=== PATIENT | female | born 1970 | race Caucasian/White ===

== ENCOUNTER 2016-07-31 03:39 | Emergency (ER) | payer MEDICAID ==
[2016-07-31] MEDS ORDERED: NORMAL SALINE 1000 ML 1,000 ML IV ONE (04:21)
[2016-07-31] MEDS ORDERED: HYDROMORPHONE HCL INJ/PF 2 MG/ML AMPULE IV ONE ×2 (04:21→05:36)
[2016-07-31] MEDS ORDERED: PROMETHAZINE HCL INJ 25 MG/1 ML VIAL IM ONE (04:21)
--- NOTE | 2016-07-31 04:26 | ER Document Report ---
ED GI/ - General Chief Complaint: Flank Pain Stated Complaint: FLANK PAIN Time seen by provider: 04:15 Notes: Patient is a 45-year-old female that comes emergency department for chief complaint of left flank pain and vomiting 2, symptoms started earlier today. Patient has a history of kidney stones, states she has had multiple lithotripsies, she is unsure if she had a fever earlier. No change in bowel function. Patient also states she has a history of epilepsy, she has had a hysterectomy, appendectomy, right ovarian removal. TRAVEL OUTSIDE OF THE [place] IN LAST 30 DAYS: No - Related Data Allergies/Adverse Reactions: ibuprofen Allergy (Unknown, Unverified 04/03/16 19:25) ketorolac [From Toradol] Allergy (Unknown, Verified 04/03/16 19:25) meperidine [From Demerol] Allergy (Unknown, Verified 04/03/16 19:25) codeine Allergy (Verified 04/03/16 19:25) iodine Allergy (Verified 04/03/16 19:25) morphine Allergy (Verified 04/03/16 19:25) sumatriptan [From Imitrex] Allergy (Verified 04/03/16 19:25) tramadol [From Ultram] Allergy (Verified 04/03/16 19:25) Past Medical History - General Information source: Patient - Social History Smoking Status: Current Every Day Smoker Chew tobacco use (# tins/day): No Frequency of alcohol use: None Drug Abuse: None Lives with: Family Family History: Reviewed & Not Pertinent Patient has suicidal ideation: No Patient has homicidal ideation: No Neurological Medical History: Reports: Hx Seizures Renal/ Medical History: Reports: Hx Kidney Stones. Denies: Hx Peritoneal Dialysis GI Medical History: Reports: Hx Ulcer Psychiatric Medical History: Reports: Hx Anxiety Past Surgical History: Reports: Hx Appendectomy, Hx Section, Hx Gynecologic Surgery - Right Ovary, Hx Hysterectomy - Immunizations Immunizations up to date: Yes Hx Diphtheria, Pertussis, Tetanus Vaccination: Yes Review of Systems - Review of Systems Constitutional: No symptoms reported EENT: No symptoms reported Cardiovascular: No symptoms reported Respiratory: No symptoms reported Gastrointestinal: See HPI Genitourinary: See HPI Female Genitourinary: No symptoms reported Musculoskeletal: No symptoms reported Skin: No symptoms reported Hematologic/Lymphatic: No symptoms reported Neurological/Psychological: No symptoms reported Physical Exam - Vital signs Vitals: Temp Pulse Resp BP Pulse Ox 98.5 F 106 H 20 138/79 H 98 07/31/16 03:45 07/31/16 03:45 07/31/16 03:45 07/31/16 03:45 07/31/16 03:45 Interpretation: Normal - General General appearance: Appears well, Alert In distress: None - HEENT Head: Normocephalic, Atraumatic Eyes: Normal Conjunctiva: Normal Extraocular movements intact: Yes Eyelashes: Normal Pupils: PERRL Sinus: Normal Nasal: Normal Mouth/Lips: Normal Mucous membranes: Normal Pharynx: Normal Neck: Normal - Respiratory Respiratory status: No respiratory distress Chest status: Nontender Breath sounds: Normal Chest palpation: Normal - Cardiovascular Rhythm: Regular. No: Tachycardia - No tachycardia on my exam Heart sounds: Normal auscultation, S1 appreciated, S2 appreciated Murmur: No - Abdominal Inspection: Normal Distension: No distension Bowel sounds: Normal Tenderness: Nontender - Soft and nontender abdomen. No: Tender, Guarding Organomegaly: No organomegaly - Back Back: CVA tenderness - Tender only in the left flank, right flank is unremarkable - Extremities General upper extremity: Normal inspection, Nontender, Normal color, Normal ROM , Normal temperature General lower extremity: Normal inspection, Nontender, Normal color, Normal ROM , Normal temperature, Normal weight bearing. No: Mary's sign - Neurological Neuro grossly intact: Yes Cognition: Normal Orientation: AAOx4 [place] Coma Scale Eye Opening: Spontaneous Stephen Coma Scale Verbal: Oriented [place] Coma Scale Motor: Obeys Commands [place] Coma Scale Total: 15 Speech: Normal Motor strength normal: LUE, RUE, LLE, RLE Sensory: Normal - Psychological Associated symptoms: Normal affect, Normal mood - Skin Skin Temperature: Warm Skin Moisture: Dry Skin Color: Normal Course - Re-evaluation Re-evalutation: Ultrasound performed, patient states she has had many CAT scans. Discussed with Dr. Lewis per [facility] guidelines. CBC shows mild leukocytosis, urine shows hematuria with 1+ bacteria, culture placed. No fever. Soft abdomen. Patient with flank tenderness on the left side, absolutely no tenderness on the right side, however ultrasound shows mild right-sided hydronephrosis and only left nephrolithiasis with no concerning abnormalities. Clinical picture slightly inconsistent. Patient and her abdomen treated with pain medication, nausea medication. No vomiting. Patient appears and continued to appear alert and well-appearing. Giving nausea medicine, patient has Flomax, patient instructed to follow-up with urology for additional management. Discussed return precautions. Patient states understanding and agreement. - Vital Signs Vital signs: Temp Pulse Resp BP Pulse Ox 98.7 F 87 18 112/72 97 07/31/16 06:33 07/31/16 06:33 07/31/16 06:33 07/31/16 06:33 07/31/16 06:33 - Laboratory Result Diagrams: 07/31/16 04:29 07/31/16 04:29 Laboratory results interpreted by me: 07/31/16 07/31/16 03:55 04:29 WBC 14.0 H Absolute Neutrophils 9.1 H Urine Blood LARGE H Discharge - Discharge Clinical Impression: Nephrolithiasis, Hematuria Vomiting Qualifiers: Vomiting type: unspecified Vomiting Intractability: non-intractable Nausea presence: with nausea Qualified Code(s): R11.2 - Nausea with vomiting, unspecified Condition: Stable Disposition: HOME, SELF-CARE Additional Instructions: Ultrasound shows slight amount of fluid on the kidney on the right side, not on the left side, there are stones on the left side. No evidence of infection is seen. Continue Flomax, take nausea medication and pain medication. Follow-up with urology referral given below. Return immediately to the emergency department for any concerning or worsening symptoms including uncontrollable vomiting, fever, severe pain, etc. There are 2 offices, one with limited openings in [place], others in [place]: [facility] [address] [place] [id number] [facility] [address], [place] [address] Prescriptions: Promethazine HCl [Phenergan 25 mg Tablet] 1 - 2 tab PO Q6H PRN #20 tablet PRN Reason:
[2016-07-31 04:37] LABS: ABSOLUTE BASOPHILS # (AUTO) 0.1 10^3/uL (0.0-0.2); ABSOLUTE EOSINOPHILS # (AUTO) 0.2 10^3/uL (0.0-0.6); ABSOLUTE LYMPHOCYTES (AUTO) 3.8 10^3/uL (0.5-4.7); ABSOLUTE MONOCYTES (AUTO) 0.8 10^3/uL (0.1-1.4); ABSOLUTE NEUT (AUTO) 9.1 10^3/uL (1.7-8.2); BASOPHILS % (AUTO) 0.8 % (0-2); EOSINOPHILS % (AUTO) 1.5 % (0-6); HEMATOCRIT 45.2 % (36.0-47.0); HEMOGLOBIN 14.9 g/dL (12.0-15.5); HGB HCT DIFFERENCE -0.5; MEAN CORPUSCULAR HEMOGLOBIN 30.8 pg (27.0-33.4); MEAN CORPUSCULAR HGB CONC 32.9 g/dL (32.0-36.0); MEAN CORPUSCULAR VOLUME 94 fl (80-97); MONOCYTES % (AUTO) 5.6 % (3-13); RED BLOOD COUNT 4.83 10^6/uL (3.72-5.28); RED CELL DISTRIBUTION WIDTH 13.4 % (11.5-14.0); SEGMENTED NEUTROPHILS % (AUTO) 65.1 % (42-78)
[2016-07-31 04:42] LABS: APPEARANCE,URINE SLIGHTLY-CLOUDY; BILIRUBIN,URINE NEGATIVE (NEGATIVE); GLUCOSE, URINE NEGATIVE (NEGATIVE); KETONES,URINE NEGATIVE (NEGATIVE); LEUKOCYTE ESTERASE,URINE NEGATIVE (NEGATIVE); NITRITE,URINE NEGATIVE (NEGATIVE); PROTEIN,URINE NEGATIVE (NEGATIVE); URINE SPECIFIC GRAVITY 1.011; UROBILINOGEN,URINE NEGATIVE mg/dL (<2.0)
[2016-07-31] MEDS ORDERED: PROMETHAZINE HCL INJ 25 MG/1 ML VIAL ONE (04:46)
[2016-07-31 04:49] LABS: ANION GAP 12 (5-19); BLOOD UREA NITROGEN 11 mg/dL (7-20); CARBON DIOXIDE 27 mmol/L (22-30); CHLORIDE 104 mmol/L (98-107); GLUCOSE 97 mg/dL (75-110); POTASSIUM 4.6 mmol/L (3.6-5.0); SODIUM 142.9 mmol/L (137-145)
[2016-07-31] MEDS ORDERED: HYDROCODONE/ACETAMINOPHEN 5-325 MG 6 TAB/DSPK PO PRN (05:36)
[2016-07-31] MEDS ORDERED: ONDANSETRON HCL INJ/PF 4 MG/2 ML SDV IV ONE (05:36)
[2016-07-31 06:36] VITALS: BP 112/72
== END 2016-07-31 06:20 | disposition home or self-care (01) ==
LOC: ER 03:39
DX: N20.0 Calculus of kidney (principal); R31.9 Hematuria, unspecified; R11.2 Nausea with vomiting, unspecified; R10.9 Unspecified abdominal pain; F17.200 Nicotine dependence, unspecified, uncomplicated; Z87.442 Personal history of urinary calculi; Z88.6 Allergy status to analgesic agent
CPT/HCPCS: 96376; 99284; 96372; 96361; 96374; 96375; 36415; 87086; 85025; 80048; 81001; 76775; J1170; J2550; J2405; J7030

== ENCOUNTER 2016-08-07 01:09 | Emergency (ER) | payer MEDICAID ==
[2016-08-07] MEDS ORDERED: NORMAL SALINE 1000 ML 1,000 ML IV PRN (02:29)
[2016-08-07] MEDS ORDERED: PROCHLORPERAZINE EDISYLATE INJ 10 MG/2 ML VIAL IM ONE (02:30)
[2016-08-07] MEDS ORDERED: DIPHENHYDRAMINE HCL 50 MG/ML VIAL IV ONE (02:30)
[2016-08-07] MEDS ORDERED: HYDROCODONE/ACETAMINOPHEN 5-325 MG 6 TAB/DSPK PO PRN (02:31)
--- NOTE | 2016-08-07 02:36 | ER Document Report ---
ED GI/ - General Chief Complaint: Flank Pain Stated Complaint: FLANK PAIN Time seen by provider: 02:32 Mode of Arrival: Ambulatory Information source: Patient Notes: 45-year-old female presents to ED for left flank pain nausea and vomiting for the last 2 weeks worse tonight. Patient states she has vomited at least 6 times in the last 24 hours patient states she took Tylenol at 1900 with no relief. TRAVEL OUTSIDE OF THE [place] IN LAST 30 DAYS: No - HPI Patient complains to provider of: Flank pain, Vomiting Onset: Other - 2 weeks worse starting yesterday Timing/Duration: Intermittent Quality of pain: Sharp, Throbbing Severity at maximum: Severe Severity in ED: Severe Pain Level: 5 Location: Left flank Vaginal bleeding (Compared to normal period): None Associated symptoms: Nausea, Vomiting Exacerbated by: Denies Relieved by: Denies Similar symptoms previously: Yes Recently seen / treated by doctor: Yes - Related Data Allergies/Adverse Reactions: ibuprofen Allergy (Unknown, Unverified 04/03/16 19:25) ketorolac [From Toradol] Allergy (Unknown, Verified 04/03/16 19:25) meperidine [From Demerol] Allergy (Unknown, Verified 04/03/16 19:25) aspirin Allergy (Verified 08/07/16 01:16) codeine Allergy (Verified 04/03/16 19:25) egg Allergy (Verified 08/07/16 01:16) iodine Allergy (Verified 04/03/16 19:25) Latex, Natural Rubber Allergy (Verified 08/07/16 01:16) morphine Allergy (Verified 04/03/16 19:25) shellfish derived Allergy (Verified 08/07/16 01:16) sumatriptan [From Imitrex] Allergy (Verified 04/03/16 19:25) tramadol [From Ultram] Allergy (Verified 04/03/16 19:25) Past Medical History - General Information source: Patient - Social History Smoking Status: Current Every Day Smoker Cigarette use (# per day): Yes - half pack a day Chew tobacco use (# tins/day): No Smoking Education Provided: Yes - less than 2 minutes Frequency of alcohol use: Rare Drug Abuse: None Occupation: disabled Lives with: Alone Family History: Arthritis, CAD, COPD, CVA, DM, Hyperlipidemia, Hypertension, Malignancy - Past Medical History Cardiac Medical History: Reports: None Pulmonary Medical History: Reports: Hx Asthma EENT Medical History: Reports: None Neurological Medical History: Reports: Hx Seizures Endocrine Medical History: Reports: None Renal/ Medical History: Reports: Hx Kidney Stones, Hx Ovarian Cysts GI Medical History: Reports: Hx Ulcer Musculoskeltal Medical History: Reports Hx Arthritis, Reports Hx Musculoskeletal Trauma Skin Medical History: Reports None Psychiatric Medical History: Reports: Hx Anxiety, Hx Depression Traumatic Medical History: Reports: Hx Fractures - Hands wrist knees multiple others Infectious Medical History: Reports: None Past Surgical History: Reports: Hx Appendectomy, Hx Section, Hx Gynecologic Surgery - Right Ovary, Hx Hysterectomy - Immunizations Immunizations up to date: Yes Hx Diphtheria, Pertussis, Tetanus Vaccination: Yes Review of Systems - Review of Systems Constitutional: Recent illness EENT: No symptoms reported Cardiovascular: No symptoms reported Respiratory: No symptoms reported Gastrointestinal: Nausea, Vomiting Genitourinary: Dysuria, Flank pain Female Genitourinary: No symptoms reported Musculoskeletal: No symptoms reported Skin: No symptoms reported Hematologic/Lymphatic: No symptoms reported Neurological/Psychological: No symptoms reported -: Yes All other systems reviewed and negative Physical Exam - Vital signs Vitals: Temp Pulse BP Pulse Ox 99.0 F 120 H 143/73 H 97 08/07/16 01:15 08/07/16 01:15 08/07/16 01:15 08/07/16 01:15 Interpretation: Normal - General General appearance: Appears well, Alert - HEENT Head: Normocephalic, Atraumatic Eyes: Normal Pupils: PERRL - Respiratory Respiratory status: No respiratory distress Chest status: Nontender Breath sounds: Normal Chest palpation: Normal - Cardiovascular Rhythm: Regular Heart sounds: Normal auscultation Murmur: No - Abdominal Inspection: Normal Distension: No distension Bowel sounds: Normal Tenderness: Nontender Organomegaly: No organomegaly - Back Back: Normal, Nontender, CVA tenderness - Left. No: Tender, Deformity/step-off , Vertebra tenderness, Scars, Scoliosis, Wounds, Other - Extremities General upper extremity: Normal inspection, Nontender, Normal color, Normal ROM , Normal temperature General lower extremity: Normal inspection, Nontender, Normal color, Normal ROM , Normal temperature, Normal weight bearing. No: Mary's sign - Neurological Neuro grossly intact: Yes Cognition: Normal Orientation: AAOx4 [place] Coma Scale Eye Opening: Spontaneous [place] Coma Scale Verbal: Oriented Stephen Coma Scale Motor: Obeys Commands [place] Coma Scale Total: 15 Speech: Normal Motor strength normal: LUE, RUE, LLE, RLE Sensory: Normal - Psychological Associated symptoms: Normal affect, Normal mood - Skin Skin Temperature: Warm Skin Moisture: Dry Skin Color: Normal Course - Re-evaluation Re-evalutation: 08/07/16 04:[address] Jackson for pain WBCs the patient's medical history. She recommended. Patient be treated with Rocephin IV in the emergency room and discharged home with Keflex prescription. We'll also discharge home with prescription for Phenergan. Patient was given 2 L of IV fluid, Phenergan by mouth, Benadryl Iv, norco dispense pack for her pyelonephritis. 08/07/16 04:50 Pulse 95 at this time, patient has had a liter of fluids. - Vital Signs Vital signs: Temp Pulse Resp BP Pulse Ox 98.7 F 93 18 132/75 H 94 08/07/16 05:44 08/07/16 05:44 08/07/16 05:44 08/07/16 05:44 08/07/16 05:44 - Laboratory Result Diagrams: 08/07/16 03:28 08/07/16 03:28 Laboratory results interpreted by me: 08/07/16 08/07/16 01:37 03:28 WBC 21.8 H Seg Neuts % (Manual) 84 H Lymphocytes % (Manual) 12 L Abs Neuts (Manual) 18.3 H Urine Blood LARGE H Ur Leukocyte Esterase TRACE H Discharge - Discharge Clinical Impression: Pyelonephritis, Hematuria Vomiting Qualifiers: Vomiting type: unspecified Vomiting Intractability: non-intractable Nausea presence: with nausea Qualified Code(s): R11.2 - Nausea with vomiting, unspecified Condition: Stable Disposition: HOME, SELF-CARE Instructions: Family Physicians / Practices Additional Instructions: Pyelonephritis Your evaluation shows evidence of pyelonephritis. This is an infection in the kidney. Typical symptoms are fever, pain in the flank, pain on urination, and frequent urination. Many cases of pyelonephritis can be treated at home. Hospital care may be necessary for patients who are very ill, or elderly or . Pyelonephritis is treated with antibiotics. Be sure to take all the medication as prescribed. Drink plenty of liquids (about three quarts per day) . You may take acetaminophen for fever. You should feel significantly improved within two days. You should have a recheck of your urine in about one week to insure that the infection is gone. Return for a re-examination if your symptoms worsen in any way -- such as high fever, shaking chills, severe weakness or dizziness, severe pain, or inability to pass your urine. Hematuria Hematuria, or blood in your urine, can be caused by minor medical problems , such as a bladder infection, or by more serious medical conditions, such as kidney stones or even tumors of the bladder or kidney. If the cause of the hematuria is known (such as a bladder infection) and can be treated, it may not need further evaluation. If the cause is not known, it will usually require further evaluation by a specialist, such as a urologist. In particular, unexplained hematuria in the older patient must be evaluated to rule out a serious condition, such as a bladder or kidney tumor. If the hematuria worsens or you are passing clots and then are unable to urinate, you should be re-evaluated. A catheter may need to be placed in the bladder to permit passage of urine. If you develop high fever, severe pain, or other new or worsening symptoms, return to the Emergency Department for re- evaluation.Hematuria Rocephin You have been given an injection of an antibiotic called Rocephin ( ceftriaxone). Sometimes the injection must be combined with antibiotic pills. For some infections, such as an uncomplicated ear infection, Rocephin provides all the antibiotic that's needed. The antibiotic will be in your body for about two days. For serious infections, we usually repeat doses of Rocephin daily. Side effects are very unusual following a shot. Women may develop vaginal yeast infections, and babies can get yeast (thrush) in the mouth following the use of antibiotics. Contact your physician if you have symptoms with this medication. Allergy to this antibiotic can result in hives, wheezing, faintness, or itching. If symptoms of allergy occur, call the doctor at once. Cephalexin The antibiotic you've been prescribed is a member of the cephalosporin class. This type of antibiotic covers a wide variety of infections, including those of the skin, lungs, and urinary tract. It's useful for staph infections. This antibiotic is slightly similar to the penicillin family. In rare cases , a person who is allergic to penicillin will also be allergic to this medication. If you have had a severe allergic reaction to penicillin, and have not taken this antibiotic since that time, notify your doctor. Antibiotics which cover many germs ("broad spectrum" antibiotics) are more likely to cause diarrhea or "yeast" infections. Women prone to vaginal yeast problems may suffer an attack after taking this antibiotic. In infants, oral thrush (white spots "stuck" on the cheek) or yeast diaper rash may result. See your doctor if these problems occur. Call at once if you develop itching, hives , shortness of breath, or lightheadedness. Antinausea Medication You have been given a medication to suppress nausea and vomiting. This type of medication can be given as a shot, pill, or suppository. It will usually last for many hours. Pills and shots usually last six to eight hours, suppositories last about 12 hours. For the typical illness, only one or two doses of the medication may be necessary. Mild lightheadedness may occur. This type of medicine can cause drowsiness. Do not drive or operate dangerous machinery while under its influence. Do not mix with alcohol. See your doctor at once if you have muscle spasms or tightness, or uncontrollable motions (particularly of the neck, mouth, or jaw). Persistent vomiting or severe lightheadedness should also be evaluated by the physician. Intravenous (IV) Fluids As part of your care today, you received intravenous (IV) fluids. IV fluids are administered to patients who are dehydrated or to those who have certain chemical (electrolyte) abnormalities that need correcting. FOLLOW-UP CARE: If you have been referred to a physician for follow-up care, call the physician s office for an appointment as you were instructed or within the next two days. If you experience worsening or a significant change in your symptoms, notify the physician immediately or return to the Emergency Department at any time for re-evaluation. Please call your primary doctor in the morning and follow-up with a urologist as you has been instructed the last couple visits. [facility] [address] [place] [address] Telephone number Prescriptions: Promethazine HCl [Phenergan 25 mg Tablet] 25 mg PO Q6HP PRN #14 tablet PRN Reason: Cephalexin Monohydrate [Keflex 500 mg Capsule] 500 mg PO QID #28 capsule Forms: Smoking Cessation Education, Elevated Blood Pressure
[2016-08-07] MEDS ORDERED: PROMETHAZINE HCL 25 MG TABLET PO ONE (03:53)
[2016-08-07 04:06] LABS: HEMATOCRIT 41.1 % (36.0-47.0); HEMOGLOBIN 13.9 g/dL (12.0-15.5); HGB HCT DIFFERENCE 0.6; MEAN CORPUSCULAR HGB CONC 33.7 g/dL (32.0-36.0); MEAN CORPUSCULAR VOLUME 92 fl (80-97); RED BLOOD COUNT 4.47 10^6/uL (3.72-5.28); RED CELL DISTRIBUTION WIDTH 13.5 % (11.5-14.0); WHITE BLOOD COUNT 21.8 10^3/uL (4.0-10.5)
[2016-08-07 04:15] LABS: ALANINE AMINOTRANSFERASE 31 U/L (9-52); ALBUMIN 3.8 g/dL (3.5-5.0); ALKALINE PHOSPHATASE 109 U/L (38-126); ANION GAP 11 (5-19); ASPARTATE AMINO TRANSFERASE 21 U/L (14-36); BILIRUBIN,TOTAL 0.3 mg/dL (0.2-1.3); BLOOD UREA NITROGEN 14 mg/dL (7-20); CALCIUM 9.8 mg/dL (8.4-10.2); CARBON DIOXIDE 27 mmol/L (22-30); CHLORIDE 105 mmol/L (98-107); CREATININE RESULT 0.58 mg/dL (0.52-1.25); GLUCOSE 101 mg/dL (75-110); POTASSIUM 4.3 mmol/L (3.6-5.0); SODIUM 142.7 mmol/L (137-145); TOTAL PROTEIN 6.9 g/dL (6.3-8.2)
[2016-08-07 04:29] LABS: BASOPHILS % (MANUAL) 0 % (0-2); EOSINOPHILS % (MANUAL) 0 % (0-6); LYMPHOCYTES % (MANUAL) 12 % (13-45); RBC MORPHOLOGY COMMENT NORMO-CYTIC/CHROMIC; TOTAL CELLS COUNTED 100
[2016-08-07] MEDS ORDERED: CEFTRIAXONE RTU 1 GM/D5W 50 ML IV ONE (04:36)
[2016-08-07] MEDS ORDERED: HYDROMORPHONE HCL INJ/PF 2 MG/ML AMPULE IV ONE (04:36)
[2016-08-07 05:22] LABS: APPEARANCE,URINE SLIGHTLY-CLOUDY; BILIRUBIN,URINE NEGATIVE (NEGATIVE); GLUCOSE, URINE NEGATIVE (NEGATIVE); KETONES,URINE NEGATIVE (NEGATIVE); LEUKOCYTE ESTERASE,URINE TRACE (NEGATIVE); NITRITE,URINE NEGATIVE (NEGATIVE); PROTEIN,URINE NEGATIVE (NEGATIVE); URINE SPECIFIC GRAVITY 1.015; UROBILINOGEN,URINE NEGATIVE mg/dL (<2.0)
[2016-08-07 05:30] LABS: URINE BARBITURATES SCREEN NEGATIVE; URINE METHADONE SCREEN NEGATIVE; URINE OPIATES LOW NEGATIVE; URINE PHENCYCLIDINE SCREEN NEGATIVE
[2016-08-07 05:53] VITALS: BP 132/75
== END 2016-08-07 05:45 | disposition home or self-care (01) ==
LOC: ER 01:09
DX: N12 Tubulo-interstitial nephritis, not specified as acute or chronic (principal); R31.9 Hematuria, unspecified; R11.2 Nausea with vomiting, unspecified; R10.9 Unspecified abdominal pain; F17.210 Nicotine dependence, cigarettes, uncomplicated
CPT/HCPCS: 99284; 96361; 96375; 96365; 36415; 87086; 85025; 80053; 81001; 80307; J1200; J1170; J3490; J7030; J0696

== ENCOUNTER 2016-09-15 01:56 | Emergency (ER) | payer MEDICAID ==
[2016-09-15 02:37] LABS: HEMATOCRIT 48.2 % (36.0-47.0); HEMOGLOBIN 16.3 g/dL (12.0-15.5); HGB HCT DIFFERENCE 0.7; MEAN CORPUSCULAR HGB CONC 33.7 g/dL (32.0-36.0); MEAN CORPUSCULAR VOLUME 92 fl (80-97); RED BLOOD COUNT 5.25 10^6/uL (3.72-5.28); RED CELL DISTRIBUTION WIDTH 13.2 % (11.5-14.0)
[2016-09-15 02:40] LABS: APPEARANCE,URINE CLOUDY; BILIRUBIN,URINE NEGATIVE (NEGATIVE); GLUCOSE, URINE NEGATIVE (NEGATIVE); KETONES,URINE NEGATIVE (NEGATIVE); LEUKOCYTE ESTERASE,URINE TRACE (NEGATIVE); NITRITE,URINE NEGATIVE (NEGATIVE); PROTEIN,URINE 30 mg/dL (NEGATIVE); URINE SPECIFIC GRAVITY 1.021; UROBILINOGEN,URINE NEGATIVE mg/dL (<2.0)
[2016-09-15 02:44] LABS: ALANINE AMINOTRANSFERASE 36 U/L (9-52); ALBUMIN 4.8 g/dL (3.5-5.0); ALKALINE PHOSPHATASE 113 U/L (38-126); ANION GAP 17 (5-19); ASPARTATE AMINO TRANSFERASE 22 U/L (14-36); BILIRUBIN,TOTAL 0.5 mg/dL (0.2-1.3); BLOOD UREA NITROGEN 13 mg/dL (7-20); CALCIUM 10.5 mg/dL (8.4-10.2); CARBON DIOXIDE 22 mmol/L (22-30); CHLORIDE 101 mmol/L (98-107); CREATININE RESULT 0.63 mg/dL (0.52-1.25); GLUCOSE 206 mg/dL (75-110); LIPASE 65.1 U/L (23-300); POTASSIUM 3.7 mmol/L (3.6-5.0); SODIUM 140.4 mmol/L (137-145); TOTAL PROTEIN 7.7 g/dL (6.3-8.2)
[2016-09-15 02:58] LABS: WHITE BLOOD COUNT 33.2 10^3/uL (4.0-10.5)
[2016-09-15] MEDS ORDERED: MORPHINE SULFATE 10 MG/ML INJ IV PRN (03:01)
[2016-09-15] MEDS ORDERED: NORMAL SALINE 1000 ML 1,000 ML IV ONE (03:02)
[2016-09-15 03:05] LABS: BAND NEUTROPHILS % (MANUAL) 1 % (3-5); BASOPHILS % (MANUAL) 0 % (0-2); EOSINOPHILS % (MANUAL) 1 % (0-6); LYMPHOCYTES % (MANUAL) 9 % (13-45); TOTAL CELLS COUNTED 100
[2016-09-15 03:07] LABS: RBC MORPHOLOGY COMMENT NORMO-CYTIC/CHROMIC; TOXIC GRANULATION SLIGHT
[2016-09-15 03:50] LABS: VENOUS BLOOD BASE EXCESS 0.9 mmol/L; VENOUS BLOOD HCO3 25.3 mmol/L (20-32); VENOUS BLOOD PCO2 39.8 mmHg (35-63); VENOUS BLOOD PH 7.42 (7.30-7.42)
--- NOTE | 2016-09-15 04:05 | ER Document Report ---
ED GI/ - General Mode of Arrival: Ambulatory Information source: Patient TRAVEL OUTSIDE OF THE [place] IN LAST 30 DAYS: No - HPI Patient complains to provider of: Flank pain - right Onset: Other - see above Timing/Duration: Persistent Quality of pain: Sharp Location: Right flank Associated symptoms: Nausea, Vomiting Similar symptoms previously: Yes Recently seen / treated by doctor: Yes <LIDIA ASENCIO - Last Filed: 09/15/16 05:45> <ALICIA ANGELES - Last Filed: 09/15/16 06:13> - General Chief Complaint: Flank Pain Stated Complaint: POSSIBLE KIDNEY STONES Notes: Patient is a 45-year-old female that presents to the emergency department today with complaints of right-sided flank pain. Patient states her pain began 2 days ago. Patient states she has a history of kidney stones with over 20 lithotripsy procedures done for any removal. Patient states her urine is darker than normal. Patient states she has had mild nausea and vomiting but denies any fevers. (LIDIA ASENCIO) - Related Data Allergies/Adverse Reactions: ibuprofen Allergy (Unknown, Unverified 04/03/16 19:25) ketorolac [From Toradol] Allergy (Unknown, Verified 04/03/16 19:25) meperidine [From Demerol] Allergy (Unknown, Verified 04/03/16 19:25) aspirin Allergy (Verified 08/07/16 01:16) codeine Allergy (Verified 04/03/16 19:25) egg Allergy (Verified 08/07/16 01:16) iodine Allergy (Verified 04/03/16 19:25) Latex, Natural Rubber Allergy (Verified 08/07/16 01:16) morphine Allergy (Verified 04/03/16 19:25) shellfish derived Allergy (Verified 08/07/16 01:16) sumatriptan [From Imitrex] Allergy (Verified 04/03/16 19:25) tramadol [From Ultram] Allergy (Verified 04/03/16 19:25) Past Medical History - General Information source: Patient - Social History Smoking Status: Current Every Day Smoker Cigarette use (# per day): Yes Chew tobacco use (# tins/day): No Frequency of alcohol use: Rare Drug Abuse: None Lives with: Family Family History: Reviewed & Not Pertinent Patient has suicidal ideation: No Patient has homicidal ideation: No Pulmonary Medical History: Reports: Hx Asthma Neurological Medical History: Reports: Hx Seizures Renal/ Medical History: Reports: Hx Kidney Stones, Hx Ovarian Cysts GI Medical History: Reports: Hx Ulcer Musculoskeltal Medical History: Reports Hx Arthritis, Reports Hx Musculoskeletal Trauma Psychiatric Medical History: Reports: Hx Anxiety, Hx Depression Traumatic Medical History: Reports: Hx Fractures - Hands wrist knees multiple others Past Surgical History: Reports: Hx Appendectomy, Hx Section, Hx Gynecologic Surgery - Right Ovary, Hx Hysterectomy, Other - Lithotripsy over 20 times - Immunizations Immunizations up to date: Yes Hx Diphtheria, Pertussis, Tetanus Vaccination: Yes <LIDIA ASENCIO - Last Filed: 09/15/16 05:45> Review of Systems - Review of Systems Constitutional: denies: Fever EENT: No symptoms reported Cardiovascular: No symptoms reported Respiratory: No symptoms reported Gastrointestinal: See HPI, Nausea, Vomiting Genitourinary: See HPI, Flank pain, Hematuria Female Genitourinary: No symptoms reported Musculoskeletal: No symptoms reported Skin: No symptoms reported Hematologic/Lymphatic: No symptoms reported Neurological/Psychological: No symptoms reported -: Yes All other systems reviewed and negative <LIDIA ASENCIO Last Filed: 09/15/16 05:45> Physical Exam - General General appearance: Appears well, Alert In distress: None - HEENT Head: Normocephalic, Atraumatic Eyes: Normal Extraocular movements intact: Yes - Respiratory Respiratory status: No respiratory distress Chest status: Nontender Breath sounds: Normal - Cardiovascular Rhythm: Regular, Irregularly irregular Heart sounds: Normal auscultation Murmur: No - Abdominal Inspection: Normal Distension: No distension Bowel sounds: Normal Tenderness: Nontender - Back Back: CVA tenderness - right - Extremities General upper extremity: Normal inspection, Normal ROM. No: Edema General lower extremity: Normal inspection, Normal ROM. No: Edema - Neurological Neuro grossly intact: Yes Cognition: Normal Orientation: AAOx4 Speech: Normal - Psychological Associated symptoms: Normal affect, Normal mood - Skin Skin Temperature: Warm Skin Moisture: Dry Skin Color: Normal <LIDIA ASENCIO - Last Filed: 09/15/16 05:45> Course - Laboratory Result Diagrams: 09/15/16 02:13 09/15/16 02:13 <LIDIA ASENCIO - Last Filed: 09/15/16 05:45> - Laboratory Result Diagrams: 09/15/16 02:13 09/15/16 02:13 <ALICIA ANGELES - Last Filed: 09/15/16 06:13> - Re-evaluation Re-evalutation: 09/15/16 05:10 Patient resents complaining of right flank pain. She says she has a history of multiple stones. She says she's had multiple stenting and lithotripsy. The patient says that she was here but a month ago for same. She says that her pain is usually on the left but now the pain has been on the right. The patient's states she's had nausea vomiting with this. She denies any fevers. She denies any burning when she urinates or increase for frequency but says that it is dark. On exam, patient alert and oriented chest also still patient is afebrile nontoxic appearing. Patient has generally unremarkable exam with exception of some tenderness in the flank region on mild percussion. Abdomen soft nontender without peritoneal findings. Medical decision making: Patient has a reported history of multiple episodes of ureterolithiasis. On review of her medical record it appears that the last couple of time she has been here she has only had nephrolithiasis without any obstructive ureterolithiasis. Her white count is elevated today and her blood glucose is also elevated. She denies history of diabetes and wonder if she may have recently been on a course of steroids that she has not recalled. The patient is a smoker. Her last visit to the ED her white count was also similarly elevated at that time and it was decided to treat her empirically for pyelo. Given this laboratory abnormality, we will get an ultrasound of the kidneys. We'll treat empirically for urinary tract infection albeit the urinalysis does not appear grossly infected. Patient has multiple medication allergies and so thiazine type medications are being used for nausea and pain. Please note that patient is on the "A list" for narcotic medications. 09/15/16 05:58 09/15/16 06:10 I gave patient results of her tests which showed an unremarkable ultrasound and I did discuss with her the elevated white cell count that has been seen the last 2 times she has visited here. She denied any recent steroid use. She is not a diabetic. I told her that we would empirically start her on some antibiotics although I was not convinced that she is having a urinary tract infection. She is to follow-up with her urologist at her already scheduled Sunday appointment, however I have asked her to follow-up with her medical doctor for repeat labs to evaluate further for this white blood cell count elevation. Patient acknowledges understanding and agrees with the plan. (ALICIA ANGELES) - Vital Signs Vital signs: Temp Pulse Resp BP Pulse Ox 97.8 F 127 H 16 118/83 97 09/15/16 02:02 09/15/16 02:02 09/15/16 04:01 09/15/16 04:00 09/15/16 04:01 - Laboratory Laboratory results interpreted by me: 09/15/16 09/15/16 09/15/16 02:13 02:13 02:13 WBC 33.2 H* Hgb 16.3 H Hct 48.2 H Band Neutrophils % 1 L Lymphocytes % (Manual) 9 L Abs Neuts (Manual) 25.9 H Abs Monocytes (Manual) 2.7 H Glucose 206 H Lactic Acid Calcium 10.5 H Urine Protein 30 H Urine Blood LARGE H Ur Leukocyte Esterase TRACE H Urine Ascorbic Acid 40 H 09/15/16 03:22 WBC Hgb Hct Band Neutrophils % Lymphocytes % (Manual) Abs Neuts (Manual) Abs Monocytes (Manual) Glucose Lactic Acid 2.9 H Calcium Urine Protein Urine Blood Ur Leukocyte Esterase Urine Ascorbic Acid Discharge <LIDIA ASENCIO - Last Filed: 09/15/16 05:45> <ALICIA ANGELES - Last Filed: 09/15/16 06:13> - Discharge Clinical Impression: Flank pain Leukocytosis Qualifiers: Leukocytosis type: unspecified Qualified Code(s): D72.829 - Elevated white blood cell count, unspecified UTI (urinary tract infection) Qualifiers: Urinary tract infection type: site unspecified Hematuria presence: with hematuria Qualified Code(s): N39.0 - Urinary tract infection, site not specified ; R31.9 - Hematuria, unspecified Condition: Stable Disposition: HOME, SELF-CARE Instructions: Urinary Tract Infection ([facility]) Additional Instructions: Your exam and ultrasound in the emergency department was unremarkable. Please follow-up with your physicians for ongoing evaluation and management of your chronic flank pain. Take antibiotics as prescribed for presumed urinary tract infection. Follow-up with primary physician for repeat labs for increased white blood cell count of unknown significance (since your August 2016). Return to emergency department for fevers greater than 100.3 despite Tylenol or Motrin, vomiting so not to keep down fluids, or other worsening or concerning symptoms. Chronic Pain Control Stress, inactivity, and depression make pain more severe regardless of the cause of the pain. Stress and poor physical condition can cause pain such as headaches and backache. Relaxation: Rest in a quiet place with your eyes closed for 20 minutes twice daily. Concentrate on a pleasant image, or simply "feel" your breathing. Clear your mind. Stress management: Deal with your "stressors." Either take action, or eliminate the stressor from your life. Don't let things hang over you. Accept those things you can't change. Nutrition: Eat small, balanced meals -- don't skip, don't overeat. Meals should be high-carbohydrate, low-sugar, low-fat. Exercise: Exercise helps painful conditions and eases stress. Get 30 minutes of moderate exercise, five days a week. Do an activity that does not flare your pain. Precautions: Pain which continues to disrupt daily activities, or which changes in nature, requires a medical evaluation. Pain Clinic referral is available. Pain Management Dr. Bora Madrigal [address] [place] [address] We do not manage chronic pain in the Emergency Department. We will try to appropriately help you through an acute flare of your chronic painful condition , but for on-going chronic pain that does not improve, you will need to see your private doctor or paint spray tender. We do not provide repeated medication management of chronic painful conditions. If you wish, we can provide the name of local pain management physicians. Prescriptions: Cephalexin Monohydrate [Keflex 500 mg Capsule] 500 mg PO QID #20 capsule Scribe Attestation: 09/15/16 06:07 I personally performed the services described in the documentation, reviewed and edited the documentation which was dictated to the scribe in my presence, and it accurately records my words and actions. (ALICIA ANGELES) Scribe Documentation - Scribe Written by Keith:: Keith Markham, 09/15/2016 0418 acting as scribe for :: Landeros <LIDIA ASENCIO - Last Filed: 09/15/16 05:45>
[2016-09-15] MEDS ORDERED: DIPHENHYDRAMINE HCL 50 MG/ML VIAL IV ONE (04:24)
[2016-09-15] MEDS ORDERED: METOCLOPRAMIDE HCL INJ/PF 10 MG/2 ML SDV IV ONE (04:24)
[2016-09-15] MEDS ORDERED: PROMETHAZINE HCL INJ 25 MG/1 ML VIAL IV ONE (05:05)
[2016-09-15] MEDS ORDERED: PROMETHAZINE HCL INJ 25 MG/1 ML VIAL ONE (05:13)
[2016-09-15] MEDS ORDERED: CEPHALEXIN 500 MG CAPSULE PO ONE (06:01)
[2016-09-15 06:21] VITALS: BP 116/83
== END 2016-09-15 06:21 | disposition home or self-care (01) ==
LOC: ER 01:56
DX: N39.0 Urinary tract infection, site not specified (principal); R31.9 Hematuria, unspecified; D72.829 Elevated white blood cell count, unspecified; R73.9 Hyperglycemia, unspecified; R11.2 Nausea with vomiting, unspecified; R10.9 Unspecified abdominal pain; J45.909 Unspecified asthma, uncomplicated; F17.210 Nicotine dependence, cigarettes, uncomplicated; Z87.442 Personal history of urinary calculi; Z98.890 Other specified postprocedural states; Z88.6 Allergy status to analgesic agent; Z88.8 Allergy status to other drugs, medicaments and biological substances; Z88.5 Allergy status to narcotic agent; Z91.012 Allergy to eggs; Z91.040 Latex allergy status; Z91.013 Allergy to seafood
CPT/HCPCS: 99284; 96361; 96374; 96375; 36415; 87040; 87086; 83690; 85025; 80053; 81001; 82803; 83605; 76770; J1200; J2765; J2550; J7030

== ENCOUNTER 2016-11-15 06:22 | Emergency (ER) | payer MEDICAID ==
[2016-11-15] MEDS ORDERED: OXYCODONE-ACETAMINOPHEN 5-325 MG TABLET ONE (09:53)
== END 2016-11-15 11:25 | disposition home or self-care (01) ==
LOC: ER 06:22
DX: G40.909 Epilepsy, unspecified, not intractable, without status epilepticus (principal); M25.531 Pain in right wrist; S52.501D Unspecified fracture of the lower end of right radius, subsequent encounter for closed fracture with routine healing; W19.XXXD Unspecified fall, subsequent encounter; F43.9 Reaction to severe stress, unspecified; Z87.442 Personal history of urinary calculi; Z90.710 Acquired absence of both cervix and uterus
CPT/HCPCS: 99283

== ENCOUNTER 2016-11-26 15:38 | Emergency (ER) | payer MEDICAID ==
--- NOTE | 2016-11-26 16:35 | RADIOLOGY REPORT (SQ) ---
EXAM DESCRIPTION: FOREARM RIGHT COMPLETED DATE/TIME: 11/26/2016 4:24 pm REASON FOR STUDY: pain COMPARISON: 11/15/2016 NUMBER OF VIEWS: Two views. TECHNIQUE: Two radiographic images acquired of the right forearm, including elbow and wrist in at le ast one projection. LIMITATIONS: Study is limited somewhat due to the overlying cast. FINDINGS: MINERALIZATION: Normal. BONES: The previously described fracture of the distal radius is again identified. SOFT TISSUES: No obvious swelling or foreign body. OTHER: Orthopedic pins are identified transfixing the distal radius. IMPRESSION: Overlying cast. Orthopedic pins are identified transfixing the distal radius. Other fi ndings as noted above TECHNICAL DOCUMENTATION: JOB ID: [id number] [employer]- All Rights Reserved
--- NOTE | 2016-11-26 16:41 | ER Document Report ---
ED General - General Chief Complaint: Arm Pain Stated Complaint: RIGHT ARM INJURY Time Seen by Provider: 11/26/16 15:46 Information source: Patient TRAVEL OUTSIDE OF THE [place] IN LAST 30 DAYS: No - HPI Onset: Just prior to arrival Quality of pain: Achy, Throbbing Pain Level: 2 Associated symptoms: None - Related Data Allergies/Adverse Reactions: ibuprofen Allergy (Unknown, Unverified 04/03/16 19:25) ketorolac [From Toradol] Allergy (Unknown, Verified 04/03/16 19:25) meperidine [From Demerol] Allergy (Unknown, Verified 04/03/16 19:25) aspirin Allergy (Verified 08/07/16 01:16) codeine Allergy (Verified 04/03/16 19:25) egg Allergy (Verified 08/07/16 01:16) iodine Allergy (Verified 04/03/16 19:25) Latex, Natural Rubber Allergy (Verified 08/07/16 01:16) morphine Allergy (Verified 04/03/16 19:25) shellfish derived Allergy (Verified 08/07/16 01:16) sumatriptan [From Imitrex] Allergy (Verified 04/03/16 19:25) tramadol [From Ultram] Allergy (Verified 04/03/16 19:25) Past Medical History - General Information source: Patient - Social History Smoking Status: Current Every Day Smoker Family History: Reviewed & Not Pertinent Pulmonary Medical History: Reports: Hx Asthma Neurological Medical History: Reports: Hx Seizures Renal/ Medical History: Reports: Hx Kidney Stones, Hx Ovarian Cysts. Denies: Hx Peritoneal Dialysis GI Medical History: Reports: Hx Ulcer Musculoskeltal Medical History: Reports Hx Arthritis, Reports Hx Musculoskeletal Trauma Psychiatric Medical History: Reports: Hx Anxiety, Hx Depression Traumatic Medical History: Reports: Hx Fractures - Hands wrist knees multiple others Past Surgical History: Reports: Hx Appendectomy, Hx Section, Hx Gynecologic Surgery - Right Ovary, Hx Hysterectomy, Other - Lithotripsy over 20 times - Immunizations Immunizations up to date: Yes Hx Diphtheria, Pertussis, Tetanus Vaccination: Yes Review of Systems - Review of Systems Constitutional: No symptoms reported EENT: No symptoms reported Cardiovascular: No symptoms reported Respiratory: No symptoms reported Gastrointestinal: No symptoms reported Genitourinary: No symptoms reported Female Genitourinary: No symptoms reported Musculoskeletal: No symptoms reported Skin: No symptoms reported Hematologic/Lymphatic: No symptoms reported Neurological/Psychological: No symptoms reported Physical Exam - Vital signs Vitals: Temp Pulse Resp BP Pulse Ox 98.3 F 106 H 16 160/75 H 95 11/26/16 15:42 11/26/16 15:42 11/26/16 15:42 11/26/16 15:42 11/26/16 15:42 Interpretation: Normal - General General appearance: Appears well, Alert - HEENT Head: Normocephalic, Atraumatic Eyes: Normal Pupils: PERRL - Respiratory Respiratory status: No respiratory distress Chest status: Nontender Breath sounds: Normal Chest palpation: Normal - Cardiovascular Rhythm: Regular Heart sounds: Normal auscultation Murmur: No - Abdominal Inspection: Normal Distension: No distension Bowel sounds: Normal Tenderness: Nontender Organomegaly: No organomegaly - Back Back: Normal, Nontender - Extremities General upper extremity: Normal inspection, Nontender, Normal color, Normal ROM , Normal temperature General lower extremity: Normal inspection, Nontender, Normal color, Normal ROM , Normal temperature, Normal weight bearing. No: Mary's sign - Neurological Neuro grossly intact: Yes Cognition: Normal Orientation: AAOx4 [place] Coma Scale Eye Opening: Spontaneous Stephen Coma Scale Verbal: Oriented Stephen Coma Scale Motor: Obeys Commands [place] Coma Scale Total: 15 Speech: Normal Motor strength normal: LUE, RUE, LLE, RLE Sensory: Normal - Psychological Associated symptoms: Normal affect, Normal mood - Skin Skin Temperature: Warm Skin Moisture: Dry Skin Color: Normal Course - Re-evaluation Re-evalutation: 11/26/16 16:38 46-year-old female presented to the emergency room today stating she had discomfort to her right wrist the same location where she fell and previously broken she does have pinholing in place. She does have a splint on and she fell striking that area and has pain to it since. She states the fall occurred on Sunday night. She has got rapid capillary refill good distal pulses. Should be noted that she is taking Percocet for pain she freely admits that needs some help take the edge off beyond that. 11/26/16 16:38 - Vital Signs Vital signs: Temp Pulse Resp BP Pulse Ox 98.3 F 106 H 16 160/75 H 95 11/26/16 15:42 11/26/16 15:42 11/26/16 15:42 11/26/16 15:42 11/26/16 15:42 - Diagnostic Test Radiology reviewed: Image reviewed, Reports reviewed Discharge - Discharge Clinical Impression: Wrist fracture Qualifiers: Encounter type: subsequent encounter Laterality: right Fracture healing: with delayed healing Qualified Code(s): S62.101G - Fracture of unspecified carpal bone, right wrist, subsequent encounter for fracture with delayed healing Disposition: HOME, SELF-CARE Additional Instructions: Radial Head Fracture You have a fracture of the radial head. This fracture involves the forearm bone, called the radius, right where it attaches to the outer side of the elbow. The fracture is usually caused by falling down and catching yourself with your hand. The initial treatment is a splint or sling, and ice packs. Usually, this fracture is not put in a cast. The major treatment goal for a radial head fracture is preserving full motion of the elbow. The elbow is immobilized just long enough for the pain and swelling to improve (a week to 10 days). Then [id number] exercises are started. The fracture is usually healed in about four weeks. Call the doctor or return at once if pain or swelling become severe, or if numbness develops in the arm. OP your current orthopedist continue take medications as prescribed by her orthopedist being the Vicodin I will be providing with some medication to help above and beyond that. Prescriptions: Gabapentin [Neurontin 100 mg Capsule] 100 mg PO Q12 #60 capsule
[2016-11-26 17:39] VITALS: BP 130/84
== END 2016-11-26 17:28 | disposition home or self-care (01) ==
LOC: ER 15:38
DX: S62.101G Fracture of unspecified carpal bone, right wrist, subsequent encounter for fracture with delayed healing (principal); M79.601 Pain in right arm; F17.200 Nicotine dependence, unspecified, uncomplicated; X58.XXXD Exposure to other specified factors, subsequent encounter
CPT/HCPCS: 99283

== ENCOUNTER 2017-03-21 03:03 | Emergency (ER) | payer MEDICAID ==
[2017-03-21] MEDS ORDERED: NORMAL SALINE 1000 ML 1,000 ML IV ONE ×2 (03:58→06:19)
[2017-03-21] MEDS ORDERED: DIPHENHYDRAMINE HCL 50 MG/ML VIAL IV ONE (03:58)
[2017-03-21] MEDS ORDERED: ONDANSETRON HCL INJ/PF 4 MG/2 ML SDV IV ONE (03:58)
[2017-03-21 03:59] LABS: APPEARANCE,URINE CLOUDY; BILIRUBIN,URINE NEGATIVE (NEGATIVE); CALCIUM OXALATE CRYSTALS,URINE FEW /HPF; GLUCOSE, URINE NEGATIVE (NEGATIVE); KETONES,URINE NEGATIVE (NEGATIVE); LEUKOCYTE ESTERASE,URINE TRACE (NEGATIVE); NITRITE,URINE NEGATIVE (NEGATIVE); PROTEIN,URINE NEGATIVE (NEGATIVE); URINE SPECIFIC GRAVITY 1.023; UROBILINOGEN,URINE NEGATIVE mg/dL (<2.0)
[2017-03-21] MEDS ORDERED: PROMETHAZINE HCL 25 MG TABLET PO ONE (04:03)
--- NOTE | 2017-03-21 04:05 | ER Document Report ---
ED Medical Screen (RME) - General Chief Complaint: Possible Kidney Stone Stated Complaint: LEFT SIDE PAIN Time Seen by Provider: 03/21/17 04:03 Notes: 46-year-old female, chief complaint of sudden onset of left flank pain this afternoon, reports vomiting. History of multiple kidney stones, multiple lithotripsies, stents. No current stent. Also has had a hysterectomy. Denies fever. TRAVEL OUTSIDE OF THE [place] IN LAST 30 DAYS: No - Related Data Allergies/Adverse Reactions: ibuprofen Allergy (Unknown, Verified 03/21/17 03:05) ketorolac [From Toradol] Allergy (Unknown, Verified 03/21/17 03:05) meperidine [From Demerol] Allergy (Unknown, Verified 03/21/17 03:05) aspirin Allergy (Verified 03/21/17 03:05) codeine Allergy (Verified 03/21/17 03:05) egg Allergy (Verified 03/21/17 03:05) iodine Allergy (Verified 03/21/17 03:05) Latex, Natural Rubber Allergy (Verified 03/21/17 03:05) morphine Allergy (Verified 03/21/17 03:05) shellfish derived Allergy (Verified 03/21/17 03:05) sumatriptan [From Imitrex] Allergy (Verified 03/21/17 03:05) tramadol [From Ultram] Allergy (Verified 03/21/17 03:05) Past Medical History Pulmonary Medical History: Reports: Hx Asthma Neurological Medical History: Reports: Hx Seizures Renal/ Medical History: Reports: Hx Kidney Stones, Hx Ovarian Cysts. Denies: Hx Peritoneal Dialysis GI Medical History: Reports: Hx Ulcer Musculoskeltal Medical History: Reports Hx Arthritis, Reports Hx Musculoskeletal Trauma Psychiatric Medical History: Reports: Hx Anxiety, Hx Depression Traumatic Medical History: Reports: Hx Fractures - Hands wrist knees multiple others Past Surgical History: Reports: Hx Appendectomy, Hx Section, Hx Gynecologic Surgery - Right Ovary, Hx Hysterectomy, Hx Orthopedic Surgery - Rt. Wrist, Other - Lithotripsy over 20 times - Immunizations Immunizations up to date: Yes Hx Diphtheria, Pertussis, Tetanus Vaccination: Yes Physical Exam - Vital signs Vitals: Temp Pulse Resp BP Pulse Ox 98.7 F 117 H 22 H 117/76 97 03/21/17 03:11 03/21/17 03:11 03/21/17 03:11 03/21/17 03:11 03/21/17 03:11 - Cardiovascular Rhythm: Regular, Tachycardia Heart sounds: Normal auscultation, S1 appreciated, S2 appreciated - Abdominal Inspection: Normal Tenderness: Nontender. No: Tender Course - Re-evaluation Re-evalutation: Patient is tachycardic and does appear to be uncomfortable, soft abdomen in triage, based on patient's visits and history will need objective findings to give narcotic medications, in addition to this patient is allergic to many things including ibuprofen, Toradol, morphine, and she states she is allergic to Zofran in triage. - Vital Signs Vital signs: Temp Pulse Resp BP Pulse Ox 98.7 F 117 H 22 H 117/76 97 03/21/17 03:11 03/21/17 03:11 03/21/17 03:11 03/21/17 03:11 03/21/17 03:11 - Laboratory Result Diagrams: 03/21/17 03:00 03/21/17 03:00 Laboratory results interpreted by me: 03/21/17 03:30 Urine Blood LARGE H Ur Leukocyte Esterase TRACE H
[2017-03-21 04:12] LABS: HEMATOCRIT 43.2 % (36.0-47.0); HGB HCT DIFFERENCE 1.8; MEAN CORPUSCULAR HEMOGLOBIN 31.9 pg (27.0-33.4); MEAN CORPUSCULAR HGB CONC 34.7 g/dL (32.0-36.0); MEAN CORPUSCULAR VOLUME 92 fl (80-97); RED BLOOD COUNT 4.69 10^6/uL (3.72-5.28); RED CELL DISTRIBUTION WIDTH 14.1 % (11.5-14.0); WHITE BLOOD COUNT 24.9 10^3/uL (4.0-10.5)
[2017-03-21 04:18] LABS: ALANINE AMINOTRANSFERASE 35 U/L (9-52); ALBUMIN 4.4 g/dL (3.5-5.0); ALKALINE PHOSPHATASE 119 U/L (38-126); ANION GAP 12 (5-19); ASPARTATE AMINO TRANSFERASE 29 U/L (14-36); BILIRUBIN,DIRECT 0.4 mg/dL (0.0-0.4); BILIRUBIN,TOTAL 0.5 mg/dL (0.2-1.3); BLOOD UREA NITROGEN 10 mg/dL (7-20); CALCIUM 9.6 mg/dL (8.4-10.2); CARBON DIOXIDE 30 mmol/L (22-30); CHLORIDE 104 mmol/L (98-107); CREATININE RESULT 0.54 mg/dL (0.52-1.25); GLUCOSE 128 mg/dL (75-110); POTASSIUM 3.7 mmol/L (3.6-5.0); SODIUM 145.6 mmol/L (137-145); TOTAL PROTEIN 7.5 g/dL (6.3-8.2)
[2017-03-21 04:30] LABS: BAND NEUTROPHILS % (MANUAL) 1 % (3-5); BASOPHILS % (MANUAL) 0 % (0-2); EOSINOPHILS % (MANUAL) 1 % (0-6); LYMPHOCYTES % (MANUAL) 25 % (13-45); RBC MORPHOLOGY COMMENT NORMO-CYTIC/CHROMIC; TOTAL CELLS COUNTED 100; TOXIC GRANULATION 1+; TOXIC VACUOLATION PRESENT
--- NOTE | 2017-03-21 05:10 | RADIOLOGY REPORT (SQ) ---
EXAM DESCRIPTION: [employer] COMPLETED DATE/TIME: 03/21/2017 4:46 am REASON FOR STUDY: ? passing stones, ? hydronephrosis COMPARISON: 09/15/2016. CT, 04/03/2016. TECHNIQUE: Dynamic and static grayscale images acquired of the kidneys and bladder and recorded on P ACS. Additional selected color Doppler and spectral images recorded. LIMITATIONS: None. FINDINGS: RIGHT KIDNEY: 11.1 cm kidney, 0.7 cm renal stone, 1.5 cm hypoechoic lesion of the upper p ole without vascularity likely due to a benign cyst not definitively characterized. No hydronephrosi s and no hydroureter. LEFT KIDNEY: 11.7 cm left kidney, punctate echogenicity which may indicate a stone, and no hydroneph rosis -hydroureter. BLADDER: No masses. Moderate nondistention. OTHER FINDINGS: No other significant finding. IMPRESSION: No acute findings. Bilateral nephrolithiasis. TECHNICAL DOCUMENTATION: JOB ID: [id number] [employer]- All Rights Reserved
[2017-03-21] MEDS ORDERED: IPRATROPIUM/ALBUTEROL 0.5-2.5 MG/3 ML AMPUL NEB ONE (06:18)
[2017-03-21] MEDS ORDERED: CEFTRIAXONE 1 GM/D5W RTU 1 GM/50 ML RTUPB IV ONE (06:18)
[2017-03-21] MEDS ORDERED: HYDROMORPHONE HCL INJ/PF 2 MG/ML AMPULE IV ONE ×2 (06:18→07:46)
--- NOTE | 2017-03-21 06:18 | ER Document Report ---
ED GI/ - General Mode of Arrival: Ambulatory Information source: Patient TRAVEL OUTSIDE OF THE [place] IN LAST 30 DAYS: No - HPI Patient complains to provider of: Flank pain Location: Left flank Associated symptoms: Other - see above <DIONNE MILLIGAN - Last Filed: 03/21/17 11:05> <NANCY SANCHEZ - Last Filed: 03/21/17 14:47> - General Chief Complaint: Possible Kidney Stone Stated Complaint: LEFT SIDE PAIN Time Seen by Provider: 03/21/17 04:03 Notes: Patient is a 46 year old female who presents to the ED with complaints of left flank pain. She has a hx of kidney stones and states she lasted passed a stone 3-4 days ago. She has had lithotripsy several times in the past. She does not currently have a Urologist in the area. She had a reported fever of 102.1 at home, she took Tylenol. She has not been on steroids recently. She denies wheezing other than baseline from her smoking. (DIONNE MILLIGAN) - Related Data Allergies/Adverse Reactions: ibuprofen Allergy (Unknown, Verified 03/21/17 03:05) ketorolac [From Toradol] Allergy (Unknown, Verified 03/21/17 03:05) meperidine [From Demerol] Allergy (Unknown, Verified 03/21/17 03:05) aspirin Allergy (Verified 03/21/17 03:05) codeine Allergy (Verified 03/21/17 03:05) egg Allergy (Verified 03/21/17 03:05) iodine Allergy (Verified 03/21/17 03:05) Latex, Natural Rubber Allergy (Verified 03/21/17 03:05) morphine Allergy (Verified 03/21/17 03:05) shellfish derived Allergy (Verified 03/21/17 03:05) sumatriptan [From Imitrex] Allergy (Verified 03/21/17 03:05) tramadol [From Ultram] Allergy (Verified 03/21/17 03:05) ondansetron [From Zofran (as hydrochloride)] Adverse Reaction (Mild, Verified 05:37) VOMITING Past Medical History - General Information source: Patient - Social History Smoking Status: Current Every Day Smoker Family History: Reviewed & Not Pertinent Patient has suicidal ideation: No Patient has homicidal ideation: No Pulmonary Medical History: Reports: Hx Asthma Neurological Medical History: Reports: Hx Seizures Renal/ Medical History: Reports: Hx Kidney Stones, Hx Ovarian Cysts. Denies: Hx Peritoneal Dialysis GI Medical History: Reports: Hx Ulcer Musculoskeltal Medical History: Reports Hx Arthritis, Reports Hx Musculoskeletal Trauma Psychiatric Medical History: Reports: Hx Anxiety, Hx Depression Traumatic Medical History: Reports: Hx Fractures - Hands wrist knees multiple others Past Surgical History: Reports: Hx Appendectomy, Hx Section, Hx Gynecologic Surgery - Right Ovary, Hx Hysterectomy, Hx Orthopedic Surgery - Rt. Wrist, Other - Lithotripsy over 20 times - Immunizations Immunizations up to date: Yes Hx Diphtheria, Pertussis, Tetanus Vaccination: Yes <DIONNE MILLIGAN - Last Filed: 03/21/17 11:05> Review of Systems - Review of Systems Constitutional: See HPI, Fever EENT: No symptoms reported Cardiovascular: No symptoms reported Respiratory: No symptoms reported Gastrointestinal: No symptoms reported Genitourinary: See HPI, Flank pain Female Genitourinary: No symptoms reported Musculoskeletal: No symptoms reported Skin: No symptoms reported Hematologic/Lymphatic: No symptoms reported Neurological/Psychological: No symptoms reported <DIONNE MILLIGAN - Last Filed: 03/21/17 11:05> Physical Exam - General General appearance: Alert - HEENT Head: Normocephalic, Atraumatic Eyes: Normal Extraocular movements intact: Yes Pupils: PERRL Mucous membranes: Dry - Respiratory Respiratory status: No respiratory distress Breath sounds: Normal - Cardiovascular Rhythm: Regular Heart sounds: Normal auscultation Murmur: No - Abdominal Inspection: Normal Distension: No distension Tenderness: Nontender - Back Back: CVA tenderness - left, to palpation - Extremities General upper extremity: Normal inspection, Normal ROM General lower extremity: Normal inspection, Normal ROM - Neurological Neuro grossly intact: Yes - Psychological Associated symptoms: Normal affect, Normal mood - Skin Skin Temperature: Warm Skin Moisture: Dry Skin Color: Normal <DIONNE MILLIGAN - Last Filed: 03/21/17 11:05> - Vital signs Vitals: Temp Pulse Resp BP Pulse Ox 98.7 F 117 H 22 H 117/76 97 03/21/17 03:11 03/21/17 03:11 03/21/17 03:11 03/21/17 03:11 03/21/17 03:11 Course - Laboratory Result Diagrams: 03/21/17 03:00 03/21/17 03:00 <DIONNE MILLIGAN - Last Filed: 03/21/17 11:05> - Laboratory Result Diagrams: 03/21/17 03:00 03/21/17 03:00 - Diagnostic Test Radiology reviewed: Reports reviewed <NANCY SANCHEZ - Last Filed: 03/21/17 14:47> - Re-evaluation Re-evalutation: 03/21/17 Patient presents with flank pain. Patient is a history of kidney stones. Patient has multiple allergies except to Dilaudid and Phenergan. Patient does have leukocytosis. Patient is feeling better after 2 doses of Dilaudid. Patient does not have much evidence for infection on urine but culture will be sent. Blood cultures have been sent. Patient is requesting to go home to let her dog out. Patient appears well clinically and is afebrile. No longer tachycardic after 1 L of fluids and taking p.o. without difficulty. Patient will be discharged home with pain medication and antibiotics. She is to return immediately if she has any worsening or concerning symptoms. Understands and agrees with plan. (NANCY SANCHEZ) - Vital Signs Vital signs: Temp Pulse Resp BP Pulse Ox 98.2 F 82 18 140/79 H 99 03/21/17 08:21 03/21/17 08:21 03/21/17 08:21 03/21/17 08:21 03/21/17 08:21 - Laboratory Laboratory results interpreted by me: 03/21/17 03/21/17 03/21/17 03:00 03:00 03:30 WBC 24.9 H RDW 14.1 H Band Neutrophils % 1 L Abs Neuts (Manual) 16.7 H Abs Lymphs (Manual) 6.2 H Abs Monocytes (Manual) 1.7 H Sodium 145.6 H Glucose 128 H Urine Blood LARGE H Ur Leukocyte Esterase TRACE H Discharge <DIONNE MILLIGAN - Last Filed: 03/21/17 11:05> <NANCY SANCHEZ - Last Filed: 03/21/17 14:47> - Discharge Clinical Impression: Kidney stone UTI (urinary tract infection) Qualifiers: Urinary tract infection type: site unspecified Hematuria presence: with hematuria Qualified Code(s): N39.0 - Urinary tract infection, site not specified ; R31.9 - Hematuria, unspecified Condition: Stable Disposition: HOME, SELF-CARE Instructions: Kidney Stone ([facility]), Urinary Tract Infection ([facility]) Prescriptions: Cephalexin Monohydrate [Keflex 500 mg Capsule] 500 mg PO Q6H 10 Days capsule Oxycodone HCl/Acetaminophen [Percocet 5-325 mg Tablet] 1 - 2 tab PO Q4H PRN #15 tablet PRN Reason: Promethazine HCl [Phenergan 25 mg Tablet] 1 - 2 tab PO Q6H PRN #15 tablet PRN Reason: Forms: Return to Work Scribe Attestation: 03/21/17 14:47 I personally performed the services described in the documentation, reviewed and edited the documentation which was dictated to the scribe in my presence, and it accurately records my words and actions. (NANCY SANCHEZ) Scribe Documentation - Scribe Written by [place]:: john Blake, 03/21/2017, [id number] acting as scribe for :: Renetta <DIONNE MILLIGAN - Last Filed: 03/21/17 11:05>
[2017-03-21 08:22] VITALS: BP 140/79
== END 2017-03-21 08:36 | disposition home or self-care (01) ==
LOC: ER 03:03
DX: N20.0 Calculus of kidney (principal); N39.0 Urinary tract infection, site not specified; R31.9 Hematuria, unspecified; R10.9 Unspecified abdominal pain; R50.9 Fever, unspecified; F17.200 Nicotine dependence, unspecified, uncomplicated
CPT/HCPCS: 96376; 99284; 96361; 96375; 96365; 36415; 87040; 87086; 85025; 80053; 81001; 76775; J1200; J1170; J3490; J7030; J0696; J7620

== ENCOUNTER 2017-03-24 03:42 | Emergency (ER) | payer MEDICAID ==
[2017-03-24 03:50] VITALS: BP 160/87
--- NOTE | 2017-03-24 04:09 | ER Document Report ---
ED GI/ - General Mode of Arrival: Wheelchair Information source: Patient TRAVEL OUTSIDE OF THE [place] IN LAST 30 DAYS: No <CURTIS WALDRON - Last Filed: 03/24/17 05:55> <PAM GHOTRA - Last Filed: 03/24/17 06:05> - General Chief Complaint: Possible Kidney Stone Stated Complaint: FLANK PAIN Time Seen by Provider: 03/24/17 03:55 Notes: Patient is a 46-year-old female presented to the emergency department for kidney stones and flank pain. Patient has come to the emergency department multiple times for the symptoms and states that her body makes lots of kidney stones. Patient states that this episode of pain started on Sunday, 2016. Patient states that she has been having fevers, nausea, vomiting and dark urine. States that her temperature has been as high as 102.6 F. Patient was seen in the emergency department on 03/21/2017 and given Keflex, Percocet and Phenergan for a UTI and kidney stones. Patient states that she has taken Flomax previously but has not been taking any Azo or Pyridium for her symptoms. Patient states that after she left the emergency department on Sunday, 2016, she attempted to see several urologists and was unsuccessful in getting evaluated by a urologist. Patient states that she has had over 32 kidney stones , some taken out through lithotripsy and 15 passed through her ureter. Patient has had stones removed it does [facility] and at [place]. Patient states she is not able to get to these facilities that she has been looking for a urologist that is local. Patient also has a history of epilepsy, asthma, ovarian cysts, anxiety and depression. Patient states that she does not have a primary care physician but that she has Medicaid insurance. (CURTIS WALDRON) - Related Data Allergies/Adverse Reactions: ibuprofen Allergy (Unknown, Verified 03/24/17 03:48) ketorolac [From Toradol] Allergy (Unknown, Verified 03/24/17 03:48) meperidine [From Demerol] Allergy (Unknown, Verified 03/24/17 03:48) aspirin Allergy (Verified 03/24/17 03:48) codeine Allergy (Verified 03/24/17 03:48) egg Allergy (Verified 03/24/17 03:48) iodine Allergy (Verified 03/24/17 03:48) Latex, Natural Rubber Allergy (Verified 03/24/17 03:48) morphine Allergy (Verified 03/24/17 03:48) shellfish derived Allergy (Verified 03/24/17 03:48) sumatriptan [From Imitrex] Allergy (Verified 03/24/17 03:48) tramadol [From Ultram] Allergy (Verified 03/24/17 03:48) ondansetron [From Zofran (as hydrochloride)] Adverse Reaction (Mild, Verified 03:48) VOMITING Past Medical History - General Information source: Patient - Social History Smoking Status: Current Every Day Smoker Chew tobacco use (# tins/day): No Smoking Education Provided: Yes - >5 minutes Frequency of alcohol use: None Drug Abuse: None Family History: None Patient has suicidal ideation: No Patient has homicidal ideation: No Pulmonary Medical History: Reports: Hx Asthma Neurological Medical History: Reports: Hx Seizures - Epilepsy Renal/ Medical History: Reports: Hx Kidney Stones, Hx Ovarian Cysts GI Medical History: Reports: Hx Ulcer Musculoskeltal Medical History: Reports Hx Arthritis, Reports Hx Musculoskeletal Trauma Psychiatric Medical History: Reports: Hx Anxiety, Hx Depression Traumatic Medical History: Reports: Hx Fractures - Hands wrist knees multiple others Past Surgical History: Reports: Hx Appendectomy, Hx Section, Hx Gynecologic Surgery - Right Ovary, Hx Hysterectomy, Hx Orthopedic Surgery - Rt. Wrist, Other - Lithotripsy over 20 times - Immunizations Immunizations up to date: Yes Hx Diphtheria, Pertussis, Tetanus Vaccination: Yes <CURTIS WALDRON - Last Filed: 03/24/17 05:55> Review of Systems - Review of Systems Constitutional: Chills, Fever EENT: No symptoms reported Cardiovascular: No symptoms reported Respiratory: No symptoms reported Gastrointestinal: Abdominal pain, Nausea, Vomiting Genitourinary: See HPI, Flank pain Female Genitourinary: No symptoms reported Musculoskeletal: See HPI Skin: No symptoms reported Hematologic/Lymphatic: No symptoms reported Neurological/Psychological: No symptoms reported -: Yes All other systems reviewed and negative <CURTIS WALDRON - Last Filed: 03/24/17 05:55> Physical Exam <CURTIS WALDRON - Last Filed: 03/24/17 05:55> <PAM GHOTRA - Last Filed: 03/24/17 06:05> - Vital signs Vitals: Temp Pulse Resp BP Pulse Ox 98.8 F 129 H 22 H 160/87 H 92 03/24/17 03:47 03/24/17 03:47 03/24/17 03:47 03/24/17 03:47 03/24/17 03:47 - Notes Notes: GENERAL: Alert, interacts well, appears uncomfortable, rocking back and forth and holding left side, making noises like she is crying but no tears are produced. HEAD: Normocephalic, atraumatic. EYES: Pupils equal, round, and reactive to light. Extraocular movements intact. ENT: Oral mucosa moist, tongue midline. NECK: Full range of motion. Supple. Trachea midline. LUNGS: Clear to auscultation bilaterally, no wheezes, rales, or rhonchi. No respiratory distress. HEART: Tachycardia. Regular rhythm. No murmurs, gallops, or rubs. ABDOMEN: Soft, non-tender. Non-distended. Bowel sounds present in all 4 quadrants. BACK: Left CVA tenderness to percussion. EXTREMITIES: Moves all 4 extremities spontaneously. No edema, radial pulses 2/4 bilaterally. No cyanosis. NEUROLOGICAL: Alert and oriented x3. Normal speech. PSYCH: Normal affect, normal mood. SKIN: Warm, dry, normal turgor. No rashes or lesions noted. (CURTIS WALDRON) Course - Laboratory Result Diagrams: 03/24/17 04:30 03/24/17 04:30 <CURTIS WALDRON - Last Filed: 03/24/17 05:55> - Laboratory Result Diagrams: 03/24/17 04:30 03/24/17 04:30 <PAM GHOTRA - Last Filed: 03/24/17 06:05> - Re-evaluation Re-evalutation: 03/24/17 06:02 CBC shows an improvement in her leukocytosis it is now down to 19.7, CMP is unremarkable, test is negative, urinalysis continues to show large blood and trace leukocyte esterase, 41 squamous epithelial cells in the first and 19 in the second along with some calcium oxalate crystals. Reviewing the laboratory studies her clean catch midstream urine from 3 days ago showed staph coag negative staph. This culture is being repeated, though I do recommend she stay on the Keflex as her leukocytosis is improving. CT scan shows bilateral small nephrolithiasis but no evidence of any stones in the ureters. At present I do not have any source for her pain. Pain has been treated with Percocet and Pyridium, patient continues to complain of pain despite Percocet, Pyridium and Phenergan. At present and there is no quantitative evidence to support a process that would cause this degree of pain. CAT scan does not show any signs of pyelonephritis, I do wonder if some of her tachycardia may actually be coming from withdrawal from narcotics rather than from an infectious process, particularly given the fact that she is tachycardic and hypertensive, as opposed to hypotensive. I will stress once again to the patient how important it is for her to follow-up with a urologist. I find it very concerning that she states she saw 3 urologists and 2 of them told her that they "do not see patients with kidney stones". Patient will be referred to [facility] as I know they see patients with kidney stones and they are in fact accepting new patients. Patient is discharged to home with instructions to use Pyridium for pain. 03/24/17 06:03 (PAM GHOTRA) - Vital Signs Vital signs: Temp Pulse Resp BP Pulse Ox 98.8 F 129 H 22 H 160/87 H 92 03/24/17 03:47 03/24/17 03:47 03/24/17 03:47 03/24/17 03:47 03/24/17 03:47 - Laboratory Laboratory results interpreted by me: 03/24/17 03/24/17 03/24/17 04:30 04:30 04:30 WBC 19.7 H Absolute Neutrophils 14.3 H Glucose 120 H Urine Blood LARGE H Ur Leukocyte Esterase TRACE H Discharge <CURTIS WALDRON - Last Filed: 03/24/17 05:55> <PAM GHOTRA - Last Filed: 03/24/17 06:05> - Discharge Clinical Impression: Tobacco abuse, Tobacco abuse counseling Urinary tract infection Qualifiers: Urinary tract infection type: acute cystitis Hematuria presence: with hematuria Qualified Code(s): N30.01 - Acute cystitis with hematuria Hypertension Qualifiers: Hypertension type: essential hypertension Qualified Code(s): I10 - Essential ( primary) hypertension Condition: Stable Disposition: HOME, SELF-CARE Additional Instructions: Today you do have blood in your urine however there are no kidney stones in your ureters. The stones that are in your kidneys do not cause pain. You continue to have an elevated white blood cell count but it is getting better. Please taking the Keflex as it is directed until it is gone. You may use the Pyridium, available [id number] brand name Azo but also available generically to help decrease some of your pain. It is very important that you follow-up with a urologist to find out why you still have blood in your urine if it is not being caused by stones passing from your kidney into your bladder. Forms: Smoking Cessation Education, Elevated Blood Pressure Scribe Attestation: 03/24/17 06:05 I personally performed the services described in the documentation, reviewed and edited the documentation which was dictated to the scribe in my presence, and it accurately records my words and actions. (PAM GHOTRA) Scribe Documentation - Scribe Written by Keith:: Keith Lyons, 03/24/2017 05:00 acting as scribe for :: Michael <CURTIS WALDRON - Last Filed: 03/24/17 05:55>
[2017-03-24] MEDS ORDERED: PROMETHAZINE HCL 25 MG TABLET PO ONE (04:11)
[2017-03-24] MEDS ORDERED: OXYCODONE-ACETAMINOPHEN 5-325 MG TABLET PO ONE (04:15)
[2017-03-24 04:41] LABS: ABSOLUTE BASOPHILS # (AUTO) 0.2 10^3/uL (0.0-0.2); ABSOLUTE EOSINOPHILS # (AUTO) 0.3 10^3/uL (0.0-0.6); ABSOLUTE NEUT (AUTO) 14.3 10^3/uL (1.7-8.2); BASOPHILS % (AUTO) 1.1 % (0-2); EOSINOPHILS % (AUTO) 1.3 % (0-6); HEMATOCRIT 41.3 % (36.0-47.0); HEMOGLOBIN 14.2 g/dL (12.0-15.5); HGB HCT DIFFERENCE 1.3; LYMPHOCYTES % (AUTO) 20.2 % (13-45); MEAN CORPUSCULAR HEMOGLOBIN 31.5 pg (27.0-33.4); MEAN CORPUSCULAR HGB CONC 34.4 g/dL (32.0-36.0); MEAN CORPUSCULAR VOLUME 91 fl (80-97); RED BLOOD COUNT 4.52 10^6/uL (3.72-5.28); RED CELL DISTRIBUTION WIDTH 13.9 % (11.5-14.0); SEGMENTED NEUTROPHILS % (AUTO) 72.4 % (42-78); WHITE BLOOD COUNT 19.7 10^3/uL (4.0-10.5)
[2017-03-24 04:54] LABS: ALANINE AMINOTRANSFERASE 26 U/L (9-52); ALKALINE PHOSPHATASE 114 U/L (38-126); ANION GAP 11 (5-19); ASPARTATE AMINO TRANSFERASE 16 U/L (14-36); BILIRUBIN,DIRECT 0.3 mg/dL (0.0-0.4); BILIRUBIN,TOTAL 0.3 mg/dL (0.2-1.3); BLOOD UREA NITROGEN 9 mg/dL (7-20); CARBON DIOXIDE 27 mmol/L (22-30); CHLORIDE 106 mmol/L (98-107); CREATININE RESULT 0.53 mg/dL (0.52-1.25); GLUCOSE 120 mg/dL (75-110); POTASSIUM 3.7 mmol/L (3.6-5.0); SODIUM 144.3 mmol/L (137-145); TOTAL PROTEIN 6.7 g/dL (6.3-8.2)
[2017-03-24 05:02] LABS: APPEARANCE,URINE SLIGHTLY-CLOUDY; BILIRUBIN,URINE NEGATIVE (NEGATIVE); CALCIUM OXALATE CRYSTALS,URINE FEW /HPF; GLUCOSE, URINE NEGATIVE (NEGATIVE); KETONES,URINE NEGATIVE (NEGATIVE); LEUKOCYTE ESTERASE,URINE TRACE (NEGATIVE); NITRITE,URINE NEGATIVE (NEGATIVE); PROTEIN,URINE NEGATIVE (NEGATIVE); URINE SPECIFIC GRAVITY 1.026; UROBILINOGEN,URINE NEGATIVE mg/dL (<2.0)
[2017-03-24] MEDS ORDERED: PHENAZOPYRIDINE HCL 200 MG TABLET PO ONE (05:25)
--- NOTE | 2017-03-24 05:50 | RADIOLOGY REPORT (SQ) ---
EXAM DESCRIPTION: CT LTD RENAL STONE PROTOCOL ON COMPLETED DATE/TIME: 03/24/2017 5:15 am REASON FOR STUDY: flank pain, hematuria COMPARISON: 04/03/2016. TECHNIQUE: CT scan of the abdomen and pelvis performed without intravenous or oral contrast. Images reviewed with lung, soft tissue, and bone windows. Reconstructed coronal and sagittal MPR images revi ewed. All images stored on PACS. All CT scanners at this facility use dose modulation, iterative reconstruction, and/or weight based d osing when appropriate to reduce radiation dose to as low as reasonably achievable (ALARA). [facility]: Dose Right [facility]: CareDose [facility]: Dose Right [facility]: Teradose 4D [facility]: Smart [employer] RADIATION DOSE: Up-to-date CT equipment and radiation dose reduction techniques were employed. CTDIv ol: 10.4 mGy. DLP: 509 mGy-cm.mGy. LIMITATIONS: None. FINDINGS: LOWER CHEST: No significant findings. No nodules or infiltrates. NON-CONTRASTED LIVER, SPLEEN, ADRENALS: Evaluation limited by lack of IV contrast. 1.8 cm right adre nal adenoma with CT density of -3 Hounsfield units. PANCREAS: No masses. No peripancreatic inflammatory changes. GALLBLADDER: No identified stones by CT criteria. No inflammatory changes to suggest cholecystitis. RIGHT KIDNEY AND URETER: No suspicious masses. Assessment limited by lack of IV contrast. Stones me asuring up to 0.4 cm each. No hydronephrosis or hydroureter. LEFT KIDNEY AND URETER: No suspicious masses. Assessment limited by lack of IV contrast. Stones martina suring up to 0.3 cm each. No hydronephrosis or hydroureter. AORTA AND RETROPERITONEUM: No aneurysm. No retroperitoneal masses or adenopathy. BOWEL AND PERITONEAL CAVITY: No obvious masses or inflammatory changes. No free fluid. APPENDIX: No evidence of appendicitis. PELVIS, BLADDER, AND ABDOMINAL WALL:No abnormal masses. No free fluid. Bladder normal. BONES: No significant findings. OTHER: No other significant finding. IMPRESSION: No acute findings. Small bilateral nephrolithiasis. COMMENT: Quality ID # [id number]: Final reports with documentation of one or more dose reduction techniques (e.g., Automated exposure control, adjustment of the mA and/or kV according to patient size, use of iterative reconstruction technique) TECHNICAL DOCUMENTATION: JOB ID: [id number] All Rights Reserved
== END 2017-03-24 06:12 | disposition home or self-care (01) ==
LOC: ER 03:42
DX: N30.01 Acute cystitis with hematuria (principal); R10.9 Unspecified abdominal pain; R50.9 Fever, unspecified; R11.2 Nausea with vomiting, unspecified; R39.198 Other difficulties with micturition; F17.200 Nicotine dependence, unspecified, uncomplicated
CPT/HCPCS: 99406; 99284; 36415; 87086; 84703; 85025; 80053; 81001; 76380; J3490 ×2

== ENCOUNTER 2017-03-31 07:33 | Emergency (ER) | payer MEDICAID ==
[2017-03-31 07:43] VITALS: BP 143/60
[2017-03-31 08:21] LABS: ABSOLUTE BASOPHILS # (AUTO) 0.2 10^3/uL (0.0-0.2); ABSOLUTE EOSINOPHILS # (AUTO) 0.2 10^3/uL (0.0-0.6); ABSOLUTE LYMPHOCYTES (AUTO) 3.7 10^3/uL (0.5-4.7); ABSOLUTE MONOCYTES (AUTO) 0.9 10^3/uL (0.1-1.4); ABSOLUTE NEUT (AUTO) 14.3 10^3/uL (1.7-8.2); BASOPHILS % (AUTO) 1.1 % (0-2); EOSINOPHILS % (AUTO) 1.2 % (0-6); HEMATOCRIT 40.1 % (36.0-47.0); HEMOGLOBIN 13.9 g/dL (12.0-15.5); HGB HCT DIFFERENCE 1.6; LYMPHOCYTES % (AUTO) 19.1 % (13-45); MEAN CORPUSCULAR HGB CONC 34.6 g/dL (32.0-36.0); MEAN CORPUSCULAR VOLUME 92 fl (80-97); MONOCYTES % (AUTO) 4.8 % (3-13); RED BLOOD COUNT 4.34 10^6/uL (3.72-5.28); RED CELL DISTRIBUTION WIDTH 13.7 % (11.5-14.0); SEGMENTED NEUTROPHILS % (AUTO) 73.8 % (42-78); WHITE BLOOD COUNT 19.4 10^3/uL (4.0-10.5)
[2017-03-31 08:29] LABS: APPEARANCE,URINE SLIGHTLY-CLOUDY; BILIRUBIN,URINE NEGATIVE (NEGATIVE); GLUCOSE, URINE NEGATIVE (NEGATIVE); KETONES,URINE NEGATIVE (NEGATIVE); LEUKOCYTE ESTERASE,URINE SMALL (NEGATIVE); NITRITE,URINE NEGATIVE (NEGATIVE); PROTEIN,URINE NEGATIVE (NEGATIVE); URINE SPECIFIC GRAVITY 1.014; UROBILINOGEN,URINE NEGATIVE mg/dL (<2.0)
[2017-03-31 08:39] LABS: ALANINE AMINOTRANSFERASE 26 U/L (9-52); ALKALINE PHOSPHATASE 115 U/L (38-126); ANION GAP 11 (5-19); ASPARTATE AMINO TRANSFERASE 23 U/L (14-36); BILIRUBIN,DIRECT 0.4 mg/dL (0.0-0.4); BILIRUBIN,TOTAL 0.5 mg/dL (0.2-1.3); BLOOD UREA NITROGEN 10 mg/dL (7-20); CALCIUM 8.3 mg/dL (8.4-10.2); CARBON DIOXIDE 28 mmol/L (22-30); CHLORIDE 106 mmol/L (98-107); CREATININE RESULT 0.53 mg/dL (0.52-1.25); GLUCOSE 221 mg/dL (75-110); POTASSIUM 3.6 mmol/L (3.6-5.0); SODIUM 144.5 mmol/L (137-145); TOTAL PROTEIN 6.9 g/dL (6.3-8.2)
[2017-03-31] MEDS ORDERED: ONDANSETRON 4 MG TAB.RAPDIS PO ONE (08:52)
--- NOTE | 2017-03-31 08:52 | ER Document Report ---
ED General - General Chief Complaint: Flank Pain Stated Complaint: FLANK PAIN Time Seen by Provider: 03/31/17 08:03 Mode of Arrival: Ambulatory Information source: Patient Notes: Patient presents to the emergency department with complaints of bilateral flank pain, left worse than right.. Patient reports history of kidney stones. She was recently seen in the emergency department on March 24 for same. She reports this pain has been going on and off for a long time. Reports she quit taking the Pyridium because it did not help. She also reports she is still taking the Keflex. She reports she has a urologist appointment with [facility] on April 17. Patient reports she took 4 Tylenol before coming to the emergency department. Patient reports she has also vomited twice since arrival. Denies fever and diarrhea. Denies pain with void but reports frequency. TRAVEL OUTSIDE OF THE [place] IN LAST 30 DAYS: No - HPI Onset: Other Onset/Duration: Persistent Quality of pain: Pressure, Sharp Severity: Severe Pain Level: 5 Associated symptoms: Nausea, Vomiting Exacerbated by: Denies Relieved by: Denies Similar symptoms previously: Yes Recently seen / treated by doctor: Yes - Related Data Allergies/Adverse Reactions: ibuprofen Allergy (Unknown, Verified 03/24/17 03:48) ketorolac [From Toradol] Allergy (Unknown, Verified 03/24/17 03:48) meperidine [From Demerol] Allergy (Unknown, Verified 03/24/17 03:48) aspirin Allergy (Verified 03/24/17 03:48) codeine Allergy (Verified 03/24/17 03:48) egg Allergy (Verified 03/24/17 03:48) iodine Allergy (Verified 03/24/17 03:48) Latex, Natural Rubber Allergy (Verified 03/24/17 03:48) morphine Allergy (Verified 03/24/17 03:48) shellfish derived Allergy (Verified 03/24/17 03:48) sumatriptan [From Imitrex] Allergy (Verified 03/24/17 03:48) tramadol [From Ultram] Allergy (Verified 03/24/17 03:48) ondansetron [From Zofran (as hydrochloride)] Adverse Reaction (Mild, Verified 03:48) VOMITING Past Medical History - General Information source: Patient - Social History Smoking Status: Current Every Day Smoker Cigarette use (# per day): Yes Chew tobacco use (# tins/day): No Frequency of alcohol use: None Drug Abuse: None Family History: Malignancy - father, Other - grandfather history of kidney stones Patient has suicidal ideation: No Patient has homicidal ideation: No Pulmonary Medical History: Reports: Hx Asthma Neurological Medical History: Reports: Hx Seizures - Epilepsy Renal/ Medical History: Reports: Hx Kidney Stones, Hx Ovarian Cysts. Denies: Hx Peritoneal Dialysis GI Medical History: Reports: Hx Ulcer Musculoskeltal Medical History: Reports Hx Arthritis, Reports Hx Musculoskeletal Trauma Psychiatric Medical History: Reports: Hx Anxiety, Hx Depression Traumatic Medical History: Reports: Hx Fractures - Hands wrist knees multiple others Past Surgical History: Reports: Hx Appendectomy, Hx Section, Hx Gynecologic Surgery - Right Ovary, Hx Hysterectomy, Hx Orthopedic Surgery - Rt. Wrist, Other - Lithotripsy over 20 times - Immunizations Immunizations up to date: Yes Hx Diphtheria, Pertussis, Tetanus Vaccination: Yes Review of Systems - Review of Systems Notes: Review HPI for review of systems., All other systems negative Physical Exam - Vital signs Vitals: Temp Pulse Resp BP Pulse Ox 98.8 F 118 H 16 143/60 H 97 03/31/17 07:40 03/31/17 07:40 03/31/17 07:40 03/31/17 07:40 03/31/17 07:40 - Notes Notes: PHYSICAL EXAMINATION: GENERAL: Nontoxic looking, irritated HEAD: Atraumatic, normocephalic. EYES: extraocular movements intact, sclera anicteric, conjunctiva are normal. ENT: nares patent, oropharynx clear without exudates. Moist mucous membranes. NECK: Normal range of motion, supple without lymphadenopathy LUNGS: CTAB and equal. No wheezes rales or rhonchi. HEART: Regular rate and rhythm without murmurs BACK: Bilateral flank pain, left worse than right. ABDOMEN: Soft, no tenderness. No guarding, no rebound EXTREMITIES: Normal range of motion, no pitting edema. No cyanosis. NEUROLOGICAL: Cranial nerves grossly intact. Normal sensory/motor exams. PSYCH: irritated SKIN: Warm, Dry, normal turgor, no rashes or lesions noted Course - Re-evaluation Re-evalutation: 03/31/17 08:50 Review of past medical record and CT scan notes elevated white count nephrolithiasis and also suspected narcotic abuse. Review of the [place] controlled substance reporting system notes that patient recently received 5 Percocet on March 29, 10 Percocet on March 24 and 15 Percocet on March 21 by 3 different prescribers. I did mention to patient that we would take a look at her labs and get a renal ultrasound before I prescribe any kind of pain medication. I also offered patient Pyridium which she declined. Patient became very upset and started to take out her IV. I instructed patient that is him very important that she stays to evaluate her white count see if she has had a kidney infection. Patient insists she is not going to stay sitting here without pain medication. I instructed patient on the importance of staying to evaluate infection and educated her on the dangers of leaving AMA without full evaluation. I consulted Dr. Wilkins, updated on patient status, history, NCCSRS. He agree's with plan of care. 03/31/17 09:[address] wilkins regarding pt US, labs. He agrees with plan to discharge. Pt updated on all results, elevated white count that patient consistently has but it is slightly lower from her last visit on 03/24/17. no fever noted. Pt reports she was seen at [facility] last night for same symptoms but declined to be admitted, she was evaluated in [place] on 03/29/17. I declined prescribing narcotics for patient and she became very angry, ripping out her IV. Pt was instructed to let nurse take out IV, fu with hematology, keep her urology appointment. - Vital Signs Vital signs: Temp Pulse Resp BP Pulse Ox 98.8 F 118 H 16 143/60 H 97 03/31/17 07:40 03/31/17 07:40 03/31/17 07:40 03/31/17 07:40 03/31/17 07:40 - Laboratory Result Diagrams: 03/31/17 08:10 03/31/17 08:10 Laboratory results interpreted by me: 03/31/17 03/31/17 03/31/17 08:10 08:10 08:10 WBC 19.4 H Absolute Neutrophils 14.3 H Glucose 221 H Calcium 8.3 L Urine Blood LARGE H Ur Leukocyte Esterase SMALL H - Diagnostic Test Radiology reviewed: Image reviewed, Reports reviewed - no hydronephroisis or upper hydroureter, tiny nonobstructive stones bilaterally Discharge - Discharge Clinical Impression: Flank pain, Elevated blood pressure reading Hematuria Qualifiers: Hematuria type: unspecified type Qualified Code(s): R31.9 - Hematuria, unspecified Leukocytosis, unspecified Qualifiers: Leukocytosis type: unspecified Qualified Code(s): D72.829 - Elevated white blood cell count, unspecified Condition: Stable Disposition: HOME, SELF-CARE Instructions: Antinausea Medication ([facility]), Kidney Stone ([facility]), Leukocytosis ( [facility]) Additional Instructions: *You have been evaluated for flank pain, history of kidney stones, leukocytosis *Monitor your temperature, take tylenol as indicated for pain *Take your antibitoics as prescribed, take medication for nausea as prescribed *Follow up with a primary care provider within one week for recheck *Follow up with a manager intelligence for evaluation of your elevated white count *Follow up with urology on April 17 as scheduled *Return to ED for worsening condition, changes, needs *Return to ED if not better in 24 hours Monitor your blood pressure. Your blood pressure was elevated today. This may be because you were anxious, in pain or because you need medication. It is important to follow up with your primary care provider for full evaluation. Prescriptions: Promethazine HCl [Phenergan 25 mg Tablet] 25 - 50 mg PO ASDIR PRN #12 tablet PRN Reason: Forms: Elevated Blood Pressure, Smoking Cessation Education Referrals: TASNEEM APODACA MD [ACTIVE STAFF] - Follow up in 1 week (call for appointment)
--- NOTE | 2017-03-31 09:06 | RADIOLOGY REPORT (SQ) ---
EXAM DESCRIPTION: [employer] COMPLETED DATE/TIME: 03/31/2017 8:52 am REASON FOR STUDY: flank pain, left greater than right COMPARISON: CT abdomen pelvis 04/03/2016, 03/24/2017 Abdominal/ renal ultrasounds 07/31/2016, 09/15/2016, 03/21/2017 TECHNIQUE: Dynamic and static grayscale images acquired of the kidneys and bladder and recorded on P ACS. Additional selected color Doppler and spectral images recorded. LIMITATIONS: None. FINDINGS: RIGHT KIDNEY: 11.5 cm in length Normal echogenicity. No solid or suspicious masses. No hydronephrosis. Tiny intrarenal nonobstructive stones are present. LEFT KIDNEY: 10.9 cm in length. Normal echogenicity. No solid or suspicious masses. No hydrone phrosis. Tiny intrarenal nonobstructive stones are present. BLADDER: No masses. OTHER FINDINGS: No other significant finding. IMPRESSION: Tiny intrarenal nonobstructive stones bilaterally. No hydronephrosis or upper hydroureter. TECHNICAL DOCUMENTATION: JOB ID: [id number] All Rights Reserved
[2017-03-31] MEDS ORDERED: PROMETHAZINE HCL 25 MG TABLET PO ONE (09:08)
== END 2017-03-31 09:43 | disposition home or self-care (01) ==
LOC: ER 07:33
DX: D72.829 Elevated white blood cell count, unspecified (principal); R03.0 Elevated blood-pressure reading, without diagnosis of hypertension; R31.9 Hematuria, unspecified; R10.9 Unspecified abdominal pain; R11.10 Vomiting, unspecified; Z79.899 Other long term (current) drug therapy; F17.210 Nicotine dependence, cigarettes, uncomplicated
CPT/HCPCS: 99284; 36415; 85025; 81025; 80053; 81001; 76775; J3490

== ENCOUNTER 2017-10-03 04:09 | Emergency (ER) | payer MEDICAID ==
[2017-10-03 04:35] LABS: APPEARANCE,URINE CLOUDY; BILIRUBIN,URINE NEGATIVE (NEGATIVE); COLOR,URINE YELLOW; GLUCOSE, URINE NEGATIVE (NEGATIVE); KETONES,URINE NEGATIVE (NEGATIVE); LEUKOCYTE ESTERASE,URINE LARGE (NEGATIVE); NITRITE,URINE NEGATIVE (NEGATIVE); PROTEIN,URINE 30 mg/dL (NEGATIVE); URINE SPECIFIC GRAVITY 1.019; UROBILINOGEN,URINE NEGATIVE mg/dL (<2.0)
[2017-10-03] MEDS ORDERED: ONDANSETRON HCL INJ/PF 4 MG/2 ML SDV IV ONE (04:52)
[2017-10-03] MEDS ORDERED: NORMAL SALINE 1000 ML 1,000 ML IV ONE (04:52)
[2017-10-03] MEDS ORDERED: TAMSULOSIN HCL 0.4 MG CAP.SR.24H PO ONE (04:53)
[2017-10-03] MEDS ORDERED: FENTANYL CITRATE INJ/PF 100 MCG/2 ML AMPUL IV ONE ×2 (04:53→06:42)
--- NOTE | 2017-10-03 04:57 | ER Document Report ---
ED General - General Chief Complaint: Possible Kidney Stone Stated Complaint: LEFT FLANK PAIN Time Seen by Provider: 10/03/17 04:40 Mode of Arrival: Ambulatory Information source: Patient Notes: 46-year-old female with history of epilepsy, peptic ulcer, multiple previous kidney stones requiring lithotripsy and surgical removal presents with complaint of left flank pain that started 6 hours prior to arrival. Patient describes the pain as constant, stabbing and without radiation. Patient has associated urinary frequency and nausea without vomiting. She denies any fever , chills, chest pain, shortness of breath, abdominal pain, dysuria, hematuria. She has not taken anything for this pain. Her last stone was 3 weeks ago. She was able to pass that on her own. She does not currently have a urologist or PCP. TRAVEL OUTSIDE OF THE [place] IN LAST 30 DAYS: No - HPI Onset: Just prior to arrival Onset/Duration: Sudden, Constant Quality of pain: Stabbing Severity: Mild Pain Level: 1 Associated symptoms: Nausea. denies: Fever, Hurts to breath, Shortness of breath, Weakness Exacerbated by: Movement Relieved by: Denies Similar symptoms previously: Yes Recently seen / treated by doctor: No - Related Data Allergies/Adverse Reactions: ibuprofen Allergy (Unknown, Verified 10/03/17 05:35) ketorolac [From Toradol] Allergy (Unknown, Verified 10/03/17 05:35) meperidine [From Demerol] Allergy (Unknown, Verified 10/03/17 05:35) aspirin Allergy (Verified 10/03/17 05:35) codeine Allergy (Verified 10/03/17 05:35) egg Allergy (Verified 10/03/17 05:35) iodine Allergy (Verified 10/03/17 05:35) Latex, Natural Rubber Allergy (Verified 10/03/17 05:35) morphine Allergy (Verified 10/03/17 05:35) shellfish derived Allergy (Verified 10/03/17 05:35) sumatriptan [From Imitrex] Allergy (Verified 03/24/17 03:48) tramadol [From Ultram] Allergy (Verified 10/03/17 05:35) ondansetron [From Zofran (as hydrochloride)] Adverse Reaction (Mild, Verified 05:35) VOMITING Past Medical History - General Information source: Patient - Social History Smoking Status: Current Every Day Smoker Frequency of alcohol use: None Drug Abuse: None Lives with: Spouse/Significant other Family History: Malignancy - father, Other - grandfather history of kidney stones Pulmonary Medical History: Reports: Hx Asthma Neurological Medical History: Reports: Hx Seizures - Epilepsy Renal/ Medical History: Reports: Hx Kidney Stones, Hx Ovarian Cysts. Denies: Hx Peritoneal Dialysis GI Medical History: Reports: Hx Ulcer Musculoskeltal Medical History: Reports Hx Arthritis, Reports Hx Musculoskeletal Trauma Psychiatric Medical History: Reports: Hx Anxiety, Hx Depression Traumatic Medical History: Reports: Hx Fractures - Hands wrist knees multiple others Past Surgical History: Reports: Hx Appendectomy, Hx Section, Hx Gynecologic Surgery - Right Ovary, Hx Hysterectomy, Hx Orthopedic Surgery - Rt. Wrist, Other - Lithotripsy over 20 times - Immunizations Immunizations up to date: Yes Hx Diphtheria, Pertussis, Tetanus Vaccination: Yes Review of Systems - Review of Systems Notes: She denies any fever, chills, chest pain, shortness of breath, abdominal pain, dysuria, hematuria. She admits to left flank pain, increased urinary frequency. Physical Exam - Vital signs Vitals: Temp Pulse Resp BP Pulse Ox 98.3 F 116 H 20 148/85 H 96 10/03/17 04:19 10/03/17 04:19 10/03/17 04:19 10/03/17 04:19 10/03/17 04:19 Course - Re-evaluation Re-evalutation: Laboratory 10/03/17 10/03/17 04:15 06:45 Seg Neutrophils % Not Reportable Lymphocytes % Not Reportable Monocytes % Not Reportable Eosinophils % Not Reportable Basophils % Not Reportable Absolute Neutrophils Not Reportable Absolute Lymphocytes Not Reportable Absolute Monocytes Not Reportable Absolute Eosinophils Not Reportable Absolute Basophils Not Reportable Urine Color YELLOW Urine Appearance CLOUDY Urine pH 5.0 Ur Specific [place] 1.019 Urine Protein 30 H Urine Glucose (UA) NEGATIVE Urine Ketones NEGATIVE Urine Blood LARGE H Urine Nitrite NEGATIVE Urine Bilirubin NEGATIVE Urine Urobilinogen NEGATIVE Ur Leukocyte Esterase LARGE H Urine WBC (Auto) >182 Urine RBC (Auto) >182 Urine Bacteria (Auto) TRACE Squamous Epi Cells Auto 4 Urine Mucus (Auto) RARE Urine Ascorbic Acid NEGATIVE 10/03/17 06:57 Patient requesting discharge home. She does not want to wait for her labs. She is requesting I ari her with any abnormality. she states she needs to get home because her mother has a hair appointment. The CAT scan does not show any evidence of pyelonephritis, obstructing stone. She does show stable renal calculi that were present previously. Patient tolerating fluids prior to discharge. 10/03/17 06:59 10/03/17 07:06 10/03/17 08:51 46-year-old female with history of epilepsy, peptic ulcer, multiple previous kidney stones requiring lithotripsy and surgical removal presents with complaint of left flank pain that started 6 hours prior to arrival. Patient describes the pain as constant, stabbing and without radiation. Upon arrival patient is afebrile, well appearing. previous medical records and imaging reviewed. Patient's has UTI, CT without evidence of stone or hydronephrosis. Patient does have renal calculi that have been seen on previous CT. Patient requesting dilaudid but given fentanyl because of lack of supply. CBC and CMP were ordered but patient not willing to stay for results (Her mother has a hair appointment). She asked me to call her if necessary. Labs reviewed that show leukocytosis but normal renal function. Patient given cipro in ED and rx for cipro for home as well as diflucan (per patient request). I feel patient is reasonable for outpatient treatment and does need to return to ED for leukocytosis. She was instructed to return if experienced a persistence of pain , developed a fever or became intolerant of PO. Patient AOx4 and with significant other and dog at bedside. Patient tolerating fluids prior to d/c. - Vital Signs Vital signs: Temp Pulse Resp BP Pulse Ox 98.9 F 102 H 20 145/86 H 95 10/03/17 07:14 10/03/17 07:14 10/03/17 07:14 10/03/17 07:14 10/03/17 07:14 - Laboratory Result Diagrams: 10/03/17 06:45 10/03/17 06:45 Laboratory results interpreted by me: 10/03/17 10/03/17 10/03/17 04:15 06:45 06:45 WBC 20.1 H Metamyelocytes % 1 H Abs Neuts (Manual) 15.5 H Creatinine 0.48 L Glucose 127 H Total Bilirubin 0.1 L Total Protein 5.8 L Urine Protein 30 H Urine Blood LARGE H Ur Leukocyte Esterase LARGE H Discharge - Discharge Clinical Impression: Urinary tract infection Qualifiers: Urinary tract infection type: site unspecified Hematuria presence: with hematuria Qualified Code(s): N39.0 - Urinary tract infection, site not specified Condition: Good Disposition: HOME, SELF-CARE Instructions: Urinary Tract Infection ([facility]) Prescriptions: Ciprofloxacin HCl [Cipro 500 mg Tablet] 500 mg PO BID #20 tablet Fluconazole [Diflucan 100 Mg Tablet] 150 mg PO DAILY #2 tablet Metoclopramide HCl [Reglan 10 mg Tablet] 1 tab PO Q8H PRN #5 tablet PRN Reason: Oxycodone HCl/Acetaminophen [Percocet 5-325 mg Tablet] 1 tab PO ASDIR PRN #15 tab PRN Reason:
[2017-10-03] MEDS ORDERED: PROMETHAZINE HCL 25 MG TABLET PO ONE (05:44)
[2017-10-03] MEDS ORDERED: CIPROFLOXACIN HCL 500 MG TABLET PO ONE (05:53)
[2017-10-03] MEDS ORDERED: ACETAMINOPHEN 325 MG TABLET PO ONE (06:42)
--- NOTE | 2017-10-03 06:43 | RADIOLOGY REPORT (SQ) ---
EXAM DESCRIPTION: CT ABDOMEN AND PELVIS WITHOUT CONTRAST CLINICAL HISTORY: Left flank pain, UTI COMPARISON: None Available. TECHNIQUE: CT of the abdomen and pelvis without IV contrast. Evaluation of the solid organs and vasculature is suboptimal due to lack of IV contrast. DLP: 861.79 mGy-cm FINDINGS: Lung Bases: The visualized lung bases are clear. Bones: No destructive bone lesions identified. Mild degenerative change of the visualized thoracic and lumbar spine. Abdomen: Liver: The liver has normal size and decreased density. Gallbladder: No calcified gallstones. Spleen, Pancreas, and Adrenal Glands: Lipid rich 1.2 cm right adrenal adenoma is stable. The left adrenal gland, spleen, and pancreas are unremarkable. Kidneys: Bilateral nonobstructing renal cysts, greater number on the right than the left. No obstructing ureteral calculi. No hydronephrosis. Vasculature: Aortoiliac atherosclerosis. IVC is unremarkable. Stomach: The stomach and duodenum have normal course. Other: No free intraperitoneal air. No free fluid or lymphadenopathy. Pelvis: Bladder: Urinary bladder is unremarkable. Bowel: Scattered diverticula of the colon. No pericolic fat stranding. Appendix: The appendix is not definitely dilated however there is no right lower quadrant inflammatory change or other secondary signs of acute appendicitis. Pelvis: Prior hysterectomy. IMPRESSION: 1. No acute inflammatory or obstructive process identified. 2. Bilateral nonobstructing renal calculi. 3. Diverticulosis without evidence of diverticulitis. 4. Hepatic steatosis. This exam was performed according to our departmental dose-optimization program, which includes automated exposure control, adjustment of the mA and/or kV according to patient size and/or use of iterative reconstruction technique.
[2017-10-03 06:58] LABS: HEMATOCRIT 39.4 % (36.0-47.0); HEMOGLOBIN 13.5 g/dL (12.0-15.5); MEAN CORPUSCULAR HEMOGLOBIN 31.6 pg (27.0-33.4); MEAN CORPUSCULAR HGB CONC 34.1 g/dL (32.0-36.0); MEAN CORPUSCULAR VOLUME 93 fl (80-97); PLATELET COUNT 286 10^3/uL (150-450); RED BLOOD COUNT 4.26 10^6/uL (3.72-5.28); RED CELL DISTRIBUTION WIDTH 13.8 % (11.5-14.0); WHITE BLOOD COUNT 20.1 10^3/uL (4.0-10.5)
[2017-10-03 07:11] LABS: ALANINE AMINOTRANSFERASE 24 U/L (9-52); ALBUMIN 3.6 g/dL (3.5-5.0); ALKALINE PHOSPHATASE 104 U/L (38-126); ANION GAP 11 (5-19); ASPARTATE AMINO TRANSFERASE 15 U/L (14-36); BILIRUBIN,DIRECT 0.1 mg/dL (0.0-0.4); BILIRUBIN,TOTAL 0.1 mg/dL (0.2-1.3); BLOOD UREA NITROGEN 12 mg/dL (7-20); CALCIUM 8.8 mg/dL (8.4-10.2); CARBON DIOXIDE 24 mmol/L (22-30); CHLORIDE 107 mmol/L (98-107); GLUCOSE 127 mg/dL (75-110); POTASSIUM 3.8 mmol/L (3.6-5.0); SODIUM 141.5 mmol/L (137-145); TOTAL PROTEIN 5.8 g/dL (6.3-8.2)
[2017-10-03 07:16] VITALS: BP 145/86
[2017-10-03 07:31] LABS: ABSOLUTE MONOCYTES # (MANUAL) 1.2 10^3/uL (0.1-1.4); ABSOLUTE NEUTROPHILS# (MANUAL) 15.5 10^3/uL (1.7-8.2); BASOPHILS % (MANUAL) 0 % (0-2); EOSINOPHILS % (MANUAL) 2 % (0-6); LYMPHOCYTES % (MANUAL) 15 % (13-45); METAMYELOCYTES % (MANUAL) 1 % (0); MONOCYTES % (MANUAL) 6 % (3-13); SEGMENTED NEUTROPHILS % (MAN) 76 % (42-78); TOTAL CELLS COUNTED 100
[2017-10-03 07:32] LABS: PLATELET COMMENT ADEQUATE; POLYCHROMASIA SLIGHT; TOXIC GRANULATION 1+
== END 2017-10-03 07:17 | disposition home or self-care (01) ==
LOC: ER 04:09
DX: N39.0 Urinary tract infection, site not specified (principal); R10.9 Unspecified abdominal pain; R11.0 Nausea; F17.200 Nicotine dependence, unspecified, uncomplicated; Z87.442 Personal history of urinary calculi; Z88.6 Allergy status to analgesic agent; Z91.040 Latex allergy status; Z91.012 Allergy to eggs
CPT/HCPCS: 96376; 99284; 96361; 96374; 36415; 85025; 80053; 81001; 76380; J3490 ×4; J3010; J7030

== ENCOUNTER 2017-10-30 00:43 | Emergency (ER) | payer MEDICAID ==
[2017-10-30 00:53] VITALS: BP 137/84
[2017-10-30 01:37] LABS: APPEARANCE,URINE CLOUDY; BILIRUBIN,URINE NEGATIVE (NEGATIVE); COLOR,URINE YELLOW; GLUCOSE, URINE NEGATIVE (NEGATIVE); KETONES,URINE NEGATIVE (NEGATIVE); LEUKOCYTE ESTERASE,URINE LARGE (NEGATIVE); NITRITE,URINE NEGATIVE (NEGATIVE); PROTEIN,URINE 100 mg/dL (NEGATIVE); URINE SPECIFIC GRAVITY 1.023
--- NOTE | 2017-10-30 01:45 | ER Document Report ---
ED Medical Screen (RME) - General Chief Complaint: Possible Kidney Stone Stated Complaint: FLANK PAIN Time Seen by Provider: 10/30/17 01:42 Mode of Arrival: Ambulatory Information source: Patient TRAVEL OUTSIDE OF THE [place] IN LAST 30 DAYS: No - HPI Patient complains to provider of: LEFT FLANK PAIN Notes: 10/30/17 01:43 Patient is here with complaints of left flank pain. The patient has a long history of kidney stones. She has multiple allergies. Essentially the only things she can take for pain are Dilaudid, Percocet, [place], Phenergan. She is here with left flank pain that started earlier this evening. She has nausea and has had a few episodes of vomiting. No diarrhea. No dysuria no obvious hematuria. No fever. Physical exam: Patient appears to be in some pain. Nontoxic appearing. No abdominal tenderness on exam. Plan: CBC, CMP, lipase, urine, CT abdomen pelvis stone protocol. An initial examination was made on the patient as part of the triage process, and it was determined a more comprehensive evaluation was necessary. Initial labs were ordered and patient was transferred to another provider in the ED who assumed care and finished evaluation and plan. - Related Data Allergies/Adverse Reactions: ibuprofen Allergy (Unknown, Verified 10/03/17 05:35) ketorolac [From Toradol] Allergy (Unknown, Verified 10/03/17 05:35) meperidine [From Demerol] Allergy (Unknown, Verified 10/03/17 05:35) aspirin Allergy (Verified 10/03/17 05:35) codeine Allergy (Verified 10/03/17 05:35) egg Allergy (Verified 10/03/17 05:35) iodine Allergy (Verified 10/03/17 05:35) Latex, Natural Rubber Allergy (Verified 10/03/17 05:35) morphine Allergy (Verified 10/03/17 05:35) shellfish derived Allergy (Verified 10/03/17 05:35) sumatriptan [From Imitrex] Allergy (Verified 03/24/17 03:48) tramadol [From Ultram] Allergy (Verified 10/03/17 05:35) ondansetron [From Zofran (as hydrochloride)] Adverse Reaction (Mild, Verified 05:35) VOMITING Past Medical History Pulmonary Medical History: Reports: Hx Asthma Neurological Medical History: Reports: Hx Seizures - Epilepsy Renal/ Medical History: Reports: Hx Kidney Stones, Hx Ovarian Cysts. Denies: Hx Peritoneal Dialysis GI Medical History: Reports: Hx Ulcer Musculoskeltal Medical History: Reports Hx Arthritis, Reports Hx Musculoskeletal Trauma Psychiatric Medical History: Reports: Hx Anxiety, Hx Depression Traumatic Medical History: Reports: Hx Fractures - Hands wrist knees multiple others Past Surgical History: Reports: Hx Appendectomy, Hx Section, Hx Gynecologic Surgery - Right Ovary, Hx Hysterectomy, Hx Orthopedic Surgery - Rt. Wrist, Other - Lithotripsy over 20 times - Immunizations Immunizations up to date: Yes Hx Diphtheria, Pertussis, Tetanus Vaccination: Yes Physical Exam - Vital signs Vitals: Temp Pulse Resp BP Pulse Ox 98.7 F 123 H 24 H 137/84 H 96 10/30/17 00:51 10/30/17 00:51 10/30/17 00:51 10/30/17 00:51 10/30/17 00:51 Course - Vital Signs Vital signs: Temp Pulse Resp BP Pulse Ox 98.7 F 123 H 24 H 137/84 H 96 10/30/17 00:51 10/30/17 00:51 10/30/17 00:51 10/30/17 00:51 10/30/17 00:51 - Laboratory Laboratory results interpreted by me: 10/30/17 01:00 Urine Protein 100 H Urine Blood LARGE H Urine Urobilinogen 2.0 H Ur Leukocyte Esterase LARGE H
[2017-10-30 02:12] LABS: HEMATOCRIT 45.3 % (36.0-47.0); HEMOGLOBIN 15.3 g/dL (12.0-15.5); MEAN CORPUSCULAR HEMOGLOBIN 31.3 pg (27.0-33.4); MEAN CORPUSCULAR HGB CONC 33.8 g/dL (32.0-36.0); MEAN CORPUSCULAR VOLUME 92 fl (80-97); PLATELET COUNT 347 10^3/uL (150-450); RED BLOOD COUNT 4.91 10^6/uL (3.72-5.28); RED CELL DISTRIBUTION WIDTH 13.8 % (11.5-14.0); WHITE BLOOD COUNT 24.4 10^3/uL (4.0-10.5)
[2017-10-30 02:34] LABS: ABSOLUTE LYMPHOCYTES# (MANUAL) 4.9 10^3/uL (0.5-4.7); ABSOLUTE MONOCYTES # (MANUAL) 0.7 10^3/uL (0.1-1.4); ABSOLUTE NEUTROPHILS# (MANUAL) 18.3 10^3/uL (1.7-8.2); BASOPHILS % (MANUAL) 0 % (0-2); EOSINOPHILS % (MANUAL) 2 % (0-6); LYMPHOCYTES % (MANUAL) 20 % (13-45); MONOCYTES % (MANUAL) 3 % (3-13); SEGMENTED NEUTROPHILS % (MAN) 75 % (42-78); TOTAL CELLS COUNTED 100
[2017-10-30 02:35] LABS: ANISOCYTOSIS SLIGHT; PLATELET CLUMPS PRESENT; PLATELET COMMENT ADEQUATE; PLATELET GIANT PRESENT; PLATELET LARGE PRESENT; POIKILOCYTOSIS 1+; TEAR DROP CELLS 1+; TOXIC GRANULATION 1+
[2017-10-30 02:41] LABS: ALANINE AMINOTRANSFERASE 27 U/L (9-52); ALBUMIN 4.6 g/dL (3.5-5.0); ALKALINE PHOSPHATASE 116 U/L (38-126); ANION GAP 19 (5-19); ASPARTATE AMINO TRANSFERASE 20 U/L (14-36); BILIRUBIN,DIRECT 0.3 mg/dL (0.0-0.4); BILIRUBIN,TOTAL 0.3 mg/dL (0.2-1.3); BLOOD UREA NITROGEN 17 mg/dL (7-20); CARBON DIOXIDE 23 mmol/L (22-30); CHLORIDE 105 mmol/L (98-107); GLUCOSE 176 mg/dL (75-110); LIPASE 111.4 U/L (23-300); POTASSIUM 4.2 mmol/L (3.6-5.0); SODIUM 147.2 mmol/L (137-145); TOTAL PROTEIN 7.5 g/dL (6.3-8.2)
--- NOTE | 2017-10-30 03:14 | RADIOLOGY REPORT (SQ) ---
EXAM DESCRIPTION: CT ABDOMEN AND PELVIS WITHOUT CONTRAST CLINICAL HISTORY: LEFT FLANK PAIN COMPARISON: 10/03/2017 TECHNIQUE: CT of the abdomen and pelvis without IV contrast. Evaluation of the solid organs and vasculature is suboptimal due to lack of IV contrast. DLP: 866 mGy-cm FINDINGS: Lung Bases: The visualized lung bases are clear. Bones: No destructive bone lesions identified. Degenerative change of the spine. Abdomen: Liver: The liver has normal size and decreased density. Gallbladder: No calcified gallstones. Spleen, Pancreas, and Adrenal Glands: The spleen, pancreas, and left adrenal glands are unremarkable. Lipid rich 1.2 cm right adrenal adenoma. Kidneys: Punctate nonobstructing bilateral renal calculi. No obstructing ureteral calculi or hydronephrosis. Vasculature: Aortoiliac atherosclerosis. IVC is unremarkable. Stomach: The stomach and duodenum have normal course. Other: No free intraperitoneal air. No free fluid or lymphadenopathy. Pelvis: Bladder: Urinary bladder is decompressed. Bowel: Scattered diverticula of the colon. No pericolic fat stranding. No dilated loops of large or small bowel. Appendix: No evidence of appendicitis. Pelvis: Prior hysterectomy. IMPRESSION: 1. No acute inflammatory or obstructive process identified. 2. Bilateral nonobstructing renal calculi. 3. Diverticulosis without evidence of acute diverticulitis. 4. Hepatic steatosis. This exam was performed according to our departmental dose-optimization program, which includes automated exposure control, adjustment of the mA and/or kV according to patient size and/or use of iterative reconstruction technique.
[2017-10-30] MEDS ORDERED: CEFTRIAXONE INJ 1000 MG VIAL IM ONE (03:44)
[2017-10-30] MEDS ORDERED: PROMETHAZINE HCL 25 MG TABLET PO ONE (03:46)
[2017-10-30] MEDS ORDERED: HYDROCODONE/ACETAMINOPHEN 5-325 MG (6 TAB/ER DISP) PO PRN (03:48)
--- NOTE | 2017-10-30 03:56 | ER Document Report ---
ED GI/ - General Chief Complaint: Possible Kidney Stone Stated Complaint: FLANK PAIN Time Seen by Provider: 10/30/17 01:42 Mode of Arrival: Ambulatory Information source: Patient Notes: Patient presents with complaint of left-sided flank pain that started at 8 PM last night. Patient reports associated nausea with vomiting 1. Patient states that she has a long history of kidney stones to both kidneys with multiple stent placements. Patient reports that this feels like she is passing a kidney stone. Patient also reports that she is having urinary frequency but denies any dysuria or urgency. Patient denies any fever. TRAVEL OUTSIDE OF THE [place] IN LAST 30 DAYS: No - Related Data Allergies/Adverse Reactions: ibuprofen Allergy (Unknown, Verified 10/03/17 05:35) ketorolac [From Toradol] Allergy (Unknown, Verified 10/03/17 05:35) meperidine [From Demerol] Allergy (Unknown, Verified 10/03/17 05:35) aspirin Allergy (Verified 10/03/17 05:35) codeine Allergy (Verified 10/03/17 05:35) egg Allergy (Verified 10/03/17 05:35) iodine Allergy (Verified 10/03/17 05:35) Latex, Natural Rubber Allergy (Verified 10/03/17 05:35) morphine Allergy (Verified 10/03/17 05:35) shellfish derived Allergy (Verified 10/03/17 05:35) sumatriptan [From Imitrex] Allergy (Verified 03/24/17 03:48) tramadol [From Ultram] Allergy (Verified 10/03/17 05:35) ondansetron [From Zofran (as hydrochloride)] Adverse Reaction (Mild, Verified 05:35) VOMITING Past Medical History - General Information source: Patient - Social History Smoking Status: Current Every Day Smoker Chew tobacco use (# tins/day): No Frequency of alcohol use: None Drug Abuse: None Family History: Malignancy - father, Other - grandfather history of kidney stones Patient has suicidal ideation: No Patient has homicidal ideation: No Pulmonary Medical History: Reports: Hx Asthma Neurological Medical History: Reports: Hx Seizures - Epilepsy Renal/ Medical History: Reports: Hx Kidney Stones, Hx Ovarian Cysts. Denies: Hx Peritoneal Dialysis GI Medical History: Reports: Hx Ulcer Musculoskeltal Medical History: Reports Hx Arthritis, Reports Hx Musculoskeletal Trauma Psychiatric Medical History: Reports: Hx Anxiety, Hx Depression Traumatic Medical History: Reports: Hx Fractures - Hands wrist knees multiple others Past Surgical History: Reports: Hx Appendectomy, Hx Section, Hx Gynecologic Surgery - Right Ovary, Hx Hysterectomy, Hx Orthopedic Surgery - Rt. Wrist, Other - Lithotripsy over 20 times - Immunizations Immunizations up to date: Yes Hx Diphtheria, Pertussis, Tetanus Vaccination: Yes Review of Systems - Review of Systems Constitutional: No symptoms reported EENT: No symptoms reported Cardiovascular: No symptoms reported Respiratory: No symptoms reported Gastrointestinal: No symptoms reported Genitourinary: Frequency, Flank pain, Hematuria Female Genitourinary: No symptoms reported Musculoskeletal: No symptoms reported Skin: No symptoms reported Hematologic/Lymphatic: No symptoms reported Neurological/Psychological: No symptoms reported Physical Exam - Vital signs Vitals: Temp Pulse Resp BP Pulse Ox 98.7 F 123 H 24 H 137/84 H 96 10/30/17 00:51 10/30/17 00:51 10/30/17 00:51 10/30/17 00:51 10/30/17 00:51 - Notes Notes: PHYSICAL EXAMINATION: GENERAL: Well-appearing, well-nourished and in no acute distress. HEAD: Atraumatic, normocephalic. EYES: Pupils equal round and reactive to light, extraocular movements intact, conjunctiva are normal. ENT: Nares patent, oropharynx clear without exudates. Moist mucous membranes. NECK: Normal range of motion, supple without lymphadenopathy LUNGS: Breath sounds clear to auscultation bilaterally and equal. No wheezes rales or rhonchi. HEART: Regular rate and rhythm without murmurs ABDOMEN: Soft, nontender, nondistended abdomen. No guarding, no rebound. No masses appreciated. Female : Left CVA tenderness, abdomen soft and non-tender. Musculoskeletal: Normal range of motion, no pitting or edema. No cyanosis. NEUROLOGICAL: Cranial nerves grossly intact. Normal speech, normal gait. Normal sensory, motor exams PSYCH: Normal mood, normal affect. SKIN: Warm, Dry, normal turgor, no rashes or lesions noted. Course - Re-evaluation Re-evalutation: Patient complaining of sudden onset left flank pain starting at 8 PM with a history of stones in her bilateral kidneys. Patient reports that this is similar to when she had her kidney stones in the past. CBC reveals elevated white blood count 24.4 which is chronic for this patient in comparison with her visits over the last few years to our facility. CMP and lipase are unremarkable. Urinalysis shows leukocyte esterase, large blood and 1+ bacteria. Patient is afebrile and is not tachycardic or tachypneic. Patient does not appear toxic. CT shows nonobstructing bilateral renal calculi however there is no ureteral calculi and no hydronephrosis. Patient will be given dose of IM Rocephin as well as pain and nausea medications. Patient will then be discharged with p.o. antibiotics and close follow-up. Patient is given referral to urology. Patient understands strict ED return precautions to include development of fever, worsening pain, vomiting or any other symptoms that is concerning to her. - Vital Signs Vital signs: Temp Pulse Resp BP Pulse Ox 98.7 F 123 H 24 H 137/84 H 96 10/30/17 00:51 10/30/17 00:51 10/30/17 00:51 10/30/17 00:51 10/30/17 00:51 - Laboratory Result Diagrams: 10/30/17 01:55 10/30/17 01:55 Laboratory results interpreted by me: 10/30/17 10/30/17 10/30/17 01:00 01:55 01:55 WBC 24.4 H Abs Neuts (Manual) 18.3 H Abs Lymphs (Manual) 4.9 H Sodium 147.2 H Glucose 176 H Urine Protein 100 H Urine Blood LARGE H Urine Urobilinogen 2.0 H Ur Leukocyte Esterase LARGE H Discharge - Discharge Clinical Impression: Kidney stones, Flank pain, Pyelonephritis Urinary tract infection Qualifiers: Urinary tract infection type: site unspecified Hematuria presence: with hematuria Qualified Code(s): N39.0 - Urinary tract infection, site not specified Condition: Stable Disposition: HOME, SELF-CARE Additional Instructions: Urinary Tract Infection Your evaluation indicates that you have a urinary tract infection. This is due to germs growing in the bladder. This is a common problem. This infection usually responds quickly to antibiotics. Your antibiotic should be taken exactly as prescribed. Drink plenty of fluids -- three to four quarts a day. Certain urine infections require a culture. If the doctor obtained a culture, the results will be back in two days. You should call to see if a A repeat urinalysis after you finish treatment is often recommended. The physician will let you know if further testing is required. Pyelonephritis Your evaluation shows evidence of pyelonephritis. This is an infection in the kidney. Typical symptoms are fever, pain in the flank, pain on urination, and frequent urination. Many cases of pyelonephritis can be treated at home. Hospital care may be necessary for patients who are very ill, or elderly or . Pyelonephritis is treated with antibiotics. Be sure to take all the medication as prescribed. Drink plenty of liquids (about three quarts per day) . You may take acetaminophen for fever. You should feel significantly improved within two days. You should have a recheck of your urine in about one week to insure that the infection is gone. Return for a re-examination if your symptoms worsen in any way -- such as high fever, shaking chills, severe weakness or dizziness, severe pain, or inability to pass your urine. Cephalexin The antibiotic you've been prescribed is a member of the cephalosporin class. This type of antibiotic covers a wide variety of infections, including those of the skin, lungs, and urinary tract. It's useful for staph infections. This antibiotic is slightly similar to the penicillin family. In rare cases, a person who is allergic to penicillin will also be allergic to this medication. If you have had a severe allergic reaction to penicillin, and have not taken this antibiotic since that time, notify your doctor. Antibiotics which cover many germs ("broad spectrum" antibiotics) are more likely to cause diarrhea or "yeast" infections. Women prone to vaginal yeast problems may suffer an attack after taking this antibiotic. In infants, oral thrush (white spots "stuck" on the cheek) or yeast diaper rash may result. See your doctor if these problems occur. Call at once if you develop itching, hives , shortness of breath, or lightheadedness. Rocephin You have been given an injection of an antibiotic called Rocephin (ceftriaxone) . Sometimes the injection must be combined with antibiotic pills. For some infections, such as an uncomplicated ear infection, Rocephin provides all the antibiotic that's needed. The antibiotic will be in your body for about two days. For serious infections , we usually repeat doses of Rocephin daily. Side effects are very unusual following a shot. Women may develop vaginal yeast infections, and babies can get yeast (thrush) in the mouth following the use of antibiotics. Contact your physician if you have symptoms with this medication. Allergy to this antibiotic can result in hives, wheezing, faintness, or itching. If symptoms of allergy occur, call the doctor at once. Call the doctor if you develop fever, chills, flank pain, inability to urinate, or blood in the urine. [facility] [address] [place], [place] [id number] Prescriptions: Cephalexin Monohydrate [Keflex 500 mg Capsule] 500 mg PO Q6H 7 Days #28 capsule Oxycodone HCl/Acetaminophen [Percocet 5-325 mg Tablet] 1 - 2 tab PO Q4H PRN #16 tablet PRN Reason: Promethazine HCl [Phenergan 25 mg Tablet] 1 - 2 tab PO Q6H PRN #15 tablet PRN Reason:
[2017-10-30] MEDS ORDERED: LIDOCAINE 1% INJ-PF (10 MG/ML) 30 ML SDV INJ ONE (03:59)
== END 2017-10-30 04:33 | disposition home or self-care (01) ==
LOC: ER 00:43
DX: N12 Tubulo-interstitial nephritis, not specified as acute or chronic (principal); N20.0 Calculus of kidney; R31.9 Hematuria, unspecified; R11.2 Nausea with vomiting, unspecified; F17.200 Nicotine dependence, unspecified, uncomplicated; J45.909 Unspecified asthma, uncomplicated; Z88.6 Allergy status to analgesic agent; Z88.8 Allergy status to other drugs, medicaments and biological substances; Z88.5 Allergy status to narcotic agent; Z91.012 Allergy to eggs; Z91.041 Radiographic dye allergy status; Z91.013 Allergy to seafood
CPT/HCPCS: 99284; 96372; 36415; 87086; 83690; 85025; 80053; 81001; 76380; J3490 ×2; J0696

== ENCOUNTER 2017-12-09 04:34 | Emergency (ER) | payer MEDICAID ==
[2017-12-09] MEDS ORDERED: FENTANYL CITRATE INJ/PF 100 MCG/2 ML AMPUL IV ONE (04:57)
[2017-12-09] MEDS ORDERED: ONDANSETRON HCL INJ/PF 4 MG/2 ML SDV IV ONE (04:58)
[2017-12-09] MEDS ORDERED: NORMAL SALINE 1000 ML 1,000 ML IV ONE (04:58)
--- NOTE | 2017-12-09 05:01 | ER Document Report ---
ED GI/ - General Chief Complaint: Possible Kidney Stone Stated Complaint: FLANK PAIN Time Seen by Provider: 12/09/17 04:49 Notes: Patient is a 47-year-old female comes emergency left flank pain and vomiting, symptoms started yesterday, she states she took a Percocet and went to sleep but woke up and the pain was worse. She denies fever or chills. She reports frequency of urination but no dysuria. She has had multiple kidney stones, lithotripsies. She has had a hysterectomy, right oophorectomy, appendectomy. TRAVEL OUTSIDE OF THE [place] IN LAST 30 DAYS: No - Related Data Allergies/Adverse Reactions: ibuprofen Allergy (Unknown, Verified 12/09/17 04:37) ketorolac [From Toradol] Allergy (Unknown, Verified 12/09/17 04:37) meperidine [From Demerol] Allergy (Unknown, Verified 12/09/17 04:37) aspirin Allergy (Verified 12/09/17 04:37) codeine Allergy (Verified 12/09/17 04:37) egg Allergy (Verified 12/09/17 04:37) iodine Allergy (Verified 12/09/17 04:37) Latex, Natural Rubber Allergy (Verified 12/09/17 04:37) morphine Allergy (Verified 12/09/17 04:37) shellfish derived Allergy (Verified 12/09/17 04:37) sumatriptan [From Imitrex] Allergy (Verified 12/09/17 04:37) tramadol [From Ultram] Allergy (Verified 12/09/17 04:37) ondansetron [From Zofran (as hydrochloride)] Adverse Reaction (Mild, Verified 04:37) VOMITING Past Medical History - General Information source: Patient - Social History Smoking Status: Current Every Day Smoker Smoking Education Provided: Yes - <3 min Drug Abuse: None Lives with: Spouse/Significant other Family History: Malignancy - father, Other - grandfather history of kidney stones Pulmonary Medical History: Reports: Hx Asthma Neurological Medical History: Reports: Hx Seizures - Epilepsy Renal/ Medical History: Reports: Hx Kidney Stones, Hx Ovarian Cysts. Denies: Hx Peritoneal Dialysis GI Medical History: Reports: Hx Ulcer Musculoskeltal Medical History: Reports Hx Arthritis, Reports Hx Musculoskeletal Trauma Psychiatric Medical History: Reports: Hx Anxiety, Hx Depression Traumatic Medical History: Reports: Hx Fractures - Hands wrist knees multiple others Past Surgical History: Reports: Hx Appendectomy, Hx Section, Hx Gynecologic Surgery - Right Ovary, Hx Hysterectomy, Hx Orthopedic Surgery - Rt. Wrist, Other - Lithotripsy over 20 times - Immunizations Immunizations up to date: Yes Hx Diphtheria, Pertussis, Tetanus Vaccination: Yes Review of Systems - Review of Systems Constitutional: No symptoms reported EENT: No symptoms reported Cardiovascular: No symptoms reported Respiratory: No symptoms reported Gastrointestinal: See HPI Genitourinary: See HPI Female Genitourinary: No symptoms reported Musculoskeletal: No symptoms reported Skin: No symptoms reported Hematologic/Lymphatic: No symptoms reported Neurological/Psychological: No symptoms reported Physical Exam - Vital signs Vitals: Temp Pulse Resp BP Pulse Ox 98.4 F 55 L 20 119/91 H 94 12/09/17 04:41 12/09/17 04:41 12/09/17 04:41 12/09/17 04:41 12/09/17 04:41 - Notes Notes: GENERAL: Alert, interacts well. Patient appears mildly uncomfortable and is shifting on the bed but is not in severe distress HEAD: Normocephalic, atraumatic. EYES: Pupils equal, round, and reactive to light. Extraocular movements intact. ENT: Oral mucosa moist, tongue midline. NECK: Full range of motion. Supple. Trachea midline. LUNGS: Clear to auscultation bilaterally, no wheezes, rales, or rhonchi. No respiratory distress. HEART: Regular rate and rhythm. No murmur ABDOMEN: Soft, non-tender. Non-distended. Bowel sounds present in all 4 quadrants. EXTREMITIES: Moves all 4 extremities spontaneously. No edema, normal radial and dorsalis pedis pulses bilaterally. No cyanosis. BACK: no cervical, thoracic, lumbar midline tenderness. No saddle anesthesia, normal distal neurovascular exam. Positive left-sided CVA tenderness. NEUROLOGICAL: Alert and oriented x3. Normal speech. [cranial nerves II through XII grossly intact]. PSYCH: Normal affect, normal mood. SKIN: Warm, dry, normal turgor. No rashes or lesions noted. Course - Re-evaluation Re-evalutation: Patient complains of left flank pain, appears to have CVA tenderness over the area. Vital signs unremarkable. Abdomen is completely benign on exam. CBC shows leukocytosis at 13.9 with elevation of neutrophils but no bandemia. Normal kidney function on chemistry. Urine shows infection with large amount of white blood cells and red blood cells. Urine cultured. Patient declines CAT scan, states she has had very many of these and she is aware of the potential side effects. Dr. Gallo came to bedside and performed ultrasound which showed no hydronephrosis or evidence of obstruction. Called and spoke with urologist secondary art teacher Dr. Shaffer, discussed case, presentation, workup. Recommendation is for patient to be placed on antibiotics, symptom management, and follow-up in the office, calling on Sunday. Patient has been given Rocephin here. Discussed with patient, she states that she will call and follow-up, discussed return precautions, she states understanding and agreement. - Vital Signs Vital signs: Temp Pulse Resp BP Pulse Ox 98.7 F 99 16 132/88 H 99 12/09/17 06:32 12/09/17 06:32 12/09/17 06:32 12/09/17 06:32 12/09/17 06:32 - Laboratory Result Diagrams: 12/09/17 05:21 12/09/17 05:21 Laboratory results interpreted by me: 12/09/17 12/09/17 12/09/17 04:49 05:21 05:21 WBC 13.7 H Absolute Neutrophils 9.5 H Sodium 146.9 H Chloride 108 H BUN 22 H Glucose 228 H Urine Protein 30 H Urine Glucose (UA) 150 H Urine Blood LARGE H Ur Leukocyte Esterase LARGE H Discharge - Discharge Clinical Impression: Left flank pain Vomiting Qualifiers: Vomiting type: unspecified Vomiting Intractability: non-intractable Nausea presence: with nausea Qualified Code(s): R11.2 - Nausea with vomiting, unspecified Urinary tract infection Qualifiers: Urinary tract infection type: site unspecified Hematuria presence: with hematuria Qualified Code(s): N39.0 - Urinary tract infection, site not specified Condition: Stable Disposition: HOME, SELF-CARE Additional Instructions: Your workup shows a urinary tract infection, no swelling of the kidneys or suggestion of passing stone that is infected. Please take the antibiotics as prescribed, take symptom management as prescribed if needed. I spoke with Dr. Leonardo, Urologist, please call the details below to follow up in the clinic (call Sunday). Return to the emergency department if you worsen in anyway including fever of 100.4 or greater, uncontrolled vomiting, worsening pain, or any other concerning or worsening symptoms. [facility] [address] [place], [place] [id number] Prescriptions: Cephalexin Monohydrate [Keflex 500 mg Capsule] 500 mg PO QID #28 capsule Fluconazole [Diflucan] 150 mg PO ONCE PRN #1 tablet PRN Reason: Oxycodone HCl/Acetaminophen [Percocet 5-325 mg Tablet] 1 - 2 tab PO Q4H PRN #15 tablet PRN Reason: Promethazine HCl [Phenergan 25 mg Tablet] 1 - 2 tab PO Q6H PRN #15 tablet PRN Reason:
[2017-12-09] MEDS ORDERED: METOCLOPRAMIDE HCL INJ/PF 10 MG/2 ML SDV IV ONE (05:03)
[2017-12-09 05:23] LABS: APPEARANCE,URINE CLOUDY; BILIRUBIN,URINE NEGATIVE (NEGATIVE); COLOR,URINE YELLOW; GLUCOSE, URINE 150 mg/dL (NEGATIVE); KETONES,URINE NEGATIVE (NEGATIVE); LEUKOCYTE ESTERASE,URINE LARGE (NEGATIVE); NITRITE,URINE NEGATIVE (NEGATIVE); PROTEIN,URINE 30 mg/dL (NEGATIVE); URINE SPECIFIC GRAVITY 1.023; UROBILINOGEN,URINE NEGATIVE mg/dL (<2.0)
[2017-12-09] MEDS ORDERED: CEFTRIAXONE INJ 1000 MG VIAL IV ONE (05:35)
[2017-12-09 05:41] LABS: ABSOLUTE BASOPHILS # (AUTO) 0.1 10^3/uL (0.0-0.2); ABSOLUTE EOSINOPHILS # (AUTO) 0.2 10^3/uL (0.0-0.6); ABSOLUTE NEUT (AUTO) 9.5 10^3/uL (1.7-8.2); BASOPHILS % (AUTO) 0.6 % (0-2); EOSINOPHILS % (AUTO) 1.4 % (0-6); HEMATOCRIT 42.1 % (36.0-47.0); HEMOGLOBIN 14.4 g/dL (12.0-15.5); LYMPHOCYTES % (AUTO) 21.7 % (13-45); MEAN CORPUSCULAR HEMOGLOBIN 31.8 pg (27.0-33.4); MEAN CORPUSCULAR HGB CONC 34.2 g/dL (32.0-36.0); MEAN CORPUSCULAR VOLUME 93 fl (80-97); MONOCYTES % (AUTO) 7.2 % (3-13); PLATELET COUNT 275 10^3/uL (150-450); RED BLOOD COUNT 4.52 10^6/uL (3.72-5.28); RED CELL DISTRIBUTION WIDTH 13.9 % (11.5-14.0); SEGMENTED NEUTROPHILS % (AUTO) 69.1 % (42-78); TOTAL CELLS COUNTED % (AUTO) 100 %; WHITE BLOOD COUNT 13.7 10^3/uL (4.0-10.5)
[2017-12-09 05:59] LABS: ANION GAP 13 (5-19); BLOOD UREA NITROGEN 22 mg/dL (7-20); CALCIUM 9.6 mg/dL (8.4-10.2); CARBON DIOXIDE 26 mmol/L (22-30); CHLORIDE 108 mmol/L (98-107); GLUCOSE 228 mg/dL (75-110); POTASSIUM 4.1 mmol/L (3.6-5.0); SODIUM 146.9 mmol/L (137-145)
[2017-12-09] MEDS ORDERED: HYDROMORPHONE HCL INJ/PF 2 MG/ML AMPULE IV ONE (06:10)
[2017-12-09] MEDS ORDERED: OXYCODONE-ACETAMINOPHEN 5-325 MG TABLET PO ONE (06:12)
[2017-12-09 06:32] VITALS: BP 132/88
== END 2017-12-09 06:32 | disposition home or self-care (01) ==
LOC: ER 04:34
DX: N39.0 Urinary tract infection, site not specified (principal); R31.9 Hematuria, unspecified; R11.2 Nausea with vomiting, unspecified; F17.210 Nicotine dependence, cigarettes, uncomplicated; Z87.442 Personal history of urinary calculi; Z88.6 Allergy status to analgesic agent; Z88.8 Allergy status to other drugs, medicaments and biological substances; Z88.5 Allergy status to narcotic agent; Z91.012 Allergy to eggs; Z91.040 Latex allergy status; Z91.013 Allergy to seafood
CPT/HCPCS: 99284; 96361; 96375; 96365; 36415; 87086; 85025; 80048; 81001; J3010; J2765; J0696; J7030

== ENCOUNTER 2018-01-10 00:49 | Emergency (ER) | payer MEDICAID ==
[2018-01-10 01:32] LABS: APPEARANCE,URINE CLOUDY; BILIRUBIN,URINE NEGATIVE (NEGATIVE); CALCIUM OXALATE CRYSTALS,URINE MANY /HPF; COLOR,URINE YELLOW; GLUCOSE, URINE NEGATIVE (NEGATIVE); KETONES,URINE TRACE mg/dL (NEGATIVE); LEUKOCYTE ESTERASE,URINE LARGE (NEGATIVE); NITRITE,URINE NEGATIVE (NEGATIVE); PROTEIN,URINE 100 mg/dL (NEGATIVE); URINE SPECIFIC GRAVITY 1.031
--- NOTE | 2018-01-10 01:40 | ER Document Report ---
ED Medical Screen (RME) - General Chief Complaint: Flank Pain Stated Complaint: BODY PAIN/LEFT SIDE Time Seen by Provider: 01/10/18 01:35 Mode of Arrival: Ambulatory Information source: Patient Notes: 47-year-old female presents to ED for complaint of left flank pain. She states she has a long history of kidney stones. She is positive for and bacteria in her urine. She is positive for trace for ketones large for blood negative for nitrates positive large for leukocytes WBCs greater than 182 RBCs greater than 182 bacteria +1. She states she passed a kidney stone about 2 weeks ago and her last CT was about 6 weeks ago which showed some renal stones. Urine was dark and cloudy. I have greeted and performed a rapid initial assessment of this patient. A comprehensive ED assessment and evaluation of the patient, analysis of test results and completion of medical decision making process will be conducted by an additional ED providers. TRAVEL OUTSIDE OF THE [place] IN LAST 30 DAYS: No - Related Data Allergies/Adverse Reactions: ibuprofen Allergy (Unknown, Verified 12/09/17 04:37) ketorolac [From Toradol] Allergy (Unknown, Verified 12/09/17 04:37) meperidine [From Demerol] Allergy (Unknown, Verified 12/09/17 04:37) adhesive Allergy (Verified 12/23/17 21:12) aspirin Allergy (Verified 12/09/17 04:37) codeine Allergy (Verified 12/09/17 04:37) egg Allergy (Verified 12/09/17 04:37) iodine Allergy (Verified 12/09/17 04:37) Latex, Natural Rubber Allergy (Verified 12/09/17 04:37) morphine Allergy (Verified 12/09/17 04:37) shellfish derived Allergy (Verified 12/09/17 04:37) sumatriptan [From Imitrex] Allergy (Verified 12/09/17 04:37) tramadol [From Ultram] Allergy (Verified 12/09/17 04:37) ondansetron [From Zofran (as hydrochloride)] Adverse Reaction (Mild, Verified 04:37) VOMITING Past Medical History Pulmonary Medical History: Reports: Hx Asthma Neurological Medical History: Reports: Hx Seizures - Epilepsy Renal/ Medical History: Reports: Hx Kidney Stones, Hx Ovarian Cysts. Denies: Hx Peritoneal Dialysis GI Medical History: Reports: Hx Ulcer Musculoskeltal Medical History: Reports Hx Arthritis, Reports Hx Musculoskeletal Trauma Psychiatric Medical History: Reports: Hx Anxiety, Hx Depression Traumatic Medical History: Reports: Hx Fractures - Hands wrist knees multiple others Past Surgical History: Reports: Hx Appendectomy, Hx Section, Hx Gynecologic Surgery - Right Ovary, Hx Hysterectomy, Hx Orthopedic Surgery - Rt. Wrist, Other - Lithotripsy over 20 times - Immunizations Immunizations up to date: Yes Hx Diphtheria, Pertussis, Tetanus Vaccination: Yes Physical Exam - Vital signs Vitals: Temp Pulse Resp BP Pulse Ox 98.0 F 123 H 16 128/84 H 94 01/10/18 01:27 01/10/18 01:27 01/10/18 01:27 01/10/18 01:27 01/10/18 01:27 Course - Vital Signs Vital signs: Temp Pulse Resp BP Pulse Ox 98.0 F 123 H 16 128/84 H 94 01/10/18 01:27 01/10/18 01:27 01/10/18 01:27 01/10/18 01:27 01/10/18 01:27 - Laboratory Laboratory results interpreted by me: 01/10/18 01:00 Urine Protein 100 H Urine Ketones TRACE H Urine Blood LARGE H Urine Urobilinogen 2.0 H Ur Leukocyte Esterase LARGE H
[2018-01-10] MEDS ORDERED: PROMETHAZINE HCL 25 MG TABLET PO ONE (01:44)
[2018-01-10] MEDS ORDERED: HYDROCODONE/ACETAMINOPHEN 5-325 MG TABLET PO ONE (01:44)
--- NOTE | 2018-01-10 02:53 | RADIOLOGY REPORT (SQ) ---
EXAM DESCRIPTION: US RETROPERITONEUM COMPLETED DATE/TME: 01/10/2018 01:40 CLINICAL HISTORY: Left flank pain/history of kidney stones/hematuria COMPARISON: 03/31/2017 TECHNIQUE: Real-time sonographic images of the retroperitoneum were obtained using a curved multihertz transducer. FINDINGS: The aorta and IVC are not evaluated on this study. The right kidney measures 12.8 cm in length. The left kidney measures 12.7 cm in length. Small bilateral cysts identified bilaterally. Mild pelvicaliectasis of the left kidney. No calcified gallstones identified. No solid masses identified. No definite abnormalities of the urinary bladder. The urinary bladder is not well identified. IMPRESSION: 1. Mild left hydronephrosis.
[2018-01-10] MEDS ORDERED: NORMAL SALINE 1000 ML 1,000 ML IV PRN (04:12)
[2018-01-10] MEDS ORDERED: CEFTRIAXONE INJ 1000 MG VIAL IV ONE (04:13)
[2018-01-10] MEDS ORDERED: HYDROMORPHONE HCL INJ/PF 2 MG/ML AMPULE IV ONE (04:13)
[2018-01-10] MEDS ORDERED: ONDANSETRON 4 MG TAB.RAPDIS PO ONE (04:14)
[2018-01-10] MEDS ORDERED: PROMETHAZINE HCL INJ 25 MG/1 ML VIAL IM ONE (04:20)
--- NOTE | 2018-01-10 04:23 | ER Document Report ---
ED General - General Chief Complaint: Flank Pain Stated Complaint: BODY PAIN/LEFT SIDE Time Seen by Provider: 01/10/18 01:35 Mode of Arrival: Ambulatory Notes: Patient is 47-year-old female presents with complaint of left flank pain. She also some dysuria. Pain is been there since the afternoon. No fevers. She has had some vomiting. No diarrhea. She does have history of kidney stones. She has had previous lithotripsy. TRAVEL OUTSIDE OF THE [place] IN LAST 30 DAYS: No - Related Data Allergies/Adverse Reactions: ibuprofen Allergy (Unknown, Verified 12/09/17 04:37) ketorolac [From Toradol] Allergy (Unknown, Verified 12/09/17 04:37) meperidine [From Demerol] Allergy (Unknown, Verified 12/09/17 04:37) adhesive Allergy (Verified 12/23/17 21:12) aspirin Allergy (Verified 12/09/17 04:37) codeine Allergy (Verified 12/09/17 04:37) egg Allergy (Verified 12/09/17 04:37) iodine Allergy (Verified 12/09/17 04:37) Latex, Natural Rubber Allergy (Verified 12/09/17 04:37) morphine Allergy (Verified 12/09/17 04:37) shellfish derived Allergy (Verified 12/09/17 04:37) sumatriptan [From Imitrex] Allergy (Verified 12/09/17 04:37) tramadol [From Ultram] Allergy (Verified 12/09/17 04:37) ondansetron [From Zofran (as hydrochloride)] Adverse Reaction (Mild, Verified 04:37) VOMITING Past Medical History - General Information source: Patient - Social History Smoking Status: Unknown if Ever Smoked Frequency of alcohol use: None Drug Abuse: None Family History: Reviewed & Not Pertinent, Malignancy - father, Other - grandfather history of kidney stones Patient has suicidal ideation: No Patient has homicidal ideation: No Pulmonary Medical History: Reports: Hx Asthma Neurological Medical History: Reports: Hx Seizures - Epilepsy Renal/ Medical History: Reports: Hx Kidney Stones, Hx Ovarian Cysts. Denies: Hx Peritoneal Dialysis GI Medical History: Reports: Hx Ulcer Musculoskeltal Medical History: Reports Hx Arthritis, Reports Hx Musculoskeletal Trauma Psychiatric Medical History: Reports: Hx Anxiety, Hx Depression Traumatic Medical History: Reports: Hx Fractures - Hands wrist knees multiple others Past Surgical History: Reports: Hx Appendectomy, Hx Section, Hx Gynecologic Surgery - Right Ovary, Hx Hysterectomy, Hx Orthopedic Surgery - Rt. Wrist, Other - Lithotripsy over 20 times - Immunizations Immunizations up to date: Yes Hx Diphtheria, Pertussis, Tetanus Vaccination: Yes Review of Systems - Review of Systems Notes: My Normal Review Basic REVIEW OF SYSTEMS: CONSTITUTIONAL : Denies fever, chills, or sweats. Denies recent illness. EENT: Denies eye, ear, throat, or mouth pain or symptoms. Denies nasal or sinus congestion. CARDIOVASCULAR: Denies chest pain. RESPIRATORY: Denies cough, cold, or chest congestion. Denies shortness of breath, difficulty breathing, or wheezing. GASTROINTESTINAL: Left back and flank pain. Has vomiting. GENITOURINARY: Dysuria MUSCULOSKELETAL: Denies neck or back pain or joint pain or swelling. SKIN: Denies rash or skin lesions. NEUROLOGICAL: Denies altered mental status or loss of consciousness. Denies headache. Denies weakness or paralysis or loss of use of either side. Denies problems with gait or speech. Denies sensory or motor loss. ALL OTHER SYSTEMS REVIEWED AND NEGATIVE. Physical Exam - Vital signs Vitals: Temp Pulse Resp BP Pulse Ox 98.0 F 123 H 16 128/84 H 94 01/10/18 01:27 01/10/18 01:27 01/10/18 01:27 01/10/18 01:27 01/10/18 01:27 - Notes Notes: General Appearance: Well nourished, alert, cooperative, no acute distress, no obvious discomfort. Vitals: reviewed, See vital signs table. Head: no swelling or tenderness to the head Eyes: PERRL, EOMI, Conjuctiva clear Mouth: No decreasd moisture Neck: Supple, no neck tenderness, No thyromegaly Lungs: No wheezing, No rales, No rhonci, No accessory muscle use, good air exchange bilaterally. Heart: Tachycardic rate, Regular rythm, No murmur, no rub Abdomen: Normal BS, soft, No rigidity, No reducible abdominal tenderness palpation, No guarding, no rebound, Back: Palpation of the back does not make the pain worse. Extremities: strength 5/5 in all extremities, good pulses in all extremities, no swelling or tenderness in the extremities, no edema. Skin: warm, dry, appropriate color, no rash Neuro: speech clear, oriented x 3, normal affect, responds appropriately to questions. Course - Re-evaluation Re-evalutation: 01/10/18 05:37 Patient's urinalysis shows evidence pyonephritis. Due to her history of kidney stones we did do ultrasound which showed possible mild hydronephrosis. We therefore did a CT scan which. Patient fortunately does not have any ureteral stones on scan. Therefore gave patient a dose of Rocephin. Her tachycardia has resolved. She looks and feels improved. She will be discharged home with pain medicine, nausea medicine, and antibiotic. She is encouraged to return to ER immediately if she has fevers, intractable pain, intractable vomiting, or she feels unwell. Patient agrees with plan and will be discharged home. Dictation of this chart was performed using voice recognition software; therefore, there may be some unintended grammatical errors. 01/10/18 05:37 - Vital Signs Vital signs: Temp Pulse Resp BP Pulse Ox 98.0 F 79 16 115/92 H 94 01/10/18 01:27 01/10/18 04:54 01/10/18 04:54 01/10/18 05:00 01/10/18 01:27 - Laboratory Laboratory results interpreted by me: 01/10/18 01:00 Urine Protein 100 H Urine Ketones TRACE H Urine Blood LARGE H Urine Urobilinogen 2.0 H Ur Leukocyte Esterase LARGE H Discharge - Discharge Clinical Impression: Pyelonephritis Condition: Good Disposition: HOME, SELF-CARE Additional Instructions: PYELONEPHRITIS: Your evaluation shows evidence of pyelonephritis. This is an infection in the kidney. Typical symptoms are fever, pain in the flank, pain on urination, and frequent urination. Many cases of pyelonephritis can be treated at home. Hospital care may be necessary for patients who are very ill, or elderly or . Pyelonephritis is treated with antibiotics. Be sure to take all the medication as prescribed. Drink plenty of liquids (about three quarts per day) . You may take acetaminophen for fever. You should feel significantly improved within two days. You should have a recheck of your urine in about one week to insure that the infection is gone. Return for a re-examination if your symptoms worsen in any way -- such as high fever, shaking chills, severe weakness or dizziness, severe pain, or inability to pass your urine. PAIN MEDICATION INJECTION: You have received an injection of a pain medication. You should experience significant pain relief within 45 minutes. This drug is a narcotic - - it will impair your judgement, slow your reaction time and make you sleepy ( as well as relieve your pain). Narcotics also can cause nausea. You should not drive, work with machinery, or perform any task requiring mental alertness until all effects of the medication are gone -- six to eight hours. Do not take any alcohol, or sedatives, and do not take any other medication without checking with your physician. ANTINAUSEA MEDICATION: You have been given a medication to suppress nausea and vomiting. This type of medication can be given as a shot, pill, or suppository. It will usually last for many hours. Pills and shots usually last six to eight hours, suppositories last about 12 hours. For the typical illness, only one or two doses of the medication may be necessary. Mild lightheadedness may occur. This type of medicine can cause drowsiness. Do not drive or operate dangerous machinery while under its influence. Do not mix with alcohol. See your doctor at once if you have muscle spasms or tightness, or uncontrollable motions (particularly of the neck, mouth, or jaw). Persistent vomiting or severe lightheadedness should also be evaluated by the physician. ANTIBIOTIC THERAPY: You have been given an antibiotic prescription. It's important that you take all the medication, unless instructed otherwise by your physician. Failure to complete the entire course can result in relapse of your condition. Common side effects of antibiotics include nausea, intestinal cramping, or diarrhea. Women may develop vaginal yeast infections, and babies can get yeast (thrush) in the mouth following the use of antibiotics. Contact your physician if you develop significant side effects from this medication. Allergy to this antibiotic can result in hives, wheezing, faintness, or itching. If symptoms of allergy occur, stop the medication and call the doctor. ROCEPHIN: You have been given an injection of an antibiotic called Rocephin ( ceftriaxone). Sometimes the injection must be combined with antibiotic pills. For some infections, such as an uncomplicated ear infection, Rocephin provides all the antibiotic that's needed. The antibiotic will be in your body for about two days. For serious infections, we usually repeat doses of Rocephin daily. Side effects are very unusual following a shot. Women may develop vaginal yeast infections, and babies can get yeast (thrush) in the mouth following the use of antibiotics. Contact your physician if you have symptoms with this medication. Allergy to this antibiotic can result in hives, wheezing, faintness, or itching. If symptoms of allergy occur, call the doctor at once. CEPHALEXIN: The antibiotic you've been prescribed is a member of the cephalosporin class. This type of antibiotic covers a wide variety of infections, including those of the skin, lungs, and urinary tract. It's useful for staph infections. This antibiotic is slightly similar to the penicillin family. In rare cases , a person who is allergic to penicillin will also be allergic to this medication. If you have had a severe allergic reaction to penicillin, and have not taken this antibiotic since that time, notify your doctor. Antibiotics which cover many germs ("broad spectrum" antibiotics) are more likely to cause diarrhea or "yeast" infections. Women prone to vaginal yeast problems may suffer an attack after taking this antibiotic. In infants, oral thrush (white spots "stuck" on the cheek) or yeast diaper rash may result. See your doctor if these problems occur. Call at once if you develop itching, hives , shortness of breath, or lightheadedness. USE OF ACETAMINOPHEN (Tylenol): Acetaminophen may be taken for pain relief or fever control. It's much safer than aspirin, offering a wider range of "safe" dosages. It is safe during . Some brand names are Tylenol, Panadol, Datril, Anacin 3, Tempra, and Liquiprin. Acetaminophen can be repeated every four hours. The following are maximum recommended dosages: >89 pounds or adults 650 mg to 900 mg Acetaminophen can be repeated every four hours. Maximum dose not to exceed 4000 mg a day. ORAL NARCOTIC MEDICATION: You have been given a prescription for pain control. This medication is a narcotic. It's best taken with food, as nausea can result if taken on an empty stomach. Don't operate machinery or drive within six hours of taking this medication. Do not combine this medicine with alcohol, or with any medication which can cause sedation (such as cold tablets or sleeping pills) unless you get permission from the physician. Narcotics tend to cause constipation. If possible, drink plenty of fluids and eat a diet high in fiber and fruits. Please be aware that prescription narcotics also have the potential for abuse. People become addicted to these medications because of the general sense of wellbeing that they induce. This feeling along with a significant reduction in tension, anxiety, and aggression provides a stimulating seductive quality to these drugs. Once your pain is under control, we encourage you to discard your unused narcotics. FOLLOW-UP CARE: If you have been referred to a physician for follow-up care, call the physician s office for an appointment as you were instructed or within the next two days. If you experience worsening or a significant change in your symptoms, notify the physician immediately or return to the Emergency Department at any time for re-evaluation. Please follow up with your doctor on Sunday or Sunday. please return to the ER immedaitely if you have fevers, intractable vomiting, worsening pain, or if you feel that you are worsening. Prescriptions: Cephalexin Monohydrate [Keflex 500 mg Capsule] 500 mg PO Q12 #14 capsule Promethazine HCl [Phenergan 25 mg Tablet] 1 tab PO Q6H PRN #15 tablet PRN Reason: Forms: Return to Work
--- NOTE | 2018-01-10 04:56 | RADIOLOGY REPORT (SQ) ---
EXAM DESCRIPTION: CT ABDOMEN WITHOUT IV CONTRAST COMPLETED DATE/TME: 01/10/2018 04:12 CLINICAL HISTORY: L flank pain, mild hydronephrosis on US COMPARISON: 10/03/2017 TECHNIQUE: CT of the abdomen and pelvis without IV contrast. Evaluation of the solid organs and vasculature is suboptimal due to lack of IV contrast. DLP: 774.21 mGy-cm FINDINGS: Lung Bases: The visualized lung bases are clear. Bones: No destructive bone lesions identified. Degenerative spondylosis of the visualized thoracic and lumbar spine. Abdomen: Liver: The liver has normal size and decreased density. Gallbladder: No calcified gallstones. Spleen, Pancreas, and Adrenal Glands: The spleen, pancreas, and adrenal glands are unremarkable. Kidneys: Punctate bilateral nonobstructing renal calculi. Mild left hydronephrosis. No obstructing left ureteral calculus. Vasculature: Aortoiliac atherosclerosis. IVC is unremarkable. Stomach: The stomach and duodenum have normal course. Other: No free intraperitoneal air. No free fluid or lymphadenopathy. Pelvis: Bladder: Urinary bladder is unremarkable. Bowel: Scattered diverticula colon without pericolic inflammatory change. Appendix: No evidence of appendicitis. Pelvis: Prior hysterectomy. IMPRESSION: 1. Mild left hydronephrosis. No obstructing ureteral calculus identified. This may be related to recently passed left ureteral calculus. 2. Bilateral nonobstructing renal calculi. 3. Hepatic steatosis. 4. Diverticulosis without evidence of acute diverticulitis. This exam was performed according to our departmental dose-optimization program, which includes automated exposure control, adjustment of the mA and/or kV according to patient size and/or use of iterative reconstruction technique.
[2018-01-10] MEDS ORDERED: HYDROCODONE/ACETAMINOPHEN 5-325 MG (6 TAB/ER DISP) PO PRN (05:34)
[2018-01-10] MEDS ORDERED: FLUCONAZOLE 100 MG TABLET PO ONE (06:37)
--- NOTE | 2018-01-10 06:43 | ER Document Report ---
ED General - General Chief Complaint: Flank Pain Stated Complaint: BODY PAIN/LEFT SIDE Time Seen by Provider: 01/10/18 01:35 Mode of Arrival: Ambulatory Notes: Patient is a 47-year-old female who presents with complaint of severe left flank pain and dysuria. Patient is to recurrent kidney stones. She was initially seen by the nurse practitioner who ordered a urinalysis and labs. She also her ultrasound. Ultrasound showed possible mild hydronephrosis and therefore I have ordered a CT scan. Patient said symptoms have been ongoing since midday yesterday. She has had some recurrent vomiting. No fevers. She has passed several kidney stones in the past and has required lithotripsy as well. No other complaints at this time. TRAVEL OUTSIDE OF THE [place] IN LAST 30 DAYS: No - Related Data Allergies/Adverse Reactions: ibuprofen Allergy (Unknown, Verified 12/09/17 04:37) ketorolac [From Toradol] Allergy (Unknown, Verified 12/09/17 04:37) meperidine [From Demerol] Allergy (Unknown, Verified 12/09/17 04:37) adhesive Allergy (Verified 12/23/17 21:12) aspirin Allergy (Verified 12/09/17 04:37) codeine Allergy (Verified 12/09/17 04:37) egg Allergy (Verified 12/09/17 04:37) iodine Allergy (Verified 12/09/17 04:37) Latex, Natural Rubber Allergy (Verified 12/09/17 04:37) morphine Allergy (Verified 12/09/17 04:37) shellfish derived Allergy (Verified 12/09/17 04:37) sumatriptan [From Imitrex] Allergy (Verified 12/09/17 04:37) tramadol [From Ultram] Allergy (Verified 12/09/17 04:37) ondansetron [From Zofran (as hydrochloride)] Adverse Reaction (Mild, Verified 04:37) VOMITING Past Medical History - General Information source: Patient - Social History Smoking Status: Unknown if Ever Smoked Frequency of alcohol use: None Drug Abuse: None Family History: Reviewed & Not Pertinent, Malignancy - father, Other - grandfather history of kidney stones Patient has suicidal ideation: No Patient has homicidal ideation: No Pulmonary Medical History: Reports: Hx Asthma Neurological Medical History: Reports: Hx Seizures - Epilepsy Renal/ Medical History: Reports: Hx Kidney Stones, Hx Ovarian Cysts. Denies: Hx Peritoneal Dialysis GI Medical History: Reports: Hx Ulcer Musculoskeltal Medical History: Reports Hx Arthritis, Reports Hx Musculoskeletal Trauma Psychiatric Medical History: Reports: Hx Anxiety, Hx Depression Traumatic Medical History: Reports: Hx Fractures - Hands wrist knees multiple others Past Surgical History: Reports: Hx Appendectomy, Hx Section, Hx Gynecologic Surgery - Right Ovary, Hx Hysterectomy, Hx Orthopedic Surgery - Rt. Wrist, Other - Lithotripsy over 20 times - Immunizations Immunizations up to date: Yes Hx Diphtheria, Pertussis, Tetanus Vaccination: Yes Review of Systems - Review of Systems Notes: My Normal Review Basic REVIEW OF SYSTEMS: CONSTITUTIONAL : Denies fever, chills, or sweats. Denies recent illness. EENT: Denies eye, ear, throat, or mouth pain or symptoms. Denies nasal or sinus congestion. CARDIOVASCULAR: Denies chest pain. RESPIRATORY: Denies cough, cold, or chest congestion. Denies shortness of breath, difficulty breathing, or wheezing. GASTROINTESTINAL: Denies abdominal pain. Vomiting GENITOURINARY: Dysuria MUSCULOSKELETAL: Denies neck or back pain or joint pain or swelling. SKIN: Denies rash or skin lesions. NEUROLOGICAL: Denies altered mental status or loss of consciousness. Denies headache. Denies weakness or paralysis or loss of use of either side. Denies problems with gait or speech. Denies sensory or motor loss. ALL OTHER SYSTEMS REVIEWED AND NEGATIVE. Physical Exam - Vital signs Vitals: Temp Pulse Resp BP Pulse Ox 98.0 F 123 H 16 128/84 H 94 01/10/18 01:27 01/10/18 01:27 01/10/18 01:27 01/10/18 01:01/10/18 01:27 - Notes Notes: General Appearance: Well nourished, alert, cooperative, no acute distress, mild to moderate obvious discomfort. Vitals: reviewed, See vital signs table. Head: no swelling or tenderness to the head Eyes: PERRL, EOMI, Conjuctiva clear Mouth: No decreasd moisture Lungs: No wheezing, No rales, No rhonci, No accessory muscle use, good air exchange bilaterally. Heart: Normal rate, Regular rythm, No murmur, no rub Abdomen: Normal BS, soft, No rigidity, No reducible abdominal tenderness the patient, No guarding, no rebound, no abdominal masses, n Back: No reproducible pain palpation. Extremities: good pulses in all extremities, no swelling or tenderness in the extremities, no edema. Skin: warm, dry, appropriate color, no rash Neuro: speech clear, oriented x 3, normal affect, responds appropriately to questions. Course - Re-evaluation Re-evalutation: 01/10/18 06:[address] scan did not show evidence of intraureteral stone. She does have what appears to be pyelonephritis based on urinalysis. I did give her a dose of Rocephin. Will prescribe Keflex. Also gave her Diflucan as she usually gets yeast infections while on antibiotics. Patient clinically looks well and her heart rate is improved. Patient will be discharged home but is strongly encouraged to return to ER if she has intractable pain, intractable vomiting, fevers, or feels unwell. Patient agrees with plan will be discharged home. Dictation of this chart was performed using voice recognition software; therefore, there may be some unintended grammatical errors. - Vital Signs Vital signs: Temp Pulse Resp BP Pulse Ox 98.0 F 79 16 115/92 H 94 01/10/18 01:27 01/10/18 04:54 01/10/18 04:54 01/10/18 05:00 01/10/18 01:27 - Laboratory Laboratory results interpreted by me: 01/10/18 01:00 Urine Protein 100 H Urine Ketones TRACE H Urine Blood LARGE H Urine Urobilinogen 2.0 H Ur Leukocyte Esterase LARGE H Discharge - Discharge Clinical Impression: Pyelonephritis Condition: Good Disposition: HOME, SELF-CARE Additional Instructions: PYELONEPHRITIS: Your evaluation shows evidence of pyelonephritis. This is an infection in the kidney. Typical symptoms are fever, pain in the flank, pain on urination, and frequent urination. Many cases of pyelonephritis can be treated at home. Hospital care may be necessary for patients who are very ill, or elderly or . Pyelonephritis is treated with antibiotics. Be sure to take all the medication as prescribed. Drink plenty of liquids (about three quarts per day) . You may take acetaminophen for fever. You should feel significantly improved within two days. You should have a recheck of your urine in about one week to insure that the infection is gone. Return for a re-examination if your symptoms worsen in any way -- such as high fever, shaking chills, severe weakness or dizziness, severe pain, or inability to pass your urine. PAIN MEDICATION INJECTION: You have received an injection of a pain medication. You should experience significant pain relief within 45 minutes. This drug is a narcotic - - it will impair your judgement, slow your reaction time and make you sleepy ( as well as relieve your pain). Narcotics also can cause nausea. You should not drive, work with machinery, or perform any task requiring mental alertness until all effects of the medication are gone -- six to eight hours. Do not take any alcohol, or sedatives, and do not take any other medication without checking with your physician. ANTINAUSEA MEDICATION: You have been given a medication to suppress nausea and vomiting. This type of medication can be given as a shot, pill, or suppository. It will usually last for many hours. Pills and shots usually last six to eight hours, suppositories last about 12 hours. For the typical illness, only one or two doses of the medication may be necessary. Mild lightheadedness may occur. This type of medicine can cause drowsiness. Do not drive or operate dangerous machinery while under its influence. Do not mix with alcohol. See your doctor at once if you have muscle spasms or tightness, or uncontrollable motions (particularly of the neck, mouth, or jaw). Persistent vomiting or severe lightheadedness should also be evaluated by the physician. ANTIBIOTIC THERAPY: You have been given an antibiotic prescription. It's important that you take all the medication, unless instructed otherwise by your physician. Failure to complete the entire course can result in relapse of your condition. Common side effects of antibiotics include nausea, intestinal cramping, or diarrhea. Women may develop vaginal yeast infections, and babies can get yeast (thrush) in the mouth following the use of antibiotics. Contact your physician if you develop significant side effects from this medication. Allergy to this antibiotic can result in hives, wheezing, faintness, or itching. If symptoms of allergy occur, stop the medication and call the doctor. ROCEPHIN: You have been given an injection of an antibiotic called Rocephin ( ceftriaxone). Sometimes the injection must be combined with antibiotic pills. For some infections, such as an uncomplicated ear infection, Rocephin provides all the antibiotic that's needed. The antibiotic will be in your body for about two days. For serious infections, we usually repeat doses of Rocephin daily. Side effects are very unusual following a shot. Women may develop vaginal yeast infections, and babies can get yeast (thrush) in the mouth following the use of antibiotics. Contact your physician if you have symptoms with this medication. Allergy to this antibiotic can result in hives, wheezing, faintness, or itching. If symptoms of allergy occur, call the doctor at once. CEPHALEXIN: The antibiotic you've been prescribed is a member of the cephalosporin class. This type of antibiotic covers a wide variety of infections, including those of the skin, lungs, and urinary tract. It's useful for staph infections. This antibiotic is slightly similar to the penicillin family. In rare cases , a person who is allergic to penicillin will also be allergic to this medication. If you have had a severe allergic reaction to penicillin, and have not taken this antibiotic since that time, notify your doctor. Antibiotics which cover many germs ("broad spectrum" antibiotics) are more likely to cause diarrhea or "yeast" infections. Women prone to vaginal yeast problems may suffer an attack after taking this antibiotic. In infants, oral thrush (white spots "stuck" on the cheek) or yeast diaper rash may result. See your doctor if these problems occur. Call at once if you develop itching, hives , shortness of breath, or lightheadedness. USE OF ACETAMINOPHEN (Tylenol): Acetaminophen may be taken for pain relief or fever control. It's much safer than aspirin, offering a wider range of "safe" dosages. It is safe during . Some brand names are Tylenol, Panadol, Datril, Anacin 3, Tempra, and Liquiprin. Acetaminophen can be repeated every four hours. The following are maximum recommended dosages: >89 pounds or adults 650 mg to 900 mg Acetaminophen can be repeated every four hours. Maximum dose not to exceed 4000 mg a day. ORAL NARCOTIC MEDICATION: You have been given a prescription for pain control. This medication is a narcotic. It's best taken with food, as nausea can result if taken on an empty stomach. Don't operate machinery or drive within six hours of taking this medication. Do not combine this medicine with alcohol, or with any medication which can cause sedation (such as cold tablets or sleeping pills) unless you get permission from the physician. Narcotics tend to cause constipation. If possible, drink plenty of fluids and eat a diet high in fiber and fruits. Please be aware that prescription narcotics also have the potential for abuse. People become addicted to these medications because of the general sense of wellbeing that they induce. This feeling along with a significant reduction in tension, anxiety, and aggression provides a stimulating seductive quality to these drugs. Once your pain is under control, we encourage you to discard your unused narcotics. FOLLOW-UP CARE: If you have been referred to a physician for follow-up care, call the physician s office for an appointment as you were instructed or within the next two days. If you experience worsening or a significant change in your symptoms, notify the physician immediately or return to the Emergency Department at any time for re-evaluation. Please follow up with your doctor on Sunday or Sunday. please return to the ER immedaitely if you have fevers, intractable vomiting, worsening pain, or if you feel that you are worsening. Prescriptions: Cephalexin Monohydrate [Keflex 500 mg Capsule] 500 mg PO Q12 #14 capsule Promethazine HCl [Phenergan 25 mg Tablet] 1 tab PO Q6H PRN #15 tablet PRN Reason: Forms: Return to Work
[2018-01-10 06:47] VITALS: BP 141/69
== END 2018-01-10 06:47 | disposition home or self-care (01) ==
LOC: ER 00:49
DX: N12 Tubulo-interstitial nephritis, not specified as acute or chronic (principal); R10.32 Left lower quadrant pain; Z88.6 Allergy status to analgesic agent; Z91.012 Allergy to eggs; Z91.040 Latex allergy status; Z91.013 Allergy to seafood; Z90.49 Acquired absence of other specified parts of digestive tract; Z90.710 Acquired absence of both cervix and uterus; Z87.442 Personal history of urinary calculi
CPT/HCPCS: 99284; 96372; 96361; 96375; 96365; 87040; 87086; 87077; 81001; 76770; 76380; J1170; J2550; J3490 ×2; J0696; J7030

== ENCOUNTER 2018-01-13 23:18 | Emergency (ER) | payer MEDICAID ==
[2018-01-14] MEDS ORDERED: FENTANYL CITRATE INJ/PF 100 MCG/2 ML AMPUL IV PRN (00:17)
[2018-01-14] MEDS ORDERED: NORMAL SALINE 1000 ML 1,000 ML IV ONE (00:17)
[2018-01-14 00:43] LABS: APPEARANCE,URINE CLOUDY; BILIRUBIN,URINE NEGATIVE (NEGATIVE); GLUCOSE, URINE NEGATIVE (NEGATIVE); KETONES,URINE NEGATIVE (NEGATIVE); LEUKOCYTE ESTERASE,URINE LARGE (NEGATIVE); NITRITE,URINE NEGATIVE (NEGATIVE); PROTEIN,URINE 100 mg/dL (NEGATIVE); URINE SPECIFIC GRAVITY 1.024
[2018-01-14 00:44] LABS: COLOR,URINE DARK YELLOW
[2018-01-14] MEDS ORDERED: METOCLOPRAMIDE HCL INJ/PF 10 MG/2 ML SDV IV ONE (00:44)
[2018-01-14] MEDS: HYDROMORPHONE HCL INJ/PF 2 MG/ML AMPULE IV PRN ×2 (00:52→03:03)
[2018-01-14 00:55] LABS: ABSOLUTE BASOPHILS # (AUTO) 0.1 10^3/uL (0.0-0.2); ABSOLUTE EOSINOPHILS # (AUTO) 0.3 10^3/uL (0.0-0.6); ABSOLUTE LYMPHOCYTES (AUTO) 4.1 10^3/uL (0.5-4.7); ABSOLUTE MONOCYTES (AUTO) 0.9 10^3/uL (0.1-1.4); ABSOLUTE NEUT (AUTO) 9.5 10^3/uL (1.7-8.2); BASOPHILS % (AUTO) 0.5 % (0-2); EOSINOPHILS % (AUTO) 1.9 % (0-6); HEMATOCRIT 44.3 % (36.0-47.0); HEMOGLOBIN 15.1 g/dL (12.0-15.5); LYMPHOCYTES % (AUTO) 27.7 % (13-45); MEAN CORPUSCULAR HEMOGLOBIN 31.5 pg (27.0-33.4); MEAN CORPUSCULAR VOLUME 93 fl (80-97); MONOCYTES % (AUTO) 5.9 % (3-13); PLATELET COUNT 346 10^3/uL (150-450); RED BLOOD COUNT 4.78 10^6/uL (3.72-5.28); RED CELL DISTRIBUTION WIDTH 14.1 % (11.5-14.0); TOTAL CELLS COUNTED % (AUTO) 100 %; WHITE BLOOD COUNT 14.9 10^3/uL (4.0-10.5)
[2018-01-14 01:16] LABS: ANION GAP 14 (5-19); BLOOD UREA NITROGEN 19 mg/dL (7-20); CALCIUM 9.7 mg/dL (8.4-10.2); CARBON DIOXIDE 23 mmol/L (22-30); CHLORIDE 106 mmol/L (98-107); GLUCOSE 188 mg/dL (75-110); POTASSIUM 4.2 mmol/L (3.6-5.0); SODIUM 143.4 mmol/L (137-145)
[2018-01-14] MEDS ORDERED: CEFTRIAXONE INJ 1000 MG VIAL IV ONE (02:39)
[2018-01-14] MEDS ORDERED: HYDROCODONE/ACETAMINOPHEN 5-325 MG (6 TAB/ER DISP) PO PRN (03:16)
[2018-01-14] MEDS ORDERED: FLUCONAZOLE 100 MG TABLET PO ONE (03:18)
--- NOTE | 2018-01-14 03:20 | ER Document Report ---
ED General - General Chief Complaint: Possible Kidney Stone Stated Complaint: FLANK PAIN Time Seen by Provider: 01/14/18 00:14 Notes: Patient is a 47-year-old female with a past medical history of recurrent nephrolithiasis, recurrent pyelonephritis who was seen 2 days ago or left flank pain who presents with ongoing left flank pain. She describes it as a throbbing , aching, constant pain to her left flank. Nothing improves or worsens this pain. She states that this feels exactly the same as when she was here 2 days ago and was found to have hydronephrosis of the left kidney without any evidence of a ureteral calculus. She denies any vomiting but notes she has been nauseated. No fever or constitutional symptoms. She has been unable to follow-up with a urologist due to insurance access issues. TRAVEL OUTSIDE OF THE [place] IN LAST 30 DAYS: No - Related Data Allergies/Adverse Reactions: ibuprofen Allergy (Unknown, Verified 12/09/17 04:37) ketorolac [From Toradol] Allergy (Unknown, Verified 12/09/17 04:37) meperidine [From Demerol] Allergy (Unknown, Verified 12/09/17 04:37) adhesive Allergy (Verified 12/23/17 21:12) aspirin Allergy (Verified 12/09/17 04:37) codeine Allergy (Verified 12/09/17 04:37) egg Allergy (Verified 12/09/17 04:37) iodine Allergy (Verified 12/09/17 04:37) Latex, Natural Rubber Allergy (Verified 12/09/17 04:37) morphine Allergy (Verified 12/09/17 04:37) shellfish derived Allergy (Verified 12/09/17 04:37) sumatriptan [From Imitrex] Allergy (Verified 12/09/17 04:37) tramadol [From Ultram] Allergy (Verified 12/09/17 04:37) ondansetron [From Zofran (as hydrochloride)] Adverse Reaction (Mild, Verified 04:37) VOMITING Past Medical History - General Information source: Patient - Social History Smoking Status: Current Every Day Smoker Chew tobacco use (# tins/day): No Frequency of alcohol use: None Drug Abuse: None Lives with: Spouse/Significant other Family History: Reviewed & Not Pertinent, Malignancy - father, Other - grandfather history of kidney stones Patient has suicidal ideation: No Patient has homicidal ideation: No Pulmonary Medical History: Reports: Hx Asthma Neurological Medical History: Reports: Hx Seizures - Epilepsy Renal/ Medical History: Reports: Hx Kidney Stones, Hx Ovarian Cysts. Denies: Hx Peritoneal Dialysis GI Medical History: Reports: Hx Ulcer Musculoskeletal Medical History: Reports Hx Arthritis, Reports Hx Musculoskeletal Trauma Psychiatric Medical History: Reports: Hx Anxiety, Hx Depression Traumatic Medical History: Reports: Hx Fractures - Hands wrist knees multiple others Past Surgical History: Reports: Hx Appendectomy, Hx Section, Hx Gynecologic Surgery - Right Ovary, Hx Hysterectomy, Hx Orthopedic Surgery - Rt. Wrist, Other - Lithotripsy over 20 times - Immunizations Immunizations up to date: Yes Hx Diphtheria, Pertussis, Tetanus Vaccination: Yes Review of Systems - Review of Systems Notes: Constitutional: Negative for fever. HENT: Negative for sore throat. Eyes: Negative for visual changes. Cardiovascular: Negative for chest pain. Respiratory: Negative for shortness of breath. Gastrointestinal: Positive for left flank pain and nausea Genitourinary: Positive for dysuria. Musculoskeletal: Negative for back pain. Skin: Negative for rash. Neurological: Negative for headaches, weakness or numbness. 10 point ROS negative except as marked above and in HPI. Physical Exam - Vital signs Vitals: Temp Pulse Resp BP Pulse Ox 99.1 F 119 H 18 125/76 96 01/13/18 23:33 01/13/18 23:33 01/13/18 23:33 01/13/18 23:33 01/13/18 23:33 Interpretation: Tachycardic Notes: PHYSICAL EXAMINATION: GENERAL: Well-appearing, well-nourished and in no acute distress. HEAD: Atraumatic, normocephalic. EYES: Pupils equal round and reactive to light, extraocular movements intact, sclera anicteric, conjunctiva are normal. ENT: nares patent, oropharynx clear without exudates. Moderately dry mucous membranes. NECK: Normal range of motion, supple without lymphadenopathy LUNGS: Breath sounds clear to auscultation bilaterally and equal. No wheezes rales or rhonchi. HEART: Regular rate and rhythm without murmurs ABDOMEN: Soft, left CVA tenderness but otherwise nontender, normoactive bowel sounds. No guarding, no rebound. No masses appreciated. EXTREMITIES: Normal range of motion, no pitting or edema. No cyanosis. NEUROLOGICAL: No focal neurological deficits. Moves all extremities spontaneously and on command. PSYCH: Normal mood, normal affect. SKIN: Warm, Dry, normal turgor, no rashes or lesions noted. Course - Re-evaluation Re-evalutation: 01/14/18 03:19 Patient presents with ongoing left flank pain, noted to have hydronephrosis without a renal calculus on a CT scan from 2 days ago. Labs today overall unchanged from prior assessment. No evidence of sepsis based on vitals or labs. Patient has reproducible left flank pain but no additional abdominal findings. We will transition from Keflex to Augmentin and I have also given a dose of Diflucan. A dose of ceftriaxone has been given here in the emergency department. I have again urged the patient that she needs to follow-up very closely with urology get particular given her ongoing hydronephrosis on the left and the lack of her urines clearance. At this time will discharge with return precautions and follow-up recommendations. Verbal discharge instructions given a the bedside and opportunity for questions given. Medication warnings reviewed. Patient is in agreement with this plan and has verbalized understanding of return precautions and the need for primary care follow-up in the next 24-72 hours. - Vital Signs Vital signs: Temp Pulse Resp BP Pulse Ox 99.1 F 119 H 18 125/76 96 01/13/18 23:33 01/13/18 23:33 01/13/18 23:33 01/13/18 23:33 01/13/18 23:33 - Laboratory Result Diagrams: 01/14/18 00:35 01/14/18 00:35 Laboratory results interpreted by me: 01/13/18 01/14/18 01/14/18 23:55 00:35 00:35 WBC 14.9 H RDW 14.1 H Absolute Neutrophils 9.5 H Glucose 188 H Urine Protein 100 H Urine Blood LARGE H Urine Urobilinogen 2.0 H Ur Leukocyte Esterase LARGE H Discharge - Discharge Clinical Impression: Hydronephrosis, left, Pyelonephritis Condition: Good Disposition: HOME, SELF-CARE Additional Instructions: You urgently need to follow-up with urology regarding your blocked left kidney with an associated ongoing infection. We are transitioning from Keflex to Augmentin as your urine does not appear any better today. Please take the oxycodone as prescribed for pain that is not controlled by Tylenol 1000 mg every 6 hours. Please return if you develop a fever greater than 100.4F, persistent vomiting, worsening pain, or any other symptoms that are worrisome to you. Prescriptions: Oxycodone HCl [Oxycontin Ir 5 Mg Tablet] 1 tab PO Q6HP PRN #10 tablet PRN Reason: For Pain Amox Tr/Potassium Clavulanate [Augmentin 875-125 Tablet] 1 tab PO BID 10 Days tablet
[2018-01-14 04:21] VITALS: BP 131/83
== END 2018-01-14 04:21 | disposition home or self-care (01) ==
LOC: ER 23:18
DX: N13.30 Unspecified hydronephrosis (principal); N12 Tubulo-interstitial nephritis, not specified as acute or chronic; R11.0 Nausea; R10.9 Unspecified abdominal pain; R30.0 Dysuria; F17.200 Nicotine dependence, unspecified, uncomplicated; J45.909 Unspecified asthma, uncomplicated
CPT/HCPCS: 96376; 99284; 96361; 96374; 96375; 36415; 85025; 81025; 80048; 81001; J2765; J1170; J0696; J7030; J3490

== ENCOUNTER 2018-01-22 05:32 | Emergency (ER) | payer MEDICAID ==
--- NOTE | 2018-01-22 06:25 | ER Document Report ---
ED General - General Chief Complaint: Flank Pain Stated Complaint: LEFT FLANK PAIN Time Seen by Provider: 01/22/18 06:04 Notes: 47-year-old female patient to the emergency department for left flank pain. Patient has been seen now off for 3 visits for the same thing in the last 30 days. States that she has had multiple lithotripsies. Multiple kidney stones. States that she has had too many CT scans in her life to the point that her hair is falling out. States that she was feeling much better after switching antibiotics. Thinks that she is on Cipro at this time. Continues to have pain on the left flank. Woke her from sleep today. Vomiting all morning. Cannot get comfortable. Requesting something for the nausea. Requesting some IV fluids and something for the pain as well. TRAVEL OUTSIDE OF THE [place] IN LAST 30 DAYS: No - HPI Onset: Last week Onset/Duration: Gradual, Worse - Related Data Allergies/Adverse Reactions: ibuprofen Allergy (Unknown, Verified 12/09/17 04:37) ketorolac [From Toradol] Allergy (Unknown, Verified 12/09/17 04:37) meperidine [From Demerol] Allergy (Unknown, Verified 12/09/17 04:37) adhesive Allergy (Verified 12/23/17 21:12) aspirin Allergy (Verified 12/09/17 04:37) codeine Allergy (Verified 12/09/17 04:37) egg Allergy (Verified 12/09/17 04:37) iodine Allergy (Verified 12/09/17 04:37) Latex, Natural Rubber Allergy (Verified 12/09/17 04:37) morphine Allergy (Verified 12/09/17 04:37) shellfish derived Allergy (Verified 12/09/17 04:37) sumatriptan [From Imitrex] Allergy (Verified 12/09/17 04:37) tramadol [From Ultram] Allergy (Verified 12/09/17 04:37) ondansetron [From Zofran (as hydrochloride)] Adverse Reaction (Mild, Verified 04:37) VOMITING Past Medical History - General Information source: Patient - Social History Smoking Status: Current Every Day Smoker Cigarette use (# per day): Yes Frequency of alcohol use: None Drug Abuse: None Lives with: Spouse/Significant other Family History: Reviewed & Not Pertinent, Malignancy - father, Other - grandfather history of kidney stones Pulmonary Medical History: Reports: Hx Asthma Neurological Medical History: Reports: Hx Seizures - Epilepsy Renal/ Medical History: Reports: Hx Kidney Stones, Hx Ovarian Cysts. Denies: Hx Peritoneal Dialysis GI Medical History: Reports: Hx Ulcer Musculoskeletal Medical History: Reports Hx Arthritis, Reports Hx Musculoskeletal Trauma Psychiatric Medical History: Reports: Hx Anxiety, Hx Depression Traumatic Medical History: Reports: Hx Fractures - Hands wrist knees multiple others Past Surgical History: Reports: Hx Appendectomy, Hx Section, Hx Gynecologic Surgery - Right Ovary, Hx Hysterectomy, Hx Orthopedic Surgery - Rt. Wrist, Other - Lithotripsy over 20 times - Immunizations Immunizations up to date: Yes Hx Diphtheria, Pertussis, Tetanus Vaccination: Yes Review of Systems - Review of Systems Constitutional: No symptoms reported EENT: No symptoms reported Cardiovascular: No symptoms reported Respiratory: No symptoms reported Gastrointestinal: Nausea, Vomiting. denies: Abdomen distended, Abdominal pain Genitourinary: Dysuria, Flank pain, Hematuria Female Genitourinary: No symptoms reported Musculoskeletal: No symptoms reported Skin: No symptoms reported Hematologic/Lymphatic: No symptoms reported Neurological/Psychological: No symptoms reported Physical Exam - Vital signs Vitals: Temp Pulse Resp BP Pulse Ox 99.6 F 124 H 18 137/79 H 95 01/22/18 05:36 01/22/18 05:36 01/22/18 05:36 01/22/18 05:36 01/22/18 05:36 Interpretation: Normal - General General appearance: Appears well, Alert - HEENT Head: Normocephalic, Atraumatic Eyes: Normal Pupils: PERRL - Respiratory Respiratory status: No respiratory distress Chest status: Nontender Breath sounds: Normal Chest palpation: Normal - Cardiovascular Rhythm: Regular Heart sounds: Normal auscultation Murmur: No - Abdominal Inspection: Normal Distension: No distension Bowel sounds: Normal Tenderness: Nontender Organomegaly: No organomegaly - Back Back: Normal, CVA tenderness - On the left flank - Extremities General upper extremity: Normal inspection, Nontender, Normal color, Normal ROM , Normal temperature General lower extremity: Normal inspection, Nontender, Normal color, Normal ROM , Normal temperature, Normal weight bearing. No: Mary's sign - Neurological Neuro grossly intact: Yes Cognition: Normal Orientation: AAOx4 [place] Coma Scale Eye Opening: Spontaneous Stephen Coma Scale Verbal: Oriented [place] Coma Scale Motor: Obeys Commands Stephen Coma Scale Total: 15 Speech: Normal Motor strength normal: LUE, RUE, LLE, RLE Sensory: Normal - Psychological Associated symptoms: Normal affect, Normal mood - Skin Skin Temperature: Warm Skin Moisture: Dry Skin Color: Normal Course - Re-evaluation Re-evalutation: 01/22/18 07:19 Patient has large amount of leukocyte esterase in her urine. Ordering a ultrasound to look for signs of hydro-. May need to repeat CT scan. Will start on antibiotics IV at this time as well. 01/22/18 07:19 01/22/18 10:11 Based on patient's multiple UTIs and multiple kidney stones and ultrasound was obtained. Ultrasound does not show any clear signs of hydronephrosis. A recent CT scan did not show any significant obstructing stones. Unlikely she has an obstructed infected stone at this time. I have given Diflucan based on previous culture results showing Karly specimens/species. Rocephin was given as well. Patient was requesting Dilaudid for pain. I did comply at this time. At this time I think patient should go on some Diflucan and antibiotics. Follow-up with urology. Return for any worsening symptoms or concerns. - Vital Signs Vital signs: Temp Pulse Resp BP Pulse Ox 99.6 F 124 H 18 137/79 H 95 01/22/18 05:36 01/22/18 05:36 01/22/18 05:36 01/22/18 05:36 01/22/18 05:36 - Laboratory Laboratory results interpreted by me: 01/22/18 05:40 Urine Protein 30 H Urine Blood LARGE H Urine Urobilinogen 2.0 H Ur Leukocyte Esterase MODERATE H Discharge - Discharge Clinical Impression: Left flank pain, chronic Urinary tract infection Qualifiers: Urinary tract infection type: site unspecified Hematuria presence: with hematuria Qualified Code(s): N39.0 - Urinary tract infection, site not specified Condition: Good Disposition: HOME, SELF-CARE Instructions: Flank Pain ([facility]), Urinary Tract Infection ([facility]) Prescriptions: Cephalexin Monohydrate [Keflex 500 mg Capsule] 500 mg PO Q6H 5 Days #20 capsule Fluconazole [Diflucan 100 Mg Tablet] 100 mg PO DAILY 7 Days #7 tablet Oxycodone HCl/Acetaminophen [Percocet 5-325 mg Tablet] 1 tab PO Q6H PRN 5 Days # 15 tablet PRN Reason: Promethazine HCl [Phenergan 25 mg Tablet] 25 mg PO QID 3 Days #12 tablet Referrals: GERRI ANNA MD [T[facility]ERT[facility]] - Follow up in 3-5 days
[2018-01-22 06:36] LABS: APPEARANCE,URINE CLOUDY; BILIRUBIN,URINE NEGATIVE (NEGATIVE); CALCIUM OXALATE CRYSTALS,URINE MODERATE /HPF; COLOR,URINE YELLOW; GLUCOSE, URINE NEGATIVE (NEGATIVE); KETONES,URINE NEGATIVE (NEGATIVE); LEUKOCYTE ESTERASE,URINE MODERATE (NEGATIVE); NITRITE,URINE NEGATIVE (NEGATIVE); PROTEIN,URINE 30 mg/dL (NEGATIVE); URINE SPECIFIC GRAVITY 1.025
[2018-01-22] MEDS ORDERED: PROCHLORPERAZINE EDISYLATE INJ 10 MG/2 ML VIAL IV ONE (06:45)
[2018-01-22] MEDS ORDERED: FENTANYL CITRATE INJ/PF 100 MCG/2 ML AMPUL IV ONE (06:45)
[2018-01-22] MEDS ORDERED: NORMAL SALINE 1000 ML 1,000 ML IV ONE (06:45)
[2018-01-22] MEDS ORDERED: CEFTRIAXONE 1 GM/D5W RTU 1 GM/50 ML RTUPB IV ONE (07:20)
[2018-01-22] MEDS ORDERED: HYDROMORPHONE HCL INJ/PF 2 MG/ML AMPULE IV ONE (08:07)
[2018-01-22] MEDS ORDERED: FLUCONAZOLE 100 MG TABLET PO ONE (08:08)
[2018-01-22] MEDS ORDERED: CEFTRIAXONE SODIUM 1,000 MG in DEXTROSE 5%-WATER 50 ML IV ONE (08:30)
--- NOTE | 2018-01-22 09:48 | RADIOLOGY REPORT (SQ) ---
EXAM DESCRIPTION: U/S RETROPERITON LTD COMPLETED DATE/TIME: 01/22/2018 9:30 am REASON FOR STUDY: lef flank pain COMPARISON: None. TECHNIQUE: Dynamic and static grayscale images acquired of the kidneys and bladder and recorded on P ACS. Additional selected color Doppler and spectral images recorded. LIMITATIONS: None. FINDINGS: RIGHT KIDNEY: Normal size. Normal echogenicity. No solid or suspicious masses. No h ydronephrosis. No calcifications. LEFT KIDNEY: Normal size. Normal echogenicity. No solid or suspicious masses. No hydronephrosi s. No calcifications. BLADDER: No masses. OTHER FINDINGS: No other significant finding. IMPRESSION: NORMAL RENAL AND BLADDER ULTRASOUND. TECHNICAL DOCUMENTATION: JOB ID: [id number] [employer]- All Rights Reserved Reading location - IP/workstation name: [email or web address]
[2018-01-22] MEDS ORDERED: PHENAZOPYRIDINE HCL 100 MG TABLET PO ONE (10:16)
[2018-01-22] MEDS ORDERED: OXYCODONE-ACETAMINOPHEN 5-325 MG TABLET PO PRN (10:21)
[2018-01-22 11:08] VITALS: BP 127/77
== END 2018-01-22 11:08 | disposition home or self-care (01) ==
LOC: ER 05:32
DX: N39.0 Urinary tract infection, site not specified (principal); G89.29 Other chronic pain; R10.9 Unspecified abdominal pain; F17.210 Nicotine dependence, cigarettes, uncomplicated; Z88.6 Allergy status to analgesic agent; Z91.012 Allergy to eggs; Z87.442 Personal history of urinary calculi; Z90.710 Acquired absence of both cervix and uterus
CPT/HCPCS: 99284; 96361; 96375; 96365; 87086; 81025; 81001; 76775; J1170; J3490 ×2; J0780; J0696; J7030

== ENCOUNTER 2018-01-27 21:16 | Emergency (ER) | payer MEDICAID ==
[2018-01-27] MEDS ORDERED: NORMAL SALINE 1000 ML 1,000 ML IV ONE (23:21)
[2018-01-27] MEDS ORDERED: ONDANSETRON HCL INJ/PF 4 MG/2 ML SDV IV ONE (23:21)
[2018-01-27 23:22] LABS: APPEARANCE,URINE SLIGHTLY-CLOUDY; BILIRUBIN,URINE NEGATIVE (NEGATIVE); COLOR,URINE YELLOW; GLUCOSE, URINE NEGATIVE (NEGATIVE); KETONES,URINE NEGATIVE (NEGATIVE); LEUKOCYTE ESTERASE,URINE SMALL (NEGATIVE); NITRITE,URINE NEGATIVE (NEGATIVE); PROTEIN,URINE 30 mg/dL (NEGATIVE); URINE SPECIFIC GRAVITY 1.019; UROBILINOGEN,URINE NEGATIVE mg/dL (<2.0)
[2018-01-27] MEDS ORDERED: HYDROMORPHONE HCL INJ/PF 2 MG/ML AMPULE IV ONE (23:22)
--- NOTE | 2018-01-27 23:24 | ER Document Report ---
ED GI/ - General Chief Complaint: Flank Pain Stated Complaint: FLANK PAIN Time Seen by Provider: 01/27/18 23:12 Notes: Patient is a 47-year-old female who comes emergency department for chief complaint of pain radiating around from her right mid lower abdomen around to her left flank. Symptoms started yesterday. She states that they worsened today and she vomited 4 times. She denies fever or chills. She is passed multiple stones in the past, had multiple lithotripsies, she states she has had very many CAT scans in the past and hopes to avoid them now. She has struggled with urology follow-up because of insurance issues, states she is supposed to be finding out on Sunday the status of this. Past medical history also includes appendectomy, partial hysterectomy, right ovary removal, and C- sections. She currently is completing a round of Keflex and recently took Diflucan as well. TRAVEL OUTSIDE OF THE [place] IN LAST 30 DAYS: No - Related Data Allergies/Adverse Reactions: ibuprofen Allergy (Unknown, Verified 12/09/17 04:37) ketorolac [From Toradol] Allergy (Unknown, Verified 12/09/17 04:37) meperidine [From Demerol] Allergy (Unknown, Verified 12/09/17 04:37) adhesive Allergy (Verified 12/23/17 21:12) aspirin Allergy (Verified 12/09/17 04:37) codeine Allergy (Verified 12/09/17 04:37) egg Allergy (Verified 12/09/17 04:37) iodine Allergy (Verified 12/09/17 04:37) Latex, Natural Rubber Allergy (Verified 12/09/17 04:37) morphine Allergy (Verified 12/09/17 04:37) shellfish derived Allergy (Verified 12/09/17 04:37) sumatriptan [From Imitrex] Allergy (Verified 12/09/17 04:37) tramadol [From Ultram] Allergy (Verified 12/09/17 04:37) ondansetron [From Zofran (as hydrochloride)] Adverse Reaction (Mild, Verified 04:37) VOMITING Past Medical History - General Information source: Patient - Social History Smoking Status: Current Every Day Smoker Smoking Education Provided: Yes - <3 min Drug Abuse: None Lives with: Spouse/Significant other Family History: Reviewed & Not Pertinent, Malignancy - father, Other - grandfather history of kidney stones Pulmonary Medical History: Reports: Hx Asthma Neurological Medical History: Reports: Hx Seizures - Epilepsy Renal/ Medical History: Reports: Hx Kidney Stones, Hx Ovarian Cysts. Denies: Hx Peritoneal Dialysis GI Medical History: Reports: Hx Ulcer Musculoskeletal Medical History: Reports Hx Arthritis, Reports Hx Musculoskeletal Trauma Psychiatric Medical History: Reports: Hx Anxiety, Hx Depression Traumatic Medical History: Reports: Hx Fractures - Hands wrist knees multiple others Past Surgical History: Reports: Hx Appendectomy, Hx Section, Hx Gynecologic Surgery - Right Ovary, Hx Hysterectomy, Hx Orthopedic Surgery - Rt. Wrist, Other - Lithotripsy over 20 times - Immunizations Immunizations up to date: Yes Hx Diphtheria, Pertussis, Tetanus Vaccination: Yes Review of Systems - Review of Systems Constitutional: No symptoms reported EENT: No symptoms reported Cardiovascular: No symptoms reported Respiratory: No symptoms reported Gastrointestinal: See HPI Genitourinary: See HPI Female Genitourinary: No symptoms reported Musculoskeletal: No symptoms reported Skin: No symptoms reported Hematologic/Lymphatic: No symptoms reported Neurological/Psychological: No symptoms reported Physical Exam - Vital signs Vitals: Temp Pulse Resp BP Pulse Ox 98.8 F 110 H 16 139/74 H 99 01/27/18 21:46 01/27/18 21:46 01/27/18 21:46 01/27/18 21:46 01/27/18 21:46 - Notes Notes: GENERAL: Alert, interacts well. No acute distress. HEAD: Normocephalic, atraumatic. EYES: Pupils equal, round, and reactive to light. Extraocular movements intact. ENT: Oral mucosa moist, tongue midline. NECK: Full range of motion. Supple. Trachea midline. LUNGS: Clear to auscultation bilaterally, no wheezes, rales, or rhonchi. No respiratory distress. HEART: Regular rate and rhythm. No murmur ABDOMEN: Minimal generalized lower abdominal tenderness, no specific, no guarding. Non-distended. Bowel sounds present in all 4 quadrants. EXTREMITIES: Moves all 4 extremities spontaneously. No edema, normal radial and dorsalis pedis pulses bilaterally. No cyanosis. BACK: no cervical, thoracic, lumbar midline tenderness. Normal distal neurovascular exam. Patient does have right-sided CVA tenderness. NEUROLOGICAL: Alert and oriented x3. Normal speech. [cranial nerves II through XII grossly intact]. PSYCH: Normal affect, normal mood. SKIN: Warm, dry, normal turgor. No rashes or lesions noted. Course - Re-evaluation Re-evalutation: Patient initially tachycardic, she is normal generalized abdominal tenderness in the lower abdomen, she does have right-sided CVA tenderness, she does not appear to be in any distress. Treating with pain medication, fluids, nausea medication. CBC shows leukocytosis at 18,000 with elevation of neutrophils but no bandemia. Chemistry is unremarkable including renal functioning. Urinalysis shows urinary tract infection with large amount of white blood cells and red blood cells. No nitrites, nonspecific otherwise. Urine culture placed. Given Rocephin. Because of patient's history of kidney stones ultrasound was performed, however this did not show any hydronephrosis or evidence of obstruction. Low suspicion of infected ureterolithiasis based on her presentation and workup. CT performed on 01/10/2018 showed punctate bilateral nonobstructing renal calculi. Patient will be treated with doxycycline, she states she has been treated repeatedly with Keflex. Cultures of her urine are nonspecific and do not show any recent or noted resistances. Discussed with patient. Patient will be discharged with home medications, discussed urology follow-up, return precautions, patient states understanding and agreement. - Vital Signs Vital signs: Temp Pulse Resp BP Pulse Ox 98.8 F 110 H 16 139/74 H 99 01/27/18 21:46 01/27/18 21:46 01/27/18 21:46 01/27/18 21:46 01/27/18 21:46 - Laboratory Result Diagrams: 01/28/18 00:06 01/28/18 00:06 Laboratory results interpreted by me: 01/27/18 01/28/18 01/28/18 21:45 00:06 00:06 WBC 18.1 H RDW 14.2 H Absolute Neutrophils 13.1 H Creatinine 0.45 L Glucose 127 H Urine Protein 30 H Urine Blood LARGE H Ur Leukocyte Esterase SMALL H Discharge - Discharge Clinical Impression: Right flank pain Vomiting Qualifiers: Vomiting type: unspecified Vomiting Intractability: non-intractable Nausea presence: with nausea Qualified Code(s): R11.2 - Nausea with vomiting, unspecified Urinary tract infection Qualifiers: Urinary tract infection type: site unspecified Hematuria presence: without hematuria Qualified Code(s): N39.0 - Urinary tract infection, site not specified Disposition: HOME, SELF-CARE Additional Instructions: Your workup and evaluation indicates a kidney infection but does not indicate an obstructing stone. Take doxycycline antibiotic as prescribed, take pain medication if needed, take nausea medication if needed. We have a urine culture growing in our lab. Increase fluids. You should be urinating at least once every 6 hours. This reduces the odds of a urinary tract infection. Follow-up with urology listed below, call for your appointment. Return if you worsen including returned vomiting, increased pain, fever 100.4 or greater, or any other concerning or worsening symptoms. [facility] [address] [place], [place] [id number] Prescriptions: Doxycycline Hyclate 100 mg PO BID #14 capsule Oxycodone HCl/Acetaminophen [Percocet 5-325 mg Tablet] 1 - 2 tab PO Q4H PRN #10 tablet PRN Reason: Promethazine HCl [Phenergan 25 mg Tablet] 1 - 2 tab PO Q6H PRN #20 tablet PRN Reason:
[2018-01-28 00:32] LABS: ABSOLUTE BASOPHILS # (AUTO) 0.1 10^3/uL (0.0-0.2); ABSOLUTE EOSINOPHILS # (AUTO) 0.3 10^3/uL (0.0-0.6); ABSOLUTE LYMPHOCYTES (AUTO) 3.7 10^3/uL (0.5-4.7); ABSOLUTE NEUT (AUTO) 13.1 10^3/uL (1.7-8.2); BASOPHILS % (AUTO) 0.4 % (0-2); EOSINOPHILS % (AUTO) 1.5 % (0-6); HEMATOCRIT 43.8 % (36.0-47.0); HEMOGLOBIN 14.9 g/dL (12.0-15.5); LYMPHOCYTES % (AUTO) 20.2 % (13-45); MEAN CORPUSCULAR HEMOGLOBIN 31.3 pg (27.0-33.4); MEAN CORPUSCULAR HGB CONC 33.9 g/dL (32.0-36.0); MEAN CORPUSCULAR VOLUME 92 fl (80-97); MONOCYTES % (AUTO) 5.5 % (3-13); PLATELET COUNT 313 10^3/uL (150-450); RED BLOOD COUNT 4.74 10^6/uL (3.72-5.28); RED CELL DISTRIBUTION WIDTH 14.2 % (11.5-14.0); SEGMENTED NEUTROPHILS % (AUTO) 72.4 % (42-78); TOTAL CELLS COUNTED % (AUTO) 100 %; WHITE BLOOD COUNT 18.1 10^3/uL (4.0-10.5)
[2018-01-28] MEDS ORDERED: METOCLOPRAMIDE HCL INJ/PF 10 MG/2 ML SDV IV ONE (00:42)
[2018-01-28] MEDS ORDERED: CEFTRIAXONE INJ 1000 MG VIAL IV ONE (00:42)
[2018-01-28] MEDS ORDERED: PROMETHAZINE HCL INJ 25 MG/1 ML VIAL IM ONE (00:43)
[2018-01-28 00:48] LABS: ALANINE AMINOTRANSFERASE 25 U/L (9-52); ALBUMIN 4.4 g/dL (3.5-5.0); ALKALINE PHOSPHATASE 121 U/L (38-126); ANION GAP 14 (5-19); ASPARTATE AMINO TRANSFERASE 20 U/L (14-36); BILIRUBIN,DIRECT 0.3 mg/dL (0.0-0.4); BILIRUBIN,TOTAL 0.4 mg/dL (0.2-1.3); BLOOD UREA NITROGEN 12 mg/dL (7-20); CALCIUM 9.6 mg/dL (8.4-10.2); CARBON DIOXIDE 24 mmol/L (22-30); CHLORIDE 105 mmol/L (98-107); GLUCOSE 127 mg/dL (75-110); SODIUM 143.2 mmol/L (137-145); TOTAL PROTEIN 7.3 g/dL (6.3-8.2)
--- NOTE | 2018-01-28 00:48 | RADIOLOGY REPORT (SQ) ---
EXAM DESCRIPTION: US RETROPERITONEUM LIMITED COMPLETED DATE/TME: 01/27/2018 23:26 CLINICAL HISTORY: right flank pain COMPARISON: 12/23/2017 TECHNIQUE: Real-time sonographic images of the retroperitoneum were obtained using a curved multihertz transducer. FINDINGS: The visualized portions of the aorta and IVC are unremarkable. The right kidney measures 11.7 cm in length. The left kidney measures 12.2 cm in length. No solid renal mass, shadowing renal calculi, or hydronephrosis. The urinary bladder is decompressed and otherwise unremarkable. Incidental note of diffusely increased echogenicity of the liver compatible hepatic steatosis. IMPRESSION: Normal renal and bladder ultrasound.
[2018-01-28] MEDS ORDERED: HYDROCODONE/ACETAMINOPHEN 5-325 MG (6 TAB/ER DISP) PO PRN (01:03)
[2018-01-28] MEDS ORDERED: OXYCODONE-ACETAMINOPHEN 5-325 MG TABLET PO ONE (01:49)
[2018-01-28 02:17] VITALS: BP 142/76
== END 2018-01-28 02:12 | disposition home or self-care (01) ==
LOC: ER 21:16
DX: N39.0 Urinary tract infection, site not specified (principal); R10.9 Unspecified abdominal pain; R11.2 Nausea with vomiting, unspecified; F17.200 Nicotine dependence, unspecified, uncomplicated; J45.909 Unspecified asthma, uncomplicated; Z87.442 Personal history of urinary calculi; Z90.49 Acquired absence of other specified parts of digestive tract; Z90.711 Acquired absence of uterus with remaining cervical stump; Z90.721 Acquired absence of ovaries, unilateral; Z88.6 Allergy status to analgesic agent; Z88.8 Allergy status to other drugs, medicaments and biological substances; Z91.012 Allergy to eggs; Z91.040 Latex allergy status; Z91.048 Other nonmedicinal substance allergy status; Z91.013 Allergy to seafood
CPT/HCPCS: 99284; 96372; 96361; 96375; 96365; 36415; 87086; 85025; 87088; 80053; 81001; 76775; J1170; J2550; J0696; J7030

== ENCOUNTER 2018-02-05 23:00 | Emergency (ER) | payer MEDICAID ==
[2018-02-06] MEDS ORDERED: OXYCODONE-ACETAMINOPHEN 5-325 MG TABLET PO ONE ×2 (01:05→02:28)
[2018-02-06] MEDS ORDERED: NORMAL SALINE 1000 ML 1,000 ML IV ONE (01:05)
[2018-02-06 01:34] LABS: APPEARANCE,URINE CLOUDY; BILIRUBIN,URINE NEGATIVE (NEGATIVE); CALCIUM OXALATE CRYSTALS,URINE MODERATE /HPF; COLOR,URINE YELLOW; GLUCOSE, URINE NEGATIVE (NEGATIVE); KETONES,URINE NEGATIVE (NEGATIVE); LEUKOCYTE ESTERASE,URINE MODERATE (NEGATIVE); NITRITE,URINE NEGATIVE (NEGATIVE); PROTEIN,URINE 30 mg/dL (NEGATIVE); URINE SPECIFIC GRAVITY 1.021; UROBILINOGEN,URINE NEGATIVE mg/dL (<2.0)
[2018-02-06 02:08] LABS: ABSOLUTE BASOPHILS # (AUTO) 0.1 10^3/uL (0.0-0.2); ABSOLUTE EOSINOPHILS # (AUTO) 0.2 10^3/uL (0.0-0.6); ABSOLUTE LYMPHOCYTES (AUTO) 3.5 10^3/uL (0.5-4.7); ABSOLUTE MONOCYTES (AUTO) 1.1 10^3/uL (0.1-1.4); ABSOLUTE NEUT (AUTO) 12.4 10^3/uL (1.7-8.2); BASOPHILS % (AUTO) 0.5 % (0-2); EOSINOPHILS % (AUTO) 1.2 % (0-6); HEMATOCRIT 43.8 % (36.0-47.0); HEMOGLOBIN 14.8 g/dL (12.0-15.5); LYMPHOCYTES % (AUTO) 20.3 % (13-45); MEAN CORPUSCULAR HGB CONC 33.8 g/dL (32.0-36.0); MEAN CORPUSCULAR VOLUME 92 fl (80-97); MONOCYTES % (AUTO) 6.2 % (3-13); PLATELET COUNT 306 10^3/uL (150-450); RED BLOOD COUNT 4.77 10^6/uL (3.72-5.28); RED CELL DISTRIBUTION WIDTH 14.3 % (11.5-14.0); SEGMENTED NEUTROPHILS % (AUTO) 71.8 % (42-78); TOTAL CELLS COUNTED % (AUTO) 100 %; WHITE BLOOD COUNT 17.3 10^3/uL (4.0-10.5)
[2018-02-06 02:19] LABS: ALANINE AMINOTRANSFERASE 26 U/L (9-52); ALBUMIN 4.2 g/dL (3.5-5.0); ALKALINE PHOSPHATASE 118 U/L (38-126); ANION GAP 16 (5-19); ASPARTATE AMINO TRANSFERASE 21 U/L (14-36); BILIRUBIN,DIRECT 0.3 mg/dL (0.0-0.4); BILIRUBIN,TOTAL 0.3 mg/dL (0.2-1.3); BLOOD UREA NITROGEN 11 mg/dL (7-20); CALCIUM 10.6 mg/dL (8.4-10.2); CARBON DIOXIDE 25 mmol/L (22-30); CHLORIDE 105 mmol/L (98-107); GLUCOSE 120 mg/dL (75-110); LIPASE 43.7 U/L (23-300); POTASSIUM 3.7 mmol/L (3.6-5.0); SODIUM 146.1 mmol/L (137-145); TOTAL PROTEIN 7.2 g/dL (6.3-8.2)
[2018-02-06] MEDS ORDERED: PROMETHAZINE HCL 25 MG TABLET PO ONE (02:28)
[2018-02-06] MEDS ORDERED: CEFTRIAXONE INJ 1000 MG VIAL IM ONE (03:09)
[2018-02-06] MEDS ORDERED: LIDOCAINE 1% INJ-PF (10 MG/ML) 30 ML SDV INJ ONE (03:10)
[2018-02-06] MEDS ORDERED: CEPHALEXIN 250 MG CAPSULE PO ONE (03:10)
--- NOTE | 2018-02-06 03:11 | ER Document Report ---
ED General - General Chief Complaint: Flank Pain Stated Complaint: FLANK PAIN Time Seen by Provider: 02/06/18 00:51 Mode of Arrival: Ambulatory Information source: Patient Notes: Patient presents with chief complaint of right flank pain and dysuria 3 days. Patient has been seen multiple times for kidney stones and urinary tract infections. Patient reports that she was upstairs visiting her mother and decided that while she was here she would be seen. Patient denies any fever, chills, nausea. Reports vomiting. TRAVEL OUTSIDE OF THE [place] IN LAST 30 DAYS: No - Related Data Allergies/Adverse Reactions: ibuprofen Allergy (Unknown, Verified 12/09/17 04:37) ketorolac [From Toradol] Allergy (Unknown, Verified 12/09/17 04:37) meperidine [From Demerol] Allergy (Unknown, Verified 12/09/17 04:37) adhesive Allergy (Verified 12/23/17 21:12) aspirin Allergy (Verified 12/09/17 04:37) codeine Allergy (Verified 12/09/17 04:37) egg Allergy (Verified 12/09/17 04:37) iodine Allergy (Verified 12/09/17 04:37) Latex, Natural Rubber Allergy (Verified 12/09/17 04:37) morphine Allergy (Verified 12/09/17 04:37) shellfish derived Allergy (Verified 12/09/17 04:37) sumatriptan [From Imitrex] Allergy (Verified 12/09/17 04:37) tramadol [From Ultram] Allergy (Verified 12/09/17 04:37) ondansetron [From Zofran (as hydrochloride)] Adverse Reaction (Mild, Verified 04:37) VOMITING Past Medical History - General Information source: Patient - Social History Smoking Status: Current Every Day Smoker Chew tobacco use (# tins/day): No Frequency of alcohol use: None Drug Abuse: None Family History: Reviewed & Not Pertinent, Malignancy - father, Other - grandfather history of kidney stones Patient has suicidal ideation: No Patient has homicidal ideation: No Pulmonary Medical History: Reports: Hx Asthma Neurological Medical History: Reports: Hx Seizures - Epilepsy Renal/ Medical History: Reports: Hx Kidney Stones, Hx Ovarian Cysts. Denies: Hx Peritoneal Dialysis GI Medical History: Reports: Hx Ulcer Musculoskeletal Medical History: Reports Hx Arthritis, Reports Hx Musculoskeletal Trauma Psychiatric Medical History: Reports: Hx Anxiety, Hx Depression Traumatic Medical History: Reports: Hx Fractures - Hands wrist knees multiple others Past Surgical History: Reports: Hx Appendectomy, Hx Section, Hx Gynecologic Surgery - Right Ovary, Hx Hysterectomy, Hx Orthopedic Surgery - Rt. Wrist, Other - Lithotripsy over 20 times - Immunizations Immunizations up to date: Yes Hx Diphtheria, Pertussis, Tetanus Vaccination: Yes Review of Systems - Review of Systems Constitutional: No symptoms reported EENT: No symptoms reported Cardiovascular: No symptoms reported Respiratory: No symptoms reported Gastrointestinal: See HPI Genitourinary: See HPI Female Genitourinary: No symptoms reported Musculoskeletal: No symptoms reported Skin: No symptoms reported Hematologic/Lymphatic: No symptoms reported Neurological/Psychological: No symptoms reported Physical Exam - Vital signs Vitals: Temp Pulse Resp BP Pulse Ox 99.9 F 114 H 18 133/85 H 94 02/05/18 23:12 02/05/18 23:12 02/05/18 23:12 02/05/18 23:12 02/05/18 23:12 - Notes Notes: PHYSICAL EXAMINATION: GENERAL: Well-appearing, well-nourished and in no acute distress. HEAD: Atraumatic, normocephalic. EYES: Pupils equal round and reactive to light, extraocular movements intact, conjunctiva are normal. ENT: Nares patent, oropharynx clear without exudates. Moist mucous membranes. NECK: Normal range of motion, supple without lymphadenopathy LUNGS: Breath sounds clear to auscultation bilaterally and equal. No wheezes rales or rhonchi. HEART: Regular rate and rhythm without murmurs ABDOMEN: Soft, nontender, nondistended abdomen. No guarding, no rebound. No masses appreciated. Female : Right CVA tenderness present Musculoskeletal: Normal range of motion, no pitting or edema. No cyanosis. NEUROLOGICAL: Cranial nerves grossly intact. Normal speech, normal gait. Normal sensory, motor exams PSYCH: Normal mood, normal affect. SKIN: Warm, Dry, normal turgor, no rashes or lesions noted. Course - Re-evaluation Re-evalutation: Nontoxic appearing 47-year-old female presenting with right flank pain and dysuria. Patient initially tachycardic, with generalized abdominal tenderness in the lower abdomen, she does have right-sided CVA tenderness, she does not appear to be in any distress. Treating with pain medication, fluids, nausea medication. CBC shows leukocytosis at 17,000 with elevation of neutrophils but no bandemia. Looking at patient's lab history this is typical for her to have leukocytosis. Chemistry is unremarkable including renal functioning. Urinalysis shows urinary tract infection with large amount of white blood cells and red blood cells. No nitrites, nonspecific otherwise. Low suspicion of infected ureterolithiasis based on her presentation and workup. CT performed on 01/10/2018 showed punctate bilateral nonobstructing renal calculi. Patient adamantly declines repeat CT. Patient will be treated with keflex, she states she has taken a 250 mg tablet of Keflex from several months ago. I will give her another dose right now of 250 mg as well as Rocephin IM as nursing staff states that her IV will not flush. Cultures of her urine are nonspecific and do not show any recent or noted resistances. Discussed with patient. Patient will be discharged with home medications, discussed urology follow-up, return precautions, patient states understanding and agreement. - Vital Signs Vital signs: Temp Pulse Resp BP Pulse Ox 98.8 F 95 18 116/81 96 02/06/18 03:39 02/06/18 03:39 02/06/18 03:39 02/06/18 03:39 02/06/18 03:39 - Laboratory Result Diagrams: 02/06/18 01:25 02/06/18 01:25 Laboratory results interpreted by me: 02/05/18 02/06/18 02/06/18 23:05 01:25 01:25 WBC 17.3 H RDW 14.3 H Absolute Neutrophils 12.4 H Sodium 146.1 H Creatinine 0.48 L Glucose 120 H Calcium 10.6 H Urine Protein 30 H Urine Blood LARGE H Ur Leukocyte Esterase MODERATE H Discharge - Discharge Clinical Impression: Flank pain Urinary tract infection Qualifiers: Urinary tract infection type: site unspecified Hematuria presence: with hematuria Qualified Code(s): N39.0 - Urinary tract infection, site not specified Condition: Stable Disposition: HOME, SELF-CARE Additional Instructions: Urinary Tract Infection Your evaluation indicates that you have a urinary tract infection. This is due to germs growing in the bladder. This is a common problem. This infection usually responds quickly to antibiotics. Your antibiotic should be taken exactly as prescribed. Drink plenty of fluids -- three to four quarts a day. Occasionally, a bladder anesthetic will be prescribed to help stop the feeling of urgency until the antibiotic has a chance to clear the infection. This may cause your urine to be dark orange. Certain urine infections require a culture. If the doctor obtained a culture, the results will be back in two days. You should call to see if a change in treatment is needed. A repeat urinalysis after you finish treatment is often recommended. The physician will let you know if further testing is required. Call the doctor if you develop fever, chills, flank pain, inability to urinate, or blood in the urine. ANTINAUSEA MEDICATION: You have been given a medication to suppress nausea and vomiting. This type of medication can be given as a shot, pill, or suppository. It will usually last for many hours. Pills and shots usually last six to eight hours, suppositories last about 12 hours. For the typical illness, only one or two doses of the medication may be necessary. Mild lightheadedness may occur. This type of medicine can cause drowsiness. Do not drive or operate dangerous machinery while under its influence. Do not mix with alcohol. See your doctor at once if you have muscle spasms or tightness, or uncontrollable motions (particularly of the neck, mouth, or jaw). Persistent vomiting or severe lightheadedness should also be evaluated by the physician. ANTIBIOTIC THERAPY: You have been given an antibiotic prescription. It's important that you take all the medication, unless instructed otherwise by your physician. Failure to complete the entire course can result in relapse of your condition. Common side effects of antibiotics include nausea, intestinal cramping, or diarrhea. Women may develop vaginal yeast infections, and babies can get yeast (thrush) in the mouth following the use of antibiotics. Contact your physician if you develop significant side effects from this medication. Allergy to this antibiotic can result in hives, wheezing, faintness, or itching. If symptoms of allergy occur, stop the medication and call the doctor. ROCEPHIN: You have been given an injection of an antibiotic called Rocephin ( ceftriaxone). Sometimes the injection must be combined with antibiotic pills. For some infections, such as an uncomplicated ear infection, Rocephin provides all the antibiotic that's needed. The antibiotic will be in your body for about two days. For serious infections, we usually repeat doses of Rocephin daily. Side effects are very unusual following a shot. Women may develop vaginal yeast infections, and babies can get yeast (thrush) in the mouth following the use of antibiotics. Contact your physician if you have symptoms with this medication. Allergy to this antibiotic can result in hives, wheezing, faintness, or itching. If symptoms of allergy occur, call the doctor at once. CEPHALEXIN: The antibiotic you've been prescribed is a member of the cephalosporin class. This type of antibiotic covers a wide variety of infections, including those of the skin, lungs, and urinary tract. It's useful for staph infections. This antibiotic is slightly similar to the penicillin family. In rare cases , a person who is allergic to penicillin will also be allergic to this medication. If you have had a severe allergic reaction to penicillin, and have not taken this antibiotic since that time, notify your doctor. Antibiotics which cover many germs ("broad spectrum" antibiotics) are more likely to cause diarrhea or "yeast" infections. Women prone to vaginal yeast problems may suffer an attack after taking this antibiotic. In infants, oral thrush (white spots "stuck" on the cheek) or yeast diaper rash may result. See your doctor if these problems occur. Call at once if you develop itching, hives , shortness of breath, or lightheadedness. USE OF ACETAMINOPHEN (Tylenol): Acetaminophen may be taken for pain relief or fever control. It's much safer than aspirin, offering a wider range of "safe" dosages. It is safe during . Some brand names are Tylenol, Panadol, Datril, Anacin 3, Tempra, and Liquiprin. Acetaminophen can be repeated every four hours. The following are maximum recommended dosages: >89 pounds or adults 650 mg to 900 mg Acetaminophen can be repeated every four hours. Maximum dose not to exceed 4000 mg a day. ORAL NARCOTIC MEDICATION: You have been given a prescription for pain control. This medication is a narcotic. It's best taken with food, as nausea can result if taken on an empty stomach. Don't operate machinery or drive within six hours of taking this medication. Do not combine this medicine with alcohol, or with any medication which can cause sedation (such as cold tablets or sleeping pills) unless you get permission from the physician. Narcotics tend to cause constipation. If possible, drink plenty of fluids and eat a diet high in fiber and fruits. Please be aware that prescription narcotics also have the potential for abuse. People become addicted to these medications because of the general sense of wellbeing that they induce. This feeling along with a significant reduction in tension, anxiety, and aggression provides a stimulating seductive quality to these drugs. Once your pain is under control, we encourage you to discard your unused narcotics. FOLLOW-UP CARE: If you have been referred to a physician for follow-up care, call the physician s office for an appointment as you were instructed or within the next two days. If you experience worsening or a significant change in your symptoms, notify the physician immediately or return to the Emergency Department at any time for re-evaluation. Prescriptions: Cephalexin Monohydrate [Keflex 500 mg Capsule] 500 mg PO Q6H 5 Days #20 capsule Oxycodone HCl/Acetaminophen [Percocet 5-325 mg Tablet] 1 - 2 tab PO Q4H PRN #8 tablet PRN Reason: Promethazine HCl [Phenergan 25 mg Tablet] 1 - 2 tab PO Q6H PRN #10 tablet PRN Reason: Referrals: ROB RICO II, MD [[facility]] - Follow up as needed
[2018-02-06 03:42] VITALS: BP 116/81
== END 2018-02-06 03:39 | disposition home or self-care (01) ==
LOC: ER 23:00
DX: N39.0 Urinary tract infection, site not specified (principal); R10.84 Generalized abdominal pain; R10.30 Lower abdominal pain, unspecified; R30.0 Dysuria; R00.0 Tachycardia, unspecified; F17.200 Nicotine dependence, unspecified, uncomplicated; J45.909 Unspecified asthma, uncomplicated
CPT/HCPCS: 99284; 96372; 96360; 36415; 83690; 85025; 80053; 81001; J3490 ×2; J0696; J7030

== ENCOUNTER 2018-03-09 21:39 | Emergency (ER) | payer MEDICAID ==
[2018-03-09 22:33] LABS: APPEARANCE,URINE CLOUDY; BILIRUBIN,URINE NEGATIVE (NEGATIVE); GLUCOSE, URINE NEGATIVE (NEGATIVE); KETONES,URINE NEGATIVE (NEGATIVE); LEUKOCYTE ESTERASE,URINE LARGE (NEGATIVE); NITRITE,URINE NEGATIVE (NEGATIVE); PROTEIN,URINE 100 mg/dL (NEGATIVE); URINE SPECIFIC GRAVITY 1.028
[2018-03-09 22:35] LABS: COLOR,URINE DARK YELLOW
[2018-03-09 23:57] LABS: ABSOLUTE BASOPHILS # (AUTO) 0.1 10^3/uL (0.0-0.2); ABSOLUTE EOSINOPHILS # (AUTO) 0.2 10^3/uL (0.0-0.6); ABSOLUTE LYMPHOCYTES (AUTO) 4.2 10^3/uL (0.5-4.7); ABSOLUTE NEUT (AUTO) 10.1 10^3/uL (1.7-8.2); BASOPHILS % (AUTO) 0.6 % (0-2); EOSINOPHILS % (AUTO) 1.3 % (0-6); HEMATOCRIT 44.5 % (36.0-47.0); HEMOGLOBIN 15.1 g/dL (12.0-15.5); LYMPHOCYTES % (AUTO) 26.9 % (13-45); MEAN CORPUSCULAR HEMOGLOBIN 31.5 pg (27.0-33.4); MEAN CORPUSCULAR VOLUME 93 fl (80-97); MONOCYTES % (AUTO) 6.2 % (3-13); PLATELET COUNT 334 10^3/uL (150-450); RED BLOOD COUNT 4.81 10^6/uL (3.72-5.28); RED CELL DISTRIBUTION WIDTH 13.9 % (11.5-14.0); TOTAL CELLS COUNTED % (AUTO) 100 %; WHITE BLOOD COUNT 15.6 10^3/uL (4.0-10.5)
[2018-03-10] MEDS ORDERED: NORMAL SALINE 1000 ML 1,000 ML IV ONE (00:21)
[2018-03-10] MEDS ORDERED: FENTANYL CITRATE INJ/PF 100 MCG/2 ML AMPUL IV PRN (00:21)
[2018-03-10] MEDS ORDERED: ONDANSETRON HCL INJ/PF 4 MG/2 ML SDV IV ONE (00:21)
[2018-03-10] MEDS ORDERED: CEFTRIAXONE INJ 1000 MG VIAL IV ONE (00:23)
--- NOTE | 2018-03-10 00:24 | ER Document Report ---
ED General - General Chief Complaint: Flank Pain Stated Complaint: LEFT FLANK PAIN Time Seen by Provider: 03/09/18 23:27 Notes: Patient is a 47 year old female with recurrent kidney infections, recurrent kidney stones, who presents with 3-4 days of left flank pain. Pain is described as being a stabbing, throbbing, constant pain. Nothing improves or worsens this pain. The patient states this feels very similar to when she has had kidney infections and kidney stones in the past. She notes associated nausea and vomiting. She has not followed up with urology and or her primary care doctor. She denies fever or constitutional symptoms. TRAVEL OUTSIDE OF THE [place] IN LAST 30 DAYS: No - Related Data Allergies/Adverse Reactions: ibuprofen Allergy (Unknown, Verified 03/09/18 23:06) ketorolac [From Toradol] Allergy (Unknown, Verified 03/09/18 23:06) meperidine [From Demerol] Allergy (Unknown, Verified 03/09/18 23:06) adhesive Allergy (Verified 03/09/18 23:06) aspirin Allergy (Verified 03/09/18 23:06) codeine Allergy (Verified 03/09/18 23:06) egg Allergy (Verified 03/09/18 23:06) iodine Allergy (Verified 03/09/18 23:06) Latex, Natural Rubber Allergy (Verified 03/09/18 23:06) morphine Allergy (Verified 03/09/18 23:06) shellfish derived Allergy (Verified 03/09/18 23:06) sumatriptan [From Imitrex] Allergy (Verified 03/09/18 23:06) tramadol [From Ultram] Allergy (Verified 03/09/18 23:06) ondansetron [From Zofran (as hydrochloride)] Adverse Reaction (Mild, Verified 23:06) VOMITING Past Medical History - General Information source: Patient - Social History Smoking Status: Current Every Day Smoker Frequency of alcohol use: None Drug Abuse: None Lives with: Family Family History: Reviewed & Not Pertinent, Malignancy - father, Other - grandfather history of kidney stones Patient has suicidal ideation: No Patient has homicidal ideation: No Pulmonary Medical History: Reports: Hx Asthma Neurological Medical History: Reports: Hx Seizures - Epilepsy Renal/ Medical History: Reports: Hx Kidney Stones, Hx Ovarian Cysts. Denies: Hx Peritoneal Dialysis GI Medical History: Reports: Hx Gastroesophageal Reflux Disease - with ulcers, Hx Ulcer Musculoskeletal Medical History: Reports Hx Arthritis, Reports Hx Musculoskeletal Trauma Psychiatric Medical History: Reports: Hx Anxiety, Hx Depression Traumatic Medical History: Reports: Hx Fractures - Hands wrist knees multiple others Past Surgical History: Reports: Hx Appendectomy, Hx Section, Hx Gynecologic Surgery - Right Ovary, Hx Hysterectomy, Hx Orthopedic Surgery - Rt. Wrist, Other - Lithotripsy over 20 times - Immunizations Immunizations up to date: Yes Hx Diphtheria, Pertussis, Tetanus Vaccination: Yes Review of Systems - Review of Systems Notes: Constitutional: Negative for fever. HENT: Negative for sore throat. Eyes: Negative for visual changes. Cardiovascular: Negative for chest pain. Respiratory: Negative for shortness of breath. Gastrointestinal: Positive for left flank pain and vomiting Genitourinary: Positive for dysuria and hematuria Musculoskeletal: Negative for back pain. Skin: Negative for rash. Neurological: Negative for headaches, weakness or numbness. 10 point ROS negative except as marked above and in HPI. Physical Exam - Vital signs Vitals: Temp Pulse Resp BP Pulse Ox 98.4 F 113 H 20 127/62 H 99 03/09/18 22:05 03/09/18 22:05 03/09/18 22:05 03/09/18 22:05 03/09/18 22:05 Interpretation: Tachycardic Notes: PHYSICAL EXAMINATION: GENERAL: Appears moderately uncomfortable but in no acute distress HEAD: Atraumatic, normocephalic. EYES: Pupils equal round and reactive to light, extraocular movements intact, sclera anicteric, conjunctiva are normal. ENT: nares patent, oropharynx clear without exudates. Mildly dry mucous membranes. NECK: Normal range of motion, supple without lymphadenopathy LUNGS: Breath sounds clear to auscultation bilaterally and equal. No wheezes rales or rhonchi. HEART: Regular rate and rhythm without murmurs ABDOMEN: Soft, nontender, normoactive bowel sounds. No guarding, no rebound. No masses appreciated. Mild left CVA tenderness. EXTREMITIES: Normal range of motion, no pitting or edema. No cyanosis. NEUROLOGICAL: No focal neurological deficits. Moves all extremities spontaneously and on command. PSYCH: Normal mood, normal affect. SKIN: Warm, Dry, normal turgor, no rashes or lesions noted. Course - Re-evaluation Re-evalutation: 03/10/18 00:22 Patient presents with persistent, recurrent flank pain today on the left. On exam, she has focal left flank pain, appears uncomfortable but in no distress. He has a history of recurrent nephrolithiasis as well as recurrent kidney infections. Urinalysis has greater than 182 white blood cells and greater than 182 red blood cells. Patient has had a multitude of CT scans, will avoid today as she has had 10 CT scans in the last 2 years. Will obtain renal ultrasound. Will begin IV fluids, pain control, ceftriaxone, and reassess 03/10/18 01:35 Patient's pain is improved. She will be started on cephalexin as an outpatient. No prominent hydronephrosis on renal ultrasound, mild noted on the left with the patient does have pain. I have emphasized the need for close urology outpatient follow-up. We have also discussed the need to immediately return to the emergency department if she has worsening pain, fever, begin vomiting, or has worsening symptoms. - Vital Signs Vital signs: Temp Pulse Resp BP Pulse Ox 98.2 F 84 17 142/78 H 98 03/10/18 02:17 03/10/18 02:17 03/10/18 02:17 03/10/18 02:17 03/10/18 02:17 - Laboratory Result Diagrams: 03/09/18 23:40 03/09/18 23:40 Laboratory results interpreted by me: 03/09/18 03/09/18 03/09/18 22:00 23:40 23:40 WBC 15.6 H Absolute Neutrophils 10.1 H Chloride 110 H Carbon Dioxide 21 L Glucose 126 H Urine Protein 100 H Urine Blood LARGE H Urine Urobilinogen 2.0 H Ur Leukocyte Esterase LARGE H - Diagnostic Test Radiology reviewed: Reports reviewed Discharge - Discharge Clinical Impression: Left flank pain, Recurrent kidney stones Urinary tract infection Qualifiers: Urinary tract infection type: site unspecified Hematuria presence: with hematuria Qualified Code(s): N39.0 - Urinary tract infection, site not specified Condition: Good Disposition: HOME, SELF-CARE Additional Instructions: Please take antibiotics, Flomax as prescribed. You need to follow-up with urology urgently as we have discussed on previous visits. Please take Tylenol 650 mg every 6 hours as needed for pain. You may use Zofran which you have been sent home as needed for nausea and vomiting. Use the Scott that she been sent home with for pain not controlled by Tylenol. Return if you have worsening pain, persistent vomiting, develop a fever greater than 100.4F, or have any other symptoms that are worrisome to you. Prescriptions: Cephalexin Monohydrate [Keflex 500 mg Capsule] 500 mg PO Q6H 7 Days capsule Tamsulosin HCl [Flomax 0.4 mg Cap.sr] 0.4 mg PO DAILY #7 cap.sr.24h
[2018-03-10 00:46] LABS: ANION GAP 10 (5-19); BLOOD UREA NITROGEN 17 mg/dL (7-20); CALCIUM 9.6 mg/dL (8.4-10.2); CARBON DIOXIDE 21 mmol/L (22-30); CHLORIDE 110 mmol/L (98-107); GLUCOSE 126 mg/dL (75-110); POTASSIUM 4.1 mmol/L (3.6-5.0); SODIUM 141.2 mmol/L (137-145)
--- NOTE | 2018-03-10 00:47 | RADIOLOGY REPORT (SQ) ---
EXAM DESCRIPTION: Retroperitoneal ultrasound limited CLINICAL HISTORY: 47 years Female flank pain COMPLETED DATE/TME: 03/09/2018 23:31 COMPARISON: 01/28/2018 TECHNIQUE: Transabdominal grayscale imaging performed to evaluate the kidneys and urinary bladder. FINDINGS: Aorta is normal in caliber. The urinary bladder is incompletely distended. Left kidney measures 12.3 x 5.7 cm. There is mild dilatation of the left renal collecting system. Right kidney measures 12.1 x 4.4 cm. No hydronephrosis or mass. Echogenic foci in the right kidney which may reflect nonobstructing renal stones. Redundant IMPRESSION: Echogenic foci in the right kidney which may reflect nonobstructing stones Mild left hydronephrosis
[2018-03-10] MEDS ORDERED: PROMETHAZINE HCL INJ 25 MG/1 ML VIAL IV ONE (01:09)
[2018-03-10] MEDS ORDERED: HYDROMORPHONE HCL INJ/PF 2 MG/ML AMPULE IV PRN (01:35)
[2018-03-10] MEDS ORDERED: ONDANSETRON ODT 4 MG TAB (6 TAB/ER DISP) PO PRN (01:37)
[2018-03-10] MEDS ORDERED: HYDROCODONE/ACETAMINOPHEN 5-325 MG (6 TAB/ER DISP) PO PRN (01:37)
[2018-03-10 02:18] VITALS: BP 142/78
== END 2018-03-10 02:25 | disposition home or self-care (01) ==
LOC: ER 21:39
DX: N39.0 Urinary tract infection, site not specified (principal); N20.0 Calculus of kidney; R10.9 Unspecified abdominal pain; R11.2 Nausea with vomiting, unspecified; R30.0 Dysuria; R31.9 Hematuria, unspecified; F17.200 Nicotine dependence, unspecified, uncomplicated; J45.909 Unspecified asthma, uncomplicated
CPT/HCPCS: 36415; 87086; 85025; 80048; 81001; 76775; J1170; J2550; J0696; J7030

== ENCOUNTER 2018-04-06 21:59 | Emergency (ER) | payer MEDICAID ==
[2018-04-06] MEDS ORDERED: PROMETHAZINE HCL 25 MG TABLET PO ONE (22:29)
[2018-04-06] MEDS ORDERED: OXYCODONE-ACETAMINOPHEN 5-325 MG TABLET PO ONE (22:29)
[2018-04-06] MEDS ORDERED: NORMAL SALINE 1000 ML 1,000 ML IV ONE (22:31)
--- NOTE | 2018-04-06 22:32 | ER Document Report ---
ED GI/ - General Chief Complaint: Flank Pain Stated Complaint: FLANK PAIN Time Seen by Provider: 04/06/18 22:21 Notes: Patient is a 47-year-old female that comes to the emergency department for chief complaint of right flank pain and vomiting. She has a history of multiple kidney stones and multiple kidney infections, she has had multiple lithotripsies and stents in the past, she does not currently have a urologist because of insurance issues. She states she began having symptoms yesterday, attempted to see her primary care provider but was referred here instead. She denies fever or chills. Past surgical history includes appendectomy and hysterectomy. Patient states she has had very many CAT scans in the past and she does not want one. TRAVEL OUTSIDE OF THE [place] IN LAST 30 DAYS: No - Related Data Allergies/Adverse Reactions: ibuprofen Allergy (Unknown, Verified 03/09/18 23:06) ketorolac [From Toradol] Allergy (Unknown, Verified 03/09/18 23:06) meperidine [From Demerol] Allergy (Unknown, Verified 03/09/18 23:06) adhesive Allergy (Verified 03/09/18 23:06) aspirin Allergy (Verified 03/09/18 23:06) codeine Allergy (Verified 03/09/18 23:06) egg Allergy (Verified 03/09/18 23:06) iodine Allergy (Verified 03/09/18 23:06) Latex, Natural Rubber Allergy (Verified 03/09/18 23:06) morphine Allergy (Verified 03/09/18 23:06) shellfish derived Allergy (Verified 03/09/18 23:06) sumatriptan [From Imitrex] Allergy (Verified 03/09/18 23:06) tramadol [From Ultram] Allergy (Verified 03/09/18 23:06) ondansetron [From Zofran (as hydrochloride)] Adverse Reaction (Mild, Verified 23:06) VOMITING Past Medical History - General Information source: Patient - Social History Smoking Status: Never Smoker Frequency of alcohol use: None Drug Abuse: None Lives with: Family Family History: Reviewed & Not Pertinent, Malignancy - father, Other - grandfather history of kidney stones Pulmonary Medical History: Reports: Hx Asthma Neurological Medical History: Reports: Hx Seizures - Epilepsy Renal/ Medical History: Reports: Hx Kidney Stones, Hx Ovarian Cysts. Denies: Hx Peritoneal Dialysis GI Medical History: Reports: Hx Gastroesophageal Reflux Disease - with ulcers, Hx Ulcer Musculoskeletal Medical History: Reports Hx Arthritis, Reports Hx Musculoskeletal Trauma Psychiatric Medical History: Reports: Hx Anxiety, Hx Depression Traumatic Medical History: Reports: Hx Fractures - Hands wrist knees multiple others Past Surgical History: Reports: Hx Appendectomy, Hx Section, Hx Gynecologic Surgery - Right Ovary, Hx Hysterectomy, Hx Orthopedic Surgery - Rt. Wrist, Other - Lithotripsy over 20 times - Immunizations Immunizations up to date: Yes Hx Diphtheria, Pertussis, Tetanus Vaccination: Yes Review of Systems - Review of Systems Constitutional: No symptoms reported EENT: No symptoms reported Cardiovascular: No symptoms reported Respiratory: No symptoms reported Gastrointestinal: See HPI Genitourinary: See HPI Female Genitourinary: No symptoms reported Musculoskeletal: No symptoms reported Skin: No symptoms reported Hematologic/Lymphatic: No symptoms reported Neurological/Psychological: No symptoms reported Physical Exam - Vital signs Vitals: Temp Pulse Resp BP Pulse Ox 98.8 F 109 H 12 139/78 H 98 04/06/18 22:09 04/06/18 22:09 04/06/18 22:09 04/06/18 22:09 04/06/18 22:09 - Notes Notes: GENERAL: Alert, interacts well. No acute distress. HEAD: Normocephalic, atraumatic. EYES: Pupils equal, round, and reactive to light. Extraocular movements intact. ENT: Oral mucosa moist, tongue midline. NECK: Full range of motion. Supple. Trachea midline. LUNGS: Clear to auscultation bilaterally, no wheezes, rales, or rhonchi. No respiratory distress. HEART: Regular rate and rhythm. No murmur ABDOMEN: Soft, non-tender. Non-distended. Bowel sounds present in all 4 quadrants. GENITOURINARY: Deferred EXTREMITIES: Moves all 4 extremities spontaneously. No edema, normal radial and dorsalis pedis pulses bilaterally. No cyanosis. BACK: no cervical, thoracic, lumbar midline tenderness. No saddle anesthesia, normal distal neurovascular exam. Patient reacts with palpation of the right CVA area, otherwise unremarkable. NEUROLOGICAL: Alert and oriented x3. Normal speech. [cranial nerves II through XII grossly intact]. PSYCH: Normal affect, normal mood. SKIN: Warm, dry, normal turgor. No rashes or lesions noted. Course - Re-evaluation Re-evalutation: Patient does have leukocytosis at 14,000, elevation of neutrophils but no bandemia. Chemistry is unremarkable. Urine does appear to indicate infection again with large amount of leukocyte esterase, white blood cells, red blood cells. No nitrites. Culture was placed. Ultrasound without any significant change from prior, minimal left hydronephrosis with punctate stones. Vital signs unremarkable, no tachycardia on my exam, on recheck of vital signs these are normal. No fever. Patient is actually quite well-appearing. No vomiting during her time here, she tolerated p.o. without any difficulty. Very similar to her previous visit overall. I discussed with patient. Discussed the importance that she see a urologist or she would begin to develop resistant infections or could become septic at some time with her infections. I did review previous cultures but these were nonspecific. Patient most recently was on Keflex and before that Cipro, she was placed on Augmentin tonight, given first dose. Discussed return precautions in detail. Patient states satisfaction and agreement with plan. - Vital Signs Vital signs: Temp Pulse Resp BP Pulse Ox 99 F 83 18 149/83 H 98 04/07/18 00:33 04/07/18 00:33 04/07/18 00:33 04/07/18 00:33 04/07/18 00:33 - Laboratory Result Diagrams: 04/06/18 23:02 04/06/18 23:02 Laboratory results interpreted by me: 04/06/18 04/06/18 04/06/18 22:00 23:02 23:02 WBC 14.4 H Absolute Neutrophils 8.7 H Potassium 3.5 L Glucose 133 H Urine Protein 100 H Urine Blood LARGE H Urine Urobilinogen 2.0 H Ur Leukocyte Esterase LARGE H Discharge - Discharge Clinical Impression: Flank pain Vomiting Qualifiers: Vomiting type: unspecified Vomiting Intractability: non-intractable Nausea presence: with nausea Qualified Code(s): R11.2 - Nausea with vomiting, unspecified Urinary tract infection Qualifiers: Urinary tract infection type: site unspecified Hematuria presence: with hematuria Qualified Code(s): N39.0 - Urinary tract infection, site not specified Condition: Stable Disposition: HOME, SELF-CARE Additional Instructions: Your evaluation shows infection of the urinary tract, some stones in the kidneys. You will need to follow-up with a urologist for additional evaluation and management. See list of referrals below. Take Augmentin antibiotic as prescribed, Phenergan and nausea medication as prescribed. Return if you worsen including fever of 100.4 or greater, uncontrolled vomiting , worsening pain, or any other concerning or worsening symptoms. Pending Sale To [facility] [place] [phone] Pending Sale To [facility] [place] [phone] Gladys Yadav MD Doctor in [place], [place] Address: [address] [place] [address] [address], [place] [address] Prescriptions: Amox Tr/Potassium Clavulanate [Augmentin 875-125 Tablet] 1 tab PO BID 7 Days tablet Promethazine HCl [Phenergan 25 mg Tablet] 25 mg PO Q6H PRN #20 tablet PRN Reason: Referrals: SAMANTHA DRAKE MD [Primary Care Provider] - Follow up as needed
[2018-04-06 23:14] LABS: APPEARANCE,URINE CLOUDY; BILIRUBIN,URINE NEGATIVE (NEGATIVE); CALCIUM OXALATE CRYSTALS,URINE MANY /HPF; GLUCOSE, URINE NEGATIVE (NEGATIVE); KETONES,URINE NEGATIVE (NEGATIVE); LEUKOCYTE ESTERASE,URINE LARGE (NEGATIVE); NITRITE,URINE NEGATIVE (NEGATIVE); PROTEIN,URINE 100 mg/dL (NEGATIVE); URINE SPECIFIC GRAVITY 1.025
[2018-04-06 23:21] LABS: COLOR,URINE YELLOW
[2018-04-06 23:26] LABS: ABSOLUTE BASOPHILS # (AUTO) 0.1 10^3/uL (0.0-0.2); ABSOLUTE EOSINOPHILS # (AUTO) 0.2 10^3/uL (0.0-0.6); ABSOLUTE LYMPHOCYTES (AUTO) 4.4 10^3/uL (0.5-4.7); ABSOLUTE MONOCYTES (AUTO) 0.9 10^3/uL (0.1-1.4); ABSOLUTE NEUT (AUTO) 8.7 10^3/uL (1.7-8.2); BASOPHILS % (AUTO) 0.7 % (0-2); EOSINOPHILS % (AUTO) 1.4 % (0-6); HEMATOCRIT 43.7 % (36.0-47.0); HEMOGLOBIN 15.1 g/dL (12.0-15.5); LYMPHOCYTES % (AUTO) 30.8 % (13-45); MEAN CORPUSCULAR HEMOGLOBIN 31.7 pg (27.0-33.4); MEAN CORPUSCULAR HGB CONC 34.4 g/dL (32.0-36.0); MEAN CORPUSCULAR VOLUME 92 fl (80-97); MONOCYTES % (AUTO) 6.5 % (3-13); PLATELET COUNT 283 10^3/uL (150-450); RED BLOOD COUNT 4.75 10^6/uL (3.72-5.28); RED CELL DISTRIBUTION WIDTH 13.8 % (11.5-14.0); SEGMENTED NEUTROPHILS % (AUTO) 60.6 % (42-78); TOTAL CELLS COUNTED % (AUTO) 100 %; WHITE BLOOD COUNT 14.4 10^3/uL (4.0-10.5)
[2018-04-06 23:40] LABS: ALANINE AMINOTRANSFERASE 29 U/L (9-52); ALBUMIN 4.2 g/dL (3.5-5.0); ALKALINE PHOSPHATASE 119 U/L (38-126); ANION GAP 8 (5-19); ASPARTATE AMINO TRANSFERASE 20 U/L (14-36); BILIRUBIN,DIRECT 0.3 mg/dL (0.0-0.4); BILIRUBIN,TOTAL 0.3 mg/dL (0.2-1.3); BLOOD UREA NITROGEN 13 mg/dL (7-20); CALCIUM 9.3 mg/dL (8.4-10.2); CARBON DIOXIDE 29 mmol/L (22-30); CHLORIDE 104 mmol/L (98-107); GLUCOSE 133 mg/dL (75-110); POTASSIUM 3.5 mmol/L (3.6-5.0); SODIUM 141.1 mmol/L (137-145); TOTAL PROTEIN 7.3 g/dL (6.3-8.2)
[2018-04-06] MEDS ORDERED: FENTANYL CITRATE INJ/PF 100 MCG/2 ML AMPUL IV ONE (23:50)
--- NOTE | 2018-04-07 00:17 | RADIOLOGY REPORT (SQ) ---
CLINICAL DATA: 47-year-old female with right flank pain and vomiting TECHNICAL DATA: Grayscale and Doppler ultrasound imaging of the abdomen was performed including imaging of the kidneys, bladder, aorta, inferior vena cava and common iliac artery origins. Comparison: Prior retroperitoneal ultrasound performed on 03/09/2018. FINDINGS: The right kidney measures 12.4 x 4.4 x 5.4 cm. The renal cortex is grossly normal. There is no evidence of hydronephrosis. There are echogenic foci within the right kidney most consistent with renal calculi. No focal renal mass lesions or perinephric fluid collections are identified. There is normal color Doppler flow within the right kidney. The left kidney measures 12.6 x 6.0 x 5.7 cm. The renal cortex is grossly normal. There is mild prominence of the left renal collecting system. There appears to be an echogenic focus within the upper pole of the left kidney likely representing a renal calculus. No focal renal mass lesions or perinephric fluid collections are identified. There is normal color Doppler flow within the left kidney. No free fluid is seen. The bladder is incompletely distended. The abdominal aorta and inferior vena cava are grossly unremarkable. IMPRESSION: 1. Similar findings when compared to the prior study. There are echogenic foci within both kidneys likely reflecting renal calculi. 2. Mild left hydronephrosis.
[2018-04-07] MEDS ORDERED: HYDROCODONE/ACETAMINOPHEN 5-325 MG (6 TAB/ER DISP) PO PRN (00:26)
[2018-04-07] MEDS ORDERED: AMOXICILLIN TRIHYDRATE 500 MG CAPSULE PO ONE (00:26)
[2018-04-07] MEDS ORDERED: AMOXICILLIN TR/POT CLAVULANATE 500-125 MG TAB PO ONE (00:26)
[2018-04-07] MEDS ORDERED: HYDROCODONE/ACETAMINOPHEN 5-325 MG TABLET PO ONE (00:32)
[2018-04-07 03:19] VITALS: BP 141/84
== END 2018-04-07 01:10 | disposition home or self-care (01) ==
LOC: ER 21:59
DX: R11.2 Nausea with vomiting, unspecified (principal); N39.0 Urinary tract infection, site not specified; R10.9 Unspecified abdominal pain; J45.909 Unspecified asthma, uncomplicated
CPT/HCPCS: 99284; 96360; 36415; 87086; 85025; 80053; 81001; 76775; J3490 ×2; J7030

== ENCOUNTER 2018-04-29 02:25 | Emergency (ER) | payer MEDICAID ==
[2018-04-29 03:04] LABS: APPEARANCE,URINE CLOUDY; BILIRUBIN,URINE NEGATIVE (NEGATIVE); CALCIUM OXALATE CRYSTALS,URINE MODERATE /HPF; COLOR,URINE YELLOW; GLUCOSE, URINE NEGATIVE (NEGATIVE); KETONES,URINE NEGATIVE (NEGATIVE); LEUKOCYTE ESTERASE,URINE MODERATE (NEGATIVE); NITRITE,URINE NEGATIVE (NEGATIVE); PROTEIN,URINE 30 mg/dL (NEGATIVE); URINE SPECIFIC GRAVITY 1.029; UROBILINOGEN,URINE NEGATIVE mg/dL (<2.0)
[2018-04-29] MEDS ORDERED: PROMETHAZINE HCL 25 MG TABLET PO ONE (03:05)
[2018-04-29] MEDS ORDERED: ACETAMINOPHEN 325 MG TABLET PO ONE (03:06)
--- NOTE | 2018-04-29 03:22 | ER Document Report ---
ED General - General Chief Complaint: Flank Pain Stated Complaint: RIGHT FLANK PAIN Time Seen by Provider: 04/29/18 02:49 Notes: Patient is a 47-year-old female who presents to the emergency department with right flank pain. Describes it as a sharp, shooting pain. Nothing makes the pain better. Moving around makes the pain worse. She also reports urinary urgency with sensation of not fully emptying her bladder. She states has had her pain for the past 2 weeks, but this past weekend her pain has worsened. She said her pain is so bad she has been laying in bed all weekend. She has seen her primary care doctor and states that they put her on ciprofloxacin and Bactrim. Although she was referred to multiple urologist, she has not seen a urologist for her kidney stones since her emergency department visit. TRAVEL OUTSIDE OF THE [place] IN LAST 30 DAYS: No - Related Data Allergies/Adverse Reactions: ibuprofen Allergy (Unknown, Verified 03/09/18 23:06) ketorolac [From Toradol] Allergy (Unknown, Verified 03/09/18 23:06) meperidine [From Demerol] Allergy (Unknown, Verified 03/09/18 23:06) adhesive Allergy (Verified 03/09/18 23:06) aspirin Allergy (Verified 03/09/18 23:06) codeine Allergy (Verified 03/09/18 23:06) egg Allergy (Verified 03/09/18 23:06) iodine Allergy (Verified 03/09/18 23:06) Latex, Natural Rubber Allergy (Verified 03/09/18 23:06) morphine Allergy (Verified 03/09/18 23:06) shellfish derived Allergy (Verified 03/09/18 23:06) sumatriptan [From Imitrex] Allergy (Verified 03/09/18 23:06) tramadol [From Ultram] Allergy (Verified 03/09/18 23:06) ondansetron [From Zofran (as hydrochloride)] Adverse Reaction (Mild, Verified 23:06) VOMITING Past Medical History - General Information source: Patient - Social History Smoking Status: Current Every Day Smoker Lives with: Friend Family History: Reviewed & Not Pertinent, Malignancy - father, Other - grandfather history of kidney stones Pulmonary Medical History: Reports: Hx Asthma Neurological Medical History: Reports: Hx Seizures - Epilepsy Renal/ Medical History: Reports: Hx Kidney Stones, Hx Ovarian Cysts. Denies: Hx Peritoneal Dialysis GI Medical History: Reports: Hx Gastroesophageal Reflux Disease - with ulcers, Hx Ulcer Musculoskeletal Medical History: Reports Hx Arthritis, Reports Hx Musculoskeletal Trauma Psychiatric Medical History: Reports: Hx Anxiety, Hx Depression Traumatic Medical History: Reports: Hx Fractures - Hands wrist knees multiple others Past Surgical History: Reports: Hx Appendectomy, Hx Section, Hx Gynecologic Surgery - Right Ovary, Hx Hysterectomy, Hx Orthopedic Surgery - Rt. Wrist, Other - Lithotripsy over 20 times - Immunizations Immunizations up to date: Yes Hx Diphtheria, Pertussis, Tetanus Vaccination: Yes Review of Systems - Review of Systems Notes: REVIEW OF SYSTEMS: CONSTITUTIONAL : Denies fever, chills, or sweats. Denies recent illness. EENT: Denies eye, ear, throat, or mouth pain or symptoms. Denies nasal or sinus congestion. CARDIOVASCULAR: Denies chest pain. RESPIRATORY: Denies cough, cold, or chest congestion. Denies shortness of breath, difficulty breathing, or wheezing. GASTROINTESTINAL: Denies abdominal pain. Denies nausea, vomiting, or diarrhea. Denies constipation. Last BM: GENITOURINARY: Positive frequency. Positive for difficulty urinating towards the end of voiding. Denies painful urination, burning, or blood in urine. MUSCULOSKELETAL: Positive for right low back pain. Denies neck pain or joint pain or swelling. SKIN: Denies rash or skin lesions. HEMATOLOGIC : Denies easy bruising or bleeding. LYMPHATIC: Denies swollen, enlarged glands. NEUROLOGICAL: Denies altered mental status or loss of consciousness. Denies headache. Denies weakness or paralysis or loss of use of either side. Denies problems with gait or speech. Denies sensory or motor loss. PSYCHIATRIC: Denies anxiety or stress or depression. ALL OTHER SYSTEMS REVIEWED AND NEGATIVE. Physical Exam - Vital signs Vitals: Temp Pulse Resp BP Pulse Ox 98.3 F 115 H 18 176/112 H 96 04/29/18 02:40 04/29/18 02:40 04/29/18 02:40 04/29/18 02:40 04/29/18 02:40 - General General appearance: Appears well, Alert - Respiratory Respiratory status: No respiratory distress Chest status: Nontender Breath sounds: Normal - Cardiovascular Rhythm: Regular Pulses: Normal: Radial, Dorsalis pedis - Abdominal Inspection: Normal Distension: No distension Bowel sounds: Normal Tenderness: Nontender - Back Back: CVA tenderness - Right side - Neurological Cognition: Normal Orientation: AAOx4 Stephen Coma Scale Eye Opening: Spontaneous [place] Coma Scale Verbal: Oriented [place] Coma Scale Motor: Obeys Commands Stephen Coma Scale Total: 15 - Skin Skin Temperature: Warm Skin Moisture: Dry Course - Re-evaluation Re-evalutation: 04/29/18 05:05 Ultrasound results were discussed with the patient. I have discussed with the patient that her chronic kidney stones need to be evaluated by a urologist. She states she is taking Flomax at home. I strongly encouraged her to follow- up with her primary care doctor, so she can be referred out to a urologist. Patient requested additional pain medication, I then told her that she needs to follow-up with her primary care doctor for additional pain medication. - Vital Signs Vital signs: Temp Pulse Resp BP Pulse Ox 98.3 F 115 H 18 176/112 H 96 04/29/18 02:40 04/29/18 02:40 04/29/18 02:40 04/29/18 02:40 04/29/18 02:40 - Laboratory Result Diagrams: 04/29/18 03:27 04/29/18 03:27 Laboratory results interpreted by me: 04/29/18 04/29/18 04/29/18 02:30 03:27 03:27 WBC 13.7 H Absolute Neutrophils 8.4 H Sodium 145.7 H Chloride 108 H Glucose 116 H Urine Protein 30 H Urine Blood LARGE H Ur Leukocyte Esterase MODERATE H Discharge - Discharge Clinical Impression: Kidney stones Condition: Stable Disposition: HOME, SELF-CARE Additional Instructions: You have been seen in the emergency department for right flank pain. You still do have small kidney stones, but do not have hydronephrosis (fluid around your kidneys). Take Tylenol 1000 mg every 6 hours as needed for the pain. Your flank pain is a chronic issue. Please see your primary care doctor so they can refer you to a urologist for your chronic kidney stones. You also have a urinary tract infection. I have prescribed you some antibiotics. Please take your antibiotics as prescribed and finish them. Since she lives in [place] , below is a list of urologists in the [facility] for your convenience. [facility] [address], [place] [address] [facility] [address] [place] [address] [facility] [address] [place] [address] These are Urologist in [place]: [facility] [address] [place] [address] [facility] [address] [place] [id number] [facility] [address] [place], [place] [address] Prescriptions: Doxycycline Hyclate 100 mg PO BID #20 capsule Referrals: SAMANTHA DRAKE MD [Primary Care Provider] - Follow up as needed
[2018-04-29] MEDS ORDERED: NORMAL SALINE 1000 ML 1,000 ML IV ONE (03:27)
[2018-04-29 03:37] LABS: ABSOLUTE BASOPHILS # (AUTO) 0.1 10^3/uL (0.0-0.2); ABSOLUTE EOSINOPHILS # (AUTO) 0.3 10^3/uL (0.0-0.6); ABSOLUTE LYMPHOCYTES (AUTO) 3.8 10^3/uL (0.5-4.7); ABSOLUTE NEUT (AUTO) 8.4 10^3/uL (1.7-8.2); BASOPHILS % (AUTO) 0.8 % (0-2); EOSINOPHILS % (AUTO) 2.4 % (0-6); HEMATOCRIT 46.1 % (36.0-47.0); HEMOGLOBIN 15.4 g/dL (12.0-15.5); LYMPHOCYTES % (AUTO) 27.7 % (13-45); MEAN CORPUSCULAR HEMOGLOBIN 30.6 pg (27.0-33.4); MEAN CORPUSCULAR HGB CONC 33.3 g/dL (32.0-36.0); MEAN CORPUSCULAR VOLUME 92 fl (80-97); MONOCYTES % (AUTO) 7.4 % (3-13); PLATELET COUNT 316 10^3/uL (150-450); RED BLOOD COUNT 5.02 10^6/uL (3.72-5.28); RED CELL DISTRIBUTION WIDTH 13.8 % (11.5-14.0); SEGMENTED NEUTROPHILS % (AUTO) 61.7 % (42-78); TOTAL CELLS COUNTED % (AUTO) 100 %; WHITE BLOOD COUNT 13.7 10^3/uL (4.0-10.5)
[2018-04-29] MEDS ORDERED: OXYCODONE-ACETAMINOPHEN 5-325 MG TABLET PO ONE (03:42)
[2018-04-29 04:01] LABS: ALANINE AMINOTRANSFERASE 16 U/L (9-52); ALKALINE PHOSPHATASE 110 U/L (38-126); ANION GAP 12 (5-19); ASPARTATE AMINO TRANSFERASE 17 U/L (14-36); BILIRUBIN,DIRECT 0.2 mg/dL (0.0-0.4); BILIRUBIN,TOTAL 0.4 mg/dL (0.2-1.3); BLOOD UREA NITROGEN 15 mg/dL (7-20); CALCIUM 9.7 mg/dL (8.4-10.2); CARBON DIOXIDE 26 mmol/L (22-30); CHLORIDE 108 mmol/L (98-107); GLUCOSE 116 mg/dL (75-110); POTASSIUM 3.9 mmol/L (3.6-5.0); SODIUM 145.7 mmol/L (137-145); TOTAL PROTEIN 7.1 g/dL (6.3-8.2)
--- NOTE | 2018-04-29 04:43 | RADIOLOGY REPORT (SQ) ---
CLINICAL HISTORY: Right Flank pain COMPARISON: None. TECHNIQUE: US RETROPERITONEUM LIMITED on 04/29/2018 3:36 AM CDT FINDINGS: Right kidney measures 12.4 cm there are several scattered echogenic foci throughout the kidney which may represent small calcifications. There is no hydronephrosis. Left kidney measures 12.6 cm and contains several questionable echogenic foci lobe. IMPRESSION: Questionable bilateral tiny renal calculi. No hydronephrosis.
[2018-04-29] MEDS ORDERED: DOXYCYCLINE HYCLATE 100 MG TABLET PO ONE (05:20)
[2018-04-29 05:30] VITALS: BP 140/90
== END 2018-04-29 05:30 | disposition home or self-care (01) ==
LOC: ER 02:25
DX: N20.0 Calculus of kidney (principal); R10.9 Unspecified abdominal pain; R39.15 Urgency of urination; R35.0 Frequency of micturition; M54.5 Low back pain; F17.200 Nicotine dependence, unspecified, uncomplicated; J45.909 Unspecified asthma, uncomplicated; Z88.6 Allergy status to analgesic agent; Z88.8 Allergy status to other drugs, medicaments and biological substances; Z88.5 Allergy status to narcotic agent; Z91.048 Other nonmedicinal substance allergy status; Z91.012 Allergy to eggs; Z91.040 Latex allergy status; Z91.013 Allergy to seafood
CPT/HCPCS: 99284; 96360; 36415; 85025; 80053; 81001; 76775; J3490 ×2; J7030

== ENCOUNTER 2018-07-08 08:01 | Emergency (ER) | payer MEDICAID ==
[2018-07-08] MEDS ORDERED: OXYCODONE-ACETAMINOPHEN 5-325 MG TABLET PO ONE (09:20)
[2018-07-08] MEDS ORDERED: PROMETHAZINE HCL 25 MG TABLET PO ONE (09:20)
--- NOTE | 2018-07-08 09:22 | ER Document Report ---
ED Medical Screen (RME) - General Chief Complaint: Flank Pain Stated Complaint: FLANK PAIN Time Seen by Provider: 07/08/18 09:19 Notes: RAPID MEDICAL EVALUATION DISCLOSURE I have seen this patient as part of a Rapid Medical Evaluation and, if a pplicable, placed any initially appropriate orders. The patient will be seen and fully evaluated, including a full history and physical exam, by a provider (in Main ED or Fast Track) when a room becomes available. 47-year-old female PMH "many kidney stones" here with complaints of right flank pain radiating down to the groin ongoing for the past 4 days. She has tried taking some old antibiotics that she had laying around. She has had some dysuria nausea vomiting. She states "I am half blind" and cannot tell me if she has had any hematuria. She reports having previous lithotripsy. EXAM No abdominal TTP Mild to moderate right CVA TTP TRAVEL OUTSIDE OF THE [place] IN LAST 30 DAYS: No - Related Data Allergies/Adverse Reactions: ibuprofen Allergy (Unknown, Verified 07/08/18 08:08) ketorolac [From Toradol] Allergy (Unknown, Verified 07/08/18 08:08) meperidine [From Demerol] Allergy (Unknown, Verified 07/08/18 08:08) adhesive Allergy (Verified 07/08/18 08:08) aspirin Allergy (Verified 07/08/18 08:08) codeine Allergy (Verified 07/08/18 08:08) egg Allergy (Verified 07/08/18 08:08) iodine Allergy (Verified 07/08/18 08:08) Latex, Natural Rubber Allergy (Verified 07/08/18 08:08) morphine Allergy (Verified 07/08/18 08:08) shellfish derived Allergy (Verified 07/08/18 08:08) sumatriptan [From Imitrex] Allergy (Verified 07/08/18 08:08) tramadol [From Ultram] Allergy (Verified 07/08/18 08:08) ondansetron [From Zofran (as hydrochloride)] Adverse Reaction (Mild, Verified 07/08/18 08:08) VOMITING Past Medical History - Social History Chew tobacco use (# tins/day): No Frequency of alcohol use: None Drug Abuse: None Pulmonary Medical History: Reports: Hx Asthma Neurological Medical History: Reports: Hx Seizures - Epilepsy Renal/ Medical History: Reports: Hx Kidney Stones, Hx Ovarian Cysts. Denies: Hx Peritoneal Dialysis GI Medical History: Reports: Hx Gastroesophageal Reflux Disease - with ulcers, Hx Ulcer Musculoskeltal Medical History: Reports Hx Arthritis, Reports Hx Musculoskeletal Trauma Psychiatric Medical History: Reports: Hx Anxiety, Hx Depression Traumatic Medical History: Reports: Hx Fractures - Hands wrist knees multiple others Past Surgical History: Reports: Hx Appendectomy, Hx Section, Hx Gynecologic Surgery - Right Ovary, Hx Hysterectomy, Hx Orthopedic Surgery - Rt. Wrist, Other - Lithotripsy over 20 times - Immunizations Immunizations up to date: Yes Hx Diphtheria, Pertussis, Tetanus Vaccination: Yes Physical Exam - Vital signs Vitals: Temp Pulse Resp BP Pulse Ox 98.2 F 114 H 20 120/69 97 07/08/18 08:13 07/08/18 08:13 07/08/18 08:13 07/08/18 08:13 07/08/18 08:13 Course - Vital Signs Vital signs: Temp Pulse Resp BP Pulse Ox 98.2 F 114 H 20 120/69 97 07/08/18 08:13 07/08/18 08:13 07/08/18 08:13 07/08/18 08:13 07/08/18 08:13 Doctor's Discharge - Discharge Referrals: SAMANTHA DRAKE MD [Primary Care Provider] - Follow up as needed
--- NOTE | 2018-07-08 09:37 | ER Document Report ---
ED General - General Chief Complaint: Flank Pain Stated Complaint: FLANK PAIN Time Seen by Provider: 07/08/18 09:19 Mode of Arrival: Ambulatory Information source: Patient TRAVEL OUTSIDE OF THE [place] IN LAST 30 DAYS: No - HPI Patient complains to provider of: Right-sided flank pain Onset: Other - 47-year-old female with a history of recurrent nephrolithiasis along the right flank for which she is been evaluated multiple times in the past undergoing as many as 60 lithotripsies. She notes that she is continued to have pain over the last 4 days but was unable to come in because she was caring for her mother. Denies fevers or chills, denies lightheadedness, denies abdominal pain. Endorses some dysuria and urgency. Her past medical history is significant for high blood pressure, and reflux. She does take cigarettes every day 1 pack. No other drug use no other alcohol use. - Related Data Allergies/Adverse Reactions: ibuprofen Allergy (Unknown, Verified 07/08/18 08:08) ketorolac [From Toradol] Allergy (Unknown, Verified 07/08/18 08:08) meperidine [From Demerol] Allergy (Unknown, Verified 07/08/18 08:08) adhesive Allergy (Verified 07/08/18 08:08) aspirin Allergy (Verified 07/08/18 08:08) codeine Allergy (Verified 07/08/18 08:08) egg Allergy (Verified 07/08/18 08:08) iodine Allergy (Verified 07/08/18 08:08) Latex, Natural Rubber Allergy (Verified 07/08/18 08:08) morphine Allergy (Verified 07/08/18 08:08) shellfish derived Allergy (Verified 07/08/18 08:08) sumatriptan [From Imitrex] Allergy (Verified 07/08/18 08:08) tramadol [From Ultram] Allergy (Verified 07/08/18 08:08) ondansetron [From Zofran (as hydrochloride)] Adverse Reaction (Mild, Verified 07/08/18 08:08) VOMITING Past Medical History - General Information source: Patient - Social History Smoking Status: Current Every Day Smoker Chew tobacco use (# tins/day): No Frequency of alcohol use: None Drug Abuse: None Family History: Reviewed & Not Pertinent, Malignancy - father, Other - grandfather history of kidney stones Patient has suicidal ideation: No Patient has homicidal ideation: No Pulmonary Medical History: Reports: Hx Asthma Neurological Medical History: Reports: Hx Seizures - Epilepsy Renal/ Medical History: Reports: Hx Kidney Stones, Hx Ovarian Cysts. Denies: Hx Peritoneal Dialysis GI Medical History: Reports: Hx Gastroesophageal Reflux Disease - with ulcers, Hx Ulcer Musculoskeletal Medical History: Reports Hx Arthritis, Reports Hx Musculoskeletal Trauma Psychiatric Medical History: Reports: Hx Anxiety, Hx Depression Traumatic Medical History: Reports: Hx Fractures - Hands wrist knees multiple others Past Surgical History: Reports: Hx Appendectomy, Hx Section, Hx Gynecologic Surgery - Right Ovary, Hx Hysterectomy, Hx Orthopedic Surgery - Rt. Wrist, Other - Lithotripsy over 20 times - Immunizations Immunizations up to date: Yes Hx Diphtheria, Pertussis, Tetanus Vaccination: Yes Review of Systems - Review of Systems -: Yes All other systems reviewed and negative Physical Exam - Vital signs Vitals: Temp Pulse Resp BP Pulse Ox 98.2 F 114 H 20 120/69 97 07/08/18 08:13 07/08/18 08:13 07/08/18 08:13 07/08/18 08:13 07/08/18 08:13 - General General appearance: Appears well, Alert - HEENT Head: Normocephalic, Atraumatic Eyes: Normal Pupils: PERRL - Respiratory Respiratory status: No respiratory distress Chest status: Nontender Breath sounds: Normal Chest palpation: Normal - Cardiovascular Rhythm: Regular Heart sounds: Normal auscultation Murmur: No - Abdominal Inspection: Normal, Obese Tenderness: Nontender, Other - Tenderness to percussion along the right CVA - Back Back: Normal, CVA tenderness - Extremities General upper extremity: Normal inspection, Nontender, Normal color, Normal ROM, Normal temperature General lower extremity: Normal inspection, Nontender, Normal color, Normal ROM, Normal temperature, Normal weight bearing. No: Mary's sign - Neurological Neuro grossly intact: Yes Cognition: Normal Orientation: AAOx4 [place] Coma Scale Eye Opening: Spontaneous [place] Coma Scale Verbal: Oriented [place] Coma Scale Motor: Obeys Commands Stephen Coma Scale Total: 15 Speech: Normal Motor strength normal: LUE, RUE, LLE, RLE Sensory: Normal Course - Re-evaluation Re-evalutation: This 47-year-old female presented for evaluation of flank pain in the setting of recent nephrolithiases in the past requiring lithotripsy. She is felt profound pain along the right side. On examination she is in obvious discomfort. She had labs drawn through triage as well as urinalysis, will obtain a CT of the abdomen and pelvis as I do have concern that this could represent a more serious obstructing stone given her history. CT demonstrates hydronephrosis with associated urinary tract infection as well as an elevated leukocytosis in this patient. I have a concern that she has an obstructing infected kidney stone. Because of my concern for this urologic emergency we will plan to contact [facility]. I discussed this with the patient who notes that she is concerned about her mother who has dementia at home. 07/08/18 13:43 Spoke at length this woman encouraging her to stay in the emergency department for further observation evaluation and transfer to Dr. Day the urologist at [facility] for intervention as she has an obstructing kidney stone which is infected at this time. Patient stated that she was leaving did not want to stay. I encouraged the patient to stay for transport to [facility] for surgical extraction or stent placement of her kidney stone which is causing hydronephrosis, she declines admission and transport at this time states that she will not stay in the emergency department or be transported to [facility]. I did discuss with her the importance of the surgery and noted that I was concerned she would become much more ill and potentially if she did not stay. She verbalized understanding. Subsequently she signed AGAINST MEDICAL ADVICE. - Vital Signs Vital signs: Temp Pulse Resp BP Pulse Ox 97.8 F 78 18 122/68 99 07/08/18 13:00 07/08/18 13:00 07/08/18 13:00 07/08/18 13:00 07/08/18 13:00 - Laboratory Result Diagrams: 07/08/18 09:30 07/08/18 09:30 Laboratory results interpreted by me: 07/08/18 07/08/18 07/08/18 08:05 09:30 09:30 WBC 22.4 H RDW 14.5 H Seg Neuts % (Manual) 81 H Lymphocytes % (Manual) 11 L Metamyelocytes % 2 H Abs Neuts (Manual) 18.6 H Carbon Dioxide 20 L Glucose 152 H AST 13 L ALT 7 L Alkaline Phosphatase 159 H Urine Protein 100 H Urine Blood LARGE H Ur Leukocyte Esterase LARGE H Discharge - Discharge Clinical Impression: Urinary tract obstruction by kidney stone, Flank pain UTI (urinary tract infection) Qualifiers: Urinary tract infection type: site unspecified Hematuria presence: with hematuria Qualified Code(s): N39.0 - Urinary tract infection, site not specified Condition: Poor Disposition: AGAINST MEDICAL ADVICE Referrals: SAMANTHA DRAKE MD [NO LOCAL MD] - Follow up as needed
[2018-07-08 09:51] LABS: HEMOGLOBIN 15.5 g/dL (12.0-15.5); MEAN CORPUSCULAR HEMOGLOBIN 30.4 pg (27.0-33.4); MEAN CORPUSCULAR HGB CONC 33.6 g/dL (32.0-36.0); MEAN CORPUSCULAR VOLUME 90 fl (80-97); PLATELET COUNT 418 10^3/uL (150-450); RED CELL DISTRIBUTION WIDTH 14.5 % (11.5-14.0); WHITE BLOOD COUNT 22.4 10^3/uL (4.0-10.5)
[2018-07-08 10:11] LABS: ALANINE AMINOTRANSFERASE 7 U/L (9-52); ALBUMIN 3.9 g/dL (3.5-5.0); ALKALINE PHOSPHATASE 159 U/L (38-126); ANION GAP 14 (5-19); ASPARTATE AMINO TRANSFERASE 13 U/L (14-36); BILIRUBIN,DIRECT 0.3 mg/dL (0.0-0.4); BILIRUBIN,TOTAL 0.4 mg/dL (0.2-1.3); BLOOD UREA NITROGEN 15 mg/dL (7-20); CARBON DIOXIDE 20 mmol/L (22-30); CHLORIDE 107 mmol/L (98-107); GLUCOSE 152 mg/dL (75-110); POTASSIUM 3.8 mmol/L (3.6-5.0); SODIUM 141.3 mmol/L (137-145); TOTAL PROTEIN 7.1 g/dL (6.3-8.2)
[2018-07-08] MEDS ORDERED: FENTANYL CITRATE INJ/PF 100 MCG/2 ML AMPUL IM ONE (10:12)
[2018-07-08 10:17] LABS: ABSOLUTE LYMPHOCYTES# (MANUAL) 2.5 10^3/uL (0.5-4.7); ABSOLUTE MONOCYTES # (MANUAL) 1.3 10^3/uL (0.1-1.4); ABSOLUTE NEUTROPHILS# (MANUAL) 18.6 10^3/uL (1.7-8.2); BASOPHILS % (MANUAL) 0 % (0-2); EOSINOPHILS % (MANUAL) 0 % (0-6); LYMPHOCYTES % (MANUAL) 11 % (13-45); METAMYELOCYTES % (MANUAL) 2 % (0); MONOCYTES % (MANUAL) 6 % (3-13); PLATELET CLUMPS PRESENT; RBC MORPHOLOGY COMMENT NORMO-CYTIC/CHROMIC; SEGMENTED NEUTROPHILS % (MAN) 81 % (42-78); TOTAL CELLS COUNTED 100; TOXIC GRANULATION 2+
[2018-07-08] MEDS ORDERED: HYDROMORPHONE HCL INJ/PF 2 MG/ML AMPULE IM ONE (10:21)
[2018-07-08 10:23] LABS: APPEARANCE,URINE TURBID; BILIRUBIN,URINE NEGATIVE (NEGATIVE); COLOR,URINE AMBER; GLUCOSE, URINE NEGATIVE (NEGATIVE); KETONES,URINE NEGATIVE (NEGATIVE); LEUKOCYTE ESTERASE,URINE LARGE (NEGATIVE); NITRITE,URINE NEGATIVE (NEGATIVE); PROTEIN,URINE 100 mg/dL (NEGATIVE); URINE SPECIFIC GRAVITY 1.028; UROBILINOGEN,URINE NEGATIVE mg/dL (<2.0)
--- NOTE | 2018-07-08 10:36 | RADIOLOGY REPORT (SQ) ---
EXAM DESCRIPTION: CT ABD/PELVIS NO ORAL OR IV COMPLETED DATE/TIME: 07/08/2018 10:18 am REASON FOR STUDY: right side nephrolithiasis COMPARISON: Multiple prior CT abdomen and pelvis exams, 01/10/2018, 10/30/2017, 10/03/2017, 03/24/2017, TECHNIQUE: CT scan of the abdomen and pelvis performed without intravenous or oral contrast. Images reviewed with lung, soft tissue, and bone windows. Reconstructed coronal and sagittal MPR images revi ewed. All images stored on PACS. All CT scanners at this facility use dose modulation, iterative reconstruction, and/or weight based d osing when appropriate to reduce radiation dose to as low as reasonably achievable (ALARA). [facility]: Dose Right [facility]: CareDose [facility]: Dose Right [facility]: Teradose 4D [facility]: Smart Technologies RADIATION DOSE: CT Rad equipment meets quality standard of care and radiation dose reduction techniq ues were employed. CTDIvol: 10.8 mGy. DLP: 568 mGy-cm.mGy. LIMITATIONS: None. FINDINGS: There is marked right hydronephrosis and hydroureter down to the right ureterovesical junc tion. In the distal right ureter, there are 3 small ureteral calculi each about 5 mm in size, stacke d in the distal right ureter best shown on coronal image 50 and axial images 72-76. These findings a re new compared to 01/10/2018. Elsewhere in the right kidney, multiple less than 5 mm intrarenal upper mid and lower pole calculi ar e present. No right-sided renal stones or masses. LOWER CHEST: Cardiomegaly. Lung bases are clear NON-CONTRASTED LIVER, SPLEEN, ADRENALS: Fatty liver. No liver masses. Normal size spleen. 2.4 cm b enign fatty nodule right adrenal gland axial image 24. No left adrenal nodule. PANCREAS: No masses. No peripancreatic inflammatory changes. GALLBLADDER: No identified stones by CT criteria. No inflammatory changes to suggest cholecystitis. RIGHT KIDNEY AND URETER: As above LEFT KIDNEY AND URETER: No suspicious masses. Assessment limited by lack of IV contrast. Multiple t iny less than 5 mm intrarenal nonobstructive left-sided stones. No left ureteral stones. No hydron ephrosis or hydroureter. AORTA AND RETROPERITONEUM: No aneurysm. No retroperitoneal masses or adenopathy. BOWEL AND PERITONEAL CAVITY: No obvious masses or inflammatory changes. No free fluid. APPENDIX: Surgically absent post hysterectomy PELVIS, BLADDER, AND ABDOMINAL WALL:No abnormal masses. No free fluid. Bladder normal. BONES: No significant findings. OTHER: No other significant finding. IMPRESSION: Marked right hydronephrosis and hydroureter related to 3 small right distal ureteral ari culi in the distal right ureter. COMMENT: Quality ID # [id number]: Final reports with documentation of one or more dose reduction techniques (e.g., Automated exposure control, adjustment of the mA and/or kV according to patient size, use of iterative reconstruction technique) TECHNICAL DOCUMENTATION: JOB ID: [id number] [employer]- All Rights Reserved Reading location - IP/workstation name: [facility], [facility]
[2018-07-08] MEDS ORDERED: CEFTRIAXONE 1 GM/D5W RTU 1 GM/50 ML RTUPB IV ONE (11:44)
[2018-07-08] MEDS ORDERED: HYDROMORPHONE HCL INJ/PF 2 MG/ML AMPULE IV ONE (12:22)
[2018-07-08] MEDS ORDERED: PROMETHAZINE HCL INJ 25 MG/1 ML VIAL IV ONE (12:36)
[2018-07-08 14:18] VITALS: BP 122/68
== END 2018-07-08 13:30 | disposition left against medical advice (07) ==
LOC: ER 08:01
DX: N39.0 Urinary tract infection, site not specified (principal); N13.9 Obstructive and reflux uropathy, unspecified; R10.9 Unspecified abdominal pain; R30.0 Dysuria; F17.210 Nicotine dependence, cigarettes, uncomplicated; I10 Essential (primary) hypertension; Z88.6 Allergy status to analgesic agent; Z87.442 Personal history of urinary calculi; Z91.012 Allergy to eggs; Z91.040 Latex allergy status
CPT/HCPCS: 99284; 96372; 96375; 96365; 36415; 87040; 87086; 85025; 80053; 81001; 74176; J1170; J2550; J3490; J0696

== ENCOUNTER 2018-09-30 01:27 | Emergency (ER) | payer MEDICAID ==
[2018-09-30] MEDS ORDERED: PROMETHAZINE HCL 25 MG TABLET PO ONE (02:35)
[2018-09-30] MEDS ORDERED: HYDROCODONE/ACETAMINOPHEN 5-325 MG TABLET PO ONE (02:37)
[2018-09-30] MEDS ORDERED: NORMAL SALINE 1000 ML 1,000 ML IV ONE (02:37)
--- NOTE | 2018-09-30 02:38 | ER Document Report ---
ED Medical Screen (RME) - General Chief Complaint: Possible Kidney Stone Stated Complaint: FLANK PAIN Time Seen by Provider: 09/30/18 02:34 Notes: 47-year-old female with a past medical history of kidney stones comes to the emergency department for chief complaint of left flank pain and 4 episodes of vomiting. Denies fever or chills. Reports she follows with Dr. Salazar, urologist at [facility]. TRAVEL OUTSIDE OF THE [place] IN LAST 30 DAYS: No - Related Data Allergies/Adverse Reactions: ibuprofen Allergy (Unknown, Verified 07/08/18 08:08) ketorolac [From Toradol] Allergy (Unknown, Verified 07/08/18 08:08) meperidine [From Demerol] Allergy (Unknown, Verified 07/08/18 08:08) adhesive Allergy (Verified 07/08/18 08:08) aspirin Allergy (Verified 07/08/18 08:08) codeine Allergy (Verified 07/08/18 08:08) egg Allergy (Verified 07/08/18 08:08) iodine Allergy (Verified 07/08/18 08:08) Latex, Natural Rubber Allergy (Verified 07/08/18 08:08) morphine Allergy (Verified 07/08/18 08:08) shellfish derived Allergy (Verified 07/08/18 08:08) sumatriptan [From Imitrex] Allergy (Verified 07/08/18 08:08) tramadol [From Ultram] Allergy (Verified 07/08/18 08:08) ondansetron [From Zofran (as hydrochloride)] Adverse Reaction (Mild, Verified 07/08/18 08:08) VOMITING Past Medical History Pulmonary Medical History: Reports: Hx Asthma Neurological Medical History: Reports: Hx Seizures - Epilepsy Renal/ Medical History: Reports: Hx Kidney Stones, Hx Ovarian Cysts. Denies: Hx Peritoneal Dialysis GI Medical History: Reports: Hx Gastroesophageal Reflux Disease - with ulcers, Hx Ulcer Musculoskeltal Medical History: Reports Hx Arthritis, Reports Hx Musculoskeletal Trauma Psychiatric Medical History: Reports: Hx Anxiety, Hx Depression Traumatic Medical History: Reports: Hx Fractures - Hands wrist knees multiple others Past Surgical History: Reports: Hx Appendectomy, Hx Section, Hx Gynecologic Surgery - Right Ovary, Hx Hysterectomy, Hx Orthopedic Surgery - Rt. Wrist, Other - Lithotripsy over 20 times - Immunizations Immunizations up to date: Yes Hx Diphtheria, Pertussis, Tetanus Vaccination: Yes Physical Exam - Vital signs Vitals: Temp Pulse Resp BP Pulse Ox 98.4 F 123 H 20 133/87 H 99 09/30/18 01:54 09/30/18 01:54 09/30/18 01:54 09/30/18 01:54 09/30/18 01:54 - General General appearance: Other - Appears mildly uncomfortable - Cardiovascular Rhythm: Regular, Tachycardia Heart sounds: Normal auscultation, S1 appreciated, S2 appreciated Course - Re-evaluation Re-evalutation: I have greeted and performed a rapid initial assessment of this patient. A comprehensive ED assessment and evaluation of the patient, analysis of test results and completion of the medical decision making process will be conducted by additional ED providers. - Vital Signs Vital signs: Temp Pulse Resp BP Pulse Ox 98.4 F 123 H 20 133/87 H 99 09/30/18 01:54 09/30/18 01:54 09/30/18 01:54 09/30/18 01:54 09/30/18 01:54
[2018-09-30 02:58] LABS: APPEARANCE,URINE CLOUDY; BILIRUBIN,URINE NEGATIVE (NEGATIVE); COLOR,URINE YELLOW; GLUCOSE, URINE NEGATIVE (NEGATIVE); KETONES,URINE NEGATIVE (NEGATIVE); LEUKOCYTE ESTERASE,URINE MODERATE (NEGATIVE); NITRITE,URINE NEGATIVE (NEGATIVE); PROTEIN,URINE 100 mg/dL (NEGATIVE); URINE SPECIFIC GRAVITY 1.026; UROBILINOGEN,URINE NEGATIVE mg/dL (<2.0)
--- NOTE | 2018-09-30 03:19 | RADIOLOGY REPORT (SQ) ---
CLINICAL HISTORY: left flank pain COMPARISON: None. TECHNIQUE: US RETROPERITONEUM LIMITED on 09/30/2018 2:35 AM CDT FINDINGS: The abdominal aorta is nonaneurysmal. Right kidney measures 11.3 cm and the left kidney measures 11.6 cm. There is no hydronephrosis. IMPRESSION: Unremarkable study.
[2018-09-30 03:30] LABS: ABSOLUTE BASOPHILS # (AUTO) 0.2 10^3/uL (0.0-0.2); ABSOLUTE EOSINOPHILS # (AUTO) 0.2 10^3/uL (0.0-0.6); ABSOLUTE LYMPHOCYTES (AUTO) 3.2 10^3/uL (0.5-4.7); ABSOLUTE MONOCYTES (AUTO) 1.3 10^3/uL (0.1-1.4); ABSOLUTE NEUT (AUTO) 14.2 10^3/uL (1.7-8.2); BASOPHILS % (AUTO) 0.8 % (0-2); EOSINOPHILS % (AUTO) 0.9 % (0-6); HEMATOCRIT 41.5 % (36.0-47.0); HEMOGLOBIN 14.2 g/dL (12.0-15.5); MEAN CORPUSCULAR HEMOGLOBIN 31.6 pg (27.0-33.4); MEAN CORPUSCULAR HGB CONC 34.2 g/dL (32.0-36.0); MEAN CORPUSCULAR VOLUME 92 fl (80-97); MONOCYTES % (AUTO) 6.6 % (3-13); PLATELET COUNT 289 10^3/uL (150-450); RED BLOOD COUNT 4.49 10^6/uL (3.72-5.28); RED CELL DISTRIBUTION WIDTH 15.7 % (11.5-14.0); SEGMENTED NEUTROPHILS % (AUTO) 74.7 % (42-78); TOTAL CELLS COUNTED % (AUTO) 100 %; WHITE BLOOD COUNT 19.1 10^3/uL (4.0-10.5)
--- NOTE | 2018-09-30 03:33 | ER Document Report ---
ED General - General Chief Complaint: Possible Kidney Stone Stated Complaint: FLANK PAIN Time Seen by Provider: 09/30/18 02:34 Notes: Patient is a 47-year-old female presents with complaint of flank pain. She has a history of recurrent kidney stones. She was seen here in July and had a 3 mm kidney stone on CT scan with associated infection and the ER physician want to transfer however the patient refused and left AMA. She says she passed the stone shortly after going home has had no problems since. She comes here frequently for this complaint of left flank pain and kidney stones. Most times her scans and ultrasounds were negative. Occasionally she will have a positive scan. She denies any fevers. Some nausea. No vomiting. She said symptoms have been ongoing for 3 days. TRAVEL OUTSIDE OF THE [place] IN LAST 30 DAYS: No - Related Data Allergies/Adverse Reactions: ibuprofen Allergy (Unknown, Verified 09/30/18 03:35) ketorolac [From Toradol] Allergy (Unknown, Verified 09/30/18 03:35) meperidine [From Demerol] Allergy (Unknown, Verified 09/30/18 03:35) adhesive Allergy (Verified 09/30/18 03:35) aspirin Allergy (Verified 09/30/18 03:35) codeine Allergy (Verified 09/30/18 03:35) egg Allergy (Verified 09/30/18 03:35) fentanyl Allergy (Verified 09/30/18 03:35) iodine Allergy (Verified 09/30/18 03:35) Latex, Natural Rubber Allergy (Verified 09/30/18 03:35) morphine Allergy (Verified 09/30/18 03:35) shellfish derived Allergy (Verified 09/30/18 03:35) sumatriptan [From Imitrex] Allergy (Verified 09/30/18 03:35) tramadol [From Ultram] Allergy (Verified 09/30/18 03:35) ondansetron [From Zofran (as hydrochloride)] Adverse Reaction (Mild, Verified 09/30/18 03:35) VOMITING Past Medical History - Social History Smoking Status: Unknown if Ever Smoked Frequency of alcohol use: None Drug Abuse: None Family History: Reviewed & Not Pertinent, Malignancy - father, Other - grandfather history of kidney stones Patient has suicidal ideation: No Patient has homicidal ideation: No Pulmonary Medical History: Reports: Hx Asthma Neurological Medical History: Reports: Hx Seizures - Epilepsy Renal/ Medical History: Reports: Hx Kidney Stones, Hx Ovarian Cysts. Denies: Hx Peritoneal Dialysis GI Medical History: Reports: Hx Gastroesophageal Reflux Disease - with ulcers, Hx Ulcer Musculoskeletal Medical History: Reports Hx Arthritis, Reports Hx Musculoskeletal Trauma Psychiatric Medical History: Reports: Hx Anxiety, Hx Depression Traumatic Medical History: Reports: Hx Fractures - Hands wrist knees multiple others Past Surgical History: Reports: Hx Appendectomy, Hx Section, Hx Gynecologic Surgery - Right Ovary, Hx Hysterectomy, Hx Orthopedic Surgery - Rt. Wrist, Other - Lithotripsy over 20 times - Immunizations Immunizations up to date: Yes Hx Diphtheria, Pertussis, Tetanus Vaccination: Yes Review of Systems - Review of Systems Notes: My Normal Review Basic REVIEW OF SYSTEMS: CONSTITUTIONAL : Denies fever, chills, or sweats. Denies recent illness. RESPIRATORY: Denies cough, cold, or chest congestion. Denies shortness of breath, difficulty breathing, or wheezing. GASTROINTESTINAL: Left flank pain. Nausea. GENITOURINARY: Denies difficulty urinating, painful urination, burning, frequency, or blood in urine. MUSCULOSKELETAL: Denies neck or back pain or joint pain or swelling. SKIN: Denies rash or skin lesions. NEUROLOGICAL: Denies altered mental status or loss of consciousness. Denies headache. Denies weakness or paralysis or loss of use of either side. Denies problems with gait or speech. Denies sensory or motor loss. ALL OTHER SYSTEMS REVIEWED AND NEGATIVE. Physical Exam - Vital signs Vitals: Temp Pulse Resp BP Pulse Ox 98.4 F 123 H 20 133/87 H 99 09/30/18 01:54 09/30/18 01:54 09/30/18 01:54 09/30/18 01:54 09/30/18 01:54 - Notes Notes: General Appearance: Well nourished, alert, cooperative, no acute distress, no obvious discomfort. Patient is comfortable appearing at this time. Vitals: reviewed, See vital signs table. Eyes: PERRL, EOMI, Conjuctiva clear Mouth: No decreasd moisture Lungs: No wheezing, No rales, No rhonci, No accessory muscle use, good air exchange bilaterally. Heart: Normal rate, Regular rythm, No murmur, no rub Abdomen: Normal BS, soft, No rigidity, No reproducible abdominal tenderness to palpation, No guarding, no rebound, no abdominal masses, no organomegaly Extremities: good pulses in all extremities, no swelling or tenderness in the extremities, no edema. Skin: warm, dry, appropriate color, no rash Neuro: speech clear, oriented x 3, normal affect, responds appropriately to questions. Course - Re-evaluation Re-evalutation: 09/30/18 06:18 Patient's ultrasound shows no evidence of hydronephrosis. I do not suspect kid rachell stone based on her negative ultrasound also the fact that when she is in the room she looks extremely comfortable. She says she has pain but she does not appear to be in any pain. Says she had similar presentations. It is always difficult to tell if she is true passing a stone as she presents frequently with the symptoms and most of times her workup is negative except for a large amount of white blood cells and red blood cells in her urine. When I reviewed all her previous urine cultures and they typically show significant evidence of contamination. I therefore requested that we do a straight cath urine so I can get an actual clean specimen but patient immediately refused this. I therefore will send her urine for culture. She does have a leukocytosis was trending through her labs she typically does have a leukocytosis. Her white count typically runs between 15 and 30. This appears to be chronic for her. Exact cause of this is not 100% clear. She does not have a kidney stone. She requested to be discharged home with opiate pain medications I told her I did not feel it is appropriate at this time being that she does not have a kidney stone and the fact that she appears to be very comfortable on exam. I encouraged her return to ER if she has fevers, worsening pain, vomiting, or she feels unwell. Patient agrees with plan will be discharged home. Dictation of this chart was performed using voice recognition software; therefore, there may be some unintended grammatical errors. - Vital Signs Vital signs: Temp Pulse Resp BP Pulse Ox 98.2 F 107 H 17 136/82 H 98 09/30/18 04:03 09/30/18 04:03 09/30/18 04:03 09/30/18 04:03 09/30/18 04:03 - Laboratory Result Diagrams: 09/30/18 03:16 09/30/18 03:16 Laboratory results interpreted by me: 09/30/18 09/30/18 09/30/18 01:45 03:16 03:16 WBC 19.1 H RDW 15.7 H Absolute Neutrophils 14.2 H Potassium 5.1 H Chloride 111 H Carbon Dioxide 17 L BUN 26 H Est GFR (Non-Af Amer) 58 L Glucose 154 H Urine Protein 100 H Urine Blood LARGE H Ur Leukocyte Esterase MODERATE H Discharge - Discharge Clinical Impression: Flank pain Condition: Good Disposition: HOME, SELF-CARE Additional Instructions: Your ultrasound did not show evidence of a passing kidney stone. Your urine shows evidence possible infection. As discussed with your this could be related to contaminant and therefore recommend a cath urine to obtain a more accurate specimen. We respect your decision to refuse a cath specimen urine, but this means we have to treat you with antibiotics and send your urine for culture and await the results. Please follow up with your doctor in 2-3 days for reevaluation. please return to the ER immediately if you develop fevers, intractable vomiting, worsening pain, or feel that you are worsening in any way. Prescriptions: RX: Cephalexin Monohydrate [Keflex 500 mg Capsule] 500 mg PO BID 5 Days #10 capsule Promethazine HCl [Phenergan 25 mg Tablet] 1 tab PO Q6H PRN #15 tablet PRN Reason: Forms: Return to Work
[2018-09-30 03:41] LABS: CHLORIDE 111 mmol/L (98-107); POTASSIUM 5.1 mmol/L (3.6-5.0)
[2018-09-30 04:00] LABS: ANION GAP 12 (5-19); BLOOD UREA NITROGEN 26 mg/dL (7-20); CARBON DIOXIDE 17 mmol/L (22-30); GLUCOSE 154 mg/dL (75-110)
[2018-09-30 04:03] VITALS: BP 136/82
[2018-09-30] MEDS ORDERED: CEPHALEXIN 500 MG CAPSULE PO ONE (04:03)
== END 2018-09-30 04:21 | disposition home or self-care (01) ==
LOC: ER 01:27
DX: R10.9 Unspecified abdominal pain (principal); Z87.442 Personal history of urinary calculi; Z88.6 Allergy status to analgesic agent; Z91.012 Allergy to eggs; Z91.040 Latex allergy status; Z90.710 Acquired absence of both cervix and uterus
CPT/HCPCS: 99284; 96360; 36415; 87086; 84703; 85025; 80048; 81001; 76775; J3490; J7030

== ENCOUNTER 2018-12-01 01:56 | Emergency (ER) | payer MEDICAID ==
[2018-12-01 02:39] LABS: APPEARANCE,URINE CLOUDY; BILIRUBIN,URINE NEGATIVE (NEGATIVE); COLOR,URINE YELLOW; GLUCOSE, URINE NEGATIVE (NEGATIVE); KETONES,URINE TRACE mg/dL (NEGATIVE); LEUKOCYTE ESTERASE,URINE TRACE (NEGATIVE); NITRITE,URINE NEGATIVE (NEGATIVE); PROTEIN,URINE 30 mg/dL (NEGATIVE); URINE SPECIFIC GRAVITY 1.021; UROBILINOGEN,URINE NEGATIVE mg/dL (<2.0)
[2018-12-01 05:59] LABS: HEMATOCRIT 44.4 % (36.0-47.0); HEMOGLOBIN 15.1 g/dL (12.0-15.5); MEAN CORPUSCULAR HEMOGLOBIN 31.7 pg (27.0-33.4); MEAN CORPUSCULAR VOLUME 93 fl (80-97); PLATELET COUNT 291 10^3/uL (150-450); RED BLOOD COUNT 4.76 10^6/uL (3.72-5.28); RED CELL DISTRIBUTION WIDTH 13.9 % (11.5-14.0); WHITE BLOOD COUNT 26.9 10^3/uL (4.0-10.5)
[2018-12-01 06:18] LABS: ABSOLUTE LYMPHOCYTES# (MANUAL) 5.4 10^3/uL (0.5-4.7); ABSOLUTE MONOCYTES # (MANUAL) 1.6 10^3/uL (0.1-1.4); ABSOLUTE NEUTROPHILS# (MANUAL) 19.1 10^3/uL (1.7-8.2); BAND NEUTROPHILS % (MANUAL) 1 % (3-5); BASOPHILS % (MANUAL) 1 % (0-2); EOSINOPHILS % (MANUAL) 2 % (0-6); LYMPHOCYTES % (MANUAL) 20 % (13-45); MONOCYTES % (MANUAL) 6 % (3-13); SEGMENTED NEUTROPHILS % (MAN) 70 % (42-78); TOTAL CELLS COUNTED 100
[2018-12-01 06:19] LABS: PLATELET COMMENT ADEQUATE
[2018-12-01 06:21] LABS: STOMATOCYTES 1+
[2018-12-01 06:25] LABS: ALANINE AMINOTRANSFERASE 25 U/L (9-52); ALBUMIN 4.9 g/dL (3.5-5.0); ALKALINE PHOSPHATASE 109 U/L (38-126); ANION GAP 15 (5-19); ASPARTATE AMINO TRANSFERASE 20 U/L (14-36); BILIRUBIN,DIRECT 0.3 mg/dL (0.0-0.4); BILIRUBIN,TOTAL 0.4 mg/dL (0.2-1.3); BLOOD UREA NITROGEN 21 mg/dL (7-20); CALCIUM 10.5 mg/dL (8.4-10.2); CARBON DIOXIDE 21 mmol/L (22-30); CHLORIDE 107 mmol/L (98-107); GLUCOSE 178 mg/dL (75-110); LIPASE 74.1 U/L (23-300); POTASSIUM 4.2 mmol/L (3.6-5.0); SODIUM 143.2 mmol/L (137-145); TOTAL PROTEIN 8.3 g/dL (6.3-8.2)
[2018-12-01] MEDS ORDERED: HYDROMORPHONE HCL INJ/PF 2 MG/ML AMPULE IV ONE ×2 (09:05→10:54)
[2018-12-01] MEDS ORDERED: NORMAL SALINE 1000 ML 1,000 ML IV ONE (09:05)
[2018-12-01] MEDS: ONDANSETRON HCL INJ/PF 4 MG/2 ML SDV IV ONE ×2 (09:26→09:28)
--- NOTE | 2018-12-01 09:46 | ER Document Report ---
ED General - General Chief Complaint: Possible Kidney Stone Stated Complaint: LEFT FLANK PAIN Time Seen by Provider: 12/01/18 08:23 Notes: 48-year-old female with a history of recurrent bilateral nephrolithiasis for which she is been evaluated multiple times in the past undergoing as many as 60 lithotripsies. She notes that she is continued to have pain over the last few days but was unable to come in because she was caring for her mother. Denies fevers or chills, denies lightheadedness, denies abdominal pain. She complains of left flank pain. Endorses urinary frequency and urgency. Her past medical history is significant for high blood pressure, and reflux. She has been seen here frequently and has a chronic leukocytosis, and her last visit did not show any evidence of kidney stone on ultrasound. She does take cigarettes every day 1 pack. No other drug use no other alcohol use. TRAVEL OUTSIDE OF THE [place] IN LAST 30 DAYS: No - Related Data Allergies/Adverse Reactions: ibuprofen Allergy (Unknown, Verified 12/01/18 09:34) ketorolac [From Toradol] Allergy (Unknown, Verified 12/01/18 09:34) meperidine [From Demerol] Allergy (Unknown, Verified 12/01/18 09:34) adhesive Allergy (Verified 12/01/18 09:34) aspirin Allergy (Verified 12/01/18 09:34) codeine Allergy (Verified 12/01/18 09:34) egg Allergy (Verified 12/01/18 09:34) fentanyl Allergy (Verified 12/01/18 09:34) iodine Allergy (Verified 12/01/18 09:34) Latex, Natural Rubber Allergy (Verified 12/01/18 09:34) morphine Allergy (Verified 12/01/18 09:34) shellfish derived Allergy (Verified 12/01/18 09:34) sumatriptan [From Imitrex] Allergy (Verified 12/01/18 09:34) tramadol [From Ultram] Allergy (Verified 12/01/18 09:34) ondansetron [From Zofran (as hydrochloride)] Adverse Reaction (Mild, Verified 12/01/18 09:34) VOMITING Past Medical History - Social History Smoking Status: Current Every Day Smoker Family History: Reviewed & Not Pertinent, Malignancy - father, Other - gran dfather history of kidney stones Patient has suicidal ideation: No Patient has homicidal ideation: No Pulmonary Medical History: Reports: Hx Asthma Neurological Medical History: Reports: Hx Seizures - Epilepsy Renal/ Medical History: Reports: Hx Kidney Stones, Hx Ovarian Cysts. Denies: Hx Peritoneal Dialysis GI Medical History: Reports: Hx Gastroesophageal Reflux Disease - with ulcers, Hx Ulcer Musculoskeletal Medical History: Reports Hx Arthritis, Reports Hx Musculoskeletal Trauma Psychiatric Medical History: Reports: Hx Anxiety, Hx Depression Traumatic Medical History: Reports: Hx Fractures - Hands wrist knees multiple others Past Surgical History: Reports: Hx Appendectomy, Hx Section, Hx Gynecologic Surgery - Right Ovary, Hx Hysterectomy, Hx Orthopedic Surgery - Rt. Wrist, Other - Lithotripsy over 20 times - Immunizations Immunizations up to date: Yes Hx Diphtheria, Pertussis, Tetanus Vaccination: Yes Review of Systems - Review of Systems Constitutional: See HPI EENT: No symptoms reported Cardiovascular: No symptoms reported Respiratory: No symptoms reported Gastrointestinal: See HPI Genitourinary: See HPI Female Genitourinary: No symptoms reported Musculoskeletal: See HPI Skin: No symptoms reported Hematologic/Lymphatic: No symptoms reported Neurological/Psychological: No symptoms reported Physical Exam - Vital signs Vitals: Temp Pulse Resp BP Pulse Ox 98.1 F 90 19 143/83 H 97 12/01/18 02:32 12/01/18 02:32 12/01/18 02:32 12/01/18 02:32 12/01/18 02:32 - Notes Notes: PHYSICAL EXAMINATION: Reviewed vital signs and charting by RN GENERAL: Alert, interacts well. No acute distress. HEAD: Normocephalic, atraumatic. EYES: Pupils equal, round, and reactive to light. Extraocular movements intact. ENT: Oral mucosa moist, tongue midline. NECK: Full range of motion. Supple. Trachea midline. LUNGS: Clear to auscultation bilaterally, no wheezes, rales, or rhonchi. No respiratory distress. HEART: Regular rate and rhythm. No murmur ABDOMEN: soft, non-tender. No distention. Bowel sounds present BACK: Left CVAT EXTREMITIES: Moves all 4 extremities spontaneously. No edema, No cyanosis. PSYCH: Normal affect, normal mood. SKIN: Warm, dry, normal turgor. No rashes or lesions noted. Course - Re-evaluation Re-evalutation: 12/01/18 11:10 Patient is overall well-appearing. Patient does have a chronic leukocytosis every time she comes into the emergency department. Today it is about 29,000. She has never been below 15-7000. She is afebrile. Her urine could potentially show signs of a UTI but based on previous urines it is fairly insignificant and it is a contaminated sample. I obtained a renal ultrasound which did not show hydronephrosis or any evidence of a stone. I then recommended to the patient that we form a CT abdomen pelvis to ensure that she does not have an obstructed stone. She decline the test. I explained to her she could have an infected stone which would require emergent transfer but she still declined. Her vital signs are within normal limits 12/01/18 12:01 I revisited with patient and discussed the CT scan again. Patient has extreme reservations and does not want to get it done. Based on the renal ultrasound and the fact there is no hydronephrosis and how well the patient appears I do wheatley ve low suspicion for an obstructed stone at this time. Also, there is no evidence of stone seen on the ultrasound. I gave patient strict return precautions and instructions to return if she develops fever, worsening flank pain, dysuria, urinary retention, or any worsening abdominal pain. At this time her vital signs are within normal limits and she is stable - Vital Signs Vital signs: Temp Pulse Resp BP Pulse Ox 99.0 F 117 H 18 134/89 H 95 12/01/18 06:09 12/01/18 06:09 12/01/18 08:09 12/01/18 06:09 12/01/18 06:09 - Laboratory Result Diagrams: 12/01/18 05:35 12/01/18 05:35 Laboratory results interpreted by me: 12/01/18 12/01/18 12/01/18 02:05 05:35 05:35 WBC 26.9 H Band Neutrophils % 1 L Abs Neuts (Manual) 19.1 H Abs Lymphs (Manual) 5.4 H Abs Monocytes (Manual) 1.6 H Abs Basophils (Manual) 0.3 H Carbon Dioxide 21 L BUN 21 H Glucose 178 H Calcium 10.5 H Total Protein 8.3 H Urine Protein 30 H Urine Ketones TRACE H Urine Blood LARGE H Ur Leukocyte Esterase TRACE H Discharge - Discharge Clinical Impression: Flank pain Condition: Stable Disposition: HOME, SELF-CARE Additional Instructions: You were seen in the emergency department this morning for flank pain. Because of your extensive history of kidney stones we performed an ultrasound and got some blood work and lab work. Your blood work is consistent with previous visits and your urine showed evidence of a UTI. The ultrasound of your kidney did not show any evidence of an obstruction and did not see a stone. Based on all of this I am comfortable sending you home with strict return precautions. If you develop fever, worsening flank pain, severe abdominal pain, pain with urination, urinary retention, or you have any other concerning symptoms please immediately return to the emergency department for reevaluation as you may need advanced imaging.
--- NOTE | 2018-12-01 10:40 | RADIOLOGY REPORT (SQ) ---
EXAM DESCRIPTION: U/S RETROPERITON (RENAL/AORTA) COMPLETED DATE/TIME: 12/01/2018 10:26 am REASON FOR STUDY: ?Hydronephrosis/kidney stone left COMPARISON: 09/30/2018. TECHNIQUE: Dynamic and static grayscale images acquired of the kidneys and recorded on PACS. Additio nal selected color Doppler and spectral images recorded. LIMITATIONS: None. FINDINGS: RIGHT KIDNEY: Normal size. Normal echogenicity. No solid or suspicious masses. No hydronep hrosis. No calcifications. LEFT KIDNEY: Normal size. Normal echogenicity. No solid or suspicious masses. No hydronephrosis. No calcifications. BLADDER: Not imaged. OTHER FINDINGS: No other significant finding. IMPRESSION: Normal appearance the bilateral kidneys. No evidence of urinary obstruction. No gross stones or masses. TECHNICAL DOCUMENTATION: JOB ID: [id number] [email or web address]- All Rights Reserved Reading location - IP/workstation name: [email or web address]
[2018-12-01] MEDS ORDERED: CEPHALEXIN 500 MG CAPSULE PO ONE (12:05)
[2018-12-01 12:20] VITALS: BP 152/86
[2018-12-01] MEDS ORDERED: HYDROCODONE/ACETAMINOPHEN 5-325 MG (6 TAB/ER DISP) PO PRN (12:23)
== END 2018-12-01 12:30 | disposition home or self-care (01) ==
LOC: ER 01:56
DX: R10.9 Unspecified abdominal pain (principal); D72.829 Elevated white blood cell count, unspecified; R35.0 Frequency of micturition; R39.15 Urgency of urination; I10 Essential (primary) hypertension; F17.210 Nicotine dependence, cigarettes, uncomplicated; J45.909 Unspecified asthma, uncomplicated; Z87.442 Personal history of urinary calculi; Z87.19 Personal history of other diseases of the digestive system; Z88.8 Allergy status to other drugs, medicaments and biological substances; Z88.5 Allergy status to narcotic agent; Z91.048 Other nonmedicinal substance allergy status; Z91.012 Allergy to eggs; Z91.040 Latex allergy status; Z91.013 Allergy to seafood; Z88.6 Allergy status to analgesic agent
CPT/HCPCS: 99284; 96374; 36415; 87086; 83690; 85025; 80053; 81001; 76770; J1170; J7030; J2405

== ENCOUNTER 2018-12-21 02:17 | Emergency (ER) | payer MEDICAID ==
[2018-12-21] MEDS ORDERED: ONDANSETRON HCL INJ/PF 4 MG/2 ML SDV IV ONE (03:11)
[2018-12-21] MEDS ORDERED: NORMAL SALINE 1000 ML 1,000 ML IV ONE (03:11)
[2018-12-21] MEDS ORDERED: ACETAMINOPHEN 325 MG TABLET PO ONE (03:14)
[2018-12-21 03:20] LABS: APPEARANCE,URINE CLOUDY; BILIRUBIN,URINE NEGATIVE (NEGATIVE); COLOR,URINE YELLOW; GLUCOSE, URINE NEGATIVE (NEGATIVE); KETONES,URINE NEGATIVE (NEGATIVE); LEUKOCYTE ESTERASE,URINE TRACE (NEGATIVE); NITRITE,URINE NEGATIVE (NEGATIVE); PROTEIN,URINE 30 mg/dL (NEGATIVE); URINE SPECIFIC GRAVITY 1.025; UROBILINOGEN,URINE NEGATIVE mg/dL (<2.0)
--- NOTE | 2018-12-21 03:20 | ER Document Report ---
ED Medical Screen (RME) - General Chief Complaint: Flank Pain Stated Complaint: FLANK PAIN Time Seen by Provider: 12/21/18 03:03 Notes: Patient is a 48-year-old female who presents emergency department with a chief complaint of left flank pain. She has history of multiple kidney stones in the past. She has had multiple lithotripsies for her kidney stones. Her pain started on . Describes as a sharp stabbing pain. Exam: Left CVA tenderness. I have greeted and performed a rapid initial assessment of this patient. A comprehensive ED assessment and evaluation of the patient, analysis of test results and completion of medical decision making process will be conducted by an additional ED providers. TRAVEL OUTSIDE OF THE [place] IN LAST 30 DAYS: No - Related Data Allergies/Adverse Reactions: ibuprofen Allergy (Unknown, Verified 12/01/18 09:34) ketorolac [From Toradol] Allergy (Unknown, Verified 12/01/18 09:34) meperidine [From Demerol] Allergy (Unknown, Verified 12/01/18 09:34) adhesive Allergy (Verified 12/01/18 09:34) aspirin Allergy (Verified 12/01/18 09:34) codeine Allergy (Verified 12/01/18 09:34) egg Allergy (Verified 12/01/18 09:34) fentanyl Allergy (Verified 12/01/18 09:34) iodine Allergy (Verified 12/01/18 09:34) Latex, Natural Rubber Allergy (Verified 12/01/18 09:34) morphine Allergy (Verified 12/01/18 09:34) shellfish derived Allergy (Verified 12/01/18 09:34) sumatriptan [From Imitrex] Allergy (Verified 12/01/18 09:34) tramadol [From Ultram] Allergy (Verified 12/01/18 09:34) ondansetron [From Zofran (as hydrochloride)] Adverse Reaction (Mild, Verified 12/01/18 09:34) VOMITING Past Medical History Pulmonary Medical History: Reports: Hx Asthma Neurological Medical History: Reports: Hx Seizures - Epilepsy Renal/ Medical History: Reports: Hx Kidney Stones, Hx Ovarian Cysts. Denies: Hx Peritoneal Dialysis GI Medical History: Reports: Hx Gastroesophageal Reflux Disease - with ulcers, Hx Ulcer Musculoskeltal Medical History: Reports Hx Arthritis, Reports Hx Musculoskeletal Trauma Psychiatric Medical History: Reports: Hx Anxiety, Hx Depression Traumatic Medical History: Reports: Hx Fractures - Hands wrist knees multiple others Past Surgical History: Reports: Hx Appendectomy, Hx Section, Hx Gynecologic Surgery - Right Ovary, Hx Hysterectomy, Hx Orthopedic Surgery - Rt. Wrist, Other - Lithotripsy over 20 times - Immunizations Immunizations up to date: Yes Hx Diphtheria, Pertussis, Tetanus Vaccination: Yes Physical Exam - Vital signs Vitals: Temp Pulse Resp BP Pulse Ox 98.4 F 126 H 22 H 134/75 H 96 12/21/18 02:32 12/21/18 02:32 12/21/18 02:32 12/21/18 02:32 12/21/18 02:32 Course - Vital Signs Vital signs: Temp Pulse Resp BP Pulse Ox 98.4 F 126 H 22 H 134/75 H 96 12/21/18 02:32 12/21/18 02:32 12/21/18 02:32 12/21/18 02:32 12/21/18 02:32
[2018-12-21 04:03] LABS: HEMATOCRIT 44.3 % (36.0-47.0); HEMOGLOBIN 15.1 g/dL (12.0-15.5); MEAN CORPUSCULAR HEMOGLOBIN 31.9 pg (27.0-33.4); MEAN CORPUSCULAR VOLUME 94 fl (80-97); PLATELET COUNT 330 10^3/uL (150-450); RED BLOOD COUNT 4.73 10^6/uL (3.72-5.28); RED CELL DISTRIBUTION WIDTH 13.3 % (11.5-14.0); WHITE BLOOD COUNT 25.2 10^3/uL (4.0-10.5)
[2018-12-21 04:19] LABS: ALANINE AMINOTRANSFERASE 20 U/L (9-52); ALBUMIN 4.8 g/dL (3.5-5.0); ALKALINE PHOSPHATASE 101 U/L (38-126); ANION GAP 12 (5-19); ASPARTATE AMINO TRANSFERASE 20 U/L (14-36); BILIRUBIN,DIRECT 0.4 mg/dL (0.0-0.4); BILIRUBIN,TOTAL 0.4 mg/dL (0.2-1.3); BLOOD UREA NITROGEN 19 mg/dL (7-20); CALCIUM 9.9 mg/dL (8.4-10.2); CARBON DIOXIDE 21 mmol/L (22-30); CHLORIDE 107 mmol/L (98-107); GLUCOSE 148 mg/dL (75-110); POTASSIUM 4.6 mmol/L (3.6-5.0); SODIUM 140.4 mmol/L (137-145); TOTAL PROTEIN 8.1 g/dL (6.3-8.2)
[2018-12-21 04:35] LABS: ABSOLUTE LYMPHOCYTES# (MANUAL) 5.5 10^3/uL (0.5-4.7); ABSOLUTE MONOCYTES # (MANUAL) 0.8 10^3/uL (0.1-1.4); BASOPHILS % (MANUAL) 1 % (0-2); EOSINOPHILS % (MANUAL) 0 % (0-6); LYMPHOCYTES % (MANUAL) 22 % (13-45); MONOCYTES % (MANUAL) 3 % (3-13); SEGMENTED NEUTROPHILS % (MAN) 74 % (42-78); TOTAL CELLS COUNTED 100
[2018-12-21 04:37] LABS: OVALOCYTES SLIGHT; POIKILOCYTOSIS SLIGHT
[2018-12-21 04:38] LABS: PLATELET COMMENT ADEQUATE
--- NOTE | 2018-12-21 04:48 | RADIOLOGY REPORT (SQ) ---
EXAM DESCRIPTION: US RETROPERITONEUM LIMITED COMPLETED DATE/TME: 12/21/2018 03:09 CLINICAL HISTORY: 48 years Female, left flank pain Comparison: 12/01/2018. LIMITATIONS: None. FINDINGS: 13-cm right kidney, 12-cm left kidney, and urinary bladder including postvoid volume of 23 mL appear otherwise of normal size, shape, echotexture, and vascularity. IMPRESSION: Normal renal sonogram.
[2018-12-21] MEDS ORDERED: ACETAMINOPHEN 325 MG TABLET ONE (05:25)
[2018-12-21] MEDS ORDERED: PROMETHAZINE HCL INJ 25 MG/1 ML VIAL IV ONE (05:48)
--- NOTE | 2018-12-21 06:45 | ER Document Report ---
ED General - General Chief Complaint: Flank Pain Stated Complaint: FLANK PAIN Time Seen by Provider: 12/21/18 03:03 Notes: See RME note TRAVEL OUTSIDE OF THE [place] IN LAST 30 DAYS: No - Related Data Allergies/Adverse Reactions: ibuprofen Allergy (Unknown, Verified 12/01/18 09:34) ketorolac [From Toradol] Allergy (Unknown, Verified 12/01/18 09:34) meperidine [From Demerol] Allergy (Unknown, Verified 12/01/18 09:34) adhesive Allergy (Verified 12/01/18 09:34) aspirin Allergy (Verified 12/01/18 09:34) codeine Allergy (Verified 12/01/18 09:34) egg Allergy (Verified 12/01/18 09:34) fentanyl Allergy (Verified 12/01/18 09:34) iodine Allergy (Verified 12/01/18 09:34) Latex, Natural Rubber Allergy (Verified 12/01/18 09:34) morphine Allergy (Verified 12/01/18 09:34) shellfish derived Allergy (Verified 12/01/18 09:34) sumatriptan [From Imitrex] Allergy (Verified 12/01/18 09:34) tramadol [From Ultram] Allergy (Verified 12/01/18 09:34) ondansetron [From Zofran (as hydrochloride)] Adverse Reaction (Mild, Verified 12/01/18 09:34) VOMITING Past Medical History - Social History Smoking Status: Current Every Day Smoker Family History: Reviewed & Not Pertinent, Malignancy - father, Other - grandfather history of kidney stones Patient has suicidal ideation: No Patient has homicidal ideation: No Pulmonary Medical History: Reports: Hx Asthma Neurological Medical History: Reports: Hx Seizures - Epilepsy Renal/ Medical History: Reports: Hx Kidney Stones, Hx Ovarian Cysts. Denies: Hx Peritoneal Dialysis GI Medical History: Reports: Hx Gastroesophageal Reflux Disease - with ulcers, Hx Ulcer Musculoskeletal Medical History: Reports Hx Arthritis, Reports Hx Musculoskeletal Trauma Psychiatric Medical History: Reports: Hx Anxiety, Hx Depression Traumatic Medical History: Reports: Hx Fractures - Hands wrist knees multiple others Past Surgical History: Reports: Hx Appendectomy, Hx Section, Hx Gynecologic Surgery - Right Ovary, Hx Hysterectomy, Hx Orthopedic Surgery - Rt. Wrist, Other - Lithotripsy over 20 times - Immunizations Immunizations up to date: Yes Hx Diphtheria, Pertussis, Tetanus Vaccination: Yes Review of Systems - Review of Systems Notes: REVIEW OF SYSTEMS: CONSTITUTIONAL : Denies recent illness. Denies recent unintentional weight loss. Denies fever, chills, or sweats. EENT: Denies eye, ear, throat, or mouth pain, discharge, or symptoms. Denies nasal or sinus congestion. CARDIOVASCULAR: Denies chest pain. RESPIRATORY: Denies shortness of breath, cough, congestion, difficulty breathing, or wheezing. GASTROINTESTINAL: Denies nausea, vomiting, and diarrhea. Denies abdominal pain. Denies constipation. GENITOURINARY: Denies difficulty urinating, burning, blood in urine, urgency or frequency. MUSCULOSKELETAL: See ROS SKIN: Denies rash, itchiness, or lesions HEMATOLOGIC : Denies easy bruising or bleeding. LYMPHATIC: Denies swollen, painful, enlarged glands. NEUROLOGICAL: Denies no numbness or tingling denies weakness. Denies headache. Denies altered mental status. Denies alteration in speech. PSYCHIATRIC: Denies stress, anxiety, alteration in sleep patterns, or depression. All other systems reviewed and negative. Physical Exam - Vital signs Vitals: Temp Pulse Resp BP Pulse Ox 98.4 F 126 H 22 H 134/75 H 96 12/21/18 02:32 12/21/18 02:32 12/21/18 02:32 12/21/18 02:32 12/21/18 02:32 - Notes Notes: PHYSICAL EXAMINATION: GENERAL: Appears well, healthy, well-nourished, no acute distress. HEAD: Normocephalic, atraumatic. EYES: PERRL, conjunctiva normal, all extraocular movements intact, sclera nonicteric ENT: Moist mucous membranes. NECK: Supple, no noticeable swelling, redness, rash. Normal range of motion. LUNGS: Equal breath sounds bilaterally and clear to auscultation. No wheezes rales or rhonchi. CARDIOVASCULAR: S1-S2, regular rate, regular rhythm. Radial pulses 2+, normal. ABDOMEN: Normoactive bowel sounds. Soft, nontender, no guarding, no rebound tenderness, and no masses palpated. EXTREMITIES: Normal strength and range of motion, no pitting or edema. No cyanosis. NEUROLOGICAL: Moves all extremities upon command. Strength 5/5 in all e xtremities. PSYCH: Normal mood, normal affect. SKIN: Warm, dry. No rash, lesions, ulcerations noted. Normal skin turgor. BACK: CVA tenderness noted to the left side. Course - Re-evaluation Re-evalutation: 12/21/18 06:44 Patient's ultrasound is negative for any acute stone or hydronephrosis. The patient has a large urinary tract infection. She gets these constantly. I will send her home - Vital Signs Vital signs: Temp Pulse Resp BP Pulse Ox 98.1 F 94 17 132/77 H 97 12/21/18 07:03 12/21/18 07:03 12/21/18 07:03 12/21/18 07:03 12/21/18 07:03 - Laboratory Result Diagrams: 12/21/18 03:42 12/21/18 03:42 Laboratory results interpreted by me: 12/21/18 12/21/18 12/21/18 02:30 03:42 03:42 WBC 25.2 H Abs Neuts (Manual) 18.6 H Abs Lymphs (Manual) 5.5 H Abs Basophils (Manual) 0.3 H Carbon Dioxide 21 L Glucose 148 H Urine Protein 30 H Urine Blood LARGE H Ur Leukocyte Esterase TRACE H Discharge - Discharge Clinical Impression: Urinary tract infection Qualifiers: Urinary tract infection type: site unspecified Hematuria presence: with hematuria Qualified Code(s): N39.0 - Urinary tract infection, site not specified Condition: Stable Disposition: HOME, SELF-CARE Instructions: Cephalexin ([facility]), Urinary Tract Infection ([facility]) Additional Instructions: You were seen today in the emergency department for flank pain. You do not have a kidney stone based off of your ultrasound. You have a urinary tract infection. Please follow-up with urology, as you have chronic urinary tract infections. You are being started on antibiotics. Please take all your antibiotics as prescribed. Prescriptions: Cephalexin [Keflex] 500 mg PO BID 5 Days #10 capsule Promethazine HCl [Phenergan 25 mg Tablet] 1 - 2 tab PO Q6H PRN #15 tablet PRN Reason:
[2018-12-21 07:04] VITALS: BP 132/77
[2018-12-21] MEDS ORDERED: HYDROCODONE/ACETAMINOPHEN 5-325 MG (6 TAB/ER DISP) PO PRN (07:22)
== END 2018-12-21 07:25 | disposition home or self-care (01) ==
LOC: ER 02:17
DX: N39.0 Urinary tract infection, site not specified (principal); R10.9 Unspecified abdominal pain; F17.200 Nicotine dependence, unspecified, uncomplicated; Z88.6 Allergy status to analgesic agent; Z91.012 Allergy to eggs; Z91.040 Latex allergy status; Z91.013 Allergy to seafood; Z87.442 Personal history of urinary calculi; Z90.710 Acquired absence of both cervix and uterus
CPT/HCPCS: 99284; 96361; 96374; 36415; 87086; 85025; 80053; 81001; 76775; J3490; J2550; J7030

== ENCOUNTER 2019-01-06 06:53 | Emergency (ER) | payer MEDICAID ==
[2019-01-06 10:32] LABS: AMORPHOUS SEDIMENT,URINE TRACE /HPF
[2019-01-06 10:35] LABS: APPEARANCE,URINE CLOUDY; COLOR,URINE AMBER
[2019-01-06 10:36] LABS: BILIRUBIN,URINE NEGATIVE (NEGATIVE); GLUCOSE, URINE NEGATIVE (NEGATIVE); KETONES,URINE NEGATIVE (NEGATIVE); LEUKOCYTE ESTERASE,URINE TRACE (NEGATIVE); NITRITE,URINE NEGATIVE (NEGATIVE); PROTEIN,URINE 30 mg/dL (NEGATIVE); URINE SPECIFIC GRAVITY 1.023; UROBILINOGEN,URINE NEGATIVE mg/dL (<2.0)
[2019-01-06 10:43] LABS: ABSOLUTE BASOPHILS # (AUTO) 0.1 10^3/uL (0.0-0.2); ABSOLUTE EOSINOPHILS # (AUTO) 0.1 10^3/uL (0.0-0.6); ABSOLUTE LYMPHOCYTES (AUTO) 3.4 10^3/uL (0.5-4.7); ABSOLUTE MONOCYTES (AUTO) 1.1 10^3/uL (0.1-1.4); BASOPHILS % (AUTO) 0.5 % (0-2); EOSINOPHILS % (AUTO) 0.8 % (0-6); HEMATOCRIT 39.9 % (36.0-47.0); HEMOGLOBIN 13.5 g/dL (12.0-15.5); LYMPHOCYTES % (AUTO) 21.6 % (13-45); MEAN CORPUSCULAR HEMOGLOBIN 31.4 pg (27.0-33.4); MEAN CORPUSCULAR HGB CONC 33.8 g/dL (32.0-36.0); MEAN CORPUSCULAR VOLUME 93 fl (80-97); MONOCYTES % (AUTO) 6.8 % (3-13); PLATELET COUNT 244 10^3/uL (150-450); RED CELL DISTRIBUTION WIDTH 13.2 % (11.5-14.0); SEGMENTED NEUTROPHILS % (AUTO) 70.3 % (42-78); TOTAL CELLS COUNTED % (AUTO) 100 %; WHITE BLOOD COUNT 15.6 10^3/uL (4.0-10.5)
[2019-01-06 10:45] LABS: URINE AMPHETAMINES SCREEN NEGATIVE; URINE BARBITURATES SCREEN NEGATIVE; URINE BENZODIAZEPINES SCREEN NEGATIVE; URINE COCAINE SCREEN NEGATIVE; URINE MARIJUANA (THC) SCREEN NEGATIVE; URINE METHADONE SCREEN NEGATIVE; URINE PHENCYCLIDINE SCREEN NEGATIVE
[2019-01-06] MEDS ORDERED: OXYCODONE-ACETAMINOPHEN 5-325 MG TABLET PO ONE (11:00)
[2019-01-06 11:02] LABS: ALANINE AMINOTRANSFERASE 23 U/L (9-52); ALBUMIN 4.3 g/dL (3.5-5.0); ALKALINE PHOSPHATASE 105 U/L (38-126); ANION GAP 8 (5-19); ASPARTATE AMINO TRANSFERASE 20 U/L (14-36); BILIRUBIN,DIRECT 0.3 mg/dL (0.0-0.4); BILIRUBIN,TOTAL 0.4 mg/dL (0.2-1.3); BLOOD UREA NITROGEN 16 mg/dL (7-20); CALCIUM 9.4 mg/dL (8.4-10.2); CARBON DIOXIDE 25 mmol/L (22-30); CHLORIDE 108 mmol/L (98-107); GLUCOSE 151 mg/dL (75-110); POTASSIUM 4.4 mmol/L (3.6-5.0); SODIUM 141.4 mmol/L (137-145)
--- NOTE | 2019-01-06 12:08 | RADIOLOGY REPORT (SQ) ---
EXAM DESCRIPTION: KUB/ABDOMEN (SINGLE VIEW) COMPLETED DATE/TIME: 01/06/2019 11:16 am REASON FOR STUDY: eval for stones COMPARISON: Renal ultrasound, 12/21/2018, CT abdomen pelvis, 07/08/2018 NUMBER OF VIEWS: One view. TECHNIQUE: Supine radiographic image of the abdomen acquired. LIMITATIONS: None. FINDINGS: BOWEL GAS PATTERN: Normal bowel gas pattern. No dilated loops. CALCIFICATIONS: Renal calculi seen on prior CT are not appreciated radiographically. SOFT TISSUES: No gross mass or suggestion of organomegaly. HARDWARE: None in the abdomen. BONES: No acute fracture. No worrisome bone lesions. OTHER: No other significant finding. IMPRESSION: 1. Renal calculi seen on prior CT are not appreciated radiographically. CT is superior to plain radiographs for the evaluation of urinary tract calculi. 2. Nonobstructive pattern of bowel gas. TECHNICAL DOCUMENTATION: JOB ID: [id number] [email or web address]- All Rights Reserved Reading location - IP/workstation name: [email or web address]
--- NOTE | 2019-01-06 13:40 | RADIOLOGY REPORT (SQ) ---
EXAM DESCRIPTION: U/S RETROPERITON LTD COMPLETED DATE/TIME: 01/06/2019 1:12 pm REASON FOR STUDY: flank pain, eval for hydronephrosis COMPARISON: CT abdomen pelvis 07/08/2018 Bilateral renal ultrasound 09/30/2018, 12/01/2018 TECHNIQUE: Dynamic and static grayscale images acquired of the kidneys and bladder and recorded on P ACS. Additional selected color Doppler and spectral images recorded. LIMITATIONS: None. FINDINGS: RIGHT KIDNEY: Normal size, 12.3 cm in length. Mild diffuse increased cortical echogenic ity with cortical thinning. No solid or suspicious masses. No hydronephrosis. No calcifications. LEFT KIDNEY: Normal size, 11 cm in length. Mild diffuse increased cortical echogenicity with corti ari thinning. No solid or suspicious masses. No hydronephrosis. No calcifications. BLADDER: Decompressed, not well seen OTHER FINDINGS: Echogenic liver from fatty infiltration IMPRESSION: No hydronephrosis. TECHNICAL DOCUMENTATION: JOB ID: [id number] [email or web address]- All Rights Reserved Reading location - IP/workstation name: [email or web address]
[2019-01-06] MEDS ORDERED: HYDROCODONE/ACETAMINOPHEN 5-325 MG (6 TAB/ER DISP) PO PRN (14:02)
--- NOTE | 2019-01-06 14:10 | ER Document Report ---
ED General - General Chief Complaint: Flank Pain Stated Complaint: LEFT FLANK PAIN Time Seen by Provider: 01/06/19 09:19 TRAVEL OUTSIDE OF THE [place] IN LAST 30 DAYS: No - HPI Notes: Patient is a 48-year-old female presents emergency department for evaluation of left-sided flank pain. She states that started yesterday. She states it feels similar to kidney stones in the past. She denies any fevers or chills. No vomiting which she states she has had some nausea. She says also complained of urinary frequency. She denies any dysuria, gross hematuria. Normal bowel movements. - Related Data Allergies/Adverse Reactions: ibuprofen Allergy (Unknown, Verified 12/01/18 09:34) ketorolac [From Toradol] Allergy (Unknown, Verified 12/01/18 09:34) meperidine [From Demerol] Allergy (Unknown, Verified 12/01/18 09:34) adhesive Allergy (Verified 12/01/18 09:34) aspirin Allergy (Verified 12/01/18 09:34) codeine Allergy (Verified 12/01/18 09:34) egg Allergy (Verified 12/01/18 09:34) fentanyl Allergy (Verified 12/01/18 09:34) iodine Allergy (Verified 12/01/18 09:34) Latex, Natural Rubber Allergy (Verified 12/01/18 09:34) morphine Allergy (Verified 12/01/18 09:34) shellfish derived Allergy (Verified 12/01/18 09:34) sumatriptan [From Imitrex] Allergy (Verified 12/01/18 09:34) tramadol [From Ultram] Allergy (Verified 12/01/18 09:34) ondansetron [From Zofran (as hydrochloride)] Adverse Reaction (Mild, Verified 12/01/18 09:34) VOMITING Past Medical History - General Information source: Patient - Social History Smoking Status: Current Every Day Smoker Family History: Reviewed & Not Pertinent, Malignancy - father, Other - grandfather history of kidney stones Patient has suicidal ideation: No Patient has homicidal ideation: No Pulmonary Medical History: Reports: Hx Asthma Neurological Medical History: Reports: Hx Seizures - Epilepsy Renal/ Medical History: Reports: Hx Kidney Stones, Hx Ovarian Cysts. Denies: Hx Peritoneal Dialysis GI Medical History: Reports: Hx Gastroesophageal Reflux Disease - with ulcers, Hx Ulcer Musculoskeletal Medical History: Reports Hx Arthritis, Reports Hx Musculoskeletal Trauma Psychiatric Medical History: Reports: Hx Anxiety, Hx Depression Traumatic Medical History: Reports: Hx Fractures - Hands wrist knees multiple others Past Surgical History: Reports: Hx Appendectomy, Hx Section, Hx Gynecologic Surgery - Right Ovary, Hx Hysterectomy, Hx Orthopedic Surgery - Rt. Wrist, Other - Lithotripsy over 20 times - Immunizations Immunizations up to date: Yes Hx Diphtheria, Pertussis, Tetanus Vaccination: Yes Review of Systems - Review of Systems Constitutional: No symptoms reported EENT: No symptoms reported Cardiovascular: No symptoms reported Respiratory: No symptoms reported Gastrointestinal: See HPI Genitourinary: See HPI Female Genitourinary: No symptoms reported Musculoskeletal: No symptoms reported Hematologic/Lymphatic: No symptoms reported Physical Exam - Vital signs Vitals: Temp Pulse Resp BP Pulse Ox 98.0 F 112 H 24 H 119/73 96 01/06/19 07:39 01/06/19 07:39 01/06/19 07:39 01/06/19 07:39 01/06/19 07:39 - Notes Notes: Vital signs reviewed, please refer to chart. Head is normocephalic, atraumatic. Pupils equal round, reactive to light. Neck is supple without meningismus. Heart is regular rate and rhythm. Lungs are clear to auscultation bilaterally. Abdomen is soft, nontender, normoactive bowel sounds throughout. No left-sided CVA tenderness. Extremities without cyanosis, clubbing. Posterior calves are n ontender. Peripheral pulses are equal. Skin is warm and dry. Patient is awake, alert, neurological exam is nonfocal. Course - Re-evaluation Re-evalutation: 01/06/19 14:07 Patient presents to the emergency department for evaluation. Initially she states to me that she does not want a CT scan, she states "all the radiation from those has made my hair fall out." She asks me initially for something for pain as well as something for nausea. I did review her medication list. In short, the only medications that could be used to treat these are Dilaudid and Phenergan. I did go ahead and give her 1 Percocet here. I did not feel comfortable giving this patient Phenergan. Her medication list is very suspicious. I do not feel comfortable giving her a medication that will potentiate narcotics. I explained this in detail to the patient. I told her that I would treat her pain or her nausea, given her allergies, but certainly not both. She voiced understanding to this. Her laboratory investigations failed to reveal any significant changes in her blood work. Her urine does show microscopic hematuria. It seems to always show that while she is here. It is always sent for culture and it is found to be unremarkable. I did order a KUB as per her request which was unremarkable. She also had renal ultrasound which failed to reveal any signs of obstructive nephropathy. Patient appears very comfortable. In fact she had gone out of the department multiple times to smoke. I will give her outpatient urological follow-up. Her urine was sent for culture, but I reviewed prior cultures. She has not had anything besides normal urogenital osiris grow in her multiple urine cultures in the past. The importance of urological follow-up was stressed. I explained to her that unexplained hematuria and a smoker would be cancer until proven otherwise. She needs to have follow-up. She is to return to the ED with worsening or new concerning symptoms of any sort. - Vital Signs Vital signs: Temp Pulse Resp BP Pulse Ox 98.0 F 112 H 24 H 119/73 96 01/06/19 07:39 01/06/19 07:39 01/06/19 07:39 01/06/19 07:39 01/06/19 07:39 - Laboratory Result Diagrams: 01/06/19 10:20 01/06/19 10:20 Laboratory results interpreted by me: 01/06/19 01/06/19 01/06/19 07:35 10:20 10:20 WBC 15.6 H Absolute Neutrophils 11.0 H Chloride 108 H Glucose 151 H Urine Protein 30 H Urine Blood LARGE H Ur Leukocyte Esterase TRACE H - Diagnostic Test Radiology reviewed: Reports reviewed Radiology results interpreted by me: 01/06/19 14:09 Renal Ultrasound 01/06/19 10:37 IMPRESSION: No hydronephrosis. KUB X-Ray 01/06/19 11:00 IMPRESSION: 1. Renal calculi seen on prior CT are not appreciated radiographically. CT is superior to plain radiographs for the evaluation of urinary tract calculi. 2. Nonobstructive pattern of bowel gas. Discharge - Discharge Clinical Impression: Left flank pain, Microscopic hematuria Condition: Stable Disposition: HOME, SELF-CARE Instructions: Flank Pain ([facility]) Additional Instructions: There is some blood in your urine. In the absence of clear stones, this could be a more significant medical problem. It is important that you follow-up with urology for further evaluation. You should try to quit smoking. Take pain medication as needed. Return to the emergency department with worsening or new concerning symptoms of any sort. [email or web address] [place] [email or web address] [address] [place] [address] Lm Brown [place] [email or web address] [address] [place]
[2019-01-06 14:24] VITALS: BP 129/85
== END 2019-01-06 14:29 | disposition home or self-care (01) ==
LOC: ER 06:53
DX: R10.9 Unspecified abdominal pain (principal); R11.0 Nausea; R31.29 Other microscopic hematuria; R35.0 Frequency of micturition; F17.200 Nicotine dependence, unspecified, uncomplicated; J45.909 Unspecified asthma, uncomplicated; Z87.442 Personal history of urinary calculi; Z88.8 Allergy status to other drugs, medicaments and biological substances; Z88.5 Allergy status to narcotic agent; Z91.048 Other nonmedicinal substance allergy status; Z91.012 Allergy to eggs; Z91.040 Latex allergy status; Z91.013 Allergy to seafood; Z88.6 Allergy status to analgesic agent; Z87.42 Personal history of other diseases of the female genital tract; Z87.19 Personal history of other diseases of the digestive system; Z90.49 Acquired absence of other specified parts of digestive tract; Z90.710 Acquired absence of both cervix and uterus
CPT/HCPCS: 36415; 74018; 76775; 80053; 80307; 81001; 85025; 87086; 99284

== ENCOUNTER 2019-03-22 21:32 | Emergency (ER) | payer SELFPAY ==
[2019-03-22] MEDS ORDERED: PROMETHAZINE HCL 25 MG TABLET PO ONE (22:12)
--- NOTE | 2019-03-22 22:14 | ER Document Report ---
ED Medical Screen (RME) - General Chief Complaint: Flank Pain Stated Complaint: FLANK PAIN Time Seen by Provider: 03/22/19 22:10 Mode of Arrival: Ambulatory Information source: Patient Notes: Patient presents emergency department with right-sided flank pain that now radiates across the back to the left flank with urinary frequency. Patient also complains of nausea vomiting. Reports she vomited approximately 10 minutes ago upon arrival to the emergency department. Patient has history of kidney stones. Reports symptoms started yesterday. Patient reports she was scheduled to follow-up with the primary care provider for frequent flank pain and kidney stones but her insurance was not accepted. I have greeted and performed a rapid initial assessment of this patient. A comprehensive ED assessment and evaluation of the patient, analysis of test results and completion of the medical decision making process will be conducted by additional ED providers. Dictation of this chart was performed using voice recognition software; therefore, there may be some unintended grammatical errors. TRAVEL OUTSIDE OF THE [place] IN LAST 30 DAYS: No - Related Data Allergies/Adverse Reactions: ibuprofen Allergy (Unknown, Verified 12/01/18 09:34) ketorolac [From Toradol] Allergy (Unknown, Verified 12/01/18 09:34) meperidine [From Demerol] Allergy (Unknown, Verified 12/01/18 09:34) adhesive Allergy (Verified 12/01/18 09:34) aspirin Allergy (Verified 12/01/18 09:34) codeine Allergy (Verified 12/01/18 09:34) egg Allergy (Verified 12/01/18 09:34) fentanyl Allergy (Verified 12/01/18 09:34) iodine Allergy (Verified 12/01/18 09:34) Latex, Natural Rubber Allergy (Verified 12/01/18 09:34) morphine Allergy (Verified 12/01/18 09:34) shellfish derived Allergy (Verified 12/01/18 09:34) sumatriptan [From Imitrex] Allergy (Verified 12/01/18 09:34) tramadol [From Ultram] Allergy (Verified 12/01/18 09:34) ondansetron [From Zofran (as hydrochloride)] Adverse Reaction (Mild, Verified 12/01/18 09:34) VOMITING Past Medical History Pulmonary Medical History: Reports: Hx Asthma Neurological Medical History: Reports: Hx Seizures - Epilepsy Renal/ Medical History: Reports: Hx Kidney Stones, Hx Ovarian Cysts. Denies: Hx Peritoneal Dialysis GI Medical History: Reports: Hx Gastroesophageal Reflux Disease - with ulcers, Hx Ulcer Musculoskeltal Medical History: Reports Hx Arthritis, Reports Hx Musculoskeletal Trauma Psychiatric Medical History: Reports: Hx Anxiety, Hx Depression Traumatic Medical History: Reports: Hx Fractures - Hands wrist knees multiple others Past Surgical History: Reports: Hx Appendectomy, Hx Section, Hx Gynecologic Surgery - Right Ovary, Hx Hysterectomy, Hx Orthopedic Surgery - Rt. Wrist, Other - Lithotripsy over 20 times - Immunizations Immunizations up to date: Yes Hx Diphtheria, Pertussis, Tetanus Vaccination: Yes Physical Exam - Vital signs Vitals: Temp Pulse Resp BP Pulse Ox 98.2 F 116 H 18 127/82 H 96 03/22/19 21:57 03/22/19 21:57 03/22/19 21:57 03/22/19 21:57 03/22/19 21:57 Course - Vital Signs Vital signs: Temp Pulse Resp BP Pulse Ox 98.2 F 116 H 18 127/82 H 96 03/22/19 21:57 03/22/19 21:57 03/22/19 21:57 03/22/19 21:57 03/22/19 21:57
[2019-03-22] MEDS ORDERED: ACETAMINOPHEN 325 MG TABLET PO ONE (22:41)
[2019-03-22] MEDS ORDERED: ACETAMINOPHEN 325 MG TABLET ONE (22:42)
[2019-03-22 23:12] LABS: ABSOLUTE BASOPHILS # (AUTO) 0.2 10^3/uL (0.0-0.2); ABSOLUTE EOSINOPHILS # (AUTO) 0.2 10^3/uL (0.0-0.6); ABSOLUTE LYMPHOCYTES (AUTO) 4.2 10^3/uL (0.5-4.7); ABSOLUTE MONOCYTES (AUTO) 0.8 10^3/uL (0.1-1.4); ABSOLUTE NEUT (AUTO) 9.3 10^3/uL (1.7-8.2); BASOPHILS % (AUTO) 1.2 % (0-2); EOSINOPHILS % (AUTO) 1.2 % (0-6); HEMATOCRIT 45.1 % (36.0-47.0); HEMOGLOBIN 15.2 g/dL (12.0-15.5); LYMPHOCYTES % (AUTO) 28.7 % (13-45); MEAN CORPUSCULAR HEMOGLOBIN 31.2 pg (27.0-33.4); MEAN CORPUSCULAR HGB CONC 33.6 g/dL (32.0-36.0); MEAN CORPUSCULAR VOLUME 93 fl (80-97); MONOCYTES % (AUTO) 5.7 % (3-13); PLATELET COUNT 281 10^3/uL (150-450); RED BLOOD COUNT 4.87 10^6/uL (3.72-5.28); RED CELL DISTRIBUTION WIDTH 13.3 % (11.5-14.0); SEGMENTED NEUTROPHILS % (AUTO) 63.2 % (42-78); TOTAL CELLS COUNTED % (AUTO) 100 %; WHITE BLOOD COUNT 14.7 10^3/uL (4.0-10.5)
[2019-03-22 23:18] LABS: APPEARANCE,URINE CLOUDY; BILIRUBIN,URINE NEGATIVE (NEGATIVE); COLOR,URINE YELLOW; GLUCOSE, URINE NEGATIVE (NEGATIVE); KETONES,URINE NEGATIVE (NEGATIVE); LEUKOCYTE ESTERASE,URINE NEGATIVE (NEGATIVE); NITRITE,URINE NEGATIVE (NEGATIVE); PROTEIN,URINE NEGATIVE (NEGATIVE); URINE SPECIFIC GRAVITY 1.019; UROBILINOGEN,URINE NEGATIVE mg/dL (<2.0)
[2019-03-22 23:29] LABS: ALBUMIN 4.8 g/dL (3.5-5.0); ALKALINE PHOSPHATASE 100 U/L (38-126); ANION GAP 13 (5-19); ASPARTATE AMINO TRANSFERASE 28 U/L (14-36); BILIRUBIN,DIRECT 0.2 mg/dL (0.0-0.4); BILIRUBIN,TOTAL 0.4 mg/dL (0.2-1.3); BLOOD UREA NITROGEN 16 mg/dL (7-20); CALCIUM 10.7 mg/dL (8.4-10.2); CARBON DIOXIDE 26 mmol/L (22-30); CHLORIDE 102 mmol/L (98-107); GLUCOSE 131 mg/dL (75-110); POTASSIUM 4.4 mmol/L (3.6-5.0); TOTAL PROTEIN 7.9 g/dL (6.3-8.2)
--- NOTE | 2019-03-22 23:58 | RADIOLOGY REPORT (SQ) ---
EXAM DESCRIPTION: RadLex: US RETROPERITONEUM LIMITED CLINICAL HISTORY: 48 years Female; flank pain hx kidney stones TECHNIQUE: Bilateral renal ultrasound was performed. COMPARISON: Ultrasound 01/06/2019 FINDINGS: Visualized portions of IVC and aorta are unremarkable. Right kidney: 11.3 x 4.3 x 4.8 cm. No hydronephrosis or shadowing calculi. Left kidney: 12.1 x 4.9 x 4.6 cm. No hydronephrosis or shadowing calculi. Bladder: Nondistended, 15 mL. Not evaluated for jets. IMPRESSION: 1. Normal renal sonogram.
--- NOTE | 2019-03-23 01:19 | ER Document Report ---
ED GI/ - General Chief Complaint: Flank Pain Stated Complaint: FLANK PAIN Time Seen by Provider: 03/22/19 22:10 Mode of Arrival: Ambulatory Notes: RMAlyssia NOTE: Patient presents emergency department with right-sided flank pain that now radiates across the back to the left flank with urinary frequency. Patient also complains of nausea vomiting. Reports she vomited approximately 10 minutes ago upon arrival to the emergency department. Patient has history of kidney stones. Reports symptoms started yesterday. Patient reports she was scheduled to follow-up with the primary care provider for frequent flank pain and kidney stones but her insurance was not accepted. My HPI: Patient is a 48-year-old female very familiar to this emergency department for recurrent kidney stones. Patient voices she has attempted to see a urologist but has not been able to because her insurance recently "ran out." Patient has been treated with Tylenol and Phenergan prior to my assessment. She has no further episodes of vomiting and is requesting discharge. TRAVEL OUTSIDE OF THE [place] IN LAST 30 DAYS: No - Related Data Allergies/Adverse Reactions: ibuprofen Allergy (Unknown, Verified 12/01/18 09:34) ketorolac [From Toradol] Allergy (Unknown, Verified 12/01/18 09:34) meperidine [From Demerol] Allergy (Unknown, Verified 12/01/18 09:34) adhesive Allergy (Verified 12/01/18 09:34) aspirin Allergy (Verified 12/01/18 09:34) codeine Allergy (Verified 12/01/18 09:34) egg Allergy (Verified 12/01/18 09:34) fentanyl Allergy (Verified 12/01/18 09:34) iodine Allergy (Verified 12/01/18 09:34) Latex, Natural Rubber Allergy (Verified 12/01/18 09:34) morphine Allergy (Verified 12/01/18 09:34) shellfish derived Allergy (Verified 12/01/18 09:34) sumatriptan [From Imitrex] Allergy (Verified 12/01/18 09:34) tramadol [From Ultram] Allergy (Verified 12/01/18 09:34) ondansetron [From Zofran (as hydrochloride)] Adverse Reaction (Mild, Verified 12/01/18 09:34) VOMITING Past Medical History - General Information source: Patient - Social History Smoking Status: Current Every Day Smoker Family History: Reviewed & Not Pertinent, Malignancy - father, Other - grandfather history of kidney stones Patient has suicidal ideation: No Patient has homicidal ideation: No Pulmonary Medical History: Reports: Hx Asthma Neurological Medical History: Reports: Hx Seizures - Epilepsy Renal/ Medical History: Reports: Hx Kidney Stones, Hx Ovarian Cysts. Denies: Hx Peritoneal Dialysis GI Medical History: Reports: Hx Gastroesophageal Reflux Disease - with ulcers, Hx Ulcer Musculoskeletal Medical History: Reports Hx Arthritis, Reports Hx Muscu loskeletal Trauma Psychiatric Medical History: Reports: Hx Anxiety, Hx Depression Traumatic Medical History: Reports: Hx Fractures - Hands wrist knees multiple others Past Surgical History: Reports: Hx Appendectomy, Hx Section, Hx Gynecologic Surgery - Right Ovary, Hx Hysterectomy, Hx Orthopedic Surgery - Rt. Wrist, Other - Lithotripsy over 20 times - Immunizations Immunizations up to date: Yes Hx Diphtheria, Pertussis, Tetanus Vaccination: Yes Review of Systems - Review of Systems Constitutional: denies: Fever EENT: No symptoms reported Cardiovascular: No symptoms reported Respiratory: No symptoms reported Gastrointestinal: See HPI Genitourinary: No symptoms reported Female Genitourinary: No symptoms reported Musculoskeletal: See HPI Skin: No symptoms reported Hematologic/Lymphatic: No symptoms reported Neurological/Psychological: No symptoms reported Physical Exam - Vital signs Vitals: Temp Pulse Resp BP Pulse Ox 98.2 F 116 H 18 127/82 H 96 03/22/19 21:57 03/22/19 21:57 03/22/19 21:57 03/22/19 21:57 03/22/19 21:57 - Notes Notes: GENERAL: Alert, interacts well. No acute distress. HEAD: Normocephalic, atraumatic. EYES: Pupils equal, round, and reactive to light. Extraocular movements intact. ENT: Oral mucosa moist, tongue midline. NECK: Full range of motion. Supple. Trachea midline. LUNGS: Clear to auscultation bilaterally, no wheezes, rales, or rhonchi. No respiratory distress. HEART: Regular rate and rhythm. No murmur ABDOMEN: Soft, non-tender. Non-distended. Bowel sounds present in all 4 quadrants. EXTREMITIES: Moves all 4 extremities spontaneously. No edema, normal radial and dorsalis pedis pulses bilaterally. No cyanosis. BACK: no cervical, thoracic, lumbar midline tenderness. No saddle anesthesia, normal distal neurovascular exam. Slight right CVA tenderness noted, no left CVA tenderness noted. NEUROLOGICAL: Alert and oriented x3. Normal speech. cranial nerves II through XII grossly intact PSYCH: Normal affect, normal mood. SKIN: Warm, dry, normal turgor. No rashes or lesions noted. Course - Re-evaluation Re-evalutation: 03/23/19 01:16 Laboratory 03/22/19 03/22/19 03/22/19 21:37 22:35 22:35 WBC 14.7 H RBC 4.87 Hgb 15.2 Hct 45.1 MCV 93 MCH 31.2 MCHC 33.6 RDW 13.3 Plt Count 281 Lymph % (Auto) 28.7 [place] % (Auto) 5.7 Eos % (Auto) 1.2 Baso % (Auto) 1.2 Absolute Neuts (auto) 9.3 H Absolute Lymphs (auto) 4.2 Absolute Monos (auto) 0.8 Absolute Eos (auto) 0.2 Absolute Basos (auto) 0.2 Seg Neutrophils % 63.2 Sodium 140.8 Potassium 4.4 Chloride 102 Carbon Dioxide 26 Anion Gap 13 BUN 16 Creatinine 0.76 Est GFR ( Amer) > 60 Est GFR (MDRD) Non-Af > 60 Glucose 131 H Calcium 10.7 H Total Bilirubin 0.4 Direct Bilirubin 0.2 Neonat Total Bilirubin Not Reportable Neonat Direct Bilirubin Not Reportable Neonat Indirect Bili Not Reportable AST 28 ALT 27 Alkaline Phosphatase 100 Total Protein 7.9 Albumin 4.8 Urine Color YELLOW Urine Appearance CLOUDY Urine pH 5.0 Ur Specific [place] 1.019 Urine Protein NEGATIVE Urine Glucose (UA) NEGATIVE Urine Ketones NEGATIVE Urine Blood LARGE H Urine Nitrite NEGATIVE Urine Bilirubin NEGATIVE Urine Urobilinogen NEGATIVE Ur Leukocyte Esterase NEGATIVE Urine WBC (Auto) 11 Urine RBC (Auto) >182 Squamous Epi Cells Auto 3 Urine Mucus (Auto) RARE Urine Ascorbic Acid NEGATIVE Renal Ultrasound 03/22/19 22:13 IMPRESSION: 1. Normal renal sonogram. Patient remains afebrile in the emergency department. Her urine shows no signs of infection. Does show signs of blood, likely a kidney stone. Her ultrasound shows no signs of hydronephrosis. I discussed following up at [facility] or [facility] if patient is uninsured. At this time will discharge with return precautions and follow-up recommendations. Verbal discharge instructions given a the bedside and opportunity for questions given. Medication warnings reviewed. Patient is in agreement with this plan and has verbalized understanding of return precautions and the need for primary care follow-up in the next 24-72 hours. This medical record was dictated with voice recognizing software. There may be grammatical, syntax errors that are unintended. - Vital Signs Vital signs: Temp Pulse Resp BP Pulse Ox 98.2 F 116 H 18 127/82 H 96 03/22/19 21:57 03/22/19 21:57 03/22/19 21:57 03/22/19 21:57 03/22/19 21:57 - Laboratory Result Diagrams: 03/22/19 22:35 03/22/19 22:35 Laboratory results interpreted by me: 03/22/19 03/22/19 03/22/19 21:37 22:35 22:35 WBC 14.7 H Absolute Neuts (auto) 9.3 H Glucose 131 H Calcium 10.7 H Urine Blood LARGE H Discharge - Discharge Clinical Impression: Right flank pain Hematuria Qualifiers: Hematuria type: unspecified type Qualified Code(s): R31.9 - Hematuria, unspecified Condition: Stable Disposition: HOME, SELF-CARE Instructions: Kidney Stone ([facility]) Additional Instructions: As we discussed you have been seen and treated in the emergency department for your flank pain. Your urine shows signs that you most likely have a kidney stone. Please make sure you are taking nausea medication and pain medication as prescribed. Please also make sure he follow-up with [facility] or [facility] in the next 24 to 48 hours. Return to the emergency room for any further concerns. Prescriptions: Promethazine HCl [Phenergan 25 mg Tablet] 1 tab PO Q6H PRN #15 tablet PRN Reason: Referrals: [facility] [Provider Group] - Follow up as needed [facility] [Provider Group] - Follow up as needed
[2019-03-23] MEDS ORDERED: HYDROCODONE/ACETAMINOPHEN 5-325 MG (6 TAB/ER DISP) PO PRN (01:20)
[2019-03-23 01:58] VITALS: BP 135/78
== END 2019-03-23 01:45 | disposition home or self-care (01) ==
LOC: ER 21:32
DX: R10.9 Unspecified abdominal pain (principal); R31.9 Hematuria, unspecified; R35.0 Frequency of micturition; R11.2 Nausea with vomiting, unspecified; F17.200 Nicotine dependence, unspecified, uncomplicated; J45.909 Unspecified asthma, uncomplicated; Z87.442 Personal history of urinary calculi; Z88.8 Allergy status to other drugs, medicaments and biological substances; Z88.5 Allergy status to narcotic agent; Z91.048 Other nonmedicinal substance allergy status; Z91.040 Latex allergy status; Z91.013 Allergy to seafood; Z88.6 Allergy status to analgesic agent; Z91.012 Allergy to eggs; Z87.19 Personal history of other diseases of the digestive system; Z90.49 Acquired absence of other specified parts of digestive tract; Z90.710 Acquired absence of both cervix and uterus
CPT/HCPCS: 36415; 76775; 80053; 81001; 85025

== ENCOUNTER 2019-04-20 01:19 | Emergency (ER) | payer SELFPAY ==
[2019-04-20 02:27] LABS: ABSOLUTE BASOPHILS # (AUTO) 0.1 10^3/uL (0.0-0.2); ABSOLUTE EOSINOPHILS # (AUTO) 0.2 10^3/uL (0.0-0.6); ABSOLUTE LYMPHOCYTES (AUTO) 3.8 10^3/uL (0.5-4.7); ABSOLUTE MONOCYTES (AUTO) 0.9 10^3/uL (0.1-1.4); ABSOLUTE NEUT (AUTO) 9.9 10^3/uL (1.7-8.2); BASOPHILS % (AUTO) 0.7 % (0-2); HEMATOCRIT 44.8 % (36.0-47.0); HEMOGLOBIN 15.2 g/dL (12.0-15.5); LYMPHOCYTES % (AUTO) 25.7 % (13-45); MEAN CORPUSCULAR HEMOGLOBIN 31.5 pg (27.0-33.4); MEAN CORPUSCULAR HGB CONC 33.9 g/dL (32.0-36.0); MEAN CORPUSCULAR VOLUME 93 fl (80-97); MONOCYTES % (AUTO) 6.2 % (3-13); PLATELET COUNT 254 10^3/uL (150-450); RED BLOOD COUNT 4.81 10^6/uL (3.72-5.28); RED CELL DISTRIBUTION WIDTH 13.4 % (11.5-14.0); SEGMENTED NEUTROPHILS % (AUTO) 66.4 % (42-78); TOTAL CELLS COUNTED % (AUTO) 100 %
[2019-04-20 02:36] LABS: APPEARANCE,URINE CLOUDY; BILIRUBIN,URINE NEGATIVE (NEGATIVE); COLOR,URINE YELLOW; GLUCOSE, URINE NEGATIVE (NEGATIVE); KETONES,URINE NEGATIVE (NEGATIVE); LEUKOCYTE ESTERASE,URINE SMALL (NEGATIVE); NITRITE,URINE NEGATIVE (NEGATIVE); PROTEIN,URINE 30 mg/dL (NEGATIVE); UROBILINOGEN,URINE NEGATIVE mg/dL (<2.0)
[2019-04-20] MEDS ORDERED: HYDROMORPHONE HCL INJ/PF 2 MG/ML AMPULE IV ONE (02:49)
--- NOTE | 2019-04-20 02:49 | ER Document Report ---
ED GI/ - General Chief Complaint: Flank Pain Stated Complaint: FLANK PAIN Information source: Patient TRAVEL OUTSIDE OF THE [place] IN LAST 30 DAYS: No - HPI Patient complains to provider of: Flank pain. No: Abdominal pain, Diarrhea, Dysuria, Feeding tube problem, Duarte catheter problem, Hematuria, Missed/Late menses, Pelvic pain, , Urinary retention, Vaginal bleeding, Vaginal discharge, Vaginal pain, Vomiting, Other Onset: Other - 3 DAYS Timing/Duration: Sudden. denies: Gradual, Constant, Intermittent, Persistent, Waxing and waning, Better, Worse, Gone Quality of pain: Cramping. denies: No pain, Achy, Burning, Dull, Fullness, Pressure, Sharp, Stabbing, Throbbing, Other Severity at maximum: Moderate Severity in ED: Moderate Pain Level: 3 Context: denies: Bad food, Lifting, Out of the country travel, , Recent trauma, Other Location: Left flank. No: Chest pain, Epigastric, LUQ, LLQ, RUQ, RLQ, Right flank, Low back, Suprapubic, Pelvis, Vaginal, Vulvar, Rectal, Other Associated symptoms: denies: None, Blood in emesis, Blood in stool, Chest pain, Chills, Coffee ground emesis, Constipation, Diarrhea, Dizzy, Dysuria, Fever, Hard stool, Hematuria, Hurts to breath, Inguinal mass, Lightheaded, Loss of appetite, Nausea, Odor, Painful intercourse, Radiates to back, Radiates to chest, Radiates to vagina, Radiates to shoulder, Shortness of breath, Sweaty, Syncope, Urinary hesitancy, Urinary frequency, Urinary retention, Urinary urgency, Vaginal discharge, Vomiting, Other Exacerbated by: denies: Denies, Supine, Sitting, Standing, Movement, Walking, Coughing, Deep breathing, Food, Other Relieved by: denies: Denies, Supine, Sitting, Standing, Remaining still, Antacids, Food, Other - Related Data Allergies/Adverse Reactions: ibuprofen Allergy (Unknown, Verified 12/01/18 09:34) ketorolac [From Toradol] Allergy (Unknown, Verified 12/01/18 09:34) meperidine [From Demerol] Allergy (Unknown, Verified 12/01/18 09:34) adhesive Allergy (Verified 12/01/18 09:34) aspirin Allergy (Verified 12/01/18 09:34) codeine Allergy (Verified 12/01/18 09:34) egg Allergy (Verified 12/01/18 09:34) fentanyl Allergy (Verified 12/01/18 09:34) iodine Allergy (Verified 12/01/18 09:34) Latex, Natural Rubber Allergy (Verified 12/01/18 09:34) morphine Allergy (Verified 12/01/18 09:34) shellfish derived Allergy (Verified 12/01/18 09:34) sumatriptan [From Imitrex] Allergy (Verified 12/01/18 09:34) tramadol [From Ultram] Allergy (Verified 12/01/18 09:34) ondansetron [From Zofran (as hydrochloride)] Adverse Reaction (Mild, Verified 12/01/18 09:34) VOMITING Past Medical History - Social History Smoking Status: Current Every Day Smoker Family History: Reviewed & Not Pertinent, Malignancy - father, Other - grandfather history of kidney stones Patient has suicidal ideation: No Patient has homicidal ideation: No Pulmonary Medical History: Reports: Hx Asthma Neurological Medical History: Reports: Hx Seizures - Epilepsy Renal/ Medical History: Reports: Hx Kidney Stones, Hx Ovarian Cysts. Denies: Hx Peritoneal Dialysis GI Medical History: Reports: Hx Gastroesophageal Reflux Disease - with ulcers, Hx Ulcer Musculoskeletal Medical History: Reports Hx Arthritis, Reports Hx Musc uloskeletal Trauma Psychiatric Medical History: Reports: Hx Anxiety, Hx Depression Traumatic Medical History: Reports: Hx Fractures - Hands wrist knees multiple others Past Surgical History: Reports: Hx Appendectomy, Hx Section, Hx Gynecologic Surgery - Right Ovary, Hx Hysterectomy, Hx Orthopedic Surgery - Rt. Wrist, Other - Lithotripsy over 20 times - Immunizations Immunizations up to date: Yes Hx Diphtheria, Pertussis, Tetanus Vaccination: Yes Review of Systems - Review of Systems Constitutional: denies: No symptoms reported, See HPI, Chills, Diaphoresis, Fever, Malaise, Weakness, Other, Weight gain, Weight loss, Recent illness Respiratory: denies: No symptoms reported, See HPI, Cough, Hurts to breathe, Hemoptysis, Short of breath, Sputum, Stridor, Wheezing, Other Gastrointestinal: denies: No symptoms reported, See HPI, Abdomen distended, Abdominal pain, Diarrhea, Nausea, Vomiting, Constipation, Blood streaked bowels, Poor appetite, Poor fluid intake, Blood in vomit, Black stools, Rectal bleeding, Last bowel movement, Fecal incontinence, Other Genitourinary: Flank pain. denies: No symptoms reported, See HPI, Burning, Dysuria, Discharge, Frequency, Hematuria, Incontinence, Pain, Urgency, Re tention, Other Neurological/Psychological: denies: No symptoms reported, See HPI, Confusion, Dementia, Depression, Hallucinations, Anxiety, Homicidal ideation, Sensory change, Weakness, Gait changes, Loss of power, Paralysis, Seizure, Lost consciousness, Headaches, Speech impairment, Numbness, Suicidal ideation, Tingling, Tremor, Other -: Yes All other systems reviewed and negative Physical Exam - Vital signs Vitals: Temp Pulse Resp BP Pulse Ox 98.6 F 126 H 18 134/85 H 96 04/20/19 01:24 04/20/19 01:24 04/20/19 01:24 04/20/19 01:24 04/20/19 01:24 Notes: PHYSICAL EXAMINATION: GENERAL: Well-appearing, well-nourished and in no acute distress. HEAD: Atraumatic, normocephalic. EYES: Pupils equal round and reactive to light, extraocular movements intact, sclera anicteric, conjunctiva are normal. ENT: nares patent, oropharynx clear without exudates. Moist mucous membranes. NECK: Normal range of motion, supple without lymphadenopathy LUNGS: Breath sounds clear to auscultation bilaterally and equal. No wheezes r ales or rhonchi. Back left-sided CVA tenderness right side is negative HEART: Regular rate and rhythm without murmurs ABDOMEN: Soft, nontender, normoactive bowel sounds. No guarding, no rebound. No masses appreciated. EXTREMITIES: Normal range of motion, no pitting or edema. No cyanosis. NEUROLOGICAL: No focal neurological deficits. Moves all extremities spontaneously and on command. PSYCH: Normal mood, normal affect. SKIN: Warm, Dry, normal turgor, no rashes or lesions noted. Course - Vital Signs Vital signs: Temp Pulse Resp BP Pulse Ox 98.6 F 126 H 18 134/85 H 96 04/20/19 01:24 04/20/19 01:24 04/20/19 01:24 04/20/19 01:24 04/20/19 01:24 - Laboratory Result Diagrams: 04/20/19 02:07 04/20/19 02:07 Laboratory results interpreted by me: 04/20/19 04/20/19 04/20/19 01:42 02:07 02:07 WBC 15.0 H Absolute Neuts (auto) 9.9 H Glucose 198 H Calcium 10.8 H Urine Protein 30 H Urine Blood LARGE H Ur Leukocyte Esterase SMALL H - Diagnostic Test Radiology reviewed: Reports reviewed - Transfer of Care Notes: 04/20/19 04:23 There appears no hydronephrosis or kidney stone on renal ultrasound read I believe with her white count and with white and red cells in her urine that this is most likely a pyelonephritis. Refused the CAT scan I had initially intended to perform. It would be to rule out a ureteral lithiasis. Will be sent home with a antibiotic after receiving pain medicine here and antibiotics IV she should follow-up with her doctor to check the urine culture Discharge - Discharge Clinical Impression: Pyelonephritis Condition: Good Disposition: HOME, SELF-CARE Instructions: Acetaminophen, Pyelonephritis ([facility]), Pain Medication Injection ([facility]), Rocephin ([facility]) Prescriptions: Cephalexin Monohydrate [Keflex 500 mg Capsule] 500 mg PO Q6H 5 Days #28 capsule
[2019-04-20] MEDS ORDERED: PROMETHAZINE HCL INJ 25 MG/1 ML VIAL IV ONE (02:50)
[2019-04-20 03:11] LABS: ALBUMIN 4.6 g/dL (3.5-5.0); ALKALINE PHOSPHATASE 83 U/L (38-126); ANION GAP 17 (5-19); ASPARTATE AMINO TRANSFERASE 31 U/L (14-36); BILIRUBIN,DIRECT 0.2 mg/dL (0.0-0.4); BILIRUBIN,TOTAL 0.3 mg/dL (0.2-1.3); BLOOD UREA NITROGEN 17 mg/dL (7-20); CALCIUM 10.8 mg/dL (8.4-10.2); CARBON DIOXIDE 22 mmol/L (22-30); CHLORIDE 105 mmol/L (98-107); GLUCOSE 198 mg/dL (75-110); POTASSIUM 4.6 mmol/L (3.6-5.0); TOTAL PROTEIN 7.8 g/dL (6.3-8.2)
[2019-04-20] MEDS ORDERED: CEFTRIAXONE 2 GM/D5W RTU 2 GM/50 ML RTUPB IV ONE (03:43)
[2019-04-20] MEDS ORDERED: FLUCONAZOLE 100 MG TABLET PO ONE (04:11)
--- NOTE | 2019-04-20 04:11 | RADIOLOGY REPORT (SQ) ---
EXAM DESCRIPTION: US RETROPERITONEUM LIMITED COMPLETED DATE/TME: 04/20/2019 03:04 CLINICAL HISTORY: 48 years, Female, HYDRONEPHROSIS /KIDNEY STONE? COMPARISON: None. TECHNIQUE: Grayscale and color images of the kidneys and urinary bladder. LIMITATIONS: None. FINDINGS: The kidneys are normal in size, shape, and echotexture. The right kidney measures 11.9 x 4.1 x 5.5 cm. The left kidney measures 11.8 x 5.1 x 5.0 cm. No calcifications are identified. No hydronephrosis. The urinary bladder appears unremarkable. The prevoid volume is 97 mL. Both ureteral jets are visualized. IMPRESSION: Unremarkable exam. No evidence of a calcified stone or hydronephrosis. copyright 2010 [employer]- All Rights Reserved
[2019-04-20] MEDS ORDERED: HYDROCODONE/ACETAMINOPHEN 5-325 MG (6 TAB/ER DISP) PO PRN (05:25)
[2019-04-20 05:42] VITALS: BP 148/78
== END 2019-04-20 05:39 | disposition home or self-care (01) ==
LOC: ER 01:19
DX: N12 Tubulo-interstitial nephritis, not specified as acute or chronic (principal); R10.9 Unspecified abdominal pain; F17.200 Nicotine dependence, unspecified, uncomplicated; Z88.6 Allergy status to analgesic agent; Z91.040 Latex allergy status; Z91.012 Allergy to eggs; Z91.013 Allergy to seafood; Z87.442 Personal history of urinary calculi; Z90.710 Acquired absence of both cervix and uterus
CPT/HCPCS: 36415; 83690; 84703; 85025; 80053; 81001; 76775; J1170; J2550; J0696

== ENCOUNTER 2019-07-29 00:36 | Emergency (ER) | payer SELFPAY ==
[2019-07-29 02:07] LABS: APPEARANCE,URINE CLOUDY; BILIRUBIN,URINE NEGATIVE (NEGATIVE); COLOR,URINE YELLOW; GLUCOSE, URINE NEGATIVE (NEGATIVE); KETONES,URINE NEGATIVE (NEGATIVE); LEUKOCYTE ESTERASE,URINE LARGE (NEGATIVE); NITRITE,URINE NEGATIVE (NEGATIVE); PROTEIN,URINE 100 mg/dL (NEGATIVE); UROBILINOGEN,URINE NEGATIVE mg/dL (<2.0)
[2019-07-29 02:11] LABS: ABSOLUTE BASOPHILS # (AUTO) 0.1 10^3/uL (0.0-0.2); ABSOLUTE EOSINOPHILS # (AUTO) 0.1 10^3/uL (0.0-0.6); ABSOLUTE LYMPHOCYTES (AUTO) 4.2 10^3/uL (0.5-4.7); ABSOLUTE MONOCYTES (AUTO) 1.1 10^3/uL (0.1-1.4); ABSOLUTE NEUT (AUTO) 11.7 10^3/uL (1.7-8.2); BASOPHILS % (AUTO) 0.5 % (0-2); EOSINOPHILS % (AUTO) 0.8 % (0-6); HEMATOCRIT 43.3 % (36.0-47.0); HEMOGLOBIN 14.8 g/dL (12.0-15.5); LYMPHOCYTES % (AUTO) 24.3 % (13-45); MEAN CORPUSCULAR HEMOGLOBIN 31.7 pg (27.0-33.4); MEAN CORPUSCULAR HGB CONC 34.2 g/dL (32.0-36.0); MEAN CORPUSCULAR VOLUME 93 fl (80-97); MONOCYTES % (AUTO) 6.6 % (3-13); PLATELET COUNT 315 10^3/uL (150-450); RED BLOOD COUNT 4.66 10^6/uL (3.72-5.28); RED CELL DISTRIBUTION WIDTH 13.8 % (11.5-14.0); SEGMENTED NEUTROPHILS % (AUTO) 67.8 % (42-78); TOTAL CELLS COUNTED % (AUTO) 100 %; WHITE BLOOD COUNT 17.3 10^3/uL (4.0-10.5)
[2019-07-29 02:31] LABS: ALBUMIN 4.2 g/dL (3.5-5.0); ALKALINE PHOSPHATASE 113 U/L (38-126); ANION GAP 9 (5-19); ASPARTATE AMINO TRANSFERASE 21 U/L (14-36); BILIRUBIN,TOTAL 0.3 mg/dL (0.2-1.3); BLOOD UREA NITROGEN 10 mg/dL (7-20); CALCIUM 9.9 mg/dL (8.4-10.2); CARBON DIOXIDE 26 mmol/L (22-30); CHLORIDE 106 mmol/L (98-107); GLUCOSE 201 mg/dL (75-110); POTASSIUM 4.1 mmol/L (3.6-5.0); TOTAL PROTEIN 7.1 g/dL (6.3-8.2)
--- NOTE | 2019-07-29 04:17 | ER Document Report ---
ED General - General Chief Complaint: Possible Kidney Stone Stated Complaint: LEFT FLANK PAIN Time Seen by Provider: 07/29/19 04:05 Notes: Patient is a 48-year-old female who presents the emergency department with a chief complaint of left flank pain. Patient states that her symptoms started 3 days ago. Patient has a history of kidney stones in the past. States it feels similar to her kidney stone and urinary tract infection symptoms in the past. TRAVEL OUTSIDE OF THE [place] IN LAST 30 DAYS: No - Related Data Allergies/Adverse Reactions: ibuprofen Allergy (Unknown, Verified 12/01/18 09:34) ketorolac [From Toradol] Allergy (Unknown, Verified 12/01/18 09:34) meperidine [From Demerol] Allergy (Unknown, Verified 12/01/18 09:34) adhesive Allergy (Verified 12/01/18 09:34) aspirin Allergy (Verified 12/01/18 09:34) codeine Allergy (Verified 12/01/18 09:34) egg Allergy (Verified 12/01/18 09:34) fentanyl Allergy (Verified 12/01/18 09:34) iodine Allergy (Verified 12/01/18 09:34) Latex, Natural Rubber Allergy (Verified 12/01/18 09:34) morphine Allergy (Verified 12/01/18 09:34) shellfish derived Allergy (Verified 12/01/18 09:34) sumatriptan [From Imitrex] Allergy (Verified 12/01/18 09:34) tramadol [From Ultram] Allergy (Verified 12/01/18 09:34) ondansetron [From Zofran (as hydrochloride)] Adverse Reaction (Mild, Verified 12/01/18 09:34) VOMITING Past Medical History - General Information source: Patient - Social History Smoking Status: Current Every Day Smoker Family History: Reviewed & Not Pertinent, Malignancy - father, Other - grandfather history of kidney stones Patient has suicidal ideation: No Patient has homicidal ideation: No Pulmonary Medical History: Reports: Hx Asthma Neurological Medical History: Reports: Hx Seizures - Epilepsy Renal/ Medical History: Reports: Hx Kidney Stones, Hx Ovarian Cysts. Denies: Hx Peritoneal Dialysis GI Medical History: Reports: Hx Gastroesophageal Reflux Disease - with ulcers, Hx Ulcer Musculoskeletal Medical History: Reports Hx Arthritis, Reports Hx Musculoskeletal Trauma Psychiatric Medical History: Reports: Hx Anxiety, Hx Depression Traumatic Medical History: Reports: Hx Fractures - Hands wrist knees multiple others Past Surgical History: Reports: Hx Appendectomy, Hx Section, Hx Gynec ologic Surgery - Right Ovary, Hx Hysterectomy, Hx Orthopedic Surgery - Rt. Wrist, Other - Lithotripsy over 20 times - Immunizations Immunizations up to date: Yes Hx Diphtheria, Pertussis, Tetanus Vaccination: Yes Review of Systems - Review of Systems Notes: REVIEW OF SYSTEMS: CONSTITUTIONAL : Denies recent illness. Denies recent unintentional weight loss. Denies fever, chills, or sweats. EENT: Denies eye, ear, throat, or mouth pain, discharge, or symptoms. Denies nasal or sinus congestion. CARDIOVASCULAR: Denies chest pain. RESPIRATORY: Denies shortness of breath, cough, congestion, difficulty breathing, or wheezing. GASTROINTESTINAL: Denies nausea, vomiting, and diarrhea. Denies abdominal pain. Denies constipation. GENITOURINARY: Denies difficulty urinating, burning, blood in urine, urgency or frequency. MUSCULOSKELETAL: See HPI. Denies joint pain or swelling. SKIN: Denies rash, itchiness, or lesions HEMATOLOGIC : Denies easy bruising or bleeding. LYMPHATIC: Denies swollen, painful, enlarged glands. NEUROLOGICAL: Denies no numbness or tingling denies weakness. Denies headache. Denies altered mental status. Denies alteration in speech. PSYCHIATRIC: Denies stress, anxiety, alteration in sleep patterns, or depression. All other systems reviewed and negative. Physical Exam - Vital signs Vitals: Temp Pulse Resp BP Pulse Ox 98.3 F 108 H 16 127/79 H 98 07/29/19 00:49 07/29/19 00:49 07/29/19 00:49 07/29/19 00:49 07/29/19 00:49 - Notes Notes: PHYSICAL EXAMINATION: GENERAL: Appears well, healthy, well-nourished, no acute distress. HEAD: Normocephalic, atraumatic. EYES: PERRL, conjunctiva normal, all extraocular movements intact, sclera nonicteric ENT: Moist mucous membranes. NECK: Supple, no noticeable swelling, redness, rash. Normal range of motion. LUNGS: Equal breath sounds bilaterally and clear to auscultation. No wheezes rales or rhonchi. CARDIOVASCULAR: S1-S2, regular rate, regular rhythm. Radial pulses 2+, normal. ABDOMEN: Normoactive bowel sounds. Soft, nontender, no guarding, no rebound tenderness, and no masses palpated. EXTREMITIES: Normal strength and range of motion, no pitting or edema. No cyanosis. NEUROLOGICAL: Moves all extremities upon command. Strength 5/5 in all extremities. PSYCH: Normal mood, normal affect. SKIN: Warm, dry. No rash, lesions, ulcerations noted. Normal skin turgor. BACK: Left CVA tenderness. Course - Re-evaluation Re-evalutation: 07/29/19 05:57 Presentation is most consistent with acute pyelonephritis. Laboratories do demonstrate a large amount of white blood cells in the urine as well as bacteria. CVA tenderness is present on exam. The remainder laboratories are relatively unremarkable without evidence of renal dysfunction. I do not suspect an acute appendicitis, biliary pathology, pancreatitis, intra-abdominal abscess, or tubo-ovarian abscess based on history and examination. Patient has been given a dose of IV ceftriaxone and a liter of fluids. Patient is able to tolerate oral intake without difficulty. Will be discharged home on 7 day course of cephalexin. A urine culture has been sent. Strict return precautions and follow-up recommendations have been discussed at length. - Vital Signs Vital signs: Temp Pulse Resp BP Pulse Ox 98.6 F 97 16 131/82 H 93 07/29/19 06:25 07/29/19 06:25 07/29/19 00:49 07/29/19 06:25 07/29/19 06:25 - Laboratory Result Diagrams: 07/29/19 01:48 07/29/19 01:48 Laboratory results interpreted by me: 07/29/19 07/29/19 07/29/19 00:50 01:48 01:48 WBC 17.3 H Absolute Neuts (auto) 11.7 H Glucose 201 H Urine Protein 100 H Urine Blood LARGE H Ur Leukocyte Esterase LARGE H Discharge - Discharge Clinical Impression: Pyelonephritis Condition: Stable Disposition: HOME, SELF-CARE Instructions: Pyelonephritis ([facility]) Additional Instructions: You have been diagnosed with a condition called pyelonephritis which is an infection involving your kidneys and bladder. You have been given a dose of antibiotics here in the emergency department to help begin to treat this infection. Your also being sent home on antibiotics. Please start taking these later on today when you fill the prescription. Complete the course even if you feel better. Please return if you have persistent vomiting, pass out, have worsening pain, become unable to tolerate fluids, or have any other symptoms that are concerning to you. Please follow-up with your primary care physician in the next 24-48 hours. You are also being sent home with a [place] dose pack. You can take 1 tablet every 6 hours as needed for pain. Prescriptions: Cephalexin [Keflex] 500 mg PO BID #14 capsule
[2019-07-29] MEDS ORDERED: NORMAL SALINE 1000 ML 1,000 ML IV ONE (04:35)
[2019-07-29] MEDS ORDERED: HYDROCODONE/ACETAMINOPHEN 5-325 MG TABLET PO ONE (04:36)
[2019-07-29] MEDS ORDERED: CEFTRIAXONE 1 GM/D5W RTU 1 GM/50 ML RTUPB IV ONE ×2 (05:00→05:03)
--- NOTE | 2019-07-29 05:53 | RADIOLOGY REPORT (SQ) ---
Ultrasound retroperitoneum limited on 07/29/2019 at 5:03 AM Clinical indications: Left-sided back pain COMPARISON: 04/20/2019 FINDINGS: Multiple sonographic images are obtained throughout the kidneys and bladder, both transverse and sagittal images are obtained. Right kidney measures approximately 14 cm in greatest [id number] length. Tiny right renal cyst is noted. Bladder is not well distended. No bladder wall thickening or intraluminal filling defect is noted. Left kidney measures approximately 13.1 cm in greatest [id number] length. Kidneys appear normal in size and morphology without hydronephrosis. There is some increased echogenicity in the liver suggesting fatty infiltration. IMPRESSION: Essentially unremarkable exam of the kidneys.
[2019-07-29] MEDS ORDERED: HYDROCODONE/ACETAMINOPHEN 5-325 MG (6 TAB/ER DISP) PO PRN (06:19)
[2019-07-29] MEDS ORDERED: FLUCONAZOLE 100 MG TABLET PO ONE (06:20)
[2019-07-29 06:32] VITALS: BP 131/82
== END 2019-07-29 07:03 | disposition home or self-care (01) ==
LOC: ER 00:36
DX: N12 Tubulo-interstitial nephritis, not specified as acute or chronic (principal); R10.9 Unspecified abdominal pain; Z88.8 Allergy status to other drugs, medicaments and biological substances; F17.200 Nicotine dependence, unspecified, uncomplicated; J45.909 Unspecified asthma, uncomplicated
CPT/HCPCS: 99284; 96361; 96365; 36415; 87086; 83690; 85025; 81025; 80053; 81001; 76775; J7030; J0696

== ENCOUNTER 2019-11-04 01:04 | Emergency (ER) | payer SELFPAY ==
[2019-11-04 02:00] LABS: APPEARANCE,URINE SLIGHTLY-CLOUDY; BILIRUBIN,URINE NEGATIVE (NEGATIVE); COLOR,URINE YELLOW; GLUCOSE, URINE 50 mg/dL (NEGATIVE); KETONES,URINE NEGATIVE (NEGATIVE); LEUKOCYTE ESTERASE,URINE SMALL (NEGATIVE); NITRITE,URINE NEGATIVE (NEGATIVE); PROTEIN,URINE 30 mg/dL (NEGATIVE); URINE SPECIFIC GRAVITY 1.023; UROBILINOGEN,URINE NEGATIVE mg/dL (<2.0)
[2019-11-04 04:55] LABS: ABSOLUTE BASOPHILS # (AUTO) 0.1 10^3/uL (0.0-0.2); ABSOLUTE EOSINOPHILS # (AUTO) 0.2 10^3/uL (0.0-0.6); ABSOLUTE LYMPHOCYTES (AUTO) 4.7 10^3/uL (0.5-4.7); ABSOLUTE MONOCYTES (AUTO) 0.9 10^3/uL (0.1-1.4); ABSOLUTE NEUT (AUTO) 10.9 10^3/uL (1.7-8.2); BASOPHILS % (AUTO) 0.7 % (0-2); EOSINOPHILS % (AUTO) 1.4 % (0-6); HEMATOCRIT 43.4 % (36.0-47.0); HEMOGLOBIN 14.9 g/dL (12.0-15.5); LYMPHOCYTES % (AUTO) 27.7 % (13-45); MEAN CORPUSCULAR HEMOGLOBIN 31.5 pg (27.0-33.4); MEAN CORPUSCULAR HGB CONC 34.3 g/dL (32.0-36.0); MEAN CORPUSCULAR VOLUME 92 fl (80-97); MONOCYTES % (AUTO) 5.3 % (3-13); PLATELET COUNT 254 10^3/uL (150-450); RED BLOOD COUNT 4.73 10^6/uL (3.72-5.28); RED CELL DISTRIBUTION WIDTH 13.6 % (11.5-14.0); SEGMENTED NEUTROPHILS % (AUTO) 64.9 % (42-78); TOTAL CELLS COUNTED % (AUTO) 100 %; WHITE BLOOD COUNT 16.8 10^3/uL (4.0-10.5)
[2019-11-04 05:12] LABS: ALBUMIN 4.7 g/dL (3.5-5.0); ALKALINE PHOSPHATASE 126 U/L (38-126); ANION GAP 10 (5-19); ASPARTATE AMINO TRANSFERASE 26 U/L (14-36); BILIRUBIN,TOTAL 0.3 mg/dL (0.2-1.3); BLOOD UREA NITROGEN 21 mg/dL (7-20); CALCIUM 9.9 mg/dL (8.4-10.2); CARBON DIOXIDE 22 mmol/L (22-30); CHLORIDE 106 mmol/L (98-107); GLUCOSE 273 mg/dL (75-110); TOTAL PROTEIN 7.8 g/dL (6.3-8.2)
[2019-11-04] MEDS ORDERED: NORMAL SALINE 1000 ML 1,000 ML IV ONE (07:22)
[2019-11-04] MEDS ORDERED: HYDROMORPHONE HCL INJ/PF 2 MG/ML AMPULE IV ONE (07:25)
[2019-11-04] MEDS ORDERED: PROMETHAZINE HCL INJ 25 MG/1 ML VIAL IM ONE (07:29)
[2019-11-04 08:28] LABS: URINE AMPHETAMINES SCREEN NEGATIVE; URINE BARBITURATES SCREEN NEGATIVE; URINE BENZODIAZEPINES SCREEN NEGATIVE; URINE COCAINE SCREEN NEGATIVE; URINE MARIJUANA (THC) SCREEN NEGATIVE; URINE METHADONE SCREEN NEGATIVE; URINE PHENCYCLIDINE SCREEN NEGATIVE
--- NOTE | 2019-11-04 09:41 | RADIOLOGY REPORT (SQ) ---
EXAM DESCRIPTION: CT ABD/PELVIS NO ORAL OR IV IMAGES COMPLETED DATE/TIME: 11/04/2019 9:19 am REASON FOR STUDY: left flank pain/hx of kidney stones COMPARISON: None. TECHNIQUE: CT scan of the abdomen and pelvis performed without intravenous or oral contrast. Images reviewed with lung, soft tissue, and bone windows. Reconstructed coronal and sagittal MPR images revi ewed. All images stored on PACS. All CT scanners at this facility use dose modulation, iterative reconstruction, and/or weight based d osing when appropriate to reduce radiation dose to as low as reasonably achievable (ALARA). [facility]: Dose Right [facility]: CareDose [facility]: Dose Right [facility]: Teradose 4D [facility]: [employer] RADIATION DOSE: CT Rad equipment meets quality standard of care and radiation dose reduction techniq ues were employed. CTDIvol: 11.7 mGy. DLP: 623 mGy-cm. LIMITATIONS: None. FINDINGS: LOWER CHEST: The 5 mm nodule in the right lower lobe (image 3 of series 4) is unchanged fr om 07/08/2018. NON-CONTRASTED LIVER, SPLEEN, ADRENALS: Evaluation is limited is due to the absence of intravenous co ntrast. There is hepatic steatosis with geographic areas of fat sparing along the gallbladder fossa. The spleen is normal in size. The lipid rich adenoma in the right adrenal gland that measures 2.2 x 1.9 cm is unchanged compared to the prior CT. The diffuse nodular enlargement of the left adrenal gland is also unchanged. PANCREAS: No acute gross abnormality of the pancreas. GALLBLADDER: No abnormality that is apparent on CT. RIGHT KIDNEY AND URETER: Evaluation is limited due to the absence of intravenous contrast. The hypod ense lesion in the superior cortex of the kidney is unchanged from 07/08/2018. There is no hydronephro sis, nephrolithiasis, hydroureter or ureterolithiasis. LEFT KIDNEY AND URETER: Evaluation is limited due to the absence of intravenous contrast. There is a 3 mm calculus within a lower pole calyx. There is no associated hydronephrosis, nephrolithiasis, hy droureter or ureterolithiasis. AORTA AND RETROPERITONEUM: No aneurysm or dissection of the abdominal aorta. No retroperitoneal mandy opathy, hemorrhage or mass. BOWEL AND PERITONEAL CAVITY: Colonic diverticulosis without diverticulitis. There is no bowel obstru ction, bowel wall thickening or pericolonic/ perienteric inflammation. There is no also no mesenteri c adenopathy, free intraperitoneal fluid or mesenteric/ omental inflammation. APPENDIX: Unable to identify the appendix PELVIS, BLADDER, AND ABDOMINAL WALL:The uterus is surgically absent. The urinary bladder is distende d ; there is no urinary bladder calculus. There is also no abdominal wall mass or hernia. BONES: No fracture or osseous lesion. OTHER: No other finding. IMPRESSION: 1. 3 mm calculus within a left lower pole calyx. There is no associated hydronephrosis, hydroureter or ureterolithiasis. 2. Hepatic steatosis with geographic areas of fat sparing along the gallbladder fossa. 3. Colonic diverticulosis without diverticulitis. 4. Stable 5 mm nodule in the right lower lobe (image 3 of series 4). 5. Stable lipid rich adenoma in the right adrenal gland that measures 2.2 x 1.9 cm. COMMENT: Quality ID # [id number]: Final reports with documentation of one or more dose reduction techniques (e.g., Automated exposure control, adjustment of the mA and/or kV according to patient size, use of iterative reconstruction technique) TECHNICAL DOCUMENTATION: JOB ID: [id number] 2010 [employer]- All Rights Reserved Reading location - IP/workstation name: [email or web address]
--- NOTE | 2019-11-04 11:15 | ER Document Report ---
Entered by KOSTAS BLANTON SCRIBE 11/04/19 0703 Acting as scribe for:ADAM LÓPEZ MD ED GI/ - General Chief Complaint: Flank Pain Stated Complaint: LEFT FLANK PAIN Time Seen by Provider: 11/04/19 06:59 Mode of Arrival: Ambulatory Information source: Patient Notes: This 48 year old female patient with a history of kidney stones presents to the ED today with complaints of left-sided flank pain that started x2-3 days ago. Patient states that pain was sudden in onset and became worse this morning, so she decided to come to the ED. She reports pain 5/5 at this time. She notes hematuria, but denies burning with urination or any other urinary symptoms. She reports a history of epilepsy, stating that she has been off of her seizure medications for awhile due to no longer having insurance and has been having frequent uncontrolled seizure, last yesterday morning. Denies epistaxis, sinus issues, skin rash, suicidal ideation, or homicidal ideation. TRAVEL OUTSIDE OF THE [place] IN LAST 30 DAYS: No - Related Data Allergies/Adverse Reactions: ibuprofen Allergy (Unknown, Verified 11/04/19 01:21) ketorolac [From Toradol] Allergy (Unknown, Verified 11/04/19:21) meperidine [From Demerol] Allergy (Unknown, Verified 11/04/19:21) adhesive Allergy (Verified 11/04/19:21) aspirin Allergy (Verified 11/04/19:21) codeine Allergy (Verified 11/04/19:21) egg Allergy (Verified 11/04/19:21) fentanyl Allergy (Verified 11/04/19:21) iodine Allergy (Verified 11/04/19:21) Latex, Natural Rubber Allergy (Verified 11/04/19:21) morphine Allergy (Verified 11/04/19:21) shellfish derived Allergy (Verified 11/04/19:21) sumatriptan [From Imitrex] Allergy (Verified 11/04/19:21) tramadol [From Ultram] Allergy (Verified 11/04/19:21) ondansetron [From Zofran (as hydrochloride)] Adverse Reaction (Mild, Verified 11/04/19:21) VOMITING Past Medical History - General Information source: Patient, [facility] Records - Social History Smoking Status: Current Every Day Smoker Cigarette use (# per day): Yes Chew tobacco use (# tins/day): No Smoking Education Provided: No Frequency of alcohol use: None Drug Abuse: None Lives with: Family Family History: Reviewed & Not Pertinent, Malignancy - father, Other - grandfather history of kidney stones Patient has suicidal ideation: No Patient has homicidal ideation: No - Past Medical History Cardiac Medical History: Reports: Hx Heart Attack Pulmonary Medical History: Reports: Hx Asthma Neurological Medical History: Reports: Hx Seizures - Epilepsy Renal/ Medical History: Reports: Hx Kidney Stones, Hx Ovarian Cysts GI Medical History: Reports: Hx Gastroesophageal Reflux Disease - with ulcers, Hx Ulcer Musculoskeletal Medical History: Reports Hx Arthritis, Reports Hx Musculoskeletal Trauma Psychiatric Medical History: Reports: Hx Anxiety, Hx Depression Traumatic Medical History: Reports: Hx Fractures - Hands wrist knees multiple others Past Surgical History: Reports: Hx Appendectomy, Hx Section - x2, Hx Gynecologic Surgery - Right Ovary, Hx Hysterectomy, Hx Orthopedic Surgery - Rt. Wrist, Hx Tonsillectomy, Other - Lithotripsy over 20 times - Immunizations Immunizations up to date: Yes Hx Diphtheria, Pertussis, Tetanus Vaccination: Yes Review of Systems - Review of Systems Constitutional: No symptoms reported EENT: See HPI. denies: Nose discharge, Sinus pressure, Sinus discharge Cardiovascular: No symptoms reported Respiratory: No symptoms reported Gastrointestinal: No symptoms reported Genitourinary: See HPI, Flank pain, Hematuria. denies: Burning, Dysuria, Frequency Female Genitourinary: No symptoms reported Musculoskeletal: No symptoms reported Skin: See HPI. denies: Rash Hematologic/Lymphatic: No symptoms reported Neurological/Psychological: See HPI, Seizure. denies: Homicidal ideation, Suicidal ideation -: Yes All other systems reviewed and negative Physical Exam - Vital signs Vitals: Temp Pulse Resp BP Pulse Ox 98.6 F 118 H 16 134/72 H 96 11/04/19 01:20 11/04/19 01:20 11/04/19 01:20 11/04/19 01:20 11/04/19 01:20 - General General appearance: Alert - HEENT Head: Normocephalic, Atraumatic Eyes: Normal Pupils: PERRL - Respiratory Respiratory status: No respiratory distress Chest status: Nontender Breath sounds: Normal Chest palpation: Normal - Cardiovascular Rhythm: Regular Heart sounds: Normal auscultation Murmur: No Friction rub: No Gallop: None auscultated - Abdominal Inspection: Normal Distension: No distension Bowel sounds: Normal Tenderness: Nontender - Abdomen soft Organomegaly: No organomegaly - Back Back: CVA tenderness - Left CVA tenderness to percussion - Extremities General upper extremity: Normal inspection General lower extremity: Normal inspection - Neurological Neuro grossly intact: Yes Orientation: AAOx4 - Psychological Associated symptoms: Normal affect, Normal mood - Skin Skin Temperature: Warm Skin Moisture: Dry Skin Color: Normal Course - Re-evaluation Re-evalutation: 11/04/19 11:05 Resting comfortably no signs of distress at this time. - Vital Signs Vital signs: Temp Pulse Resp BP Pulse Ox 98.1 F 102 H 16 146/85 H 98 11/04/19 07:53 11/04/19 07:53 11/04/19 01:20 11/04/19 07:53 11/04/19 07:53 11/04/19 11:05 Vital signs stable - Laboratory Result Diagrams: 11/04/19 04:35 11/04/19 04:35 Laboratory results interpreted by me: 11/04/19 11/04/19 11/04/19 01:29 04:35 04:35 WBC 16.8 H Absolute Neuts (auto) 10.9 H BUN 21 H Glucose 273 H Lactic Acid Urine Protein 30 H Urine Glucose (UA) 50 H Urine Blood LARGE H Ur Leukocyte Esterase SMALL H 11/04/19 07:36 WBC Absolute Neuts (auto) BUN Glucose Lactic Acid 2.2 H Urine Protein Urine Glucose (UA) Urine Blood Ur Leukocyte Esterase 11/04/19 11:06 Blood sugar 273. Lactic acid 2.2. - Diagnostic Test Radiology reviewed: Image reviewed, Reports reviewed Radiology results interpreted by me: 11/04/19 11:04 CT abdomen and pelvis plain no contrast. Shows a 3 mm left lower pole kidney calyces calculus. No obstruction noted also incidental is a right lower lobe nodule that is been stable no change. Adenoma noted in the adrenal gland. Hepatic steatosis. Discharge - Discharge Clinical Impression: Kidney stone on left side Condition: Stable Disposition: HOME, SELF-CARE Additional Instructions: Kidney Stone You are passing or have passed a kidney stone. These stones are usually due to increased calcium or uric acid concentrations in your urine. Stones within the kidney itself are not painful. The pain occurs as the stone leaves the kidney to pass down the long tube, called the ureter, leading to the bladder. If the stone is small, it will usually pass by itself. Most patients can pass the stone at home. You will usually receive medications for pain, nausea or vomiting, and sometimes a medication to assist in passing the kidney stone. However, if the pain is very severe or if vomiting prevents you from taking oral pain medications, you may need to return for further treatment. Drink three or four quarts of fluids per day. You will be given pain medi cation (if needed) and urine strainers. Strain all your urine to see if the stone passes. If your doctor has asked you to bring the stone in for analysis, return with the stone once it has passed. Return if pain or vomiting become severe, if you develop a high fever, if you are unable to pass your urine, or if other unusual symptoms occur. Prescriptions: Tamsulosin HCl [Flomax 0.4 mg Cap.sr] 0.4 mg PO DAILY #7 cap.sr.24h Oxycodone HCl/Acetaminophen [Percocet 5-325 mg Tablet] 1 - 2 tab PO Q4H PRN #15 tablet PRN Reason: pain Oxycodone HCl/Acetaminophen [Percocet 5-325 mg Tablet] 1 - 2 tab PO Q4H PRN #15 tablet PRN Reason: pain Promethazine HCl [Phenergan 25 mg Tablet] 1 - 2 tab PO Q6H PRN #15 tablet PRN Reason: I personally performed the services described in the documentation, reviewed and edited the documentation which was dictated to the scribe in my presence, and it accurately records my words and actions.
[2019-11-04 11:30] VITALS: BP 140/62
== END 2019-11-04 11:28 | disposition home or self-care (01) ==
LOC: ER 01:04
DX: N20.0 Calculus of kidney (principal); R31.9 Hematuria, unspecified; R91.1 Solitary pulmonary nodule; D35.01 Benign neoplasm of right adrenal gland; R10.9 Unspecified abdominal pain; G40.909 Epilepsy, unspecified, not intractable, without status epilepticus; T50.906A Underdosing of unspecified drugs, medicaments and biological substances, initial encounter; Z91.120 Patient's intentional underdosing of medication regimen due to financial hardship; Z91.14 Patient's other noncompliance with medication regimen; F17.210 Nicotine dependence, cigarettes, uncomplicated; J45.909 Unspecified asthma, uncomplicated; I25.2 Old myocardial infarction; Z88.8 Allergy status to other drugs, medicaments and biological substances; Z88.6 Allergy status to analgesic agent; Z88.5 Allergy status to narcotic agent; Z91.048 Other nonmedicinal substance allergy status; Z91.012 Allergy to eggs; Z91.040 Latex allergy status; Z91.013 Allergy to seafood
CPT/HCPCS: 99284; 96372; 96361; 96374; 36415; 83605; 83690; 85025; 80053; 81001; 80307; 74176; J1170; J2550; J7030

== ENCOUNTER 2019-12-27 02:55 | Emergency (ER) | payer MEDICAID ==
[2019-12-27 03:45] LABS: APPEARANCE,URINE SLIGHTLY-CLOUDY; BILIRUBIN,URINE NEGATIVE (NEGATIVE); COLOR,URINE YELLOW; GLUCOSE, URINE >=500 mg/dL (NEGATIVE); KETONES,URINE TRACE mg/dL (NEGATIVE); LEUKOCYTE ESTERASE,URINE TRACE (NEGATIVE); NITRITE,URINE NEGATIVE (NEGATIVE); PROTEIN,URINE 30 mg/dL (NEGATIVE); URINE SPECIFIC GRAVITY 1.026
[2019-12-27 04:14] LABS: ABSOLUTE BASOPHILS # (AUTO) 0.1 10^3/uL (0.0-0.2); ABSOLUTE EOSINOPHILS # (AUTO) 0.1 10^3/uL (0.0-0.6); ABSOLUTE LYMPHOCYTES (AUTO) 3.9 10^3/uL (0.5-4.7); ABSOLUTE MONOCYTES (AUTO) 0.8 10^3/uL (0.1-1.4); ABSOLUTE NEUT (AUTO) 8.7 10^3/uL (1.7-8.2); HEMATOCRIT 47.2 % (36.0-47.0); HEMOGLOBIN 16.3 g/dL (12.0-15.5); LYMPHOCYTES % (AUTO) 28.6 % (13-45); MEAN CORPUSCULAR HEMOGLOBIN 31.4 pg (27.0-33.4); MEAN CORPUSCULAR HGB CONC 34.5 g/dL (32.0-36.0); MEAN CORPUSCULAR VOLUME 91 fl (80-97); MONOCYTES % (AUTO) 5.8 % (3-13); PLATELET COUNT 275 10^3/uL (150-450); RED BLOOD COUNT 5.19 10^6/uL (3.72-5.28); RED CELL DISTRIBUTION WIDTH 13.5 % (11.5-14.0); SEGMENTED NEUTROPHILS % (AUTO) 63.6 % (42-78); TOTAL CELLS COUNTED % (AUTO) 100 %; WHITE BLOOD COUNT 13.7 10^3/uL (4.0-10.5)
[2019-12-27 04:34] LABS: ALBUMIN 4.5 g/dL (3.5-5.0); ALKALINE PHOSPHATASE 121 U/L (38-126); ANION GAP 11 (5-19); ASPARTATE AMINO TRANSFERASE 22 U/L (14-36); BILIRUBIN,TOTAL 0.4 mg/dL (0.2-1.3); BLOOD UREA NITROGEN 15 mg/dL (7-20); CARBON DIOXIDE 23 mmol/L (22-30); CHLORIDE 103 mmol/L (98-107); GLUCOSE 253 mg/dL (75-110); POTASSIUM 4.4 mmol/L (3.6-5.0); TOTAL PROTEIN 7.7 g/dL (6.3-8.2)
[2019-12-27 11:31] VITALS: BP 119/77
--- NOTE | 2019-12-27 11:51 | ER Document Report ---
ED General - General Chief Complaint: Possible Kidney Stone Stated Complaint: FLANK PAIN Time Seen by Provider: 12/27/19 10:50 TRAVEL OUTSIDE OF THE [place] IN LAST 30 DAYS: No - HPI Notes: Chief complaint: Right flank pain and nausea HPI: 49-year-old female with longstanding history chronic/recurrent neph rolithiasis. Patient has had multiple visits to this hospital for same and multiple CT scans performed here. She has well-documented stone disease. She says that she lost her health insurance and no longer sees a urologist nor does she have a primary care provider. She has been having symptoms intermittently for a week and taking [id number] medications but she complains that she is intermittently having vomiting and is intermittently having severe right flank pain. She denies any fever or chills. She reports multiple allergies to medications. - Related Data Allergies/Adverse Reactions: ibuprofen Allergy (Unknown, Verified 11/04/19:21) ketorolac [From Toradol] Allergy (Unknown, Verified 11/04/19:21) meperidine [From Demerol] Allergy (Unknown, Verified 11/04/19:21) adhesive Allergy (Verified 11/04/19:21) aspirin Allergy (Verified 11/04/19:21) codeine Allergy (Verified 11/04/19:21) egg Allergy (Verified 11/04/19:21) fentanyl Allergy (Verified 11/04/19:21) iodine Allergy (Verified 11/04/19:21) Latex, Natural Rubber Allergy (Verified 11/04/19:21) morphine Allergy (Verified 11/04/19:21) shellfish derived Allergy (Verified 11/04/19:21) sumatriptan [From Imitrex] Allergy (Verified 11/04/19:21) tramadol [From Ultram] Allergy (Verified 11/04/19:21) ondansetron [From Zofran (as hydrochloride)] Adverse Reaction (Mild, Verified 11/04/19:21) VOMITING Past Medical History - General Information source: Patient, [facility] Records - Social History Smoking Status: Current Every Day Smoker Family History: Reviewed & Not Pertinent, Malignancy - father, Other - grandfather history of kidney stones - Past Medical History Cardiac Medical History: Reports: Hx Heart Attack Pulmonary Medical History: Reports: Hx Asthma Neurological Medical History: Reports: Hx Seizures - Epilepsy Renal/ Medical History: Reports: Hx Kidney Stones, Hx Ovarian Cysts. Denies: Hx Peritoneal Dialysis GI Medical History: Reports: Hx Gastroesophageal Reflux Disease - with ulcers, Hx Ulcer Musculoskeletal Medical History: Reports Hx Arthritis, Reports Hx Musculoskeletal Trauma Psychiatric Medical History: Reports: Hx Anxiety, Hx Depression Traumatic Medical History: Reports: Hx Fractures - Hands wrist knees multiple others Past Surgical History: Reports: Hx Appendectomy, Hx Section - x2, Hx Gynecologic Surgery - Right Ovary, Hx Hysterectomy, Hx Orthopedic Surgery - Rt. Wrist, Hx Tonsillectomy, Other - Lithotripsy over 20 times - Immunizations Immunizations up to date: Yes Hx Diphtheria, Pertussis, Tetanus Vaccination: Yes Review of Systems - Review of Systems Notes: Constitutional: Negative for fever. HENT: Negative for sore throat. Eyes: Negative for visual changes. Cardiovascular: Negative for chest pain. Respiratory: Negative for shortness of breath. Gastrointestinal: Negative for abdominal pain, vomiting or diarrhea. Genitourinary: As per HPI. Musculoskeletal: As per HPI. Skin: Negative for rash. Neurological: Negative for headaches, weakness or numbness. 10 point ROS negative except as marked above and in HPI. Physical Exam - Vital signs Vitals: Temp Pulse Resp BP Pulse Ox 97.6 F 112 H 18 135/89 H 100 12/27/19 03:10 12/27/19 03:10 12/27/19 03:10 12/27/19 03:10 12/27/19 03:10 - Notes Notes: GENERAL: Mildly obese middle-aged female currently appearing in no acute distress. SKIN: Good turgor no rashes. HEAD: Normocephalic atraumatic. EYES: PERRLA. EOMI. Conjunctivae and sclerae clear. EARS: CANALS AND TMS CLEAR. NOSE: CLEAR. MOUTH: Moist mucosa. Good dentition. No stridor or edema. No drooling. NECK: Supple. No masses or thyromegaly. No adenopathy. Carotids 2+ without bruits. No JVD. BACK: Symmetrical without tenderness. CHEST: Respirations unlabored. Breath sounds clear and symmetrical. HEART: Regular rhythm. No murmur gallop or rub. ABDOMEN: Mildly obese. Soft nontender without masses, organomegaly or rebound. Bowel sounds normally active. No bruits. GENITALIA: Deferred. EXTREMITIES: No edema. No calf tenderness. Cap refill less than 1.5 seconds. Dorsalis pedis and posterior tibial pulses 3+ and symmetrical. NEUROLOGICAL: GCS 15. Alert and oriented x3. Normal gait. Fluent speech. Cranial nerves II through XII intact. Sensorimotor and cerebellar normal. Nor mal tone. PSYCHIATRIC: Appropriate affect. Course - Re-evaluation Re-evalutation: 12/27/19 11:49 Urinalysis shows microscopic hematuria and is otherwise unremarkable. Remainder of her labs are unremarkable including a negative urine tox screen. I do not think she really warrants CT imaging at this time. I am going to give her 12 Percocet tablets and some Phenergan on a prescription for home. I explained to her that we cannot continue to provide narcotic medicines through the ED under the circumstances and recommend establishment with a primary care provider and/or urologist. I have given her several names for potential referral. Findings, clinical impression and plan of treatment have been discussed with patient/family. Understanding of current findings and recommendations has been acknowledged by them and there is agreement regarding disposition and follow-up. - Vital Signs Vital signs: Temp Pulse Resp BP Pulse Ox 98.1 F 105 H 18 119/77 96 12/27/19 11:29 12/27/19 11:29 12/27/19 11:29 12/27/19 11:29 12/27/19 11:29 - Laboratory Result Diagrams: 12/27/19 04:05 12/27/19 04:05 Laboratory results interpreted by me: 12/27/19 12/27/19 12/27/19 02:30 04:05 04:05 WBC 13.7 H Hgb 16.3 H Hct 47.2 H Absolute Neuts (auto) 8.7 H Glucose 253 H Urine Protein 30 H Urine Glucose (UA) >=500 H Urine Ketones TRACE H Urine Blood LARGE H Urine Urobilinogen 2.0 H Ur Leukocyte Esterase TRACE H Discharge - Discharge Clinical Impression: Ureterolithiasis with renal colic Condition: Stable Disposition: HOME, SELF-CARE Additional Instructions: Return here as needed for new or worsening symptoms: Pain that is worsening or unimproved Uncontrolled vomiting High fever or shaking chills Overall worsening Increase oral fluids. Follow-up with 1 of the referral physicians whose names I have provided. Prescriptions: Oxycodone HCl/Acetaminophen [Percocet 5-325 mg Tablet] 1 - 2 tab PO Q4H PRN #15 tablet PRN Reason: Promethazine HCl [Phenergan 25 mg Tablet] 1 - 2 tab PO Q6H PRN #15 tablet PRN Reason: Referrals: [facility] [Provider Group] - Follow up as needed TWILA VILLANUEVA MD [NO LOCAL MD] - Follow up as needed
== END 2019-12-27 12:05 | disposition home or self-care (01) ==
LOC: ER 02:55
DX: N20.1 Calculus of ureter (principal); N23 Unspecified renal colic; R11.0 Nausea; Z88.8 Allergy status to other drugs, medicaments and biological substances; F17.200 Nicotine dependence, unspecified, uncomplicated; I25.2 Old myocardial infarction; J45.909 Unspecified asthma, uncomplicated
CPT/HCPCS: 36415; 80053; 81001; 83690; 84703; 85025; 99284

== ENCOUNTER 2020-02-10 03:03 | Emergency (ER) | payer MEDICAID ==
[2020-02-10 06:51] VITALS: BP 113/69
[2020-02-10 07:29] LABS: APPEARANCE,URINE SLIGHTLY-CLOUDY; BILIRUBIN,URINE NEGATIVE (NEGATIVE); COLOR,URINE YELLOW; GLUCOSE, URINE >=500 mg/dL (NEGATIVE); KETONES,URINE NEGATIVE (NEGATIVE); LEUKOCYTE ESTERASE,URINE TRACE (NEGATIVE); NITRITE,URINE NEGATIVE (NEGATIVE); PROTEIN,URINE 100 mg/dL (NEGATIVE); URINE SPECIFIC GRAVITY 1.023; UROBILINOGEN,URINE NEGATIVE mg/dL (<2.0)
[2020-02-10 08:27] LABS: ALBUMIN 4.6 g/dL (3.5-5.0); ALKALINE PHOSPHATASE 127 U/L (38-126); ANION GAP 10 (5-19); ASPARTATE AMINO TRANSFERASE 26 U/L (14-36); BILIRUBIN,DIRECT 0.1 mg/dL (0.0-0.4); BILIRUBIN,TOTAL 0.4 mg/dL (0.2-1.3); BLOOD UREA NITROGEN 20 mg/dL (7-20); CALCIUM 9.8 mg/dL (8.4-10.2); CARBON DIOXIDE 23 mmol/L (22-30); CHLORIDE 103 mmol/L (98-107); GLUCOSE 301 mg/dL (75-110); POTASSIUM 4.4 mmol/L (3.6-5.0); TOTAL PROTEIN 7.8 g/dL (6.3-8.2)
[2020-02-10] MEDS ORDERED: ACETAMINOPHEN 325 MG TABLET PO ONE (08:36)
[2020-02-10 08:53] LABS: ABSOLUTE BASOPHILS # (AUTO) 0.1 10^3/uL (0.0-0.2); ABSOLUTE EOSINOPHILS # (AUTO) 0.5 10^3/uL (0.0-0.6); ABSOLUTE LYMPHOCYTES (AUTO) 3.5 10^3/uL (0.5-4.7); ABSOLUTE MONOCYTES (AUTO) 0.9 10^3/uL (0.1-1.4); ABSOLUTE NEUT (AUTO) 10.3 10^3/uL (1.7-8.2); BASOPHILS % (AUTO) 0.6 % (0-2); HEMATOCRIT 43.7 % (36.0-47.0); HEMOGLOBIN 15.1 g/dL (12.0-15.5); LYMPHOCYTES % (AUTO) 23.1 % (13-45); MEAN CORPUSCULAR HEMOGLOBIN 30.6 pg (27.0-33.4); MEAN CORPUSCULAR HGB CONC 34.6 g/dL (32.0-36.0); MEAN CORPUSCULAR VOLUME 89 fl (80-97); MONOCYTES % (AUTO) 5.7 % (3-13); PLATELET COUNT 225 10^3/uL (150-450); RED BLOOD COUNT 4.93 10^6/uL (3.72-5.28); RED CELL DISTRIBUTION WIDTH 14.2 % (11.5-14.0); SEGMENTED NEUTROPHILS % (AUTO) 67.6 % (42-78); TOTAL CELLS COUNTED % (AUTO) 100 %; WHITE BLOOD COUNT 15.2 10^3/uL (4.0-10.5)
--- NOTE | 2020-02-10 13:55 | ER Document Report ---
Entered by LIDIA ASENCIO SCRIBE 02/10/20 0831 Acting as scribe for:LISE REY MD ED GI/ - General Chief Complaint: Possible Kidney Stone Stated Complaint: KIDNEY PAIN Time Seen by Provider: 02/10/20 08:10 Mode of Arrival: Ambulatory Information source: Patient Notes: This 49 year old female patient with numerous past visits for flank pain presents to the emergency department today with complaints of left sided flank pain that began on 02/05. She reports that she initially thought she had a pulled muscle but "Since sunday I knew it wasn't a muscle". This patient has been seen in this emergency department 35 times over the past 3.5 years for flank pain w ith only one positive study on Jul 08 2018 where she had hydronephrosis. Interestingly, this patient has had >182 red blood cells in every urine performed at this facility other than 1 visit when she had 140 red blood cells. She denies fevers. TRAVEL OUTSIDE OF THE [place] IN LAST 30 DAYS: No - Related Data Allergies/Adverse Reactions: ibuprofen Allergy (Unknown, Verified 11/04/19 01:21) ketorolac [From Toradol] Allergy (Unknown, Verified 11/04/19 01:21) meperidine [From Demerol] Allergy (Unknown, Verified 11/04/19 01:21) adhesive Allergy (Verified 11/04/19 01:21) aspirin Allergy (Verified 11/04/19 01:21) codeine Allergy (Verified 11/04/19 01:21) egg Allergy (Verified 11/04/19 01:21) fentanyl Allergy (Verified 11/04/19:21) iodine Allergy (Verified 11/04/19:21) ketamine Allergy (Verified 02/10/20 07:01) Latex, Natural Rubber Allergy (Verified 11/04/19 01:21) morphine Allergy (Verified 11/04/19 01:21) shellfish derived Allergy (Verified 11/04/19:21) sumatriptan [From Imitrex] Allergy (Verified 11/04/19 01:21) tramadol [From Ultram] Allergy (Verified 11/04/19 01:21) ondansetron [From Zofran (as hydrochloride)] Adverse Reaction (Mild, Verified 11/04/19 01:21) VOMITING Past Medical History - General Information source: Patient - Social History Smoking Status: Current Every Day Smoker Cigarette use (# per day): Yes - 1 ppd Frequency of alcohol use: None Drug Abuse: None Occupation: unemployed Lives with: Family Family History: Reviewed & Not Pertinent, Malignancy - father, Other - grandfather history of kidney stones Patient has homicidal ideation: No - Past Medical History Cardiac Medical History: Reports: Hx Heart Attack Pulmonary Medical History: Reports: Hx Asthma Neurological Medical History: Reports: Hx Seizures - Epilepsy Renal/ Medical History: Reports: Hx Kidney Stones, Hx Ovarian Cysts GI Medical History: Reports: Hx Gastroesophageal Reflux Disease - with ulcers, Hx Ulcer Musculoskeletal Medical History: Reports Hx Arthritis, Reports Hx Musculoskeletal Trauma Psychiatric Medical History: Reports: Hx Anxiety, Hx Depression Traumatic Medical History: Reports: Hx Fractures - Hands wrist knees multiple others Past Surgical History: Reports: Hx Appendectomy, Hx Section - x2, Hx Gynecologic Surgery - Right Ovary, Hx Hysterectomy, Hx Orthopedic Surgery - Rt. Wrist, Hx Tonsillectomy, Other - Lithotripsy over 20 times - Immunizations Immunizations up to date: Yes Hx Diphtheria, Pertussis, Tetanus Vaccination: Yes Review of Systems - Review of Systems Constitutional: denies: Fever EENT: No symptoms reported Cardiovascular: No symptoms reported Respiratory: No symptoms reported Gastrointestinal: No symptoms reported Genitourinary: See HPI, Flank pain - left Female Genitourinary: No symptoms reported Musculoskeletal: No symptoms reported Skin: No symptoms reported Hematologic/Lymphatic: No symptoms reported Neurological/Psychological: No symptoms reported -: Yes All other systems reviewed and negative Physical Exam - Vital signs Vitals: Temp Pulse Resp BP Pulse Ox 98.4 F 106 H 18 113/69 97 02/10/20 06:51 02/10/20 06:51 02/10/20 06:51 02/10/20 06:51 02/10/20 06:51 - Notes Notes: Physical Exam: General: Alert, appears older than stated age. HEENT: Normocephalic. Atraumatic. PERRL. Extraocular movements intact. Oropharynx clear. Neck: Supple. Non-tender. Respiratory: No respiratory distress. Clear and equal breath sounds bilaterally. Cardiovascular: Regular rate and rhythm. Abdominal: Obese. Non-tender. No distension. Normal Bowel Sounds. Back: There is no right sided CVA tenderness to percussion or right sided lumbar musculature tenderness to palpation. Mild left sided lumbar paraspinal musculature tenderness to palpation. With very light percussion over the left CVA the patient jumps and screams in pain. Extremities: Moves all four extremities. Upper extremities: Normal inspection. Normal ROM. Lower extremities: Normal inspection. No edema. Normal ROM. Neurological: Normal cognition. AAOx4. Normal speech. Psychological: Normal affect. Normal Mood. Skin: Warm. Dry. Normal color. Course - Re-evaluation Re-evalutation: 02/10/20 13:55 The nurse informed me that when she went to give the patient the Tylenol for pain, the patient pulled her IV out and said she was leaving. I suspect that point she understood that this was not going to be an automatic provision of narcotics without confirmation that there was an obstructing ureteral stone. I had previously discussed all the negative ultrasounds and CTs over the last 3 years along with blood in the urine on 35 consecutive visits. She was told on her last visit here in December 2019 that she would not be receiving narcotics through the emergency room as she had gotten used to because it was inappropriate management of her pain issues. Reviewing old records I found many years ago she had been identified as a chronic pain medication seeking patient and the ER staff had been asked not to give her narcotics. - Vital Signs Vital signs: Temp Pulse Resp BP Pulse Ox 98.4 F 106 H 18 113/69 97 02/10/20 06:51 02/10/20 06:51 02/10/20 06:51 02/10/20 06:51 02/10/20 06:51 - Laboratory Result Diagrams: 02/10/20 08:35 02/10/20 07:42 Laboratory results interpreted by me: 02/10/20 02/10/20 02/10/20 03:21 07:42 08:35 WBC 15.2 H RDW 14.2 H Absolute Neuts (auto) 10.3 H Sodium 135.7 L Glucose 301 H Hemoglobin A1c % Alkaline Phosphatase 127 H Urine Protein 100 H Urine Glucose (UA) >=500 H Urine Blood LARGE H Ur Leukocyte Esterase TRACE H 02/10/20 08:35 WBC RDW Absolute Neuts (auto) Sodium Glucose Hemoglobin A1c % 10.5 H Alkaline Phosphatase Urine Protein Urine Glucose (UA) Urine Blood Ur Leukocyte Esterase Discharge - Discharge Clinical Impression: Left flank pain Condition: Stable Disposition: AGAINST MEDICAL ADVICE I personally performed the services described in the documentation, reviewed and edited the documentation which was dictated to the scribe in my presence, and it accurately records my words and actions.
== END 2020-02-10 08:45 | disposition left against medical advice (07) ==
LOC: ER 03:03
DX: R10.9 Unspecified abdominal pain (principal); F17.210 Nicotine dependence, cigarettes, uncomplicated; Z88.8 Allergy status to other drugs, medicaments and biological substances; J45.909 Unspecified asthma, uncomplicated
CPT/HCPCS: 99284; 36415; 83690; 84703; 85025; 80053; 81001; 83036; J3490